=== PATIENT | male | born 1940 | race Hispanic/Latino ===

== ENCOUNTER 2017-05-12 23:17 | Emergency (ER) | payer MEDICARE ==
[2017-05-12 23:18] VITALS: BMI 36.9
[2017-05-12 23:48] VITALS: BP 170/57; PULSE 56; RESP 18; TEMP 97.4; O2SAT 96
--- NOTE | 2017-05-13 00:04 | ED PDOC ---
Arrival/HPI - General Chief Complaint: Male Genitourinary Time Seen by Provider: 05/12/17 23:21 Historian: Patient - History of Present Illness Narrative History of Present Illness (Text): 05/12/17 23:56 Andrez Coelho is a 76 year old male, whose past medical history includes A- Fib on Xarelto, bladder cancer, dyslipidemia, hypothyroidism, CAD with stents, and hypertension, presents to the emergency department complaining of rash and bleeding from denuded skin in scrotal area. States he notes a rash in the scrotal region and applied Mupirocin ointment which was prescribed to him by his PMD previously for similar symptoms. Patient notes that he excoriated skin from the scrotal region while removing his shorts after applying cream. No active bleeding from the region. Denies fever, chills, headache, dizziness, chest pain, difficulty breathing, nausea, vomiting, diarrhea, urinary symptoms, or any other complaints at this time. Symptom Onset: Gradual Symptom Course: Worsening Severity Level: Mild Activities at Onset: Light Context: Home Past Medical History - Provider Review Nursing Documentation Reviewed: Yes - Infectious Disease Hx of Infectious Diseases: None - Tetanus Immunization Tetanus Immunization: Unknown - Cardiac Hx Cardiac Disorders: Yes Hx Hypertension: Yes - Pulmonary Hx Respiratory Disorders: Yes Hx Asthma: Yes Hx Emphysema: Yes Other/Comment: SMOKED CIGARETTES - Neurological Hx Neurological Disorder: Yes Hx Dizziness: Yes (VERTIGO) - HEENT Hx HEENT Disorder: No - Renal Hx Renal Disorder: Yes Other/Comment: LOW GRADE BLADDER CA - Endocrine/Metabolic Hx Endocrine Disorders: No - Hematological/Oncological Hx Blood Disorders: Yes Hx Cancer: Yes (BASAL CELL -FACE,LOW GRADE BLADDER CA) - Integumentary Hx Dermatological Disorder: Yes Hx Basal Cell Carcinoma: Yes (FACE) - Musculoskeletal/Rheumatological Hx Arthritis: Yes (KNEE WITH TOTAL KNEE REPLACEMENT 01-03-16) - Gastrointestinal Hx Gastrointestinal Disorders: No Other/Comment: COLON POLYPS, - Genitourinary/Gynecological Hx Genitourinary Disorders: Yes Hx Hematuria: Yes (MINIMAL HEMATURIA H/O) Other/Comment: UVULECTOMY - Psychiatric Hx Psychophysiologic Disorder: Yes Hx Depression: Yes Hx Emotional Abuse: No Hx Physical Abuse: No Hx Substance Use: No Other/Comment: SMOKED CIGARETTES,SEVERE CLAUSTROPHOBIA - Past Surgical History Past Surgical History: Non-Contributing - Surgical History Hx Coronary Stent: Yes () Hx Orthopedic Surgery: Yes (left knee replacement) Other/Comment: TOTAL KNEE REPLACEMENT LEFT KNEE 01-03-16 aortic valve replacement 03/25 - Anesthesia Hx Anesthesia Reactions: No Hx Malignant Hyperthermia: No - Suicidal Assessment Feels Threatened In Home Enviroment: No Family/Social History - Physician Review Nursing Documentation Reviewed: Yes Family/Social History: No Known Family HX Smoking Status: Former Smoker Hx Alcohol Use: No Hx Substance Use: No Allergies/Home Meds Allergies/Adverse Reactions: Allergies Tetanus Vaccines and Toxoid [Tetanus Vaccines & Toxoid] Allergy (Severe, Verified 05/12/17 23:49) ANAPHYLAXIS tetracycline Allergy (Severe, Verified 05/12/17 23:49) ANAPHYLAXIS cefepime Allergy (Verified 05/12/17 23:49) RASH Penicillins Allergy (Verified 05/12/17 23:50) SWELLING Home Medications: Home Meds Medication Instructions Recorded Confirmed Aspirin [Ecotrin] 81 mg PO DAILY 01/04/17 05/12/17 Atorvastatin [Lipitor] 40 mg PO HS 01/04/17 05/12/17 Doxepin [Sinequan] 50 mg PO HS 01/04/17 05/12/17 Finasteride [Proscar] 5 mg PO DAILY 01/04/17 05/12/17 Levothyroxine [Synthroid] 75 mcg PO DAILY 01/04/17 05/12/17 Lisinopril/Hydrochlorothiazide 40 mg PO DAILY 01/04/17 05/12/17 [Lisinopril-Hctz 20-12.5 mg Tab] Metoprolol Succinate XL [Toprol XL] 25 mg PO DAILY 01/04/17 05/12/17 Rivaroxaban [Xarelto] 20 mg PO HS 01/04/17 05/12/17 amLODIPine [Norvasc] 10 mg PO DAILY 01/04/17 05/12/17 Fluticasone/Vilanterol [Breo 1 inhaler INH DAILY 05/12/17 05/12/17 Ellipta 100-25 Mcg INH] Tiotropium [Spiriva] 1 inhaler INH BID 05/12/17 05/12/17 Review of Systems - Physician Review All systems were reviewed & negative as marked: Yes - Review of Systems Constitutional: Normal. absent: Fatigue, Fevers Respiratory: Normal. absent: SOB, Cough, Sputum Cardiovascular: Normal. absent: Chest Pain, Palpitations Gastrointestinal: Normal. absent: Abdominal Pain, Diarrhea, Nausea, Vomiting Genitourinary Male: Other (rash on the scrotum and mild bleeding from denuded skin ) Musculoskeletal: Normal Neurological: Normal. absent: Headache, Dizziness Psychiatric: Normal Physical Exam Vital Signs Reviewed: Yes Vital Signs Temp Pulse Resp BP Pulse Ox 05/12/17 23:43 97.4 F L 56 L 18 170/57 H 96 Temperature: Afebrile Blood Pressure: Hypertensive Pulse: Regular Respiratory Rate: Normal Appearance: Positive for: Well-Appearing, Non-Toxic, Comfortable Pain Distress: None Mental Status: Positive for: Alert and Oriented X 3 - Systems Exam Head: Present: Atraumatic, Normocephalic Pupils: Present: PERRL Extroacular Muscles: Present: EOMI Conjunctiva: Present: Normal Mouth: Present: Moist Mucous Membranes Respiratory/Chest: Present: Clear to Auscultation, Good Air Exchange. No: Respiratory Distress, Accessory Muscle Use Cardiovascular: Present: Regular Rate and Rhythm, Normal S1, S2. No: Murmurs Abdomen: Present: Normal Bowel Sounds. No: Tenderness, Distention, Peritoneal Signs Genitourinary Male: Present: Other (superficial excoriation of skin in scrotal area. No active bleeding ). No: Lesions, Penile Discharge, Testicle Tenderness , Penile Swelling, Masses, Erythema, Hernias, Testicle Swelling Upper Extremity: Present: Normal Inspection. No: Cyanosis, Edema Lower Extremity: Present: Normal Inspection. No: Edema Neurological: Present: GCS=15, CN II-XII Intact, Speech Normal, Motor Func Grossly Intact Skin: Present: Warm, Dry, Normal Color. No: Rashes Psychiatric: Present: Alert, Oriented x 3, Normal Insight, Normal Concentration Medical Decision Making ED Course and Treatment: 05/13/17 00:07 Impression: A 76 year old male who presents to the ed complaining of rash and bleeding from denuded skin in scrotal region. Plan: 05/13/17 00:43 Bactroban oinment/non adhering sterile dressing placed. Patient is stable for discharge. Advised to continue applying ointment and follow up with PMD within few days. I have discussed the results and plan with the patient, who expresses understanding. Patient given the opportunity to ask question, all questions were answered and there is agreement with the plan to be discharged home. - Scribe Statement The provider has reviewed the documentation as recorded by the Ericka Mallory Provider Attestation: All medical record entries made by the Aashishiblindsay were at my direction and personally dictated by me. I have reviewed the chart and agree that the record accurately reflects my personal performance of the history, physical exam, medical decision making, and the department course for this patient. I have also personally directed, reviewed, and agree with the discharge instructions and disposition. Disposition/Present on Arrival - Present on Arrival Any Indicators Present on Arrival: No History of DVT/PE: No History of Uncontrolled Diabetes: No Urinary Catheter: No History of Decub. Ulcer: No History Surgical Site Infection Following: None - Disposition Have Diagnosis and Disposition been Completed?: Yes Diagnosis: Skin tear Disposition: HOME/ ROUTINE Disposition Time: 00:31 Patient Plan: Discharge Condition: STABLE Additional Instructions: Apply bactroban ointment to the affected area twice daily/avoid any adhering clothing to the area/follow up with your doctor this week Referrals: Chao Mcconnell MD [Primary Care Provider] - Follow up with primary
== END 2017-05-13 00:40 | disposition home or self-care (01) ==
LOC: ED 23:17
DX: S31.31XA Laceration without foreign body of scrotum and testes, initial encounter (principal); X58.XXXA Exposure to other specified factors, initial encounter; Y93.89 Activity, other specified; Y92.89 Other specified places as the place of occurrence of the external cause

== ENCOUNTER 2018-07-05 07:57 | Inpatient (IN) | payer MEDICARE ==
--- NOTE | 2018-07-05 08:08 | ED PDOC ---
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 Patient states he took Mucinex for congestion and had a nebulizer treatment, which provided relief for a minimal amount of time. Patient denies any fever, chills, abdominal pain, back pain, neck pain, nausea, vomiting, or any other complaints. Time/Duration: Prior to Arrival Symptom Onset: Gradual Symptom Course: Unchanged Activities at Onset: Light Context: Home Past Medical History - Provider Review Nursing Documentation Reviewed: Yes - Infectious Disease Hx of Infectious Diseases: None - Tetanus Immunization Tetanus Immunization: Unknown - Cardiac Hx Cardiac Disorders: Yes Hx Hypertension: Yes - Pulmonary Hx Respiratory Disorders: Yes Hx Asthma: Yes Hx Emphysema: Yes Other/Comment: SMOKED CIGARETTES - Neurological Hx Neurological Disorder: Yes Hx Dizziness: Yes (VERTIGO) - HEENT Hx HEENT Disorder: No - Renal Hx Renal Disorder: Yes Other/Comment: LOW GRADE BLADDER CA - Endocrine/Metabolic Hx Endocrine Disorders: No - Hematological/Oncological Hx Blood Disorders: Yes Hx Cancer: Yes (BASAL CELL -FACE,LOW GRADE BLADDER CA) - Integumentary Hx Dermatological Disorder: Yes Hx Basal Cell Carcinoma: Yes (FACE) - Musculoskeletal/Rheumatological Hx Arthritis: Yes (KNEE WITH TOTAL KNEE REPLACEMENT 01-03-16) - Gastrointestinal Hx Gastrointestinal Disorders: No Other/Comment: COLON POLYPS, - Genitourinary/Gynecological Hx Genitourinary Disorders: Yes Hx Hematuria: Yes (MINIMAL HEMATURIA H/O) Other/Comment: UVULECTOMY - Psychiatric Hx Psychophysiologic Disorder: Yes Hx Depression: Yes Hx Substance Use: No Other/Comment: SMOKED CIGARETTES,SEVERE CLAUSTROPHOBIA - Past Surgical History Past Surgical History: Non-Contributing - Surgical History Hx Coronary Stent: Yes ( x2) Hx Orthopedic Surgery: Yes (left knee replacement) Other/Comment: TOTAL KNEE REPLACEMENT LEFT KNEE 01-03-16 aortic valve replacement 03/25. Watchmen - Anesthesia Hx Anesthesia Reactions: No Hx Malignant Hyperthermia: No - Suicidal Assessment Feels Threatened In Home Enviroment: No Family/Social History - Physician Review Nursing Documentation Reviewed: Yes Family/Social History: Unknown Family HX Smoking Status: Former Smoker Hx Alcohol Use: No Hx Substance Use: No Allergies/Home Meds Allergies/Adverse Reactions: Allergies Tetanus Vaccines and Toxoid [Tetanus Vaccines & Toxoid] Allergy (Severe, Verified 07/05/18 08:03) ANAPHYLAXIS tetracycline Allergy (Severe, Verified 07/05/18 08:03) ANAPHYLAXIS cefepime Allergy (Verified 07/05/18 08:03) RASH Penicillins Allergy (Verified 07/05/18 08:03) SWELLING Home Medications: Home Meds Medication Instructions Recorded Confirmed Aspirin [Ecotrin] 81 mg PO DAILY 01/04/17 07/05/18 Atorvastatin [Lipitor] 40 mg PO HS 01/04/17 07/05/18 Doxepin [Sinequan] 50 mg PO HS 01/04/17 07/05/18 Finasteride [Proscar] 5 mg PO DAILY 01/04/17 07/05/18 Levothyroxine [Synthroid] 75 mcg PO DAILY 01/04/17 07/05/18 Lisinopril/Hydrochlorothiazide 40 mg PO DAILY 01/04/17 07/05/18 [Lisinopril-Hctz 20-12.5 mg Tab] Fluticasone/Vilanterol [Breo 1 inhaler INH DAILY 05/12/17 07/05/18 Ellipta 100-25 Mcg INH] Tiotropium [Spiriva] 1 inhaler INH BID 05/12/17 07/05/18 Albuterol Sulfate [Proair 90 mcg IH PRN PRN 07/05/18 07/05/18 Respiclick] Metoprolol Succinate XL [Toprol XL] 50 mg PO DAILY 07/05/18 07/05/18 Review of Systems - Physician Review All systems were reviewed & negative as marked: Yes - Review of Systems Constitutional: Normal Eyes: Normal ENT: Sinus Congestion Respiratory: SOB, Cough Cardiovascular: Normal. absent: Chest Pain Gastrointestinal: Normal. absent: Abdominal Pain, Diarrhea, Nausea, Vomiting Genitourinary Male: Normal. absent: Dysuria, Frequency Musculoskeletal: Normal. absent: Back Pain, Neck Pain Skin: Normal. absent: Rash Neurological: Normal. absent: Headache, Dizziness Endocrine: Normal Hemo/Lymphatic: Normal Psychiatric: Normal Physical Exam Vital Signs Temp Pulse Resp BP Pulse Ox 07/05/18 09:27 54 L 18 142/58 L 98 07/05/18 09:03 163/66 H 07/05/18 08:19 98 F 07/05/18 08:18 53 L 18 163/66 H 98 07/05/18 08:00 22 97 - Systems Exam Head: Present: Atraumatic, Normocephalic Pupils: Present: PERRL Extroacular Muscles: Present: EOMI Conjunctiva: Present: Normal Mouth: Present: Moist Mucous Membranes Neck: Present: Normal Range of Motion Respiratory/Chest: Present: Rales (rales bilaterally). No: Respiratory Distress , Accessory Muscle Use Cardiovascular: Present: Regular Rate and Rhythm, Normal S1, S2. No: Murmurs Abdomen: No: Tenderness, Distention, Peritoneal Signs Back: Present: Normal Inspection Upper Extremity: Present: Normal Inspection. No: Cyanosis, Edema Lower Extremity: Present: Normal Inspection. No: Edema Neurological: Present: GCS=15, CN II-XII Intact, Speech Normal Skin: Present: Warm, Dry, Normal Color. 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 Plan: -- EKG -- Labs -- Cardiac ISO -- CXR -- UA -- reassess and disposition Procedure Notes: EKG reviewed, shows Sinus rhythm at 62 bpm. Right bundle branch block. No changes from previous EKG. 07/05/18 10:48 bl rales a tbases elevated bnp. cxr shows plum vasc congestion lasix doesed. no wbc no fever. pna less likely. accepted by dr jewell - Lab Interpretations Lab Results: 07/05/18 08:10 07/05/18 08:10 Lab Results 07/05/18 08:15: Urine Color Yellow, Urine Appearance Clear, Urine pH 6.0, Ur Specific Mcgrann 1.015, Urine Protein Negative, Urine Glucose (UA) Negative, Urine Ketones Negative, Urine Blood Negative, Urine Nitrate Negative, Urine Bilirubin Negative, Urine Urobilinogen 0.2, Ur Leukocyte Esterase Negative 07/05/18 08:10: Sodium 143, Potassium 4.0, Chloride 104, Carbon Dioxide 26, Anion Gap 17, BUN 25 H, Creatinine 1.3, Est GFR ( Amer) > 60, Est GFR ( Non-Af Amer) 53, Random Glucose 120 H, Calcium 9.5, Magnesium 2.2, Total Bilirubin 0.6, AST 77 H D, ALT 62 H, Alkaline Phosphatase 69, Lactate Dehydrogenase 655, Total Creatine Kinase 77, Troponin I 0.02 D, NT-Pro-B Natriuret Pep 2200 H, Total Protein 7.6, Albumin 4.4, Globulin 3.2, Albumin/ Globulin Ratio 1.4 07/05/18 08:10: PT 12.0, INR 1.04, APTT 28.9 07/05/18 08:10: WBC 9.1, RBC 4.36, Hgb 12.8 L, Hct 40.5 L, MCV 92.9, MCH 29.4, MCHC 31.6, RDW 14.9 H, Plt Count 196, MPV 9.7, Gran % 63.0, Lymph % (Auto) 23.4 , [place] % (Auto) 12.2 H, Eos % (Auto) 1.2 L, Baso % (Auto) 0.2, Gran # 5.71, Lymph # (Auto) 2.1, [place] # (Auto) 1.1 H, Eos # (Auto) 0.1, Baso # (Auto) 0.02 - RAD Interpretation Radiology Orders: 07/05/18 08:04 CHEST PORTABLE [RAD] Stat - Medication Orders Current Medication Orders: Discontinued Medications Furosemide (Lasix) 40 mg IVP STAT STA Stop: 07/05/18 08:43 Last Admin: 07/05/18 09:03 Dose: 40 mg MAR Blood Pressure Document 07/05/18 09:03 [facility] [place] (Rec: 07/05/18 09:03 [id number] Blood Pressure Blood Pressure (100/60-150/90) 163/66 IVP Administration Document 07/05/18 09:03 [facility] [place] (Rec: 07/05/18 09:03 [id number] Charges for Administration # of IVP Administrations 1 - Scribe Statement The provider has reviewed the documentation as recorded by the Scribe Ramila Taylor All medical record entries made by the Scribe were at my direction and personally dictated by me. I have reviewed the chart and agree that the record accurately reflects my personal performance of the history, physical exam, medical decision making, and the department course for this patient. I have also personally directed, reviewed, and agree with the discharge instructions and disposition. Disposition/Present on Arrival - Present on Arrival Any Indicators Present on Arrival: No History of DVT/PE: No History of Uncontrolled Diabetes: No Urinary Catheter: No History of Decub. Ulcer: No History Surgical Site Infection Following: None - Disposition Have Diagnosis and Disposition been Completed?: Yes Diagnosis: CHF (congestive heart failure) Disposition: HOSPITALIZED Disposition Time: 10:00 Patient Problems: Current Active Problems Problem Status Onset CHF (congestive heart failure) Acute Condition: FAIR
[2018-07-05 08:24] LABS: BASO # 0.02 K/mm3 (0.0-2.0); BASO % 0.2 % (0.0-3.0); EOS # 0.1 (0.0-0.7); EOS % 1.2 % (1.5-5.0); GRAN # 5.71 (1.4-6.5); HEMOGLOBIN 12.8 g/dL (14.0-18.0); LYMPH # 2.1 (1.2-3.4); LYMPH % 23.4 % (22.0-35.0); MEAN CELL VOLUME 92.9 fl (80.0-105.0); MEAN CORPUSCULAR HEMOGLOBIN 29.4 pg (25.0-35.0); MEAN CORPUSCULAR HGB CONC 31.6 g/dl (31.0-37.0); MEAN PLATELET VOLUME 9.7 fl (7.0-11.0); MONO # 1.1 (0.1-0.6); MONO % 12.2 % (1.0-6.0); RBC 4.36 10^6/uL (3.5-6.1); RED CELL DISTRIBUTION WIDTH 14.9 % (11.5-14.5); WHITE BLOOD COUNT 9.1 10^3/ul (4.5-11.0)
[2018-07-05 08:28] LABS: INR 1.04; PARTIAL THROMBOPLASTIN TIME 28.9 Seconds (25.1-36.5)
[2018-07-05 08:30] LABS: ALB/GLOB RATIO 1.4 (1.1-1.8); ALBUMIN 4.4 g/dL (3.0-4.8); ALT/SGPT 62 U/L (7-56); AST/SGOT 77 U/L (17-59); BLOOD UREA NITROGEN 25 mg/dL (7-21); CALCIUM 9.5 mg/dL (8.4-10.5); GFR NON-AFRICAN AMERICAN 53
[2018-07-05 08:41] LABS: B-TYPE NATRIURETIC PEPTIDE 2200 pg/mL (0-450); TROPONIN I 0.02 ng/mL
[2018-07-05 09:47] LABS: URINE BILIRUBIN NEGATIVE (NEGATIVE); URINE BLOOD NEGATIVE (NEGATIVE); URINE GLUCOSE (UA) NEGATIVE (NEGATIVE); URINE LEUKOCYTE ESTERASE NEGATIVE Leu/uL (NEGATIVE); URINE PROTEIN NEGATIVE mg/dL (<30 mg/dL); URINE UROBILINOGEN 0.2 E.U./dL (<1 E.U./dL)
[2018-07-05 09:48] LABS: URINE APPEARANCE CLEAR (CLEAR); URINE COLOR YELLOW (YELLOW)
--- NOTE | 2018-07-05 10:34 | RAD ---
Date of service: 07/05/2018 HISTORY: Shortness of breath COMPARISON: 02/05/2018. FINDINGS: LUNGS: The lungs are well inflated. There is moderate pulmonary venous congestion. There is subsegmental atelectasis in the right lower lobe. PLEURA: No significant pleural effusion identified, no pneumothorax apparent. CARDIOVASCULAR: Mild cardiomegaly. OSSEOUS STRUCTURES: No significant abnormalities. VISUALIZED UPPER ABDOMEN: Normal. OTHER FINDINGS: None. IMPRESSION: Mild cardiomegaly and moderate pulmonary venous congestion. Subsegmental atelectasis in the right lower lobe. Superimposed pneumonia cannot be ruled out. Follow-up is advised.
[2018-07-05 11:05] VITALS: BMI 38.2
--- NOTE | 2018-07-05 11:37 | CP.PCM.CON ---
History of Present Illness - History of Present Illness History of Present Illness: Awake, no distress Reason for consultation:Cardiac evaluation of shortness of breath Brief history of present illness:an 78 year old male who came in to the ER due to shortness of breath. He took nebulizer treatment and mucinex with some relief. History of coronary artery disease post stents x 2 ( ) Aortic valve replacement 03/2016, hypertension, Asthma,emphysema,former smoker,vertigo, bladder cancer,left knee replacement 12/2015. Seen and examined by me and Dr. Acosta Review of Systems - Review of Systems All systems: reviewed and no additional remarkable complaints except Review of Systems: per HPI Past Patient History - Infectious Disease Hx of Infectious Diseases: None - Tetanus Immunizations Tetanus Immunization: Unknown - Past Medical History & Family History Past Medical History?: Yes - Past Social History Smoking Status: Former Smoker - CARDIAC Hx Cardiac Disorders: Yes Hx Hypertension: Yes - PULMONARY Hx Respiratory Disorders: Yes Hx Asthma: Yes Hx Emphysema: Yes Other/Comment: SMOKED CIGARETTES - NEUROLOGICAL Hx Neurological Disorder: Yes Hx Dizziness: Yes (VERTIGO) - HEENT Hx HEENT Problems: No - RENAL Hx Chronic Kidney Disease: Yes Other/Comment: LOW GRADE BLADDER CA - ENDOCRINE/METABOLIC Hx Endocrine Disorders: No - HEMATOLOGICAL/ONCOLOGICAL Hx Blood Disorders: Yes Hx Cancer: Yes (BASAL CELL -FACE,LOW GRADE BLADDER CA) - INTEGUMENTARY Hx Dermatological Problems: Yes Hx Basil Cell: Yes (FACE) - MUSCULOSKELETAL/RHEUMATOLOGICAL Hx Arthritis: Yes (KNEE WITH TOTAL KNEE REPLACEMENT 01-03-16) - GASTROINTESTINAL Hx Gastrointestinal Disorders: No Other/Comment: COLON POLYPS, - GENITOURINARY/GYNECOLOGICAL Hx Genitourinary Disorders: Yes Hx Hematuria: Yes (MINIMAL HEMATURIA H/O) Other/Comment: UVULECTOMY - PSYCHIATRIC Hx Psychophysiologic Disorder: Yes Hx Depression: Yes Hx Substance Use: No Other/Comment: SMOKED CIGARETTES,SEVERE CLAUSTROPHOBIA - SURGICAL HISTORY Hx Coronary Stent: Yes ( x2) Hx Orthopedic Surgery: Yes (left knee replacement) Other/Comment: TOTAL KNEE REPLACEMENT LEFT KNEE 01-03-16 aortic valve replacement 03/25. Watchmen - ANESTHESIA Hx Anesthesia Reactions: No Hx Malignant Hyperthermia: No Meds Allergies/Adverse Reactions: Allergies Allergy/AdvReac Type Severity Reaction Status Date / Time Tetanus Vaccines and Toxoid Allergy Severe ANAPHYLAXIS Verified 07/05/18 08:03 [Tetanus Vaccines & Toxoid] tetracycline Allergy Severe ANAPHYLAXIS Verified 07/05/18 08:03 cefepime Allergy RASH Verified 07/05/18 08:03 Penicillins Allergy SWELLING Verified 07/05/18 08:03 Physical Exam - Constitutional Appears: No Acute Distress - Eye Exam Eye Exam: Normal appearance - ENT Exam ENT Exam: Mucous Membranes Moist - Respiratory Exam Respiratory Exam: Decreased Breath Sounds, Rhonchi, NORMAL BREATHING PATTERN - Cardiovascular Exam Cardiovascular Exam: +S1, +S2 - GI/Abdominal Exam GI & Abdominal Exam: Normal Bowel Sounds, Soft - Extremities Exam Additional comments: 2+edema - Neurological Exam Neurological exam: Alert, Oriented x3 - Psychiatric Exam Psychiatric exam: Normal Affect - Skin Skin Exam: Intact, Warm Results - Vital Signs Recent Vital Signs: Last Vital Signs Temp 98.4 F 07/05/18 10:31 Pulse 52 L 07/05/18 10:31 Resp 22 07/05/18 10:31 BP 145/65 07/05/18 10:31 Pulse Ox 98 07/05/18 10:10 - Labs Result Diagrams: 07/05/18 08:10 07/05/18 08:10 Assessment & Plan - Assessment and Plan (Free Text) Assessment: An 78 year old male who came in to the ER due to shortness of breath. He took nebulizer treatment and mucinex with some relief. History of coronary artery disease post stents x 2 ( ) Aortic valve replacement 03/2016 and Watchman placed due to unable to tolerate anti coagulation for Afib. hypertension, Asthma,emphysema,former smoker,vertigo,bladder cancer,left knee replacement 12/2015.Exacerbation of congestive heart failure, possible pneumonia. 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 [place] [facility] [place] and had AVR 03/2016. Plan: Echo to evaluate LV function and valve function Continue to diurese with Lasix Continue current medications Continue current treatment Further recommendation during hospital course Will follow up PLan and treatment discussed with Dr. Acosta Thank you Dr. Fuentes for the opportunity in taking care of Mr. Andrez Coelho - Date & Time Date: 07/05/18 Time: 11:50
[2018-07-05] MEDS ORDERED: Tiotropium 18 mcg Cap For Inhalation INH SCH (11:45)
[2018-07-05] MEDS ORDERED: Metoprolol Succinate 50 mg XL Tab PO SCH (11:45)
[2018-07-05] MEDS: Levothyroxine 75 MCG TAB PO SCH (11:51)
[2018-07-05] MEDS ORDERED: Metoprolol Succinate 25 mg XL Tab PO SCH (11:56)
--- NOTE | 2018-07-05 12:29 | CARD ---
APPROVED REPORT Date of service: 07/05/2018 EKG Measurement Heart [id number] <Conclusion> Poor data quality, interpretation may be adversely affected Sinus rhythm with 1st degree AV block Left axis deviation Left bundle branch block Abnormal ECG
[2018-07-05] MEDS ORDERED: Albuterol-Ipratrop 3 mg / 0.5 (3 ml) UD IH PRN (13:22)
[2018-07-05] MEDS: Albuterol-Ipratrop 3 mg / 0.5 (3 ml) UD IH SCH (19:36)
[2018-07-05] MEDS ORDERED: DOXEPIN 50 MG PO SCH (22:00)
--- NOTE | 2018-07-06 00:28 | HP ---
Copied To: Asael Fuentes MD Attending MD: Asael Fuentes MD HISTORY OF PRESENT ILLNESS: The patient is 78 years old, patient of Dr. Dahl, came to emergency room because of increasing shortness of breath. According to , he went for [employer] last week and he had [place], he did eat some barbecue foods, since then he has been having increasingly short of breath. He took nebulizer treatment at home with very little relief, but his shortness of breath kept on increasing, so he came to emergency room for further evaluation. Denies any fever or chills. No history of nausea or vomiting. No abdominal pain. Currently, no chest pain. No fever or chills. No productive cough. PAST MEDICAL HISTORY: Significant for: 1. Hypertension. 2. Coronary artery disease status post angioplasty in 2013 and 2014. He has aortic valve replaced in 03/2016. 3. History of COPD. 4. History of chronic vertigo. 5. History of bladder CA. 6. Status post left knee replacement in 12/2015 and he also had Watchman procedure done in [facility], since he was having GI bleed and was taken off of anticoagulant and had Watchman device placed by thoracic surgeon. ALLERGIES: HE IS ALLERGIC TO TETANUS TOXOID, TETRACYCLINE, CEFEPIME, AND PENICILLIN. MEDICATIONS AT HOME: He is on metoprolol 50 mg daily, albuterol 90 mcg daily, Spiriva, lisinopril, levothyroxine, Proscar, atorvastatin, doxepin 50 mg at bedtime and aspirin 81 daily. SOCIAL HISTORY: He used to be heavy smoker in the past. Denies alcohol use. Only socially drinks, few sips here and there. REVIEW OF SYSTEMS: Complain of shortness of breath. No chest pain. No nausea or vomiting. Eating his lunch. PHYSICAL EXAMINATION GENERAL: He looks comfortable, but mild shortness of breath on talking. VITAL SIGNS: He is afebrile, pulse 52, respirations 22, blood pressure 145/65. LUNGS: Bilateral good airflow. No rhonchi or crackles. HEART: S1 and S2 audible. ABDOMEN: Soft, nontender. No rebound. No guarding. NEUROLOGIC: The patient is awake, alert, oriented, and communicative. LABORATORY EXAM: WBC is 9.1, hemoglobin 12.8, hematocrit 40.5, and platelets of 196. PT 12, INR 1.04. Chemistry: Sodium 143, potassium 4, chloride 104, CO2 of 26, BUN 25, creatinine 1.3. Blood sugar of 120. LFTs shows AST 77, ALT 62. BNP is 2200. Troponin is negative. Urinalysis is unremarkable. X-ray chest shows pulmonary congestion, right lower lobe subsegmental atelectasis. ASSESSMENT: 1. Congestive heart failure exacerbation. 2. Coronary artery disease status post angioplasties. 3. Hypertension. 4. Hyperlipidemia. 5. Left bundle-branch block. 6. Sinus rhythm with first-degree atrioventricular block. 7. Abnormal liver function test probably secondary to congestion. PLAN: We will diurese the patient. We will resume his beta phil, give him Lasix every 12, follow up his electrolyte, continue him on his Proscar, start him on Xopenex, start him on DuoNeb. Dr. Dahl will follow up the patient. Asael Fuentes MD
[2018-07-06] MEDS: Albuterol-Ipratrop 3 mg / 0.5 (3 ml) UD IH SCH ×3 (02:41→19:50)
[2018-07-06 06:33] LABS: BASO # 0.03 K/mm3 (0.0-2.0); BASO % 0.3 % (0.0-3.0); EOS # 0.2 (0.0-0.7); EOS % 1.6 % (1.5-5.0); GRAN # 5.76 (1.4-6.5); GRAN % 62.2 % (50.0-68.0); HEMOGLOBIN 12.3 g/dL (14.0-18.0); LYMPH # 2.1 (1.2-3.4); LYMPH % 22.6 % (22.0-35.0); MEAN CELL VOLUME 91.6 fl (80.0-105.0); MEAN CORPUSCULAR HEMOGLOBIN 29.4 pg (25.0-35.0); MEAN CORPUSCULAR HGB CONC 32.1 g/dl (31.0-37.0); MONO # 1.2 (0.1-0.6); MONO % 13.3 % (1.0-6.0); RBC 4.18 10^6/uL (3.5-6.1); WHITE BLOOD COUNT 9.3 10^3/ul (4.5-11.0)
[2018-07-06 06:48] LABS: ALB/GLOB RATIO 1.4 (1.1-1.8); ALT/SGPT 56 U/L (7-56); AST/SGOT 39 U/L (17-59); BLOOD UREA NITROGEN 27 mg/dL (7-21); CALCIUM 9.6 mg/dL (8.4-10.5); GFR NON-AFRICAN AMERICAN 53
--- NOTE | 2018-07-06 07:04 | CP.PCM.PN ---
Subjective - Date & Time of Evaluation Date of Evaluation: 07/06/18 Time of Evaluation: 06:20 - Subjective Subjective: Easily awaken, no distress, denies shortness of breath Reason for consultation and follow up: Cardiac evaluation of shortness of breath , History of coronary artery disease post stents x 2 ( ) Aortic valve replacement 03/2016, hypertension, Asthma,emphysema,former smoker,vertigo, bladder cancer,left knee replacement 12/2015. Seen and examined by me and Dr. Harrington Objective - Vital Signs/Intake and Output Vital Signs (last 24 hours): Temp Pulse Resp BP Pulse Ox 97.6 F 54 L 18 148/74 97 07/06/18 00:01 07/06/18 00:01 07/06/18 00:01 07/06/18 00:01 07/06/18 00:01 Intake and Output: 07/06/18 07/06/18 06:59 18:59 Intake Total 360 Output Total 61065 Balance -38832 - Medications Medications: Current Medications Albuterol/Ipratropium (Duoneb 3 Mg/0.5 Mg (3 Ml) Ud) 3 ml IH Q2H PRN PRN Reason: Shortness of Breath Albuterol/Ipratropium (Duoneb 3 Mg/0.5 Mg (3 Ml) Ud) 3 ml IH [id number] [facility] Last Admin: 07/06/18 02:41 Dose: 3 ml Aspirin (Ecotrin) 81 mg PO DAILY [facility] Last Admin: 07/05/18 11:51 Dose: Not Given Atorvastatin Calcium (Lipitor) 40 mg PO HS [facility] Last Admin: 07/05/18 21:10 Dose: 40 mg Finasteride (Proscar) 5 mg PO DAILY [facility] Last Admin: 07/05/18 11:52 Dose: Not Given Furosemide (Lasix) 40 mg IVP Q12 [facility] Last Admin: 07/05/18 21:10 Dose: 40 mg Levothyroxine Sodium (Synthroid) 75 mcg PO DAILY [facility] Last Admin: 07/05/18 11:51 Dose: Not Given Lisinopril (Zestril) 40 mg PO DAILY [facility] Lorazepam (Ativan) 1 mg PO HS [facility] PRN Reason: Protocol Last Admin: 07/05/18 21:09 Dose: 1 mg Metoprolol Succinate (Toprol Xl) 25 mg PO DAILY [facility] Tiotropium [place] (Spiriva) 18 mcg IH DAILY [facility] - Labs Labs: 07/06/18 05:30 PT 12.0 SECONDS (9.4-12.5) 07/05/18 08:10 INR 1.04 07/05/18 08:10 APTT 28.9 Seconds (25.1-36.5) 07/05/18 08:10 - Constitutional Appears: No Acute Distress - Eye Exam Eye Exam: Normal appearance - ENT Exam ENT Exam: Mucous Membranes Moist - Respiratory Exam Respiratory Exam: Decreased Breath Sounds, NORMAL BREATHING PATTERN - Cardiovascular Exam Cardiovascular Exam: Bradycardia, +S1, +S2 Additional comments: Telemetry bradycardia- 40's-50's. - GI/Abdominal Exam GI & Abdominal Exam: Soft, Normal Bowel Sounds - Extremities Exam Additional comments: 2+edema - Neurological Exam Neurological Exam: Alert, Awake, Oriented x3 - Psychiatric Exam Psychiatric exam: Normal Affect - Skin Skin Exam: Intact, Warm Assessment and Plan - Assessment and Plan (Free Text) Assessment: An 78 year old male who came in to the ER due to shortness of breath. He took nebulizer treatment and mucinex with some relief. History of coronary artery disease post stents x 2 ( ) Aortic valve replacement 03/2016 and Watchman placed due to unable to tolerate anti coagulation for Afib. hypertension, Asthma,emphysema,former smoker,vertigo,bladder cancer,left knee replacement 12/2015.Exacerbation of congestive heart failure, possible pneumonia. Chest Xray showed mild cardiomegaly,moderate pulmonary venous congestion,subsegmental atelectasis in the right lower lobe.BNP level elevated.Follows up with Journal Box Inspector at [facility]. Last Echo at [facility] 07/28/14 and had AVR 03/2016. Plan: Feels okay Echo to evaluate LV function and valve function Continue Lasix to diurese On ASA 81 mg daily,Lipitor 40 mg daily,Proscar 5 mg daily, Lasix 40 mg BID Lisinopril 40 mg daily, Metoprolol 25 mg daily, Synthroid 75 mcg daily Heart rate- Atrial fib at 40's and 50's Will hold Metroprolol for now Blood pressure controlled Continue current medications Continue current treatment Will follow up Plan and treatment discussed with Dr. Harrington
--- NOTE | 2018-07-06 09:55 | CP.PCM.PN ---
<Bladimir Shultz - Last Filed: 07/06/18 10:07> Subjective - Date & Time of Evaluation Date of Evaluation: 07/06/18 Time of Evaluation: 09:47 - Subjective Subjective: Progress note for Dr. Dahl Patient seen and examined at bedside. Patient states his shortness of breath is improved. Denies chest pain, nausea, vomiting, diarrhea, fever, chills. Objective - Vital Signs/Intake and Output Vital Signs (last 24 hours): Temp Pulse Resp BP Pulse Ox 97.7 F 49 L 18 136/59 L 96 07/06/18 08:34 07/06/18 08:34 07/06/18 08:34 07/06/18 08:34 07/06/18 08:34 Intake and Output: 07/06/18 07/06/18 06:59 18:59 Intake Total 720 Output Total 95393 - - Medications Medications: Current Medications Albuterol/Ipratropium (Duoneb 3 Mg/0.5 Mg (3 Ml) Ud) 3 ml IH Q2H PRN PRN Reason: Shortness of Breath Albuterol/Ipratropium (Duoneb 3 Mg/0.5 Mg (3 Ml) Ud) 3 ml IH BIDRESP [facility] Aspirin (Ecotrin) 81 mg PO DAILY [facility] Last Admin: 07/05/18 11:51 Dose: Not Given Atorvastatin Calcium (Lipitor) 40 mg PO HS [facility] Last Admin: 07/05/18 21:10 Dose: 40 mg Finasteride (Proscar) 5 mg PO DAILY [facility] Last Admin: 07/05/18 11:52 Dose: Not Given Furosemide (Lasix) 40 mg IVP Q12 [facility] Last Admin: 07/05/18 21:10 Dose: 40 mg Levothyroxine Sodium (Synthroid) 75 mcg PO DAILY [facility] Last Admin: 07/05/18 11:51 Dose: Not Given Lisinopril (Zestril) 40 mg PO DAILY [facility] Lorazepam (Ativan) 1 mg PO HS [facility] PRN Reason: Protocol Last Admin: 07/05/18 21:09 Dose: 1 mg Tiotropium [place] (Spiriva) 18 mcg IH DAILY [facility] - Labs Labs: 07/06/18 05:30 07/06/18 05:30 PT 12.0 SECONDS (9.4-12.5) 07/05/18 08:10 INR 1.04 07/05/18 08:10 APTT 28.9 Seconds (25.1-36.5) 07/05/18 08:10 - Constitutional Appears: Non-toxic, No Acute Distress - Head Exam Head Exam: ATRAUMATIC, NORMAL INSPECTION, NORMOCEPHALIC - ENT Exam ENT Exam: Mucous Membranes Moist, Normal Exam - Respiratory Exam Respiratory Exam: Clear to Ausculation Bilateral, NORMAL BREATHING PATTERN. absent: Rales, Rhonchi, Wheezes - Cardiovascular Exam Cardiovascular Exam: RRR, +S1, +S2 - GI/Abdominal Exam GI & Abdominal Exam: Soft, Normal Bowel Sounds. absent: Tenderness - Extremities Exam Extremities Exam: Pedal Edema (Trace edema b/l) - Neurological Exam Neurological Exam: Alert, Awake, Oriented x3 - Psychiatric Exam Psychiatric exam: Normal Affect, Normal Mood - Skin Skin Exam: Intact, Normal Color, Warm Assessment and Plan - Assessment and Plan (Free Text) Plan: 1. Diastolic CHF exacerbation 2. CAD s/p angioplasty 3. COPD 4. HTN 5. Hyperlipidemia 6. Hypothyroidism Patient will continue to be diuresed with Lasix 40 mg BID. Patient currently being evaluated by cardiology, will obtain echocardiogram. Duoneb treatments will be changed to BID. Continue current medical management. Will continue monitor patient closely. Carrington PGY-3 <Sixto Dahl S - Last Filed: 07/06/18 20:04> Objective - Vital Signs/Intake and Output Vital Signs (last 24 hours): Temp Pulse Resp BP Pulse Ox 98 F 58 L 18 125/58 L 96 07/06/18 12:09 07/06/18 12:09 07/06/18 12:09 07/06/18 12:09 07/06/18 08:34 Intake and Output: 07/06/18 07/07/18 18:59 06:59 Intake Total 480 Output Total 600 Balance -120 - Medications Medications: Current Medications Albuterol/Ipratropium (Duoneb 3 Mg/0.5 Mg (3 Ml) Ud) 3 ml IH Q2H PRN PRN Reason: Shortness of Breath Albuterol/Ipratropium (Duoneb 3 Mg/0.5 Mg (3 Ml) Ud) 3 ml IH BIDRESP [facility] Last Admin: 07/06/18 19:50 Dose: 3 ml Aspirin (Ecotrin) 81 mg PO DAILY [facility] Last Admin: 07/06/18 10:59 Dose: 81 mg Atorvastatin Calcium (Lipitor) 40 mg PO HS [facility] Last Admin: 07/05/18 21:10 Dose: 40 mg Finasteride (Proscar) 5 mg PO DAILY [facility] Last Admin: 07/06/18 10:59 Dose: 5 mg Furosemide (Lasix) 40 mg IVP Q12 [facility] Last Admin: 07/06/18 10:59 Dose: 40 mg Levothyroxine Sodium (Synthroid) 75 mcg PO DAILY [facility] Last Admin: 07/06/18 10:59 Dose: 75 mcg Lisinopril (Zestril) 40 mg PO DAILY [facility] Last Admin: 07/06/18 11:00 Dose: 40 mg Lorazepam (Ativan) 1 mg PO HS [facility] PRN Reason: Protocol Last Admin: 07/05/18 21:09 Dose: 1 mg Tiotropium [place] (Spiriva) 18 mcg IH DAILY [facility] Last Admin: 07/06/18 10:59 Dose: 18 mcg - Labs Labs: 07/06/18 05:30 07/06/18 05:30 PT 12.0 SECONDS (9.4-12.5) 07/05/18 08:10 INR 1.04 07/05/18 08:10 APTT 28.9 Seconds (25.1-36.5) 07/05/18 08:10 Assessment and Plan - Assessment and Plan (Free Text) Plan: Pt seen and examined. I have reviewed the note of the phlebotomist medical lab assistant and agree with it. I have discussed the assessment and plan with the resident. I have reviewed the patient's labs and medications. Pt with CHF - diastolic dysfunction. Pt with LE edema. On lasix for diureisis. Pt with good urine output. Will continue with lasix IV. He is being followed by cardiology.
[2018-07-06] MEDS: Tiotropium 18 mcg Cap For Inhalation IH SCH (10:59)
[2018-07-06] MEDS: Levothyroxine 75 MCG TAB PO SCH (10:59)
[2018-07-06 12:10] VITALS: PULSE 58
--- NOTE | 2018-07-06 15:14 | CARD ---
APPROVED REPORT Date of service: 07/06/2018 EXAM: Two-dimensional and M-mode echocardiogram with Doppler and color Doppler. INDICATION EVALUATE LVFX, VALVES 2D DIMENSIONS Left Atrium (2D)4.6 (1.6-4.0cm)IVSd1.7 (0.7-1.1cm) LVDd5.7 (3.9-5.9cm)PWd1.5 (0.7-1.1cm) LVDs4.2 (2.5-4.0cm)FS (%) 25.9 % LVEF (%)50.1 (>50%) M-Mode DIMENSIONS Aortic Root3.50 (2.2-3.7cm) Aortic Valve AoV Peak Yiatbhzj632.0cm/sAoV VTI55.1cmAO Peak GR.28mmHg LVOT Peak Iwbxhmjd911.0cm/sLVOT VTI24.50cmAO Mean GR.13mmHg Mitral Valve MV E Dvmbqvlj06.2cm/sMV A Slljbupi73.8cm/sE/A ratio0.7 TDI Lateral E' Peak V6.63cm/sMedial E' Peak V4.19cm/sE/Lateral E'9.7 E/Medial E'15.3 Pulmonary Valve PV Peak Gzmmtzat25.2cm/sPV Peak Grad.4mmHg Tricuspid Valve TR Peak Stffnnyk369qy/sRAP LHRNAWMM01siVjKQ Peak Gr.15mmHg [id number] LEFT VENTRICLE The Left Ventricle is borderline dilated. There is mild to moderate concentric left ventricular hypertrophy. Proximal septal thickening is noted. The systolic function is mildly impaired.EF-45-50% There is mild hypokinesis in the apical anterior wall. Transmitral Doppler flow pattern is Grade III-reversible restrictive diastolic dysfunction. No left ventricle thrombus noted on this study. There is no ventricular septal defect visualized. There is no left ventricular aneurysm. There is no mass noted in the left ventricle. RIGHT VENTRICLE The right ventricle is normal size. There is normal right ventricular wall thickness. The right ventricular systolic function is normal. ATRIA The left atrium is borderline dilated. The right atrium size is normal. The interatrial septum is intact with no evidence for an atrial septal defect. AORTIC VALVE No aortic regurgitation is present. There are no vegetations present on this prosthetic aortic valve. There is a bioprosthetic aortic valve prosthesis. The prosthetic aortic valve appears normal. MITRAL VALVE The mitral valve is thickened but opens well. Mitral annular calcification is mild to moderate. Mitral regurgitation is mild. There is no mitral valve stenosis. There is no evidence of mitral valve prolapse. TRICUSPID VALVE The tricuspid valve leaflets are thickened , but open well. There is trace tricuspid regurgitation.RVSp-25 mmof hg. There is no tricuspid valve stenosis. There is no tricuspid valve prolapse or vegetation. PULMONIC VALVE The pulmonic valve is mildly thickened. There is trace pulmonic valvular regurgitation. There is no pulmonic valvular stenosis. GREAT VESSELS The aortic root is normal in size. The ascending aorta is normal in size. The pulmonary artery is normal. The IVC is normal in size and collapses >50% with inspiration. PERICARDIAL EFFUSION There is no pleural effusion. There is no pericardial effusion. <Conclusion> The Left Ventricle is borderline dilated. There is mild to moderate concentric left ventricular hypertrophy. Proximal septal thickening is noted. The systolic function is mildly impaired.EF-45-50% There are no vegetations present on this prosthetic aortic valve. There is a bioprosthetic aortic valve prosthesis. The prosthetic aortic valve appears normal. Mitral regurgitation is mild. There is trace tricuspid regurgitation.RVSp-25 mmof hg. There is no pulmonic valvular stenosis. The IVC is normal in size and collapses >50% with inspiration. There is no pericardial effusion.
[2018-07-07 06:45] LABS: BASO # 0.02 K/mm3 (0.0-2.0); BASO % 0.2 % (0.0-3.0); EOS # 0.2 (0.0-0.7); EOS % 2.4 % (1.5-5.0); GRAN # 5.98 (1.4-6.5); GRAN % 60.4 % (50.0-68.0); HEMOGLOBIN 12.4 g/dL (14.0-18.0); LYMPH # 2.3 (1.2-3.4); LYMPH % 23.6 % (22.0-35.0); MEAN CELL VOLUME 92.8 fl (80.0-105.0); MEAN CORPUSCULAR HGB CONC 31.2 g/dl (31.0-37.0); MEAN PLATELET VOLUME 9.8 fl (7.0-11.0); MONO # 1.3 (0.1-0.6); MONO % 13.4 % (1.0-6.0); RBC 4.28 10^6/uL (3.5-6.1); RED CELL DISTRIBUTION WIDTH 15.2 % (11.5-14.5); WHITE BLOOD COUNT 9.9 10^3/ul (4.5-11.0)
[2018-07-07 06:52] LABS: ALB/GLOB RATIO 1.4 (1.1-1.8); ALBUMIN 3.9 g/dL (3.0-4.8); CALCIUM 9.3 mg/dL (8.4-10.5)
--- NOTE | 2018-07-07 07:15 | CP.PCM.PN ---
Subjective - Date & Time of Evaluation Date of Evaluation: 07/07/18 Time of Evaluation: 06:25 - Subjective Subjective: awake, no distress, denies shortness of breath,sitting side of bed Reason for consultation and follow up: Cardiac evaluation of shortness of breath , History of coronary artery disease post stents x 2 ( ) Aortic valve replacement 03/2016, hypertension, Asthma,emphysema,former smoker,vertigo, bladder cancer,left knee replacement 12/2015. Seen and examined by me and Dr. Harrington Objective - Vital Signs/Intake and Output Vital Signs (last 24 hours): Temp Pulse Resp BP Pulse Ox 98 F 58 L 18 116/57 L 96 07/06/18 12:09 07/06/18 12:09 07/06/18 12:09 07/06/18 22:01 07/06/18 08:34 - Medications Medications: Current Medications Albuterol/Ipratropium (Duoneb 3 Mg/0.5 Mg (3 Ml) Ud) 3 ml IH Q2H PRN PRN Reason: Shortness of Breath Albuterol/Ipratropium (Duoneb 3 Mg/0.5 Mg (3 Ml) Ud) 3 ml IH BIDRESP [facility] Last Admin: 07/06/18 19:50 Dose: 3 ml Aspirin (Ecotrin) 81 mg PO DAILY [facility] Last Admin: 07/06/18 10:59 Dose: 81 mg Atorvastatin Calcium (Lipitor) 40 mg PO HS [facility] Last Admin: 07/06/18 22:01 Dose: 40 mg Finasteride (Proscar) 5 mg PO DAILY [facility] Last Admin: 07/06/18 10:59 Dose: 5 mg Furosemide (Lasix) 40 mg IVP Q12 [facility] Last Admin: 07/06/18 22:01 Dose: 40 mg Levothyroxine Sodium (Synthroid) 75 mcg PO DAILY [facility] Last Admin: 07/06/18 10:59 Dose: 75 mcg Lisinopril (Zestril) 40 mg PO DAILY [facility] Last Admin: 07/06/18 11:00 Dose: 40 mg Lorazepam (Ativan) 1 mg PO HS [facility] PRN Reason: Protocol Last Admin: 07/06/18 22:01 Dose: 1 mg Tiotropium [place] (Spiriva) 18 mcg IH DAILY [facility] Last Admin: 07/06/18 10:59 Dose: 18 mcg - Labs Labs: 07/06/18 05:30 07/07/18 06:00 PT 12.0 SECONDS (9.4-12.5) 07/05/18 08:10 INR 1.04 07/05/18 08:10 APTT 28.9 Seconds (25.1-36.5) 07/05/18 08:10 - Constitutional Appears: No Acute Distress - Eye Exam Eye Exam: Normal appearance - Respiratory Exam Respiratory Exam: Decreased Breath Sounds, NORMAL BREATHING PATTERN - Cardiovascular Exam Cardiovascular Exam: +S1, +S2 - GI/Abdominal Exam GI & Abdominal Exam: Soft, Normal Bowel Sounds - Neurological Exam Neurological Exam: Alert, Awake, Oriented x3 - Psychiatric Exam Psychiatric exam: Normal Affect - Skin Skin Exam: Dry, Warm Assessment and Plan - Assessment and Plan (Free Text) Assessment: An 78 year old male who came in to the ER due to shortness of breath. He took nebulizer treatment and mucinex with some relief. History of coronary artery disease post stents x 2 ( ) Aortic valve replacement 03/2016 and Watchman placed due to unable to tolerate anti coagulation for Afib. hypertension, Asthma,emphysema,former smoker,vertigo,bladder cancer,left knee replacement 12/2015.Exacerbation of diastolic congestive heart failure, Chest Xray showed mild cardiomegaly,moderate pulmonary venous congestion,subsegmental atelectasis in the right lower lobe.BNP level elevated.Follows up with Public Health Dentist at [facility]. Last Echo at [facility] [place] was 07/28/14 and had AVR 03/2016.ECHO done. Plan: ECHO done-Moderate concentric LV hypertrophy,Systolic function mildly impaired, LVEF50% No vegetation on the prosthetic aortic valve, Mild MR.trace TR. Feels better, breathing better Continue to diurese On ASA 81 mg daily,Lipitor 40 mg daily,Proscar 5 mg daily, Lasix 40 mg BID Lisinopril 40 mg daily, Metoprolol 25 mg daily, Synthroid 75 mcg daily Heart rate- Atrial fib at 40's and 50's Held Lopressor for bradycardia Blood pressure controlled Continue current medications Continue current treatment Will follow up Plan and treatment discussed with Dr. Harrington
[2018-07-07] MEDS: Albuterol-Ipratrop 3 mg / 0.5 (3 ml) UD IH SCH (07:52)
--- NOTE | 2018-07-07 08:01 | CP.PCM.DIS ---
<Bladimir Shultz - Last Filed: 07/07/18 12:28> Provider - Provider Date of Admission: 07/05/18 08:50 Attending physician: Sixto Dahl MD Consults: Cardio - Dr. Acosta Time Spent in preparation of Discharge (in minutes): 45 Diagnosis - Discharge Diagnosis (1) CHF (congestive heart failure) Status: Chronic (2) Sepsis Status: Resolved (3) Shortness of breath Status: Resolved Hospital Course - Lab Results Lab Results: Most Recent Lab Values WBC 9.9 10^3/ul (4.5-11.0) 07/07/18 06:00 RBC 4.28 10^6/uL (3.5-6.1) 07/07/18 06:00 Hgb 12.4 g/dL (14.0-18.0) L 07/07/18 06:00 Hct 39.7 % (42.0-52.0) L 07/07/18 06:00 MCV 92.8 fl (80.0-105.0) 07/07/18 06:00 MCH 29.0 pg (25.0-35.0) 07/07/18 06:00 MCHC 31.2 g/dl (31.0-37.0) 07/07/18 06:00 RDW 15.2 % (11.5-14.5) H 07/07/18 06:00 Plt Count 206 10^3/uL (120.0-450.0) 07/07/18 06:00 MPV 9.8 fl (7.0-11.0) 07/07/18 06:00 Gran % 60.4 % (50.0-68.0) 07/07/18 06:00 Lymph % (Auto) 23.6 % (22.0-35.0) 07/07/18 06:00 [place] % (Auto) 13.4 % (1.0-6.0) H 07/07/18 06:00 Eos % (Auto) 2.4 % (1.5-5.0) 07/07/18 06:00 Baso % (Auto) 0.2 % (0.0-3.0) 07/07/18 06:00 Gran # 5.98 (1.4-6.5) 07/07/18 06:00 Lymph # (Auto) 2.3 (1.2-3.4) 07/07/18 06:00 [place] # (Auto) 1.3 (0.1-0.6) H 07/07/18 06:00 Eos # (Auto) 0.2 (0.0-0.7) 07/07/18 06:00 Baso # (Auto) 0.02 K/mm3 (0.0-2.0) 07/07/18 06:00 PT 12.0 SECONDS (9.4-12.5) 07/05/18 08:10 INR 1.04 07/05/18 08:10 APTT 28.9 Seconds (25.1-36.5) 07/05/18 08:10 Sodium 141 mmol/L (132-148) 07/07/18 06:00 Potassium 3.6 mmol/L (3.6-5.0) 07/07/18 06:00 Chloride 98 mmol/L (98-107) 07/07/18 06:00 Carbon Dioxide 31 mmol/L (21-33) 07/07/18 06:00 Anion Gap 15 (10-20) 07/07/18 06:00 BUN 36 mg/dL (7-21) H 07/07/18 06:00 Creatinine 1.6 mg/dl (0.8-1.5) H 07/07/18 06:00 Est GFR ( Amer) 51 07/07/18 06:00 Est GFR (Non-Af Amer) 42 07/07/18 06:00 Random Glucose 110 mg/dL (70-110) 07/07/18 06:00 Calcium 9.3 mg/dL (8.4-10.5) 07/07/18 06:00 Phosphorus 4.0 mg/dL (2.5-4.5) 07/07/18 06:00 Magnesium 2.0 mg/dL (1.7-2.2) 07/07/18 06:00 Total Bilirubin 0.8 mg/dL (0.2-1.3) 07/07/18 06:00 AST 39 U/L (17-59) 07/07/18 06:00 ALT 39 U/L (7-56) 07/07/18 06:00 Alkaline Phosphatase 63 U/L (38-126) 07/07/18 06:00 Lactate Dehydrogenase 655 U/L (333-699) 07/05/18 08:10 Total Creatine Kinase 77 U/L (35-230) 07/05/18 08:10 Troponin I 0.02 ng/mL D 07/05/18 08:10 NT-Pro-B Natriuret Pep 2200 pg/mL (0-450) H 07/05/18 08:10 Total Protein 6.6 g/dL (5.8-8.3) 07/07/18 06:00 Albumin 3.9 g/dL (3.0-4.8) 07/07/18 06:00 Globulin 2.8 gm/dL 07/07/18 06:00 Albumin/Globulin Ratio 1.4 (1.1-1.8) 07/07/18 06:00 Urine Color Yellow (YELLOW) 07/05/18 08:15 Urine Appearance Clear (CLEAR) 07/05/18 08:15 Urine pH 6.0 (4.7-8.0) 07/05/18 08:15 Ur Specific [place] 1.015 (1.005-1.035) 07/05/18 08:15 Urine Protein Negative mg/dL (<30 mg/dL) 07/05/18 08:15 Urine Glucose (UA) Negative mg/dL (NEGATIVE) 07/05/18 08:15 Urine Ketones Negative mg/dL (NEGATIVE) 07/05/18 08:15 Urine Blood Negative (NEGATIVE) 07/05/18 08:15 Urine Nitrate Negative (NEGATIVE) 07/05/18 08:15 Urine Bilirubin Negative (NEGATIVE) 07/05/18 08:15 Urine Urobilinogen 0.2 E.U./dL (<1 E.U./dL) 07/05/18 08:15 Ur Leukocyte Esterase Negative Lorrie/uL (NEGATIVE) 07/05/18 08:15 - Hospital Course Hospital Course: 78 year old male with past medical history of HTN, CAD s/p stent placement, aortic valve repair, COPD, bladder cancer, and vertigo presented to the hospital due to CHF exacerbation. Patient had been compliant with medications at home. Patient had echocardiogram performed which demonstrated diastolic dysfunction and EF of 45%. Patient will be discharged and continue with all home medications. In addition, patient will have Lasix 40 mg PO daily started. Patient will follow up with PMD and environmental professional. Discharge Exam - Head Exam Head Exam: ATRAUMATIC, NORMAL INSPECTION, NORMOCEPHALIC - ENT Exam ENT Exam: Mucous Membranes Moist, Normal Exam - Respiratory Exam Respiratory Exam: NORMAL BREATHING PATTERN, UNREMARKABLE - Cardiovascular Exam Cardiovascular Exam: RRR, +S1, +S2 - GI/Abdominal Exam GI & Abdominal Exam: Normal Bowel Sounds, Unremarkable - Extremities Exam Extremities exam: normal inspection - Neurological Exam Neurological exam: Alert, CN II-XII Intact, Oriented x3 - Psychiatric Exam Psychiatric exam: Normal Affect, Normal Mood - Skin Skin Exam: Intact, Normal Color, Warm Discharge Plan - Discharge Medications Prescriptions: Furosemide [Lasix] 40 mg PO DAILY #30 tablet - Follow Up Plan Condition: FAIR Disposition: HOME/ ROUTINE Instructions: Heart Failure, Adult (DC) Additional Instructions: Patient discharged home, instructed to continue medications as prescribed, follow-up with PCP within 1week of discharge. May return to ED if experiencing worsening of symptoms. <Sixto Dahl - Last Filed: 07/07/18 21:24> Provider - Provider Date of Admission: 07/05/18 08:50 Attending physician: Sixto Dahl MD [facility] Course - Lab Results Lab Results: Most Recent Lab Values WBC 9.9 10^3/ul (4.5-11.0) 07/07/18 06:00 RBC 4.28 10^6/uL (3.5-6.1) 07/07/18 06:00 Hgb 12.4 g/dL (14.0-18.0) L 07/07/18 06:00 Hct 39.7 % (42.0-52.0) L 07/07/18 06:00 MCV 92.8 fl (80.0-105.0) 07/07/18 06:00 MCH 29.0 pg (25.0-35.0) 07/07/18 06:00 MCHC 31.2 g/dl (31.0-37.0) 07/07/18 06:00 RDW 15.2 % (11.5-14.5) H 07/07/18 06:00 Plt Count 206 10^3/uL (120.0-450.0) 07/07/18 06:00 MPV 9.8 fl (7.0-11.0) 07/07/18 06:00 Gran % 60.4 % (50.0-68.0) 07/07/18 06:00 Lymph % (Auto) 23.6 % (22.0-35.0) 07/07/18 06:00 [place] % (Auto) 13.4 % (1.0-6.0) H 07/07/18 06:00 Eos % (Auto) 2.4 % (1.5-5.0) 07/07/18 06:00 Baso % (Auto) 0.2 % (0.0-3.0) 07/07/18 06:00 Gran # 5.98 (1.4-6.5) 07/07/18 06:00 Lymph # (Auto) 2.3 (1.2-3.4) 07/07/18 06:00 [place] # (Auto) 1.3 (0.1-0.6) H 07/07/18 06:00 Eos # (Auto) 0.2 (0.0-0.7) 07/07/18 06:00 Baso # (Auto) 0.02 K/mm3 (0.0-2.0) 07/07/18 06:00 PT 12.0 SECONDS (9.4-12.5) 07/05/18 08:10 INR 1.04 07/05/18 08:10 APTT 28.9 Seconds (25.1-36.5) 07/05/18 08:10 Sodium 141 mmol/L (132-148) 07/07/18 06:00 Potassium 3.6 mmol/L (3.6-5.0) 07/07/18 06:00 Chloride 98 mmol/L (98-107) 07/07/18 06:00 Carbon Dioxide 31 mmol/L (21-33) 07/07/18 06:00 Anion Gap 15 (10-20) 07/07/18 06:00 BUN 36 mg/dL (7-21) H 07/07/18 06:00 Creatinine 1.6 mg/dl (0.8-1.5) H 07/07/18 06:00 Est GFR ( Amer) 51 07/07/18 06:00 Est GFR (Non-Af Amer) 42 07/07/18 06:00 Random Glucose 110 mg/dL (70-110) 07/07/18 06:00 Calcium 9.3 mg/dL (8.4-10.5) 07/07/18 06:00 Phosphorus 4.0 mg/dL (2.5-4.5) 07/07/18 06:00 Magnesium 2.0 mg/dL (1.7-2.2) 07/07/18 06:00 Total Bilirubin 0.8 mg/dL (0.2-1.3) 07/07/18 06:00 AST 39 U/L (17-59) 07/07/18 06:00 ALT 39 U/L (7-56) 07/07/18 06:00 Alkaline Phosphatase 63 U/L (38-126) 07/07/18 06:00 Lactate Dehydrogenase 655 U/L (333-699) 07/05/18 08:10 Total Creatine Kinase 77 U/L (35-230) 07/05/18 08:10 Troponin I 0.02 ng/mL D 07/05/18 08:10 NT-Pro-B Natriuret Pep 2200 pg/mL (0-450) H 07/05/18 08:10 Total Protein 6.6 g/dL (5.8-8.3) 07/07/18 06:00 Albumin 3.9 g/dL (3.0-4.8) 07/07/18 06:00 Globulin 2.8 gm/dL 07/07/18 06:00 Albumin/Globulin Ratio 1.4 (1.1-1.8) 07/07/18 06:00 Urine Color Yellow (YELLOW) 07/05/18 08:15 Urine Appearance Clear (CLEAR) 07/05/18 08:15 Urine pH 6.0 (4.7-8.0) 07/05/18 08:15 Ur Specific [place] 1.015 (1.005-1.035) 07/05/18 08:15 Urine Protein Negative mg/dL (<30 mg/dL) 07/05/18 08:15 Urine Glucose (UA) Negative mg/dL (NEGATIVE) 07/05/18 08:15 Urine Ketones Negative mg/dL (NEGATIVE) 07/05/18 08:15 Urine Blood Negative (NEGATIVE) 07/05/18 08:15 Urine Nitrate Negative (NEGATIVE) 07/05/18 08:15 Urine Bilirubin Negative (NEGATIVE) 07/05/18 08:15 Urine Urobilinogen 0.2 E.U./dL (<1 E.U./dL) 07/05/18 08:15 Ur Leukocyte Esterase Negative Lorrie/uL (NEGATIVE) 07/05/18 08:15 - Hospital Course Hospital Course: Pt seen and examined. I have reviewed the note of the medical legal investigator and agree with it. I have discussed the assessment and plan with the resident. I have reviewed the patient's labs and medications. Pt with Acute CHF due to diastolic dysfunction. Pt is on Lasix. Will switch to PO Lasix. D/C home. f/u with Painting Manager.
[2018-07-07 08:13] VITALS: BP 122/63; RESP 20; TEMP 97.9; O2SAT 95
[2018-07-07] MEDS: Tiotropium 18 mcg Cap For Inhalation IH SCH (11:09)
[2018-07-07] MEDS: Levothyroxine 75 MCG TAB PO SCH (11:09)
--- NOTE | 2018-07-14 17:47 | PQF ---
PROVIDER RESPONSE TEXT: No sepsis REVIEWER QUERY TEXT: Conflicting Documentation Clarification A single mention or documentation of multiple diagnoses for the same clinical presentation appears in the record. Please clarify the diagnosis/diagnoses. Please also document if the condition is: -- Confirmed and current -- Confirmed, treated and resolved -- Ruled out -- Other, please specify The patient's Clinical Indicators include: Sepsis is documented on discharge summary but no evidence of same in the rest of this chart. Please c larify if sepsis should be coded on this admission for this patient. Thank you. Query created by: Simran Masters on 07/08/2018 11:34 AM Electronically signed by: Sixto Dahl MD 07/14/2018 5:44 PM
== END 2018-07-07 13:42 | disposition home or self-care (01) | DRG 291 ==
LOC: ED 07:57 → ERH 08:50 → 2RNO 10:15 → 3RNO 07-06 19:23
PROVIDERS: ADMIT Internal Medicine Nephrology; ATTEND Internal Medicine Nephrology
DX: I13.0 Hypertensive heart and chronic kidney disease with heart failure and stage 1 through stage 4 chronic kidney disease, or unspecified chronic kidney disease (principal); I50.33 Acute on chronic diastolic (congestive) heart failure; J98.11 Atelectasis; J44.9 Chronic obstructive pulmonary disease, unspecified; I48.91 Unspecified atrial fibrillation; I44.7 Left bundle-branch block, unspecified; I44.0 Atrioventricular block, first degree; N18.9 Chronic kidney disease, unspecified; Z79.82 Long term (current) use of aspirin; Z79.890 Hormone replacement therapy; Z79.899 Other long term (current) drug therapy; Z85.51 Personal history of malignant neoplasm of bladder; I25.10 Atherosclerotic heart disease of native coronary artery without angina pectoris; Z95.5 Presence of coronary angioplasty implant and graft; E78.5 Hyperlipidemia, unspecified; F40.240 Claustrophobia; Z85.828 Personal history of other malignant neoplasm of skin; Z86.010 Personal history of colon polyps; Z87.891 Personal history of nicotine dependence; Z95.2 Presence of prosthetic heart valve; Z96.652 Presence of left artificial knee joint; Z88.1 Allergy status to other antibiotic agents; Z88.0 Allergy status to penicillin; Z88.7 Allergy status to serum and vaccine; Z87.892 Personal history of anaphylaxis; R40.2412 Glasgow coma scale score 13-15, at arrival to emergency department; I45.10 Unspecified right bundle-branch block

== ENCOUNTER 2018-10-01 05:51 | Inpatient (IN) | payer MEDICARE ==
[2018-10-01 05:53] VITALS: BMI 29.8
[2018-10-01] MEDS ORDERED: Morphine 4 mg/ml ISec ONE (06:00)
[2018-10-01] MEDS ORDERED: Morphine 4 mg/ml ISec IVP STA (06:00)
[2018-10-01] MEDS ORDERED: Etomidate 20 mg/10ml Inj IV ONE (06:00)
[2018-10-01] MEDS ORDERED: Etomidate 20 mg/10ml Inj IVP STA ×3 (06:01→06:15)
[2018-10-01] MEDS ORDERED: Succinylcholine 200 mg/10 ml Inj IV STA ×2 (06:04→06:15)
[2018-10-01] MEDS ORDERED: Succinylcholine 200 mg/10 ml Inj IV ONE (06:06)
--- NOTE | 2018-10-01 06:22 | ED PDOC ---
Arrival/HPI - General Chief Complaint: Shortness Of Breath Time Seen by Provider: 10/01/18 05:54 Historian: Patient, Spouse, EMS - History of Present Illness Narrative History of Present Illness (Text): 10/01/18 05:54 Andrez Coelho is an 78 year old male, whose past medical history includes hypertension, CAD, COPD, emphysema, chronic vertigo, bladder cancer, and goiter, who presents to the Emergency department brought in by EMS accompanied by for severe respiratory distress. EMS report patient woke up this morning with severe shortness of breath. Patient placed on BiPAP by EMS and brought to the Emergency department for further evaluation. Patient with oxygen saturation in the 80s on arrival. reports patient had recently been admitted to a hospital in [place] from 09/20/18 to 09/24/18 for CHF and COPD exacerbation, discharged on a course of Levaquin which he was supposed to complete today. notes patient had been feeling generally unwell for the past few days and woke up today with progressively worsening shortness of breath. Limited HPI and ROS secondary to patient's respiratory distress. Time/Duration: Prior to Arrival Symptom Onset: Sudden Symptom Course: Worsening Activities at Onset: Light Context: Home Past Medical History - Provider Review Nursing Documentation Reviewed: Yes - Infectious Disease Hx of Infectious Diseases: None - Tetanus Immunization Tetanus Immunization: Unknown - Cardiac Hx Cardiac Disorders: Yes Hx Hypertension: Yes - Pulmonary Hx Respiratory Disorders: Yes Hx Asthma: Yes Hx Emphysema: Yes Other/Comment: SMOKED CIGARETTES - Neurological Hx Neurological Disorder: Yes Hx Dizziness: Yes (VERTIGO) - HEENT Hx HEENT Disorder: No - Renal Hx Renal Disorder: Yes Other/Comment: LOW GRADE BLADDER CA - Endocrine/Metabolic Hx Endocrine Disorders: No - Hematological/Oncological Hx Blood Disorders: Yes Hx Cancer: Yes (BASAL CELL -FACE,LOW GRADE BLADDER CA) - Integumentary Hx Dermatological Disorder: Yes Hx Basal Cell Carcinoma: Yes (FACE) - Musculoskeletal/Rheumatological Hx Arthritis: Yes (KNEE WITH TOTAL KNEE REPLACEMENT 01-03-16) - Gastrointestinal Hx Gastrointestinal Disorders: No Other/Comment: COLON POLYPS, - Genitourinary/Gynecological Hx Genitourinary Disorders: Yes Hx Hematuria: Yes (MINIMAL HEMATURIA H/O) Other/Comment: UVULECTOMY - Psychiatric Hx Psychophysiologic Disorder: Yes Hx Depression: Yes Hx Substance Use: No Other/Comment: SMOKED CIGARETTES,SEVERE CLAUSTROPHOBIA - Past Surgical History Past Surgical History: Non-Contributing - Surgical History Hx Coronary Stent: Yes ( x2) Hx Orthopedic Surgery: Yes (left knee replacement) Other/Comment: TOTAL KNEE REPLACEMENT LEFT KNEE 01-03-16 aortic valve replacement 03/25. Watchmen - Anesthesia Hx Anesthesia Reactions: No Hx Malignant Hyperthermia: No - Suicidal Assessment Feels Threatened In Home Enviroment: No Family/Social History - Physician Review Nursing Documentation Reviewed: Yes Family/Social History: Unknown Family HX Smoking Status: Former Smoker Hx Alcohol Use: No Hx Substance Use: No Allergies/Home Meds Allergies/Adverse Reactions: Allergies Tetanus Vaccines and Toxoid [Tetanus Vaccines & Toxoid] Allergy (Severe, Verified 10/01/18 05:54) ANAPHYLAXIS tetracycline Allergy (Severe, Verified 10/01/18 05:54) ANAPHYLAXIS cefepime Allergy (Verified 10/01/18 05:54) RASH Penicillins Allergy (Verified 10/01/18 05:54) SWELLING Home Medications: Home Meds Medication Instructions Recorded Confirmed Aspirin [Ecotrin] 81 mg PO DAILY 01/04/17 10/01/18 Atorvastatin [Lipitor] 40 mg PO HS 01/04/17 10/01/18 Doxepin [Sinequan] 50 mg PO HS 01/04/17 10/01/18 Finasteride [Proscar] 5 mg PO DAILY 01/04/17 10/01/18 Levothyroxine [Synthroid] 75 mcg PO DAILY 01/04/17 10/01/18 Fluticasone/Vilanterol [Breo 1 inhaler INH DAILY 05/12/17 10/01/18 Ellipta 100-25 Mcg INH] Tiotropium [Spiriva] 1 inhaler INH BID 05/12/17 10/01/18 Albuterol Sulfate [Proair 90 mcg IH PRN PRN 07/05/18 10/01/18 Respiclick] Metoprolol Succinate XL [Toprol XL] 50 mg PO DAILY 07/05/18 10/01/18 diltiaZEM [Cardizem] 60 mg PO QID 10/01/18 10/01/18 Review of Systems - Review of Systems Systems not reviewed;Unavailable: Respiratory Distress Respiratory: SOB Physical Exam Vital Signs Reviewed: Yes Respiratory Rate: Tachypneic Appearance: Positive for: Non-Toxic Mental Status: Positive for: other (Awake) - Systems Exam Head: Present: Atraumatic, Normocephalic Pupils: Present: PERRL Extroacular Muscles: Present: EOMI Conjunctiva: Present: Normal Mouth: Present: Moist Mucous Membranes Neck: Present: Normal Range of Motion Respiratory/Chest: Present: Respiratory Distress, Rales (Rales bilaterally) Cardiovascular: Present: Regular Rate and Rhythm, Normal S1, S2. No: Murmurs Abdomen: No: Tenderness, Distention, Peritoneal Signs Back: Present: Normal Inspection Upper Extremity: Present: Normal Inspection. No: Cyanosis, Edema Lower Extremity: Present: Normal Inspection. No: Edema Neurological: Present: GCS=15, CN II-XII Intact Skin: Present: Warm, Dry, Normal Color. No: Rashes Psychiatric: Present: Alert Medical Decision Making ED Course and Treatment: 10/01/18 05:54 Impression: 78 year old male brought in by EMS for respiratory distress prior to arrival. Plan: -- EKG -- Chest X-ray -- Labs, cardiac enzymes, BNP, ABG, blood cultures -- Morphien -- Reassess and disposition Prior Visits: Notes and results from previous visits were reviewed. Progress Notes: Pt seen on arrival to Emergency department, noted to be in respiratory distress. Pt's oxygen saturation in the 80s while on BiPAP after receiving Lasix. Decision made to intubate pt. PROCEDURE: INTUBATION Performed by the emergency provider Consent: Discussion of the risks, benefits, and alternatives to the procedure, along with informed consent was precluded by the urgency of the procedure and the patient condition. Timeout: A timeout to verify the correct patient, procedure, and site was performed. Indication: Respiratory distress, oxygen saturation in 80s Pre-oxygenation: [id number] Medications: Etomidate, Succinylcholine. See MAR for details. ETT Size: 8 Confirmation: Cords directly visualized as tube passed, good bilateral breath sounds, positive CO2 detector color change, tube fogging, adequate chest rise, improving pulse oximetry reading, improved skin color, and absence of gastric sounds,. ETT Secured: The cuff was inflated and the tube was secured appropriately at a distance of 26cm at the lip. Post-Procedure: There were no immediate complications. CXR Confirmation: Yes 10/01/18 06:16 Post-intubation Chest X-ray reviewed, shows cardiomegaly, CHF, ET tube above the kristian. 10/01/18 06:31 Reviewed EKG, sinus rhythm at 98 bpm. LAD. LBBB. 10/01/18 07:[address] Lott, pending labs and admission. - Critical Care Critical Care Minutes: 30 minutes Narrative Critical Care (Text): Management of respiratory distress - Lab Interpretations I have reviewed the lab results: Yes - RAD Interpretation Radiology Orders: 10/01/18 06:19 CHEST PORTABLE [RAD] Stat Blunger Loader: ED Physician - Scribe Statement The provider has reviewed the documentation as recorded by the Aashishiblindsay Chaney Provider Scribe Attestation: All medical record entries made by the Scribe were at my direction and personally dictated by me. I have reviewed the chart and agree that the record accurately reflects my personal performance of the history, physical exam, medical decision making, and the department course for this patient. I have also personally directed, reviewed, and agree with the discharge instructions and disposition. Disposition/Present on Arrival - Present on Arrival Any Indicators Present on Arrival: No History of DVT/PE: No History of Uncontrolled Diabetes: No Urinary Catheter: No History of Decub. Ulcer: No History Surgical Site Infection Following: None - Disposition Have Diagnosis and Disposition been Completed?: Yes Diagnosis: Respiratory failure with hypoxia, CHF exacerbation Disposition: HOSPITALIZED Disposition Time: 07:00 Patient Problems: Current Active Problems Problem Status Onset CHF exacerbation Acute Respiratory failure with hypoxia Acute Condition: GUARDED
[2018-10-01] MEDS ORDERED: Propofol 10 mg/ml 1,000 MG/100 ML VIAL ONE (06:46)
[2018-10-01 06:53] LABS: BASO # 0.03 K/mm3 (0.0-2.0); BASO % 0.3 % (0.0-3.0); EOS # 0.2 (0.0-0.7); EOS % 2.1 % (1.5-5.0); GRAN # 6.36 (1.4-6.5); GRAN % 57.6 % (50.0-68.0); HEMOGLOBIN 12.7 g/dL (14.0-18.0); LYMPH # 3.1 (1.2-3.4); LYMPH % 27.9 % (22.0-35.0); MEAN CELL VOLUME 94.1 fl (80.0-105.0); MEAN CORPUSCULAR HEMOGLOBIN 29.9 pg (25.0-35.0); MEAN CORPUSCULAR HGB CONC 31.8 g/dl (31.0-37.0); MEAN PLATELET VOLUME 10.2 fl (7.0-11.0); MONO # 1.3 (0.1-0.6); MONO % 12.1 % (1.0-6.0); RBC 4.25 10^6/uL (3.5-6.1); RED CELL DISTRIBUTION WIDTH 15.8 % (11.5-14.5)
[2018-10-01] MEDS: Propofol 10 mg/ml 1,000 MG/100 ML VIAL IV PRN ×4 (06:54→17:18)
[2018-10-01 07:04] LABS: ARTERIAL BLOOD GAS HCO3 19.7 mmol/L (21-28); ARTERIAL BLOOD GAS O2 CAPACITY 16.6 mL/dl (16-24); ARTERIAL BLOOD GAS O2 CONTENT 16.1 ML/dl (15-23); ARTERIAL BLOOD GAS O2 SAT 96.9 % (95-98); ARTERIAL BLOOD GAS PCO2 43 mm/Hg (35-45); ARTERIAL BLOOD GAS PH 7.27 (7.35-7.45)
[2018-10-01 07:04] LABS: INR 1.21; PARTIAL THROMBOPLASTIN TIME 24.9 Seconds (25.1-36.5)
--- NOTE | 2018-10-01 07:08 | ED PDOC ---
Medical Decision Making ED Course and Treatment: 10/01/18 07:[address] Keene with patient pending labs, ICU evaluation and dispositioning. Patient was previously intubated for respiratory distress. 10/01/18 07:17 Labs reviewed with no leukocytosis noted. Troponin and BNP pending. Call placed to Dr. Patterson(PCP) and flat lock operator. 10/01/18 07:[address] Evans(covering Dr. Patterson) who accepts case. Dr. Kay brice(flat lock operator) currently at the bedside evaluating patient. Troponin negative with elevated BNP. - Lab Interpretations Lab Results: Lab Results 10/01/18 05:55: PT 14.0 H, INR 1.21, APTT 24.9 L 10/01/18 05:55 10/01/18 05:55 Lab Results 10/01/18 07:45: Influenza Typ A,B (EIA) Negative for flu a/b 10/01/18 06:45: pCO2 43, pO2 81.0, HCO3 19.7 L, ABG pH 7.27 L, ABG Total CO2 21.0 L, ABG O2 Saturation 96.9, ABG O2 Content 16.1, ABG Base Excess -6.9 L, ABG Hemoglobin 12.0, ABG Carboxyhemoglobin 1.9 H, POC ABG HHb (Measured) 3.0, ABG Methemoglobin 0.5, ABG O2 Capacity 16.6, Hgb O2 Saturation 94.7 L, FiO2 100.0 10/01/18 05:55: PT 14.0 H, INR 1.21, APTT 24.9 L 10/01/18 05:55: Sodium 141, Potassium 4.0, Chloride 105, Carbon Dioxide 25, Anion Gap 15, BUN 34 H, Creatinine 1.6 H, Est GFR ( Amer) 51, Est GFR (Non-Af Amer) 42, Random Glucose 166 H, Calcium 9.4, Magnesium 2.3 H, Total Bilirubin 0.8, AST 134 H D, ALT 115 H, Alkaline Phosphatase 129 H D, Lactate Dehydrogenase 852 H, Total Creatine Kinase 95, Troponin I 0.02, NT-Pro-B Natriuret Pep 2030 H, Total Protein 7.7, Albumin 4.2, Globulin 3.5, Albumin/Globulin Ratio 1.2 11/22/18 05:55: WBC 11.0, RBC 4.25, Hgb 12.7 L, Hct 40.0 L, MCV 94.1, MCH 29.9, MCHC 31.8, RDW 15.8 H, Plt Count 281, MPV 10.2, Gran % 57.6, Lymph % (Auto) 27.9, [place] % (Auto) 12.1 H, Eos % (Auto) 2.1, Baso % (Auto) 0.3, Gran # 6.36, Lymph # (Auto) 3.1, [place] # (Auto) 1.3 H, Eos # (Auto) 0.2, Baso # (Auto) 0.03 - RAD Interpretation Narrative RAD Interpretations (Text): 10/01/18 09:35 10/01/18 06:19 CHEST PORTABLE [RAD] Stat Radiology Orders: 10/01/18 06:19 CHEST PORTABLE [RAD] Stat - Medication Orders Current Medication Orders: Propofol (Diprivan) 1,000 mg in 100 mls @ 4.15 mls/hr IV .Q24H PRN; Protocol PRN Reason: TITRATE PER MD ORDER Last Admin: 10/01/18 06:54 Dose: 4.15 mls/hr eMAR Start Stop Document 10/01/18 06:54 IT (Rec: 10/01/18 06:54 IT [id number]) Intravenous Solution Start Date 10/01/18 Start Time 06:54 Marcus Agitation Sedation Document 10/01/18 06:54 IT (Rec: 10/01/18 06:54 IT [id number]) Marcus Agitation Sedation Scale Marcus Agitation Sedation Scale Score +1 Restless Anxious but movements not aggressive vigorous Discontinued Medications Etomidate (Amidate) 10 mg IVP STAT STA Stop: 10/01/18 06:02 Etomidate (Amidate) 10 mg IVP STAT STA Stop: 10/01/18 06:04 Etomidate (Amidate) 10 mg IVP STAT STA Stop: 10/01/18 06:16 Furosemide (Lasix) 40 mg IVP STAT STA Stop: 10/01/18 06:00 Morphine Sulfate (Morphine) 3 mg IVP STAT STA Stop: 10/01/18 06:01 Succinylcholine Chloride (Quelicin) 80 mg IV STAT STA Stop: 10/01/18 06:05 Succinylcholine Chloride (Quelicin) 80 mg IV STAT STA Stop: 10/01/18 06:16 Disposition/Present on Arrival - Present on Arrival Any Indicators Present on Arrival: No History of DVT/PE: No History of Uncontrolled Diabetes: No Urinary Catheter: No History of Decub. Ulcer: No History Surgical Site Infection Following: None - Disposition Have Diagnosis and Disposition been Completed?: Yes Diagnosis: Respiratory failure with hypoxia, CHF exacerbation Disposition: HOSPITALIZED Disposition Time: 07:58 Patient Plan: Admission, ICU Patient Problems: Current Active Problems Problem Status Onset CHF exacerbation Acute Respiratory failure with hypoxia Acute Condition: GUARDED
[2018-10-01 07:14] LABS: ALB/GLOB RATIO 1.2 (1.1-1.8); ALBUMIN 4.2 g/dL (3.0-4.8); CALCIUM 9.4 mg/dL (8.4-10.5)
[2018-10-01 07:25] LABS: TROPONIN I 0.02 ng/mL
[2018-10-01] MEDS ORDERED: Midazolam 2 MG/2 ML VIAL IVP PRN (08:06)
[2018-10-01] MEDS: Aztreonam 1 Gm in NS 100mL 100 ML IVPB SCH ×2 (08:50→14:01)
[2018-10-01] MEDS: Albuterol-Ipratrop 3 mg / 0.5 (3 ml) UD IH SCH ×3 (08:52→20:27)
--- NOTE | 2018-10-01 09:13 | RAD ---
Date of service: 10/01/2018 HISTORY: sob COMPARISON: 07/05/2018 FINDINGS: LUNGS: Increasing pulmonary edema. Endotracheal tube in satisfactory position PLEURA: No significant pleural effusion identified, no pneumothorax apparent. CARDIOVASCULAR: Aortic calcifications are seen. Aortic valve replacement Mild cardiomegaly OSSEOUS STRUCTURES: No significant abnormalities. VISUALIZED UPPER ABDOMEN: Normal. OTHER FINDINGS: None. IMPRESSION: Pulmonary edema. Endotracheal tube in satisfactory position
[2018-10-01] MEDS: Fentanyl 1000mcg/100ml NS 1,000 MCG/100 ML BAG IV PRN ×2 (09:32→18:25)
[2018-10-01] MEDS: MethylPREDNISolone 40 mg Vial IVP SCH ×2 (09:41→21:47)
[2018-10-01] MEDS ORDERED: Milrinone 20mg/100ml D5W 100 ML IV PRN (09:44)
[2018-10-01] MEDS ORDERED: Linezolid 600 mg in D5W 300 ml 600 MG/300 ML BAG IVPB SCH (10:00)
[2018-10-01] MEDS ORDERED: Azithromycin 500MG/NS 250ml 500 MG/250 ML BAG IVPB SCH (10:00)
[2018-10-01 10:14] LABS: ARTERIAL BLOOD GAS HCO3 23.6 mmol/L (21-28); ARTERIAL BLOOD GAS PCO2 49 mm/Hg (35-45); ARTERIAL BLOOD GAS PH 7.29 (7.35-7.45); ARTERIAL BLOOD GAS TCO2 25.1 mmol.L (22-28)
[2018-10-01] MEDS: metOLazone 5 MG TAB PO SCH (10:30)
--- NOTE | 2018-10-01 11:38 | RAD ---
Date of service: 10/01/2018 PROCEDURE: Portable chest HISTORY: assess OG tube placement COMPARISON: TECHNIQUE: Single view of the lower chest and upper abdomen FINDINGS: IMPRESSION: The nasogastric tube is in satisfactory position
--- NOTE | 2018-10-01 15:16 | HP ---
DATE OF EXAM: 10/01/2018 HISTORY OF PRESENT ILLNESS: Mr. Coelho is an 78-year-old male, was brought by EMS to the ED with difficulty breathing. He was placed on BiPAP by EMS. Oxygen saturation was 80% on arrival in the ED. He was recently admitted to a hospital in [place] with COPD and CHF exacerbation, was discharged on Levaquin, which he was taking, QT interval prolonged in ED. He is currently intubated, sedated. He has a history of bladder cancer, currently in remission; coronary artery disease; COPD; emphysema. PAST MEDICAL HISTORY: Hypertension, coronary artery disease, COPD, emphysema, bladder cancer, vertigo, goiter. PAST SURGICAL HISTORY: Total knee replacement, colonic polyp removal, bladder surgery. FAMILY HISTORY: Noncontributory. PERSONAL HISTORY: Former smoker. No history of alcohol abuse. ALLERGIES: TETANUS TOXOID, TETRACYCLINE, CEFEPIME, PENICILLIN. HOME MEDICATIONS: Aspirin 81 mg daily, Lipitor 40 mg daily, Proscar 5 mg daily, Synthroid 75 mcg daily, lisinopril-hydrochlorothiazide 40 mg daily, Ellipta inhalation, albuterol, metoprolol 50 mg daily. REVIEW OF SYSTEMS: Intubated, sedated. PHYSICAL EXAMINATION GENERAL: Intubated, sedated. VITAL SIGNS: Heart rate 100 per minute and regular, respiratory rate 15 per minute, oxygen saturation 93% with oxygen flow, rate 100%. LUNGS: Air entry present, decreased bilaterally. CARDIOVASCULAR: S1, S2 normal. No murmur, no gallop. ABDOMEN: Soft, nontender. No hepatosplenomegaly. EXTREMITIES: No edema. NEUROLOGIC: Sedated. Cranial nerves intact. SKIN: Warm, dry. Normal color. No rash. DIAGNOSTIC DATA: Chest x-ray; cardiomegaly, pulmonary edema. ASSESSMENT: 1. Respiratory distress. 2. Acute renal insufficiency. 3. Hypertension. 4. Coronary artery disease. 5. History of bladder cancer. 6. Hypothyroidism. 7. Congestive heart failure. 8. Chronic obstructive pulmonary disease. PLAN: Currently, intubated, sedated. Currently, on DuoNebs. IV antibiotic as per ID, Azactam every 8 hours. He is also on a fentanyl drip, heparin every 8 hours for DVT prophylaxis, Solu-Medrol 20 mg every 12 hours, metolazone 5 mg by mouth daily , milrinone drip, and he is also on Tamiflu 75 mg by mouth daily, propofol. Son-in-law at bedside, discussed with him, critical condition. Elinor Evans MD JOSE
--- NOTE | 2018-10-01 18:21 | CON ---
DATE: 10/01/2018 NEPHROLOGY CONSULTATION HISTORY OF PRESENT ILLNESS: The patient is an 78-year-old male with past medical history of hypertension, CAD status post stent (2015 last), AFib, status post Watchman procedure, status post bioprosthetic aortic valve replacement (2016), COPD, previous bladder cancer, CHF, and COPD, presented with increased shortness of breath on exertion. Nephrology being consulted for renal insufficiency. History taken from the patient's , who is at bedside, as the patient is intubated. The patient was just discharged from hospital in [place] about a few days ago after being admitted with CHF exacerbation and possible pneumonia. Per , the patient had to be readmitted at the same hospital in [place] for similar symptoms and was discharged just a few days ago on his home dose of Lasix 40 mg daily. The patient also suffered from AFib with RVR during that hospitalization and was discharged on p.o. Cardizem 60 mg to take four times a day. The patient traveled back from [place] via automobile although said that they took multiple stops with the patient getting out of the vehicle. The patient otherwise denied having any chest pain or palpitations; had been well up until the day of presentation to [facility]. PAST MEDICAL HISTORY: As above. Last had cardiac cath within the past 1 year by cable technician, 03:41 Gianni. SOCIAL HISTORY: Previous smoker. REVIEW OF SYSTEMS: Limited to HPI as the patient is intubated. PHYSICAL EXAMINATION: VITAL SIGNS: Currently blood pressure 126/78, heart rate 100, respirations 15, temperature 98, O2 sat 93% on 60% FIO2 via mechanical ventilation. GENERAL: The patient is sedated. HEENT: No cervical lymphadenopathy. Endotracheal tube in place. RESPIRATORY: Decreased breath sounds slightly on right, otherwise clear. CARDIOVASCULAR: Tachycardic at times. No obvious murmurs. GASTROINTESTINAL: Abdomen soft, nontender, nondistended. GENITOURINARY: No bladder distention. SKIN: Warm. No cyanosis. NEURO: The patient is sedated, not following commands completely LABORATORY DATA: CBC: WBC 11, hemoglobin 12.7, hematocrit 40, platelets 281. Chemistry panel: Sodium 141, potassium 4, chloride 105, bicarb 25, BUN 34, creatinine 1.6, baseline of 1.3. Glucose 166, calcium 9.4, magnesium 2.3, AST 134, ALT 115, alk phos 129. ProBNP 2030, albumin 4.2. Chest x-ray, directly visualized, showing possible right-sided infiltrate/pulmonary edema. ASSESSMENT/PLAN: 1. Acute kidney injury, mild increase in serum creatinine from baseline; otherwise relatively stable electrolyte status; presentation with above symptoms and lower extremity edema on exam indicative of volume overload. The mainstay of treatment at this time is to attempt to achieve euvolemia; should continue with IV Lasix 40 mg two to three times per day with goal of keeping negative 2 liters. We will need to have adequate p.o. diuretic regimen prior to discharge, as the patient has had three congestive heart failure exacerbations over the past 10 days. Also ordering urine studies to check for proteinuria. Previous ultrasound showed large-sized kidneys, which are consistent with diabetes, although the patient's A1c is not very high from previous lab. Should also rule out her protein-related kidney disease with total urine protein creatinine ratio. 2. Acute decompensated systolic/diastolic congestive heart failure. As mentioned above, the patient is volume overloaded; stable hemodynamic status; can tolerate aggressive diuresis. Continue as above. Continue with metolazone 5 mg daily as well. 3. Pneumonia. The patient is being treated for health care-associated pneumonia. No need for renal dose adjustment until creatinine clearance less than 30 mL/min. 4. Hypertension. Blood pressure elevated at times. Currently only on diuretics. Follow up with Cardiology for rate control meds. Thank you for this referral. We will be following up closely. Tutu Dorantes MD
--- NOTE | 2018-10-01 19:20 | CON ---
DATE: 10/01/2018 REASON FOR CONSULTATION: Cardiac evaluation, admitted with shortness of breath, incubated, rule out CHF, rule out COPD exacerbation, questionable history of coronary artery disease. BRIEF CLINICAL HISTORY: This is an 78-year-old male, morbidly obese with past medical history significant for hypertension, coronary artery disease, COPD, emphysema, chronic vertigo, bladder cancer, and thyroid, possible goiter, came to the emergency room, woke up from sleep because of respiratory distress. For the last couple of days, the patient had shortness of breath and not feeling good. The patient was placed on BiPAP by EMT and brought to the emergency room. When in emergency room, the patient requiring intubation; now intubated, information obtained from the and physicians ER as well as Dr. Manjarrez. History of paroxysmal atrial fibrillation in the previous chart, though the patient has at this time a normal sinus with left bundle-branch block in the past. Today's EKG reviewed that shows also left bundle-branch block, possible normal sinus. PAST MEDICAL HISTORY: Significant for recently the patient was admitted in [place] with COPD, CHF, questionable history of pneumonia; being treated with Levaquin and supposed to complete the course today, but he woke up from the sleep with shortness of breath. Past history is also significant for coronary artery disease, details unknown; COPD; emphysema; chronic vertigo; bladder cancer; history of hypertension; history of Watchman left atrial appendage occluder was done at [facility] because the patient was unable to tolerate anticoagulation for AFib also. PAST SURGICAL HISTORY: Significant for aortic valve replacement 03/2016 and history of left knee replacement in 12/2015, history of PTCA and a stent as mentioned in [facility]. PREVIOUS CARDIAC WORKUP: As follows, the patient had a coronary artery stent in 2013 and 2014 x2 stents, history of aortic valve replacement in 03/2015. History of hypertension. The patient had echocardiography on 07/28/2014 that shows ejection fraction of 55%, no regional wall motion abnormality, aortic sclerosis with mild aortic stenosis, moderate mitral regurgitation, [id number] tricuspid regurgitation with RV systolic pressure of 40. History of repeat echocardiography done on 07/06/2018 that showed ejection fraction of 45% to 50%, no vegetation present on prosthetic aortic valve. There is a bioprosthetic aortic valve prosthesis noted and appears normal. [id number] trace tricuspid regurgitation with systolic pressure of 25, and no pulmonary valve stenosis, IVC normal. No pericardial effusion. SOCIAL HISTORY: Denies smoking. Denies any history of alcohol abuse, though the patient was ex-smoker. REVIEW OF SYSTEMS: As per HPI. PHYSICAL EXAMINATION: VITAL SIGNS: Height of the patient 6 feet, weight of the patient 305 pounds, body mass index 44 kg/m2. Rest of the vitals; temperature afebrile, heart rate 82, blood pressure 166/96. HEENT: PERRLA. Extraocular muscles intact. NECK: Supple. No carotid bruit or thyromegaly. CHEST: Clear to auscultation. Decreased air entry at the bases noted. HEART: S1, S2 regular. ABDOMEN: Soft. EXTREMITIES: Clubbing and cyanosis negative. LABORATORY DATA: Chest x-ray reviewed that the poor-printed films cannot rule out underlying pneumonia, but appears to be CHF. EKG showed wide complex tachycardia, left bundle-branch block with possibly normal sinus. History of left bundle two years ago on the previous EKG as well. Rest of the blood workup as follows; WBC 11, hemoglobin 12.7, hematocrit of 40, platelet count 281. Chemistry shows sodium 141, potassium 4, chloride 105, carbon dioxide 25, anion gap of 15, BUN 34, creatinine 1.6. BNP 2030. Troponin remained 0.02 negative. IMPRESSION: An 78-year-old male with past medical history significant for coronary artery disease, status post percutaneous transluminal coronary angioplasty x2 at [facility] in 2014 and 2013, history of bioprosthetic aortic valve replacement in 2015, history of left knee replacement in 2016, history of Watchman occluder device of left atrial because the patient cannot tolerate anticoagulation for paroxysmal atrial fibrillation; recently discharged from [place] because of chronic obstructive pulmonary disease exacerbation and congestive heart failure; readmitted here with shortness of breath requiring intubation, possible pulmonary edema, cannot rule underlying pneumonia. Last echo showed ejection fraction of 45% to 50%, status post aortic valve replacement bioprosthetic on 03/2016. Last echo showed preserved left ventricular function, ejection fraction of 45% at the [facility] in May, mildly impaired ejection fraction of 55%, on bioprosthetic aortic valve; admitted with chronic obstructive pulmonary disease exacerbation as well as pulmonary edema, history of renal insufficiency, inability to tolerate anticoagulation status post Watchman device. RECOMMENDATIONS: Antibiotic as per Dr. Manjarrez, discussed with him. We will start Primacor, continue diuresis, continue vent management, try to wean off vent when the patient is ready. The patient will get the benefit from Primacor 0.2 mcg/kg/minute and is on aggressive diuresis. Further recommendations depending on the hospital course. We will follow with you. Last echo dated 07/06/2018 revealed ejection fraction of 45% to 50%, no vegetation, bioprosthetic aortic valve appears normal, mild MR, trace TR. We will also continue DVT prophylaxis. Thank you Dr. Manjarrez for providing us the opportunity in taking care of the patient, Andrez Coelho. Victor M Harrington MD
[2018-10-01] MEDS: Linezolid 600 mg in D5W 300 ml 600 MG/300 ML BAG IVPB SCH (21:00)
[2018-10-01] MEDS: Meropenem IV 1 gm in NS 1 GM/50 ML BAG IVPB SCH (21:48)
[2018-10-02] MEDS: Propofol 10 mg/ml 1,000 MG/100 ML VIAL IV PRN ×5 (01:14→22:15)
--- NOTE | 2018-10-02 04:11 | CON ---
DATE: 10/01/2018 The patient seen earlier today in the Intensive Care Unit, 128, bed 5. CHIEF COMPLAINT: Shortness of breath x1 day duration. HISTORY OF PRESENT ILLNESS: This is an 78-year-old male who has a history of chronic obstructive lung disease; congestive heart failure; coronary artery disease; emphysema; hypertension; low-grade bladder; urinary bladder cancer; goiter; recent hospitalization in [place]; also a history of skin cancer, basal cell; colon polyps, and renal disease who was admitted with shortness of breath, which required intubation on the ventilator in the ICU. No fevers and chills reported. No abdominal pain or diarrhea. PAST MEDICAL HISTORY: Significant for hypertension; chronic obstructive lung disease; congestive heart failure; coronary artery disease; emphysema; bladder cancer; goiter and recent hospitalization; skin cancer, basal cell; colon polyps and renal disease. PAST SURGICAL HISTORY: Significant for cardiac catheterization, stent placement. The patient had an aortic valve replacement, bioprosthesis valve in 2015, and the patient also had a total knee replacement and bladder surgery. ALLERGIES: THE PATIENT IS ALLERGIC TO TETANUS VACCINE, TOXOID, TETRACYCLINE, CEFEPIME, PENICILLIN. TYPE OF ALLERGY IS NOT CLEAR. MEDICATIONS AT HOME: Reviewed and include Cardizem, atorvastatin, metoprolol, levothyroxine, furosemide and aspirin. REVIEW OF SYSTEMS: A 14-point review of systems is performed and there has been no bright red blood per rectum, no melena, dysuria, or frequency. PHYSICAL EXAMINATION GENERAL: On exam, the patient seen earlier today in the ICU, intubated on a ventilator. VITAL SIGNS: Temperature of 98.6 and blood pressure is 109/50, respiratory rate on a vent, heart rate of 58. HEENT: The ET tube in place. NECK: Supple. LUNGS: Decreased breath sounds. HEART: Normal S1, S2. ABDOMEN: Soft, nontender. LABORATORY DATA: Reveals a white count of 11,000, hemoglobin of 12, platelets of 281, coagulation is noted. Chemistries reveal a BUN of 34, creatinine of 1.6. The patient's last creatinine in June was also 1.6. LFTs are elevated and alk phos is 129. Procalcitonin is 0.14. Influenza is negative. Microbiology is pending. Chest x-ray shows some pulmonary edema. Dr. Evans's note is reviewed. note is reviewed. ASSESSMENT AND PLAN: This is an 78-year-old male with hypertension, chronic obstructive pulmonary disease, congestive heart failure, coronary artery disease, emphysema, bladder cancer, recent hospitalization, now with respiratory failure, intubated on a ventilator with health care associated pneumonia with multiple allergies. We will treat the patient with Zyvox and meropenem. Pending kulkarni culture, blood, urine, sputum culture, nasal methicillin-resistant Staphylococcus aureus screen and we will make further recommendations upon availability of initial results and follow up closely with you. Clay Villalba MD
[2018-10-02] MEDS: Fentanyl 1000mcg/100ml NS 1,000 MCG/100 ML BAG IV PRN ×2 (04:33→14:44)
[2018-10-02 05:07] LABS: URINE BILIRUBIN NEGATIVE (NEGATIVE); URINE BLOOD MODERATE (NEGATIVE); URINE GLUCOSE (UA) NEGATIVE (NEGATIVE); URINE LEUKOCYTE ESTERASE NEGATIVE Leu/uL (NEGATIVE); URINE PROTEIN NEGATIVE mg/dL (<30 mg/dL); URINE UROBILINOGEN 0.2 E.U./dL (<1 E.U./dL)
[2018-10-02 05:08] LABS: URINE COLOR YELLOW (YELLOW)
[2018-10-02 05:09] LABS: URINE APPEARANCE SL CLOUDY (CLEAR)
[2018-10-02 05:22] LABS: URINE WBC NEGATIVE /hpf (0-6)
[2018-10-02 05:25] LABS: URINE BACTERIA OCC (NEG)
[2018-10-02 06:32] LABS: HEMOGLOBIN 11.3 g/dL (14.0-18.0); MEAN CELL VOLUME 92.1 fl (80.0-105.0); MEAN CORPUSCULAR HEMOGLOBIN 29.7 pg (25.0-35.0); MEAN CORPUSCULAR HGB CONC 32.2 g/dl (31.0-37.0); MEAN PLATELET VOLUME 9.9 fl (7.0-11.0); RBC 3.81 10^6/uL (3.5-6.1); RED CELL DISTRIBUTION WIDTH 15.6 % (11.5-14.5); WHITE BLOOD COUNT 10.1 10^3/uL (4.5-11.0)
[2018-10-02 06:44] LABS: ARTERIAL BLOOD GAS HCO3 27.9 mmol/L (21-28); ARTERIAL BLOOD GAS HEMOGLOBIN 11.1 g/dL (11.7-17.4); ARTERIAL BLOOD GAS O2 CAPACITY 15.4 mL/dl (16-24); ARTERIAL BLOOD GAS O2 CONTENT 15.2 ML/dl (15-23); ARTERIAL BLOOD GAS O2 SAT 98.5 % (95-98); ARTERIAL BLOOD GAS PCO2 43 mm/Hg (35-45); ARTERIAL BLOOD GAS PH 7.42 (7.35-7.45); ARTERIAL BLOOD GAS TCO2 29.2 mmol.L (22-28)
[2018-10-02 06:55] LABS: ALB/GLOB RATIO 1.1 (1.1-1.8); ALBUMIN 3.5 g/dL (3.0-4.8); CALCIUM 8.9 mg/dL (8.4-10.5)
--- NOTE | 2018-10-02 07:36 | CON ---
DATE: 10/01/2018 HISTORY OF PRESENT ILLNESS: This is an 78-year-old gentleman with history of systolic and diastolic CHF, COPD, emphysema, who presented to [facility] ER with severe shortness of breath and was found to have hypothermic respiratory failure acquiring almost immediate intubation. He had been in the hospital for COPD exacerbation about a week ago in [place] where he was treated with antibiotics and bronchodilators. He somewhat improved and was discharged to complete course of levofloxacin; however, his severe dyspnea developed shortly thereafter and he came to [facility] ER for further management and evaluation. No nausea, no vomiting, no diarrhea, no constipation. PAST MEDICAL HISTORY: COPD, emphysema, gout, bladder cancer, CHF, coronary artery disease, the patient had two stents in 2013 and 2014. PAST SURGICAL HISTORY: The patient had orthopedic surgery of left knee replacement and aortic valve replacement in 2016. FAMILY HISTORY: Noncontributory. SOCIAL HISTORY: No alcohol or illicit drug abuse. The patient used to smoke tobacco; however, quit smoking recently. VS; 02sat 91-92% on fi02 100 and PEEP5 (PEEP was increased to 15 and fi02 tapered down 60), BP 160/80, afebrile, RR 25 (machine triggered, patient is sedated), RR 60 PHYSICAL EXAMINATION: ENT: Head and neck atraumatic. LUNGS: Few crackles bilaterally. HEART: Regular rate, S1, S2 distant. ABDOMEN: Soft, nontender and nondistended. MUSCULOSKELETAL: Trace bilateral pedal and ankle edema. NEUROLOGIC: The patient moves all extremities spontaneously. SKIN: Color moist. PSYCH: The patient is following commands. Chest x-ray, bilateral fluffy infiltrates/consolidations. LABORATORY DATA: WBC 11, hemoglobin 12.7, platelet count 281,000. Sodium 141, potassium 4, chloride 105, carbon dioxide 25, BUN 34, creatinine 1.6 (last creatinine from 06/2018 was 1.6 as well), glucose 166, magnesium 2.3, AST 134, ALT 116, total bilirubin 0.8 (the patient is on statins which were held at present time and we will follow LFTs). Troponin 0.02. ProBNP of 2012. ABG showed 7.27/43/81 on 100% FiO2. INR 1.21. EKG showed left bundle branch block, QTC 561 (the patient had left bundle branch block in June as well). However, QTC interval at that time was 497, prior to current admission to ER, the patient was on levofloxacin, which was held as well). Echocardiogram from 06/2018 showed left ventricle borderline dilated, ejection fraction 45-50%. Left atrium is borderline dilated grade 3 reversible restrictive diastolic dysfunction. Systolic function was described as mildly impaired, [id number] concentric left ventricular hypertrophy, RVSP 25. ASSESSMENT AND PLAN: This is an 78-year-old gentleman who presented with hypoxemic respiratory failure secondary to several potential etiologies including community-acquired pneumonia in the setting of recent admission to the hospital for chronic obstructive pulmonary disease exacerbation and treatment with IV antibiotics (higher risk for MDR pathogens) versus congestive heart failure exacerbation versus combination thereof. At present time, we will proceed with septic workup, blood culture, urine culture, urine for Legionella and streptococcal antigen. THE PATIENT IS ALLERGIC TO PENICILLIN AND TETRACYCLINE. Thus, I started the patient on linezolid and aztreonam. The patient's QTC is prolonged at 596 milliseconds, thus I will hold azithromycin and will get ID consult to better pinpoint required antibiotic therapy. I will start the patient on bronchodilators and small dose steroids for severe community-acquired pneumonia. I will start the patient on Tamiflu as influenza season began. I will proceed with conservative fluid and oxygen management. The patient will be on low tidal volume ventilation. We will maintain tidal volume 4-8 mL per predicted body weight and plateau pressure less than 30. Head of bed elevated more than 35 degrees and oral hygiene will be instituted. We will work with a little bit higher PEEP/FiO2 ratio to avoid VILI. We will start aggressive diuresis. I will continue aspirin as well. As the patient is hemodynamically stable and his echocardiogram did not show severe left ventricular systolic dysfunction and pulmonary hypertension, I will hold ionotropic support at present time, which otherwise may put patient at risk for afib and other arrhtyhmias (OPTIMA-CHF trial, including milrinone). I will keep the patient n.p.o., deep venous thrombosis, gastrointestinal prophylaxis will be instituted. We will continue to maintain euvolemia, euglycemia, normothermia and oxygen saturation more than 90%. We will maintain blood glucose within 140-180 range according to night sugar trial. The patient will be on Accu-Chek every 4 hours for now. We will monitor urine output with a goal of having more than 0.5 mL/kg/hour. We will maintain mean arterial pressure more than 65, avoid hyperchloremia and maintain euvolemia and euglycemia for additional nephroprotection. The patient will be admitted to ICU for further management and monitoring. ccm time 40 min Stephon Manjarrez MD MTDAngelica
--- NOTE | 2018-10-02 08:20 | CARD ---
APPROVED REPORT Date of service: 10/01/2018 EKG Measurement Heart [id number] <Conclusion> Wide QRS rhythm.Possible sinus or accelerated JR Left bundle branch block PVC
--- NOTE | 2018-10-02 08:46 | PN ---
DATE: 10/02/2018 SUBJECTIVE: The patient is in bed, in no acute distress, nontoxic. PHYSICAL EXAMINATION: VITAL SIGNS: Temperature is 98, blood pressure is 104/50, respiratory rate of 18. HEENT: Unremarkable. NECK: Supple. LUNGS: Have decreased breath sounds. HEART: Normal S1, S2. ABDOMEN: Soft. LABORATORY DATA: Reveals a white count is 10,000, hemoglobin of 11. Chemistries reveals a BUN of 35, creatinine of 1.8. Urinalysis is noted. Microbiology shows the blood cultures are negative. Urine Legionella antigen is negative. Influenza is negative. Review of orders reveals the patient to be on vancomycin, linezolid and meropenem. This morning's chest x-ray is pending. ASSESSMENT AND PLAN: An 78-year-old male seen in the ICU 128, bed 5 with a history of chronic obstructive lung disease, congestive heart failure, coronary artery disease, emphysema, hypertension, low-grade bladder cancer required a recent hospitalization in [place] and history of skin cancer, basal cell colon polyps, renal disease, admitted with shortness of breath and the patient on a ventilator and; 1. Respiratory failure intubated on a ventilator with healthcare-associated pneumonia with multiple allergies, on Zyvox, meropenem, day #2 pending panculture results and initial workup results. The patient's procalcitonin is 0.14 as noted. LFTs are noted. We will follow with you. Clay Villalba MD
--- NOTE | 2018-10-02 09:28 | RAD ---
Date of service: 10/02/2018 HISTORY: R/O pneumonia Vs CHF COMPARISON: No prior. FINDINGS: LUNGS: The left diaphragmatic border is not well seen. The lungs are otherwise clear PLEURA: No significant pleural effusion identified, no pneumothorax apparent. CARDIOVASCULAR: No aortic atherosclerotic calcification present. Mild to moderate cardiomegaly mild vascular congestion OSSEOUS STRUCTURES: No significant abnormalities. VISUALIZED UPPER ABDOMEN: Normal. OTHER FINDINGS: Endotracheal tube and nasogastric tube unchanged IMPRESSION: The left diaphragmatic borders not well seen. The lungs are otherwise clear
--- NOTE | 2018-10-02 09:28 | CP.CCUPN ---
<Alexis Feliciano - Last Filed: 10/02/18 11:44> CCU Subjective - Physician Review Subjective (Free Text): Alexis Feliciano, PGY1 ICU Progress Note for Dr. Swift Patient was seen and examined at bedside this morning. Vital signs are stable. No acute overnight events. Patient is intubated, ET tube in place with OG tube. Adams is draining, 175 cc during time of interview. Vent settings: PRVC 400/25/15/60%. Patient awakes to verbal stimuli and briefly follows commands. He moves all extremities spontaneously. Appropriate ROS not obtained due to patient's condition. CCU Objective - Vital Signs / Intake & Output Vital Signs (Last 4 hours): Vital Signs Temp Pulse BP Pulse Ox 10/02/18 08:47 109/55 L 10/02/18 07:00 98.8 F 61 104/55 L 93 L 10/02/18 06:50 62 94 L 10/02/18 06:40 61 94 L 10/02/18 06:30 62 94 L 10/02/18 06:20 64 95 10/02/18 06:10 95 10/02/18 06:00 114/61 92 L 10/02/18 05:50 99.1 F 65 95 10/02/18 05:40 99.1 F 63 96 10/02/18 05:30 99.1 F 62 96 Intake and Output (Last 8hrs): Intake & Output 10/01/18 10/02/18 10/02/18 22:59 06:59 14:59 Intake Total 598 686 70 Output Total 2600 1300 Balance -2001 70 Weight 135.624 kg Intake: IV 598 686 70 Left Forearm 400 236 Right Hand 150 Oral 0 Output: Urine 2600 1300 Urethral (Adams) 2600 1300 Stool 0 Other: # Bowel Movements 0 - Physical Exam Head: Positive for: Atraumatic, Normocephalic Pupils: Positive for: PERRL Extroacular Muscles: Positive for: EOMI Conjunctiva: Positive for: Normal Mouth: Positive for: Moist Mucous Membranes, Other (ET and OG tube in place. ) Respiratory/Chest: Positive for: Clear to Auscultation. Negative for: Accessory Muscle Use, Wheezes, Rales, Rhonchi Cardiovascular: Positive for: Regular Rate and Rhythm, Normal S1, S2. Negative for: Murmurs Abdomen: Positive for: Distention, Normal Bowel Sounds. Negative for: Tenderness, Peritoneal Signs, Rebound Upper Extremity: Positive for: Normal Inspection. Negative for: Cyanosis, Edema Lower Extremity: Positive for: Edema (+1 pitting edema bilateral lower extremities. b/l lower ext swelling. ), NORMAL PULSES. Negative for: Tenderness Skin: Positive for: Warm, Dry, Normal Color. Negative for: Rashes - Medications Active Medications: Active Medications Generic Name Dose Route Start Last Admin Trade Name Freq PRN Reason Stop Dose Admin Aspirin 81 mg 10/01/18 10:00 10/01/18 09:42 Aspirin Chewable PO 81 mg DAILY MARCO ANTONIO Administration Furosemide 40 mg 10/01/18 14:00 10/02/18 08:47 Lasix IV 40 mg 0800,1400 MARCO ANTONIO Administration Heparin Sodium (Porcine) 5,000 units 10/01/18 08:15 10/02/18 08:45 Heparin SC 5,000 units Q8H MARCO ANTONIO Administration Protocol Propofol 1,000 mg in 100 mls @ 4.15 mls/hr 10/01/18 06:44 10/02/18 08:59 Diprivan IV 20 mcg/kg/min .Q24H PRN 16.602 mls/hr TITRATE PER MD ORDER Titration Protocol 5 MCG/KG/MIN Fentanyl Citrate 1,000 mcg in 100 mls @ 10 mls/hr 10/01/18 08:06 10/02/18 04:33 Fentanyl Citrate/Sodium Chloride 1 Mg/100 Ml IV 100 mcg/hr .Q10H PRN 10 mls/hr TITRATE PER MD ORDER Administration Protocol 100 MCG/HR Milrinone Lactate/Dextrose 100 mls @ 8.301 mls/hr 10/01/18 09:44 Primacor 20mg/100ml D5w IV .Q12H3M PRN TITRATE PER MD ORDER Protocol 0.2 MCG/KG/MIN Meropenem 1 gm in 50 mls @ 100 mls/hr 10/01/18 22:00 10/01/18 21:48 Merrem Iv 1 Gm Premix IVPB 10/10/18 22:01 100 mls/hr Q12 MARCO ANTONIO Administration Protocol Linezolid 600 mg in 300 mls @ 200 mls/hr 10/01/18 22:00 10/01/18 21:00 Zyvox 600mg/300ml D5w IVPB 10/10/18 22:01 200 mls/hr Q12 MARCO ANTONIO Administration Protocol Methylprednisolone 20 mg 10/01/18 10:00 10/01/18 21:47 Solu-Medrol IVP 20 mg Q12 MARCO ANTONIO Administration Metolazone 5 mg 10/01/18 10:00 10/01/18 10:30 Zaroxolyn PO 10/03/18 23:59 5 mg DAILY MARCO ANTONIO Administration Midazolam HCl 5 mg 10/01/18 08:06 Versed Inj IVP Q4H PRN Agitation Oseltamivir Phosphate 75 mg 10/01/18 10:00 10/01/18 09:42 Tamiflu Cap PO 10/06/18 07:58 75 mg DAILY MARCO ANTONIO Administration Protocol - Patient Studies Lab Studies: Microbiology Studies 10/01/18 06:30 Blood Culture - Preliminary Blood-Venous NO GROWTH AFTER 24 HOURS 10/01/18 06:30 Blood Culture - Preliminary Blood-Venous NO GROWTH AFTER 24 HOURS Lab Studies 10/02/18 10/02/18 10/02/18 Range/Units 08:03 06:40 05:34 WBC (4.5-11.0) 10^3/uL RBC (3.5-6.1) 10^6/uL Hgb (14.0-18.0) g/dL Hct (42.0-52.0) % MCV (80.0-105.0) fl MCH (25.0-35.0) pg MCHC (31.0-37.0) g/dl RDW (11.5-14.5) % Plt Count (120.0-450.0) 10^3/uL MPV (7.0-11.0) fl pCO2 43 (35-45) mm/Hg pO2 94.0 (80-100) mm/Hg HCO3 27.9 (21-28) mmol/L ABG pH 7.42 (7.35-7.45) ABG Total CO2 29.2 H (22-28) mmol.L ABG O2 Saturation 98.5 H (95-98) % ABG O2 Content 15.2 (15-23) ML/dl ABG Base Excess 3.0 (-2.0-3.0) mmol/L ABG Hemoglobin 11.1 L (11.7-17.4) g/dL ABG Carboxyhemoglobin 1.4 (0.5-1.5) % POC ABG HHb (Measured) 1.5 (0-5) % ABG Methemoglobin 0.3 (0.0-3.0) % ABG O2 Capacity 15.4 L (16-24) mL/dl ABG Potassium (3.6-5.2) mmol/L Hgb O2 Saturation 96.8 (95.0-98.0) % Sodium (132-148) mmol/L Chloride (98-107) mmol/L Glucose (75-110) mg/dl Lactate (0.7-2.1) mmol/L Mechanical Rate FiO2 60.0 % Tidal Volume PEEP Potassium (3.6-5.0) mmol/L Carbon Dioxide (21-33) mmol/L Anion Gap (10-20) BUN (7-21) mg/dL Creatinine (0.8-1.5) mg/dl Est GFR ( Amer) Est GFR (Non-Af Amer) POC Glucose (mg/dL) 135 H 126 H (65-110) mg/dL Random Glucose (70-110) mg/dL Calcium (8.4-10.5) mg/dL Phosphorus (2.5-4.5) mg/dL Magnesium (1.7-2.2) mg/dL Total Bilirubin (0.2-1.3) mg/dL AST (17-59) U/L ALT (7-56) U/L Alkaline Phosphatase (38-126) U/L Total Protein (5.8-8.3) g/dL Albumin (3.0-4.8) g/dL Globulin gm/dL Albumin/Globulin Ratio (1.1-1.8) Triglycerides (35-160) mg/dL Cholesterol (130-200) mg/dL LDL Cholesterol Direct (0-129) mg/dL HDL Cholesterol (29-60) mg/dL Procalcitonin (0.19-0.49) NG/ML TSH 3rd Generation (0.46-4.68) mIU/mL Arterial Blood Potassium (3.6-5.2) mmol/L Urine Color (YELLOW) Urine Appearance (CLEAR) Urine pH (4.7-8.0) Ur Specific [place] (1.005-1.035) Urine Protein (<30 mg/dL) mg/dL Urine Glucose (UA) (NEGATIVE) mg/dL Urine Ketones (NEGATIVE) mg/dL Urine Blood (NEGATIVE) Urine Nitrate (NEGATIVE) Urine Bilirubin (NEGATIVE) Urine Urobilinogen (<1 E.U./dL) E.U./dL Ur Leukocyte Esterase (NEGATIVE) Lorrie/uL Urine RBC (0-2) /hpf Urine WBC (0-6) /hpf Ur Epithelial Cells (0-5) /hpf Urine Bacteria (NEG) Urine Microalbumin (0.0-16.6) mg/L Ur L.pneumophila Ag (NEGATIVE) 10/02/18 10/02/18 10/02/18 Range/Units 05:30 05:30 05:30 WBC 10.1 (4.5-11.0) 10^3/uL RBC 3.81 (3.5-6.1) 10^6/uL Hgb 11.3 L (14.0-18.0) g/dL Hct 35.1 L (42.0-52.0) % MCV 92.1 (80.0-105.0) fl MCH 29.7 (25.0-35.0) pg MCHC 32.2 (31.0-37.0) g/dl RDW 15.6 H (11.5-14.5) % Plt Count 219 (120.0-450.0) 10^3/uL MPV 9.9 (7.0-11.0) fl pCO2 (35-45) mm/Hg pO2 (80-100) mm/Hg HCO3 (21-28) mmol/L ABG pH (7.35-7.45) ABG Total CO2 (22-28) mmol.L ABG O2 Saturation (95-98) % ABG O2 Content (15-23) ML/dl ABG Base Excess (-2.0-3.0) mmol/L ABG Hemoglobin (11.7-17.4) g/dL ABG Carboxyhemoglobin (0.5-1.5) % POC ABG HHb (Measured) (0-5) % ABG Methemoglobin (0.0-3.0) % ABG O2 Capacity (16-24) mL/dl ABG Potassium (3.6-5.2) mmol/L Hgb O2 Saturation (95.0-98.0) % Sodium 138 (132-148) mmol/L Chloride 103 (98-107) mmol/L Glucose (75-110) mg/dl Lactate (0.7-2.1) mmol/L Mechanical Rate FiO2 % Tidal Volume PEEP Potassium 3.7 (3.6-5.0) mmol/L Carbon Dioxide 27 (21-33) mmol/L Anion Gap 11 (10-20) BUN 35 H (7-21) mg/dL Creatinine 1.8 H (0.8-1.5) mg/dl Est GFR ( Amer) 44 Est GFR (Non-Af Amer) 36 POC Glucose (mg/dL) (65-110) mg/dL Random Glucose 144 H (70-110) mg/dL Calcium 8.9 (8.4-10.5) mg/dL Phosphorus 4.1 (2.5-4.5) mg/dL Magnesium 2.1 (1.7-2.2) mg/dL Total Bilirubin 0.6 (0.2-1.3) mg/dL AST 79 H D (17-59) U/L ALT 93 H (7-56) U/L Alkaline Phosphatase 98 (38-126) U/L Total Protein 6.6 (5.8-8.3) g/dL Albumin 3.5 (3.0-4.8) g/dL Globulin 3.1 gm/dL Albumin/Globulin Ratio 1.1 (1.1-1.8) Triglycerides 120 (35-160) mg/dL Cholesterol 91 L (130-200) mg/dL LDL Cholesterol Direct 52 (0-129) mg/dL HDL Cholesterol 31 (29-60) mg/dL Procalcitonin (0.19-0.49) NG/ML TSH 3rd Generation 0.62 (0.46-4.68) mIU/mL Arterial Blood Potassium (3.6-5.2) mmol/L Urine Color (YELLOW) Urine Appearance (CLEAR) Urine pH (4.7-8.0) Ur Specific [place] (1.005-1.035) Urine Protein (<30 mg/dL) mg/dL Urine Glucose (UA) (NEGATIVE) mg/dL Urine Ketones (NEGATIVE) mg/dL Urine Blood (NEGATIVE) Urine Nitrate (NEGATIVE) Urine Bilirubin (NEGATIVE) Urine Urobilinogen (<1 E.U./dL) E.U./dL Ur Leukocyte Esterase (NEGATIVE) Lorrie/uL Urine RBC (0-2) /hpf Urine WBC (0-6) /hpf Ur Epithelial Cells (0-5) /hpf Urine Bacteria (NEG) Urine Microalbumin (0.0-16.6) mg/L Ur L.pneumophila Ag (NEGATIVE) 10/01/18 10/01/18 10/01/18 Range/Units 23:50 21:03 17:07 WBC (4.5-11.0) 10^3/uL RBC (3.5-6.1) 10^6/uL Hgb (14.0-18.0) g/dL Hct (42.0-52.0) % MCV (80.0-105.0) fl MCH (25.0-35.0) pg MCHC (31.0-37.0) g/dl RDW (11.5-14.5) % Plt Count (120.0-450.0) 10^3/uL MPV (7.0-11.0) fl pCO2 (35-45) mm/Hg pO2 (80-100) mm/Hg HCO3 (21-28) mmol/L ABG pH (7.35-7.45) ABG Total CO2 (22-28) mmol.L ABG O2 Saturation (95-98) % ABG O2 Content (15-23) ML/dl ABG Base Excess (-2.0-3.0) mmol/L ABG Hemoglobin (11.7-17.4) g/dL ABG Carboxyhemoglobin (0.5-1.5) % POC ABG HHb (Measured) (0-5) % ABG Methemoglobin (0.0-3.0) % ABG O2 Capacity (16-24) mL/dl ABG Potassium (3.6-5.2) mmol/L Hgb O2 Saturation (95.0-98.0) % Sodium (132-148) mmol/L Chloride (98-107) mmol/L Glucose (75-110) mg/dl Lactate (0.7-2.1) mmol/L Mechanical Rate FiO2 % Tidal Volume PEEP Potassium (3.6-5.0) mmol/L Carbon Dioxide (21-33) mmol/L Anion Gap (10-20) BUN (7-21) mg/dL Creatinine (0.8-1.5) mg/dl Est GFR ( Amer) Est GFR (Non-Af Amer) POC Glucose (mg/dL) 151 H 166 H 161 H (65-110) mg/dL Random Glucose (70-110) mg/dL Calcium (8.4-10.5) mg/dL Phosphorus (2.5-4.5) mg/dL Magnesium (1.7-2.2) mg/dL Total Bilirubin (0.2-1.3) mg/dL AST (17-59) U/L ALT (7-56) U/L Alkaline Phosphatase (38-126) U/L Total Protein (5.8-8.3) g/dL Albumin (3.0-4.8) g/dL Globulin gm/dL Albumin/Globulin Ratio (1.1-1.8) Triglycerides (35-160) mg/dL Cholesterol (130-200) mg/dL LDL Cholesterol Direct (0-129) mg/dL HDL Cholesterol (29-60) mg/dL Procalcitonin (0.19-0.49) NG/ML TSH 3rd Generation (0.46-4.68) mIU/mL Arterial Blood Potassium (3.6-5.2) mmol/L Urine Color (YELLOW) Urine Appearance (CLEAR) Urine pH (4.7-8.0) Ur Specific [place] (1.005-1.035) Urine Protein (<30 mg/dL) mg/dL Urine Glucose (UA) (NEGATIVE) mg/dL Urine Ketones (NEGATIVE) mg/dL Urine Blood (NEGATIVE) Urine Nitrate (NEGATIVE) Urine Bilirubin (NEGATIVE) Urine Urobilinogen (<1 E.U./dL) E.U./dL Ur Leukocyte Esterase (NEGATIVE) Lorrie/uL Urine RBC (0-2) /hpf Urine WBC (0-6) /hpf Ur Epithelial Cells (0-5) /hpf Urine Bacteria (NEG) Urine Microalbumin (0.0-16.6) mg/L Ur L.pneumophila Ag (NEGATIVE) 10/01/18 10/01/18 10/01/18 Range/Units 15:31 15:25 15:21 WBC (4.5-11.0) 10^3/uL RBC (3.5-6.1) 10^6/uL Hgb (14.0-18.0) g/dL Hct (42.0-52.0) % MCV (80.0-105.0) fl MCH (25.0-35.0) pg MCHC (31.0-37.0) g/dl RDW (11.5-14.5) % Plt Count (120.0-450.0) 10^3/uL MPV (7.0-11.0) fl pCO2 (35-45) mm/Hg pO2 (80-100) mm/Hg HCO3 (21-28) mmol/L ABG pH (7.35-7.45) ABG Total CO2 (22-28) mmol.L ABG O2 Saturation (95-98) % ABG O2 Content (15-23) ML/dl ABG Base Excess (-2.0-3.0) mmol/L ABG Hemoglobin (11.7-17.4) g/dL ABG Carboxyhemoglobin (0.5-1.5) % POC ABG HHb (Measured) (0-5) % ABG Methemoglobin (0.0-3.0) % ABG O2 Capacity (16-24) mL/dl ABG Potassium (3.6-5.2) mmol/L Hgb O2 Saturation (95.0-98.0) % Sodium (132-148) mmol/L Chloride (98-107) mmol/L Glucose (75-110) mg/dl Lactate (0.7-2.1) mmol/L Mechanical Rate FiO2 % Tidal Volume PEEP Potassium (3.6-5.0) mmol/L Carbon Dioxide (21-33) mmol/L Anion Gap (10-20) BUN (7-21) mg/dL Creatinine (0.8-1.5) mg/dl Est GFR ( Amer) Est GFR (Non-Af Amer) POC Glucose (mg/dL) (65-110) mg/dL Random Glucose (70-110) mg/dL Calcium (8.4-10.5) mg/dL Phosphorus (2.5-4.5) mg/dL Magnesium (1.7-2.2) mg/dL Total Bilirubin (0.2-1.3) mg/dL AST (17-59) U/L ALT (7-56) U/L Alkaline Phosphatase (38-126) U/L Total Protein (5.8-8.3) g/dL Albumin (3.0-4.8) g/dL Globulin gm/dL Albumin/Globulin Ratio (1.1-1.8) Triglycerides (35-160) mg/dL Cholesterol (130-200) mg/dL LDL Cholesterol Direct (0-129) mg/dL HDL Cholesterol (29-60) mg/dL Procalcitonin (0.19-0.49) NG/ML TSH 3rd Generation (0.46-4.68) mIU/mL Arterial Blood Potassium (3.6-5.2) mmol/L Urine Color Yellow (YELLOW) Urine Appearance Sl cloudy (CLEAR) Urine pH 6.0 (4.7-8.0) Ur Specific [place] 1.015 (1.005-1.035) Urine Protein Negative (<30 mg/dL) mg/dL Urine Glucose (UA) Negative (NEGATIVE) mg/dL Urine Ketones Negative (NEGATIVE) mg/dL Urine Blood Moderate H (NEGATIVE) Urine Nitrate Negative (NEGATIVE) Urine Bilirubin Negative (NEGATIVE) Urine Urobilinogen 0.2 (<1 E.U./dL) E.U./dL Ur Leukocyte Esterase Negative (NEGATIVE) Lorrie/uL Urine RBC 2 - 5 (0-2) /hpf Urine WBC Negative (0-6) /hpf Ur Epithelial Cells 3 - 4 (0-5) /hpf Urine Bacteria Occ (NEG) Urine Microalbumin 44.6 H (0.0-16.6) mg/L Ur L.pneumophila Ag Negative (NEGATIVE) 10/01/18 10/01/18 10/01/18 Range/Units 11:49 10:10 07:54 WBC (4.5-11.0) 10^3/uL RBC (3.5-6.1) 10^6/uL Hgb (14.0-18.0) g/dL Hct (42.0-52.0) % MCV (80.0-105.0) fl MCH (25.0-35.0) pg MCHC (31.0-37.0) g/dl RDW (11.5-14.5) % Plt Count (120.0-450.0) 10^3/uL MPV (7.0-11.0) fl pCO2 49 H (35-45) mm/Hg pO2 80.0 (80-100) mm/Hg HCO3 23.6 (21-28) mmol/L ABG pH 7.29 L (7.35-7.45) ABG Total CO2 25.1 (22-28) mmol.L ABG O2 Saturation 97.0 (95-98) % ABG O2 Content (15-23) ML/dl ABG Base Excess -3.4 L (-2.0-3.0) mmol/L ABG Hemoglobin (11.7-17.4) g/dL ABG Carboxyhemoglobin (0.5-1.5) % POC ABG HHb (Measured) (0-5) % ABG Methemoglobin (0.0-3.0) % ABG O2 Capacity (16-24) mL/dl ABG Potassium 3.6 (3.6-5.2) mmol/L Hgb O2 Saturation (95.0-98.0) % Sodium 139.0 (132-148) mmol/L Chloride 107.0 (98-107) mmol/L Glucose 141 H (75-110) mg/dl Lactate 1.2 (0.7-2.1) mmol/L Mechanical Rate 20 FiO2 80.0 % Tidal Volume 400 PEEP 15 Potassium (3.6-5.0) mmol/L Carbon Dioxide (21-33) mmol/L Anion Gap (10-20) BUN (7-21) mg/dL Creatinine (0.8-1.5) mg/dl Est GFR ( Amer) Est GFR (Non-Af Amer) POC Glucose (mg/dL) 142 H (65-110) mg/dL Random Glucose (70-110) mg/dL Calcium (8.4-10.5) mg/dL Phosphorus (2.5-4.5) mg/dL Magnesium (1.7-2.2) mg/dL Total Bilirubin (0.2-1.3) mg/dL AST (17-59) U/L ALT (7-56) U/L Alkaline Phosphatase (38-126) U/L Total Protein (5.8-8.3) g/dL Albumin (3.0-4.8) g/dL Globulin gm/dL Albumin/Globulin Ratio (1.1-1.8) Triglycerides (35-160) mg/dL Cholesterol (130-200) mg/dL LDL Cholesterol Direct (0-129) mg/dL HDL Cholesterol (29-60) mg/dL Procalcitonin 0.14 L (0.19-0.49) NG/ML TSH 3rd Generation (0.46-4.68) mIU/mL Arterial Blood Potassium 3.6 (3.6-5.2) mmol/L Urine Color (YELLOW) Urine Appearance (CLEAR) Urine pH (4.7-8.0) Ur Specific [place] (1.005-1.035) Urine Protein (<30 mg/dL) mg/dL Urine Glucose (UA) (NEGATIVE) mg/dL Urine Ketones (NEGATIVE) mg/dL Urine Blood (NEGATIVE) Urine Nitrate (NEGATIVE) Urine Bilirubin (NEGATIVE) Urine Urobilinogen (<1 E.U./dL) E.U./dL Ur Leukocyte Esterase (NEGATIVE) Lorrie/uL Urine RBC (0-2) /hpf Urine WBC (0-6) /hpf Ur Epithelial Cells (0-5) /hpf Urine Bacteria (NEG) Urine Microalbumin (0.0-16.6) mg/L Ur L.pneumophila Ag (NEGATIVE) Laboratory Results - last 24 hr 10/01/18 10/01/18 10/01/18 07:54 10:10 11:49 WBC RBC Hgb Hct MCV MCH MCHC RDW Plt Count MPV pCO2 49 H pO2 80.0 HCO3 23.6 ABG pH 7.29 L ABG Total CO2 25.1 ABG O2 Saturation 97.0 ABG O2 Content ABG Base Excess -3.4 L ABG Hemoglobin ABG Carboxyhemoglobin POC ABG HHb (Measured) ABG Methemoglobin ABG O2 Capacity ABG Potassium 3.6 Hgb O2 Saturation Sodium 139.0 Chloride 107.0 Glucose 141 H Lactate 1.2 Mechanical Rate 20 FiO2 80.0 Tidal Volume 400 PEEP 15 Potassium Carbon Dioxide Anion Gap BUN Creatinine Est GFR ( Amer) Est GFR (Non-Af Amer) POC Glucose (mg/dL) 142 H Random Glucose Calcium Phosphorus Magnesium Total Bilirubin AST ALT Alkaline Phosphatase Total Protein Albumin Globulin Albumin/Globulin Ratio Triglycerides Cholesterol LDL Cholesterol Direct HDL Cholesterol Procalcitonin 0.14 L TSH 3rd Generation Arterial Blood Potassium 3.6 Urine Color Urine Appearance Urine pH Ur Specific [place] Urine Protein Urine Glucose (UA) Urine Ketones Urine Blood Urine Nitrate Urine Bilirubin Urine Urobilinogen Ur Leukocyte Esterase Urine RBC Urine WBC Ur Epithelial Cells Urine Bacteria Urine Microalbumin Ur L.pneumophila Ag 10/01/18 10/01/18 10/01/18 15:21 15:25 15:31 WBC RBC Hgb Hct MCV MCH MCHC RDW Plt Count MPV pCO2 pO2 HCO3 ABG pH ABG Total CO2 ABG O2 Saturation ABG O2 Content ABG Base Excess ABG Hemoglobin ABG Carboxyhemoglobin POC ABG HHb (Measured) ABG Methemoglobin ABG O2 Capacity ABG Potassium Hgb O2 Saturation Sodium Chloride Glucose Lactate Mechanical Rate FiO2 Tidal Volume PEEP Potassium Carbon Dioxide Anion Gap BUN Creatinine Est GFR ( Amer) Est GFR (Non-Af Amer) POC Glucose (mg/dL) Random Glucose Calcium Phosphorus Magnesium Total Bilirubin AST ALT Alkaline Phosphatase Total Protein Albumin Globulin Albumin/Globulin Ratio Triglycerides Cholesterol LDL Cholesterol Direct HDL Cholesterol Procalcitonin TSH 3rd Generation Arterial Blood Potassium Urine Color Yellow Urine Appearance Sl cloudy Urine pH 6.0 Ur Specific [place] 1.015 Urine Protein Negative Urine Glucose (UA) Negative Urine Ketones Negative Urine Blood Moderate H Urine Nitrate Negative Urine Bilirubin Negative Urine Urobilinogen 0.2 Ur Leukocyte Esterase Negative Urine RBC 2 - 5 Urine WBC Negative Ur Epithelial Cells 3 - 4 Urine Bacteria Occ Urine Microalbumin 44.6 H Ur L.pneumophila Ag Negative 10/01/18 10/01/18 10/01/18 17:07 21:03 23:50 WBC RBC Hgb Hct MCV MCH MCHC RDW Plt Count MPV pCO2 pO2 HCO3 ABG pH ABG Total CO2 ABG O2 Saturation ABG O2 Content ABG Base Excess ABG Hemoglobin ABG Carboxyhemoglobin POC ABG HHb (Measured) ABG Methemoglobin ABG O2 Capacity ABG Potassium Hgb O2 Saturation Sodium Chloride Glucose Lactate Mechanical Rate FiO2 Tidal Volume PEEP Potassium Carbon Dioxide Anion Gap BUN Creatinine Est GFR ( Amer) Est GFR (Non-Af Amer) POC Glucose (mg/dL) 161 H 166 H 151 H Random Glucose Calcium Phosphorus Magnesium Total Bilirubin AST ALT Alkaline Phosphatase Total Protein Albumin Globulin Albumin/Globulin Ratio Triglycerides Cholesterol LDL Cholesterol Direct HDL Cholesterol Procalcitonin TSH 3rd Generation Arterial Blood Potassium Urine Color Urine Appearance Urine pH Ur Specific [place] Urine Protein Urine Glucose (UA) Urine Ketones Urine Blood Urine Nitrate Urine Bilirubin Urine Urobilinogen Ur Leukocyte Esterase Urine RBC Urine WBC Ur Epithelial Cells Urine Bacteria Urine Microalbumin Ur L.pneumophila Ag 10/02/18 10/02/18 10/02/18 05:30 05:30 05:30 WBC 10.1 RBC 3.81 Hgb 11.3 L Hct 35.1 L MCV 92.1 MCH 29.7 MCHC 32.2 RDW 15.6 H Plt Count 219 MPV 9.9 pCO2 pO2 HCO3 ABG pH ABG Total CO2 ABG O2 Saturation ABG O2 Content ABG Base Excess ABG Hemoglobin ABG Carboxyhemoglobin POC ABG HHb (Measured) ABG Methemoglobin ABG O2 Capacity ABG Potassium Hgb O2 Saturation Sodium 138 Chloride 103 Glucose Lactate Mechanical Rate FiO2 Tidal Volume PEEP Potassium 3.7 Carbon Dioxide 27 Anion Gap 11 BUN 35 H Creatinine 1.8 H Est GFR ( Amer) 44 Est GFR (Non-Af Amer) 36 POC Glucose (mg/dL) Random Glucose 144 H Calcium 8.9 Phosphorus 4.1 Magnesium 2.1 Total Bilirubin 0.6 AST 79 H D ALT 93 H Alkaline Phosphatase 98 Total Protein 6.6 Albumin 3.5 Globulin 3.1 Albumin/Globulin Ratio 1.1 Triglycerides 120 Cholesterol 91 L LDL Cholesterol Direct 52 HDL Cholesterol 31 Procalcitonin TSH 3rd Generation 0.62 Arterial Blood Potassium Urine Color Urine Appearance Urine pH Ur Specific [place] Urine Protein Urine Glucose (UA) Urine Ketones Urine Blood Urine Nitrate Urine Bilirubin Urine Urobilinogen Ur Leukocyte Esterase Urine RBC Urine WBC Ur Epithelial Cells Urine Bacteria Urine Microalbumin Ur L.pneumophila Ag 10/02/18 10/02/18 10/02/18 05:34 06:40 08:03 WBC RBC Hgb Hct MCV MCH MCHC RDW Plt Count MPV pCO2 43 pO2 94.0 HCO3 27.9 ABG pH 7.42 ABG Total CO2 29.2 H ABG O2 Saturation 98.5 H ABG O2 Content 15.2 ABG Base Excess 3.0 ABG Hemoglobin 11.1 L ABG Carboxyhemoglobin 1.4 POC ABG HHb (Measured) 1.5 ABG Methemoglobin 0.3 ABG O2 Capacity 15.4 L ABG Potassium Hgb O2 Saturation 96.8 Sodium Chloride Glucose Lactate Mechanical Rate FiO2 60.0 Tidal Volume PEEP Potassium Carbon Dioxide Anion Gap BUN Creatinine Est GFR ( Amer) Est GFR (Non-Af Amer) POC Glucose (mg/dL) 126 H 135 H Random Glucose Calcium Phosphorus Magnesium Total Bilirubin AST ALT Alkaline Phosphatase Total Protein Albumin Globulin Albumin/Globulin Ratio Triglycerides Cholesterol LDL Cholesterol Direct HDL Cholesterol Procalcitonin TSH 3rd Generation Arterial Blood Potassium Urine Color Urine Appearance Urine pH Ur Specific [place] Urine Protein Urine Glucose (UA) Urine Ketones Urine Blood Urine Nitrate Urine Bilirubin Urine Urobilinogen Ur Leukocyte Esterase Urine RBC Urine WBC Ur Epithelial Cells Urine Bacteria Urine Microalbumin Ur L.pneumophila Ag Fingerstick Blood Sugar Results: 126 Review of Systems - Review of Systems Systems not reviewed;Unavailable: Intubated Critical Care Progress Note - Ventilator Checklist Head of Bed 30 Degrees: Yes Daily Sedation Vacation: Yes Daily Assessment of Readiness to Wean: Yes Daily Spontaneous Breathing Trial: Yes PUD Prophalyxis: Yes DVT Prophylaxis: Yes Oral Care with Chlorhexidine Gluconate {CHG}: Yes - Vent Settings MODE:: PRVC TIDAL VOLUME:: 400 RESP RATE:: 25 FIO2:: 60 PEEP:: 15 - Extremities/Vascular Does the Patient have a Central Venous Catheter?: No Does the Patient need a Central Venous Catheter?: No Does the Patient have a Adams Catheter?: Yes Does the Patient need a Adams Catheter?: Yes Catheter Insertion Criteria: Need for accurate measurement of output in critically ill patient - Restraints Justification for Restraints: High risk for self extubation - Prophylaxis DVT Prophylaxis DVT: Heparin SQ - Nutrition Nutrition: Nutrition Category Date Time Status NPO Diet [DIET] Diets 10/01/18 Breakfast Ordered Assessment/Plan - Assessment and Plan (Free Text) Assessment: Patient is a 78 y/o M with PMHx of HTN, CAD (x2 stents in 2013 and 2014), bioprosthetic aortic valve replacement (2017), Watchman device at [facility] for paroxysmal afib, COPD, CHF, chronic vertigo, L-knee replacement (2016), and bladder cancer who presented to the ICU for hypoxic respiratory failure 2/2 CAP vs CHF exacerbation. Also noted to have FRANCESCA and transaminitis. Plan: Neuro: - Awake, follows commands briefly, moves all extremities spontaneously - Taper down sedatives as needed Pulm: - Given that patient is still on high PEEP (15) ventilation settings, will taper the PEEP accordingly with a repeat abg to assess patient's respiratory status - duonebs q4h ordered - milrinone gtt is continued - c/w bronchodilators and low dose steroids - c/w diuresis with Lasix 40mg IVP BID and c/w metolazone 5mg PO daily - Patient responding well to diuresis; net output was -2.5 L in 24 hours - CXR (10/02): improvement from previous CXR. Cardiopulmonary vascular congestion still present. - currently on low tidal volume ventilation to prevent ventilator associated injury. Continue with protective lung strategies like HoB > 35 degrees, sedation, weaning trial, and proper oral hygiene care. - Maintain SaO2 > 92% Cardio: - c/w ASA 81mg - Echo: EF 45-50% (June 2018) as per cardio - Hx of CAD (x2 stents), bioprosthetic aortic valve replacement, Watchman device at [facility] for paroxysmal afib - maintain normal blood pressure - Cardio on consult - EKG on admission showed prolonged QT interval (561) GI: - monitor transaminitis; now downtrending - OG tube in place - NPO Renal: - For FRANCESCA: f/u urine studies and c/w diuresis - Cr is 1.8 today; uptrending from 1.6 - nephro on consult - Avoid nephrotoxic drugs Heme: - DVT ppx with heparin - H/H stable ID: - Treatment of CAP with appropriate antibiotics given medication allergies; c/w Linezolid and Meropenem (Day #2) - Procalcitonin 0.14 - Blood cx negative x2 after 24 hours (prelim) - afebrile and no leukocytosis - ID on consult - c/w Tamiflu Dispo: Continue to monitor patient in the ICU. We will adjust ventilation settings accordingly. Continue with diuresis. Case was reviewed and discussed with Attending Physician, Dr. Swift <Estuardo Swift - Last Filed: 10/02/18 15:53> CCU Objective - Vital Signs / Intake & Output Vital Signs (Last 4 hours): Vital Signs BP 10/02/18 14:46 103/48 L Intake and Output (Last 8hrs): Intake & Output 10/02/18 10/02/18 10/02/18 06:59 14:59 22:59 Intake Total 686 200 Output Total 1300 Balance -614 200 Weight 135.624 kg Intake: IV 686 200 Left Forearm 236 Right Hand 150 Output: Urine 1300 Urethral (Adams) 1300 Stool 0 - Medications Active Medications: Active Medications Generic Name Dose Route Start Last Admin Trade Name Freq PRN Reason Stop Dose Admin Albuterol/Ipratropium 3 ml 10/02/18 11:30 10/02/18 11:34 Duoneb 3 Mg/0.5 Mg (3 Ml) Ud IH 3 ml [id number] MARCO ANTONIO Administration Aspirin 81 mg 10/01/18 10:00 10/02/18 09:53 Aspirin Chewable PO 81 mg DAILY MARCO ANTONIO Administration Furosemide 40 mg 10/01/18 14:00 10/02/18 14:46 Lasix IV 40 mg 0800,1400 MARCO ANTONIO Administration Heparin Sodium (Porcine) 5,000 units 10/01/18 08:15 10/02/18 08:45 Heparin SC 5,000 units Q8H MARCO ANTONIO Administration Protocol Propofol 1,000 mg in 100 mls @ 4.15 mls/hr 10/01/18 06:44 10/02/18 10:19 Diprivan IV 20 mcg/kg/min .Q24H PRN 16.602 mls/hr TITRATE PER MD ORDER Administration Protocol 5 MCG/KG/MIN Fentanyl Citrate 1,000 mcg in 100 mls @ 10 mls/hr 10/01/18 08:06 10/02/18 14:44 Fentanyl Citrate/Sodium Chloride 1 Mg/100 Ml IV 100 mcg/hr .Q10H PRN 10 mls/hr TITRATE PER MD ORDER Administration Protocol 100 MCG/HR Milrinone Lactate/Dextrose 100 mls @ 8.301 mls/hr 10/01/18 09:44 Primacor 20mg/100ml D5w IV .Q12H3M PRN TITRATE PER MD ORDER Protocol 0.2 MCG/KG/MIN Meropenem 1 gm in 50 mls @ 100 mls/hr 10/01/18 22:00 10/02/18 09:54 Merrem Iv 1 Gm Premix IVPB 10/10/18 22:01 100 mls/hr Q12 MARCO ANTONIO Administration Protocol Linezolid 600 mg in 300 mls @ 200 mls/hr 10/01/18 22:00 10/02/18 09:54 Zyvox 600mg/300ml D5w IVPB 10/10/18 22:01 200 mls/hr Q12 MARCO ANTONIO Administration Protocol Milrinone Lactate/Dextrose 100 mls @ 8.137 mls/hr 10/02/18 10:21 10/02/18 10:39 Primacor 20mg/100ml D5w IV 0.2 mcg/kg/min .[id number] PRN 8.137 mls/hr TITRATE PER MD ORDER Administration Protocol 0.2 MCG/KG/MIN Methylprednisolone 20 mg 10/01/18 10:00 10/02/18 09:53 Solu-Medrol IVP 20 mg Q12 MARCO ANTONIO Administration Metolazone 5 mg 10/01/18 10:00 10/02/18 09:53 Zaroxolyn PO 10/03/18 23:59 5 mg DAILY MARCO ANTONIO Administration Midazolam HCl 5 mg 10/01/18 08:06 Versed Inj IVP Q4H PRN Agitation Oseltamivir Phosphate 75 mg 10/01/18 10:00 10/02/18 09:53 Tamiflu Cap PO 10/06/18 07:58 75 mg DAILY MARCO ANTONIO Administration Protocol - Patient Studies Lab Studies: Microbiology Studies 10/01/18 06:30 Blood Culture - Preliminary Blood-Venous NO GROWTH AFTER 24 HOURS 10/01/18 06:30 Blood Culture - Preliminary Blood-Venous NO GROWTH AFTER 24 HOURS Lab Studies 10/02/18 10/02/18 10/02/18 Range/Units 11:29 08:03 06:40 WBC (4.5-11.0) 10^3/uL RBC (3.5-6.1) 10^6/uL Hgb (14.0-18.0) g/dL Hct (42.0-52.0) % MCV (80.0-105.0) fl MCH (25.0-35.0) pg MCHC (31.0-37.0) g/dl RDW (11.5-14.5) % Plt Count (120.0-450.0) 10^3/uL MPV (7.0-11.0) fl pCO2 43 (35-45) mm/Hg pO2 94.0 (80-100) mm/Hg HCO3 27.9 (21-28) mmol/L ABG pH 7.42 (7.35-7.45) ABG Total CO2 29.2 H (22-28) mmol.L ABG O2 Saturation 98.5 H (95-98) % ABG O2 Content 15.2 (15-23) ML/dl ABG Base Excess 3.0 (-2.0-3.0) mmol/L ABG Hemoglobin 11.1 L (11.7-17.4) g/dL ABG Carboxyhemoglobin 1.4 (0.5-1.5) % POC ABG HHb (Measured) 1.5 (0-5) % ABG Methemoglobin 0.3 (0.0-3.0) % ABG O2 Capacity 15.4 L (16-24) mL/dl Hgb O2 Saturation 96.8 (95.0-98.0) % FiO2 60.0 % Sodium (132-148) mmol/L Potassium (3.6-5.0) mmol/L Chloride (98-107) mmol/L Carbon Dioxide (21-33) mmol/L Anion Gap (10-20) BUN (7-21) mg/dL Creatinine (0.8-1.5) mg/dl Est GFR ( Amer) Est GFR (Non-Af Amer) POC Glucose (mg/dL) 138 H 135 H (65-110) mg/dL Random Glucose (70-110) mg/dL Hemoglobin A1c (4.2-6.5) % Calcium (8.4-10.5) mg/dL Phosphorus (2.5-4.5) mg/dL Magnesium (1.7-2.2) mg/dL Total Bilirubin (0.2-1.3) mg/dL AST (17-59) U/L ALT (7-56) U/L Alkaline Phosphatase (38-126) U/L Total Protein (5.8-8.3) g/dL Albumin (3.0-4.8) g/dL Globulin gm/dL Albumin/Globulin Ratio (1.1-1.8) Triglycerides (35-160) mg/dL Cholesterol (130-200) mg/dL LDL Cholesterol Direct (0-129) mg/dL HDL Cholesterol (29-60) mg/dL Procalcitonin (0.19-0.49) NG/ML TSH 3rd Generation (0.46-4.68) mIU/mL Urine Color (YELLOW) Urine Appearance (CLEAR) Urine pH (4.7-8.0) Ur Specific [place] (1.005-1.035) Urine Protein (<30 mg/dL) mg/dL Urine Glucose (UA) (NEGATIVE) mg/dL Urine Ketones (NEGATIVE) mg/dL Urine Blood (NEGATIVE) Urine Nitrate (NEGATIVE) Urine Bilirubin (NEGATIVE) Urine Urobilinogen (<1 E.U./dL) E.U./dL Ur Leukocyte Esterase (NEGATIVE) Lorrie/uL Urine RBC (0-2) /hpf Urine WBC (0-6) /hpf Ur Epithelial Cells (0-5) /hpf Urine Bacteria (NEG) Urine Microalbumin (0.0-16.6) mg/L Ur L.pneumophila Ag (NEGATIVE) 10/02/18 10/02/18 10/02/18 Range/Units 05:34 05:30 05:30 WBC 10.1 (4.5-11.0) 10^3/uL RBC 3.81 (3.5-6.1) 10^6/uL Hgb 11.3 L (14.0-18.0) g/dL Hct 35.1 L (42.0-52.0) % MCV 92.1 (80.0-105.0) fl MCH 29.7 (25.0-35.0) pg MCHC 32.2 (31.0-37.0) g/dl RDW 15.6 H (11.5-14.5) % Plt Count 219 (120.0-450.0) 10^3/uL MPV 9.9 (7.0-11.0) fl pCO2 (35-45) mm/Hg pO2 (80-100) mm/Hg HCO3 (21-28) mmol/L ABG pH (7.35-7.45) ABG Total CO2 (22-28) mmol.L ABG O2 Saturation (95-98) % ABG O2 Content (15-23) ML/dl ABG Base Excess (-2.0-3.0) mmol/L ABG Hemoglobin (11.7-17.4) g/dL ABG Carboxyhemoglobin (0.5-1.5) % POC ABG HHb (Measured) (0-5) % ABG Methemoglobin (0.0-3.0) % ABG O2 Capacity (16-24) mL/dl Hgb O2 Saturation (95.0-98.0) % FiO2 % Sodium (132-148) mmol/L Potassium (3.6-5.0) mmol/L Chloride (98-107) mmol/L Carbon Dioxide (21-33) mmol/L Anion Gap (10-20) BUN (7-21) mg/dL Creatinine (0.8-1.5) mg/dl Est GFR ( Amer) Est GFR (Non-Af Amer) POC Glucose (mg/dL) 126 H (65-110) mg/dL Random Glucose (70-110) mg/dL Hemoglobin A1c (4.2-6.5) % Calcium (8.4-10.5) mg/dL Phosphorus (2.5-4.5) mg/dL Magnesium (1.7-2.2) mg/dL Total Bilirubin (0.2-1.3) mg/dL AST (17-59) U/L ALT (7-56) U/L Alkaline Phosphatase (38-126) U/L Total Protein (5.8-8.3) g/dL Albumin (3.0-4.8) g/dL Globulin gm/dL Albumin/Globulin Ratio (1.1-1.8) Triglycerides (35-160) mg/dL Cholesterol (130-200) mg/dL LDL Cholesterol Direct (0-129) mg/dL HDL Cholesterol (29-60) mg/dL Procalcitonin (0.19-0.49) NG/ML TSH 3rd Generation 0.62 (0.46-4.68) mIU/mL Urine Color (YELLOW) Urine Appearance (CLEAR) Urine pH (4.7-8.0) Ur Specific [place] (1.005-1.035) Urine Protein (<30 mg/dL) mg/dL Urine Glucose (UA) (NEGATIVE) mg/dL Urine Ketones (NEGATIVE) mg/dL Urine Blood (NEGATIVE) Urine Nitrate (NEGATIVE) Urine Bilirubin (NEGATIVE) Urine Urobilinogen (<1 E.U./dL) E.U./dL Ur Leukocyte Esterase (NEGATIVE) Lorrie/uL Urine RBC (0-2) /hpf Urine WBC (0-6) /hpf Ur Epithelial Cells (0-5) /hpf Urine Bacteria (NEG) Urine Microalbumin (0.0-16.6) mg/L Ur L.pneumophila Ag (NEGATIVE) 10/02/18 10/02/18 10/01/18 Range/Units 05:30 05:30 23:50 WBC (4.5-11.0) 10^3/uL RBC (3.5-6.1) 10^6/uL Hgb (14.0-18.0) g/dL Hct (42.0-52.0) % MCV (80.0-105.0) fl MCH (25.0-35.0) pg MCHC (31.0-37.0) g/dl RDW (11.5-14.5) % Plt Count (120.0-450.0) 10^3/uL MPV (7.0-11.0) fl pCO2 (35-45) mm/Hg pO2 (80-100) mm/Hg HCO3 (21-28) mmol/L ABG pH (7.35-7.45) ABG Total CO2 (22-28) mmol.L ABG O2 Saturation (95-98) % ABG O2 Content (15-23) ML/dl ABG Base Excess (-2.0-3.0) mmol/L ABG Hemoglobin (11.7-17.4) g/dL ABG Carboxyhemoglobin (0.5-1.5) % POC ABG HHb (Measured) (0-5) % ABG Methemoglobin (0.0-3.0) % ABG O2 Capacity (16-24) mL/dl Hgb O2 Saturation (95.0-98.0) % FiO2 % Sodium 138 (132-148) mmol/L Potassium 3.7 (3.6-5.0) mmol/L Chloride 103 (98-107) mmol/L Carbon Dioxide 27 (21-33) mmol/L Anion Gap 11 (10-20) BUN 35 H (7-21) mg/dL Creatinine 1.8 H (0.8-1.5) mg/dl Est GFR ( Amer) 44 Est GFR (Non-Af Amer) 36 POC Glucose (mg/dL) 151 H (65-110) mg/dL Random Glucose 144 H (70-110) mg/dL Hemoglobin A1c 6.4 (4.2-6.5) % Calcium 8.9 (8.4-10.5) mg/dL Phosphorus 4.1 (2.5-4.5) mg/dL Magnesium 2.1 (1.7-2.2) mg/dL Total Bilirubin 0.6 (0.2-1.3) mg/dL AST 79 H D (17-59) U/L ALT 93 H (7-56) U/L Alkaline Phosphatase 98 (38-126) U/L Total Protein 6.6 (5.8-8.3) g/dL Albumin 3.5 (3.0-4.8) g/dL Globulin 3.1 gm/dL Albumin/Globulin Ratio 1.1 (1.1-1.8) Triglycerides 120 (35-160) mg/dL Cholesterol 91 L (130-200) mg/dL LDL Cholesterol Direct 52 (0-129) mg/dL HDL Cholesterol 31 (29-60) mg/dL Procalcitonin (0.19-0.49) NG/ML TSH 3rd Generation (0.46-4.68) mIU/mL Urine Color (YELLOW) Urine Appearance (CLEAR) Urine pH (4.7-8.0) Ur Specific [place] (1.005-1.035) Urine Protein (<30 mg/dL) mg/dL Urine Glucose (UA) (NEGATIVE) mg/dL Urine Ketones (NEGATIVE) mg/dL Urine Blood (NEGATIVE) Urine Nitrate (NEGATIVE) Urine Bilirubin (NEGATIVE) Urine Urobilinogen (<1 E.U./dL) E.U./dL Ur Leukocyte Esterase (NEGATIVE) Lorrie/uL Urine RBC (0-2) /hpf Urine WBC (0-6) /hpf Ur Epithelial Cells (0-5) /hpf Urine Bacteria (NEG) Urine Microalbumin (0.0-16.6) mg/L Ur L.pneumophila Ag (NEGATIVE) 10/01/18 10/01/18 10/01/18 Range/Units 21:03 17:07 15:31 WBC (4.5-11.0) 10^3/uL RBC (3.5-6.1) 10^6/uL Hgb (14.0-18.0) g/dL Hct (42.0-52.0) % MCV (80.0-105.0) fl MCH (25.0-35.0) pg MCHC (31.0-37.0) g/dl RDW (11.5-14.5) % Plt Count (120.0-450.0) 10^3/uL MPV (7.0-11.0) fl pCO2 (35-45) mm/Hg pO2 (80-100) mm/Hg HCO3 (21-28) mmol/L ABG pH (7.35-7.45) ABG Total CO2 (22-28) mmol.L ABG O2 Saturation (95-98) % ABG O2 Content (15-23) ML/dl ABG Base Excess (-2.0-3.0) mmol/L ABG Hemoglobin (11.7-17.4) g/dL ABG Carboxyhemoglobin (0.5-1.5) % POC ABG HHb (Measured) (0-5) % ABG Methemoglobin (0.0-3.0) % ABG O2 Capacity (16-24) mL/dl Hgb O2 Saturation (95.0-98.0) % FiO2 % Sodium (132-148) mmol/L Potassium (3.6-5.0) mmol/L Chloride (98-107) mmol/L Carbon Dioxide (21-33) mmol/L Anion Gap (10-20) BUN (7-21) mg/dL Creatinine (0.8-1.5) mg/dl Est GFR ( Amer) Est GFR (Non-Af Amer) POC Glucose (mg/dL) 166 H 161 H (65-110) mg/dL Random Glucose (70-110) mg/dL Hemoglobin A1c (4.2-6.5) % Calcium (8.4-10.5) mg/dL Phosphorus (2.5-4.5) mg/dL Magnesium (1.7-2.2) mg/dL Total Bilirubin (0.2-1.3) mg/dL AST (17-59) U/L ALT (7-56) U/L Alkaline Phosphatase (38-126) U/L Total Protein (5.8-8.3) g/dL Albumin (3.0-4.8) g/dL Globulin gm/dL Albumin/Globulin Ratio (1.1-1.8) Triglycerides (35-160) mg/dL Cholesterol (130-200) mg/dL LDL Cholesterol Direct (0-129) mg/dL HDL Cholesterol (29-60) mg/dL Procalcitonin (0.19-0.49) NG/ML TSH 3rd Generation (0.46-4.68) mIU/mL Urine Color (YELLOW) Urine Appearance (CLEAR) Urine pH (4.7-8.0) Ur Specific [place] (1.005-1.035) Urine Protein (<30 mg/dL) mg/dL Urine Glucose (UA) (NEGATIVE) mg/dL Urine Ketones (NEGATIVE) mg/dL Urine Blood (NEGATIVE) Urine Nitrate (NEGATIVE) Urine Bilirubin (NEGATIVE) Urine Urobilinogen (<1 E.U./dL) E.U./dL Ur Leukocyte Esterase (NEGATIVE) Lorrie/uL Urine RBC (0-2) /hpf Urine WBC (0-6) /hpf Ur Epithelial Cells (0-5) /hpf Urine Bacteria (NEG) Urine Microalbumin (0.0-16.6) mg/L Ur L.pneumophila Ag Negative (NEGATIVE) 10/01/18 10/01/18 10/01/18 Range/Units 15:25 15:21 11:49 WBC (4.5-11.0) 10^3/uL RBC (3.5-6.1) 10^6/uL Hgb (14.0-18.0) g/dL Hct (42.0-52.0) % MCV (80.0-105.0) fl MCH (25.0-35.0) pg MCHC (31.0-37.0) g/dl RDW (11.5-14.5) % Plt Count (120.0-450.0) 10^3/uL MPV (7.0-11.0) fl pCO2 (35-45) mm/Hg pO2 (80-100) mm/Hg HCO3 (21-28) mmol/L ABG pH (7.35-7.45) ABG Total CO2 (22-28) mmol.L ABG O2 Saturation (95-98) % ABG O2 Content (15-23) ML/dl ABG Base Excess (-2.0-3.0) mmol/L ABG Hemoglobin (11.7-17.4) g/dL ABG Carboxyhemoglobin (0.5-1.5) % POC ABG HHb (Measured) (0-5) % ABG Methemoglobin (0.0-3.0) % ABG O2 Capacity (16-24) mL/dl Hgb O2 Saturation (95.0-98.0) % FiO2 % Sodium (132-148) mmol/L Potassium (3.6-5.0) mmol/L Chloride (98-107) mmol/L Carbon Dioxide (21-33) mmol/L Anion Gap (10-20) BUN (7-21) mg/dL Creatinine (0.8-1.5) mg/dl Est GFR ( Amer) Est GFR (Non-Af Amer) POC Glucose (mg/dL) 142 H (65-110) mg/dL Random Glucose (70-110) mg/dL Hemoglobin A1c (4.2-6.5) % Calcium (8.4-10.5) mg/dL Phosphorus (2.5-4.5) mg/dL Magnesium (1.7-2.2) mg/dL Total Bilirubin (0.2-1.3) mg/dL AST (17-59) U/L ALT (7-56) U/L Alkaline Phosphatase (38-126) U/L Total Protein (5.8-8.3) g/dL Albumin (3.0-4.8) g/dL Globulin gm/dL Albumin/Globulin Ratio (1.1-1.8) Triglycerides (35-160) mg/dL Cholesterol (130-200) mg/dL LDL Cholesterol Direct (0-129) mg/dL HDL Cholesterol (29-60) mg/dL Procalcitonin (0.19-0.49) NG/ML TSH 3rd Generation (0.46-4.68) mIU/mL Urine Color Yellow (YELLOW) Urine Appearance Sl cloudy (CLEAR) Urine pH 6.0 (4.7-8.0) Ur Specific [place] 1.015 (1.005-1.035) Urine Protein Negative (<30 mg/dL) mg/dL Urine Glucose (UA) Negative (NEGATIVE) mg/dL Urine Ketones Negative (NEGATIVE) mg/dL Urine Blood Moderate H (NEGATIVE) Urine Nitrate Negative (NEGATIVE) Urine Bilirubin Negative (NEGATIVE) Urine Urobilinogen 0.2 (<1 E.U./dL) E.U./dL Ur Leukocyte Esterase Negative (NEGATIVE) Lorrie/uL Urine RBC 2 - 5 (0-2) /hpf Urine WBC Negative (0-6) /hpf Ur Epithelial Cells 3 - 4 (0-5) /hpf Urine Bacteria Occ (NEG) Urine Microalbumin 44.6 H (0.0-16.6) mg/L Ur L.pneumophila Ag (NEGATIVE) 10/01/18 Range/Units 07:54 WBC (4.5-11.0) 10^3/uL RBC (3.5-6.1) 10^6/uL Hgb (14.0-18.0) g/dL Hct (42.0-52.0) % MCV (80.0-105.0) fl MCH (25.0-35.0) pg MCHC (31.0-37.0) g/dl RDW (11.5-14.5) % Plt Count (120.0-450.0) 10^3/uL MPV (7.0-11.0) fl pCO2 (35-45) mm/Hg pO2 (80-100) mm/Hg HCO3 (21-28) mmol/L ABG pH (7.35-7.45) ABG Total CO2 (22-28) mmol.L ABG O2 Saturation (95-98) % ABG O2 Content (15-23) ML/dl ABG Base Excess (-2.0-3.0) mmol/L ABG Hemoglobin (11.7-17.4) g/dL ABG Carboxyhemoglobin (0.5-1.5) % POC ABG HHb (Measured) (0-5) % ABG Methemoglobin (0.0-3.0) % ABG O2 Capacity (16-24) mL/dl Hgb O2 Saturation (95.0-98.0) % FiO2 % Sodium (132-148) mmol/L Potassium (3.6-5.0) mmol/L Chloride (98-107) mmol/L Carbon Dioxide (21-33) mmol/L Anion Gap (10-20) BUN (7-21) mg/dL Creatinine (0.8-1.5) mg/dl Est GFR ( Amer) Est GFR (Non-Af Amer) POC Glucose (mg/dL) (65-110) mg/dL Random Glucose (70-110) mg/dL Hemoglobin A1c (4.2-6.5) % Calcium (8.4-10.5) mg/dL Phosphorus (2.5-4.5) mg/dL Magnesium (1.7-2.2) mg/dL Total Bilirubin (0.2-1.3) mg/dL AST (17-59) U/L ALT (7-56) U/L Alkaline Phosphatase (38-126) U/L Total Protein (5.8-8.3) g/dL Albumin (3.0-4.8) g/dL Globulin gm/dL Albumin/Globulin Ratio (1.1-1.8) Triglycerides (35-160) mg/dL Cholesterol (130-200) mg/dL LDL Cholesterol Direct (0-129) mg/dL HDL Cholesterol (29-60) mg/dL Procalcitonin 0.14 L (0.19-0.49) NG/ML TSH 3rd Generation (0.46-4.68) mIU/mL Urine Color (YELLOW) Urine Appearance (CLEAR) Urine pH (4.7-8.0) Ur Specific [place] (1.005-1.035) Urine Protein (<30 mg/dL) mg/dL Urine Glucose (UA) (NEGATIVE) mg/dL Urine Ketones (NEGATIVE) mg/dL Urine Blood (NEGATIVE) Urine Nitrate (NEGATIVE) Urine Bilirubin (NEGATIVE) Urine Urobilinogen (<1 E.U./dL) E.U./dL Ur Leukocyte Esterase (NEGATIVE) Lorrie/uL Urine RBC (0-2) /hpf Urine WBC (0-6) /hpf Ur Epithelial Cells (0-5) /hpf Urine Bacteria (NEG) Urine Microalbumin (0.0-16.6) mg/L Ur L.pneumophila Ag (NEGATIVE) Laboratory Results - last 24 hr 10/01/18 10/01/18 10/01/18 07:54 11:49 15:21 WBC RBC Hgb Hct MCV MCH MCHC RDW Plt Count MPV pCO2 pO2 HCO3 ABG pH ABG Total CO2 ABG O2 Saturation ABG O2 Content ABG Base Excess ABG Hemoglobin ABG Carboxyhemoglobin POC ABG HHb (Measured) ABG Methemoglobin ABG O2 Capacity Hgb O2 Saturation FiO2 Sodium Potassium Chloride Carbon Dioxide Anion Gap BUN Creatinine Est GFR ( Amer) Est GFR (Non-Af Amer) POC Glucose (mg/dL) 142 H Random Glucose Hemoglobin A1c Calcium Phosphorus Magnesium Total Bilirubin AST ALT Alkaline Phosphatase Total Protein Albumin Globulin Albumin/Globulin Ratio Triglycerides Cholesterol LDL Cholesterol Direct HDL Cholesterol Procalcitonin 0.14 L TSH 3rd Generation Urine Color Yellow Urine Appearance Sl cloudy Urine pH 6.0 Ur Specific [place] 1.015 Urine Protein Negative Urine Glucose (UA) Negative Urine Ketones Negative Urine Blood Moderate H Urine Nitrate Negative Urine Bilirubin Negative Urine Urobilinogen 0.2 Ur Leukocyte Esterase Negative Urine RBC 2 - 5 Urine WBC Negative Ur Epithelial Cells 3 - 4 Urine Bacteria Occ Urine Microalbumin Ur L.pneumophila Ag 10/01/18 10/01/18 10/01/18 15:25 15:31 17:07 WBC RBC Hgb Hct MCV MCH MCHC RDW Plt Count MPV pCO2 pO2 HCO3 ABG pH ABG Total CO2 ABG O2 Saturation ABG O2 Content ABG Base Excess ABG Hemoglobin ABG Carboxyhemoglobin POC ABG HHb (Measured) ABG Methemoglobin ABG O2 Capacity Hgb O2 Saturation FiO2 Sodium Potassium Chloride Carbon Dioxide Anion Gap BUN Creatinine Est GFR ( Amer) Est GFR (Non-Af Amer) POC Glucose (mg/dL) 161 H Random Glucose Hemoglobin A1c Calcium Phosphorus Magnesium Total Bilirubin AST ALT Alkaline Phosphatase Total Protein Albumin Globulin Albumin/Globulin Ratio Triglycerides Cholesterol LDL Cholesterol Direct HDL Cholesterol Procalcitonin TSH 3rd Generation Urine Color Urine Appearance Urine pH Ur Specific [place] Urine Protein Urine Glucose (UA) Urine Ketones Urine Blood Urine Nitrate Urine Bilirubin Urine Urobilinogen Ur Leukocyte Esterase Urine RBC Urine WBC Ur Epithelial Cells Urine Bacteria Urine Microalbumin 44.6 H Ur L.pneumophila Ag Negative 10/01/18 10/01/18 10/02/18 21:03 23:50 05:30 WBC RBC Hgb Hct MCV MCH MCHC RDW Plt Count MPV pCO2 pO2 HCO3 ABG pH ABG Total CO2 ABG O2 Saturation ABG O2 Content ABG Base Excess ABG Hemoglobin ABG Carboxyhemoglobin POC ABG HHb (Measured) ABG Methemoglobin ABG O2 Capacity Hgb O2 Saturation FiO2 Sodium 138 Potassium 3.7 Chloride 103 Carbon Dioxide 27 Anion Gap 11 BUN 35 H Creatinine 1.8 H Est GFR ( Amer) 44 Est GFR (Non-Af Amer) 36 POC Glucose (mg/dL) 166 H 151 H Random Glucose 144 H Hemoglobin A1c Calcium 8.9 Phosphorus 4.1 Magnesium 2.1 Total Bilirubin 0.6 AST 79 H D ALT 93 H Alkaline Phosphatase 98 Total Protein 6.6 Albumin 3.5 Globulin 3.1 Albumin/Globulin Ratio 1.1 Triglycerides 120 Cholesterol 91 L LDL Cholesterol Direct 52 HDL Cholesterol 31 Procalcitonin TSH 3rd Generation Urine Color Urine Appearance Urine pH Ur Specific [place] Urine Protein Urine Glucose (UA) Urine Ketones Urine Blood Urine Nitrate Urine Bilirubin Urine Urobilinogen Ur Leukocyte Esterase Urine RBC Urine WBC Ur Epithelial Cells Urine Bacteria Urine Microalbumin Ur L.pneumophila Ag 10/02/18 10/02/18 10/02/18 05:30 05:30 05:30 WBC 10.1 RBC 3.81 Hgb 11.3 L Hct 35.1 L MCV 92.1 MCH 29.7 MCHC 32.2 RDW 15.6 H Plt Count 219 MPV 9.9 pCO2 pO2 HCO3 ABG pH ABG Total CO2 ABG O2 Saturation ABG O2 Content ABG Base Excess ABG Hemoglobin ABG Carboxyhemoglobin POC ABG HHb (Measured) ABG Methemoglobin ABG O2 Capacity Hgb O2 Saturation FiO2 Sodium Potassium Chloride Carbon Dioxide Anion Gap BUN Creatinine Est GFR ( Amer) Est GFR (Non-Af Amer) POC Glucose (mg/dL) Random Glucose Hemoglobin A1c 6.4 Calcium Phosphorus Magnesium Total Bilirubin AST ALT Alkaline Phosphatase Total Protein Albumin Globulin Albumin/Globulin Ratio Triglycerides Cholesterol LDL Cholesterol Direct HDL Cholesterol Procalcitonin TSH 3rd Generation 0.62 Urine Color Urine Appearance Urine pH Ur Specific [place] Urine Protein Urine Glucose (UA) Urine Ketones Urine Blood Urine Nitrate Urine Bilirubin Urine Urobilinogen Ur Leukocyte Esterase Urine RBC Urine WBC Ur Epithelial Cells Urine Bacteria Urine Microalbumin Ur L.pneumophila Ag 10/02/18 10/02/18 10/02/18 05:34 06:40 08:03 WBC RBC Hgb Hct MCV MCH MCHC RDW Plt Count MPV pCO2 43 pO2 94.0 HCO3 27.9 ABG pH 7.42 ABG Total CO2 29.2 H ABG O2 Saturation 98.5 H ABG O2 Content 15.2 ABG Base Excess 3.0 ABG Hemoglobin 11.1 L ABG Carboxyhemoglobin 1.4 POC ABG HHb (Measured) 1.5 ABG Methemoglobin 0.3 ABG O2 Capacity 15.4 L Hgb O2 Saturation 96.8 FiO2 60.0 Sodium Potassium Chloride Carbon Dioxide Anion Gap BUN Creatinine Est GFR ( Amer) Est GFR (Non-Af Amer) POC Glucose (mg/dL) 126 H 135 H Random Glucose Hemoglobin A1c Calcium Phosphorus Magnesium Total Bilirubin AST ALT Alkaline Phosphatase Total Protein Albumin Globulin Albumin/Globulin Ratio Triglycerides Cholesterol LDL Cholesterol Direct HDL Cholesterol Procalcitonin TSH 3rd Generation Urine Color Urine Appearance Urine pH Ur Specific [place] Urine Protein Urine Glucose (UA) Urine Ketones Urine Blood Urine Nitrate Urine Bilirubin Urine Urobilinogen Ur Leukocyte Esterase Urine RBC Urine WBC Ur Epithelial Cells Urine Bacteria Urine Microalbumin Ur L.pneumophila Ag 10/02/18 11:29 WBC RBC Hgb Hct MCV MCH MCHC RDW Plt Count MPV pCO2 pO2 HCO3 ABG pH ABG Total CO2 ABG O2 Saturation ABG O2 Content ABG Base Excess ABG Hemoglobin ABG Carboxyhemoglobin POC ABG HHb (Measured) ABG Methemoglobin ABG O2 Capacity Hgb O2 Saturation FiO2 Sodium Potassium Chloride Carbon Dioxide Anion Gap BUN Creatinine Est GFR ( Amer) Est GFR (Non-Af Amer) POC Glucose (mg/dL) 138 H Random Glucose Hemoglobin A1c Calcium Phosphorus Magnesium Total Bilirubin AST ALT Alkaline Phosphatase Total Protein Albumin Globulin Albumin/Globulin Ratio Triglycerides Cholesterol LDL Cholesterol Direct HDL Cholesterol Procalcitonin TSH 3rd Generation Urine Color Urine Appearance Urine pH Ur Specific [place] Urine Protein Urine Glucose (UA) Urine Ketones Urine Blood Urine Nitrate Urine Bilirubin Urine Urobilinogen Ur Leukocyte Esterase Urine RBC Urine WBC Ur Epithelial Cells Urine Bacteria Urine Microalbumin Ur L.pneumophila Ag Critical Care Progress Note - Nutrition Nutrition: Nutrition Category Date Time Status NPO Diet [DIET] Diets 10/01/18 Breakfast Ordered Addendum Addendum: 10/02/18 15:43 MICU Attending Addendum: Patient seen and examined; Discussed with housestaff, agree with note above with the following additions and exceptions: 78 M with a hx of HTN, CAD w/ stents, bioprosthetic aortic valve replacement (2018), p-afib s/p watchman, COPD, CHF, admitted to ICU with acute resp failure likely secondary to CHF exasc now intubated. Etiology of resp failure likely multifactorial. CXR suggestive of fluid overload, oxygentation and imaging improved after diuresis. Patient also has underlying hx of COPD and has elevated procal with recent hospitalization putting him at risk for HCAP. For now will cont diruesis, cardio managing diuretics cont epiric abx for now Will not plan to extubate today given high PEEP requirement titrate down PEEP today, currently at 15 adjust fio02 accordingly, currently at 60% fi02 rest of care above Discussed with family at bedside as well as coordinated plan with Dr Harrington (Cardio) Estuardo Swift MD PCC Attending Critical Care Time: 35 mins
[2018-10-02] MEDS: metOLazone 5 MG TAB PO SCH (09:53)
[2018-10-02] MEDS: MethylPREDNISolone 40 mg Vial IVP SCH ×2 (09:53→22:18)
[2018-10-02] MEDS: Linezolid 600 mg in D5W 300 ml 600 MG/300 ML BAG IVPB SCH ×2 (09:54→22:19)
[2018-10-02] MEDS: Meropenem IV 1 gm in NS 1 GM/50 ML BAG IVPB SCH ×2 (09:54→22:20)
[2018-10-02] MEDS: Milrinone 20mg/100ml D5W 100 ML IV PRN (10:15)
[2018-10-02] MEDS ORDERED: Potassium Chloride 20 mEq/15 ml LIQ UD PO STA (10:22)
[2018-10-02] MEDS: Albuterol-Ipratrop 3 mg / 0.5 (3 ml) UD IH SCH ×4 (11:34→23:24)
--- NOTE | 2018-10-02 14:14 | PN ---
DATE: 10/02/2018 SEX OF THE PATIENT: Male. AGE OF THE PATIENT: 78. REASON FOR CONSULTATION: Followup cardiac evaluation, diabetes, short of the breath, intubated, rule out CHF, rule out COPD exacerbation, questionable history of coronary artery disease, possible pneumonia. SUBJECTIVE: Patient remains intubated, started on Primacor yesterday, but was on hold, possibly dropped the blood pressure. Currently, patient is intubated, on propofol. PHYSICAL EXAMINATION VITAL SIGNS: Temperature afebrile, heart rate 64, blood pressure 109/55. HEENT: PERRLA. Extraocular muscles intact. NECK: Supple. No carotid bruit or thyromegaly. CHEST: Clear to auscultation. HEART: S1 and S2 regular. ABDOMEN: Soft. EXTREMITIES: Clubbing and cyanosis negative. 1+ pedal edema. LABORATORY DATA: Blood workup, WBC , hemoglobin 11.6, hematocrit 35.1, platelet count 219,000. Chemistry shows sodium 138, potassium 3.7, chloride 103, carbon dioxide 27, anion gap of 11, BUN 35, creatinine 1.8. BNP yesterday 2029. Chest x-ray done today under penetrated films, officially read as , the lungs are clear, otherwise mild pulmonary vascular congestion. IMPRESSION: An 78-year-old morbidly obese male. Body mass index 41 kg/m2, recently discharged from [place] with pneumonia, history of coronary artery disease, history of stent Andrez Cause.it 2 years ago, history of Watchman device for possible atrial fibrillation, cannot tolerate anticoagulation for atrial fibrillation, admitted here with shortness of breath, manages BiPAP with EMT and later on patient requiring intubation, history of aortic valve replacement in 03/2016. Last echo showed LV function 45% at [facility], mildly impaired ejection fraction 45% to 50%, bioprosthetic aortic valve. patient has COPD, pulmonary edema and possible pneumonia. Yesterday, Primacor was started, but did not tolerate, so Primacor was on hold. 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 We will restart Primacor if the patient can tolerate. Continue DVT prophylaxis, continue diuretics and we will resume back Primacor. Thank you Dr. Evans for providing us the opportunity in taking care of the patient, Meliton Maguire. We will try to get aggressive diuresis and try to wean off the vent as tolerated. Patient had a stressful Watchman device for possible atrial fibrillation, did not tolerate anticoagulation, history of coronary artery disease in the past. So far, no evidence of acute IA. We will follow with you. TSH 0.62. We will supplement potassium. Patient would benefit from inotropes and Primacor in view of renal insufficiency and get aggressive diuresis. Victor M Harrington MD
--- NOTE | 2018-10-02 18:04 | CP.PCM.PN ---
Subjective - Date & Time of Evaluation Date of Evaluation: 10/02/18 Time of Evaluation: 08:10 - Subjective Subjective: Nephrology Progress Note for Dr. Dorantes Patient seen and examined at bedside. Patient is intubated and sedated. Family at bedside. No acute events overnight. ROS unobtainable due to acute condition. Objective - Vital Signs/Intake and Output Vital Signs (last 24 hours): Temp Pulse Resp BP Pulse Ox 98.8 F 74 25 H 103/48 L 93 L 10/02/18 07:00 10/02/18 16:03 10/01/18 13:30 10/02/18 14:46 10/02/18 07:00 Intake and Output: 10/02/18 10/02/18 06:59 18:59 Intake Total 686 300 Output Total 1300 Balance -614 300 - Medications Medications: Current Medications Albuterol/Ipratropium (Duoneb 3 Mg/0.5 Mg (3 Ml) Ud) 3 ml IH [id number] [facility] Last Admin: 10/02/18 16:04 Dose: 3 ml Aspirin (Aspirin Chewable) 81 mg PO DAILY [facility] Last Admin: 10/02/18 09:53 Dose: 81 mg Furosemide (Lasix) 40 mg IV 0800,1400 [facility] Last Admin: 10/02/18 14:46 Dose: 40 mg Heparin Sodium (Porcine) (Heparin) 5,000 units SC Q8H [facility]; Protocol Last Admin: 10/02/18 17:11 Dose: 5,000 units Propofol (Diprivan) 1,000 mg in 100 mls @ 4.15 mls/hr IV .Q24H PRN; Protocol PRN Reason: TITRATE PER MD ORDER Last Admin: 10/02/18 16:34 Dose: 20 mcg/kg/min, 16.602 mls/hr Fentanyl Citrate (Fentanyl Citrate/Sodium Chloride 1 Mg/100 Ml) 1,000 mcg in 100 mls @ 10 mls/hr IV .Q10H PRN; Protocol PRN Reason: TITRATE PER MD ORDER Last Admin: 10/02/18 14:44 Dose: 100 mcg/hr, 10 mls/hr Milrinone Lactate/Dextrose (Primacor 20mg/100ml D5w) 100 mls @ 8.301 mls/hr IV .Q12H3M PRN; Protocol PRN Reason: TITRATE PER MD ORDER Meropenem (Merrem Iv 1 Gm Premix) 1 gm in 50 mls @ 100 mls/hr IVPB Q12 [facility]; P rotocol Stop: 10/10/18 22:01 Last Admin: 10/02/18 09:54 Dose: 100 mls/hr Linezolid (Zyvox 600mg/300ml D5w) 600 mg in 300 mls @ 200 mls/hr IVPB Q12 [facility]; Protocol Stop: 10/10/18 22:01 Last Admin: 10/02/18 09:54 Dose: 200 mls/hr Milrinone Lactate/Dextrose (Primacor 20mg/100ml D5w) 100 mls @ 8.137 mls/hr IV .[id number] PRN; Protocol PRN Reason: TITRATE PER MD ORDER Last Admin: 10/02/18 10:39 Dose: 0.2 mcg/kg/min, 8.137 mls/hr Methylprednisolone (Solu-Medrol) 20 mg IVP Q12 [facility] Last Admin: 10/02/18 09:53 Dose: 20 mg Metolazone (Zaroxolyn) 5 mg PO DAILY [facility] Stop: 10/03/18 23:59 Last Admin: 10/02/18 09:53 Dose: 5 mg Midazolam HCl (Versed Inj) 5 mg IVP Q4H PRN PRN Reason: Agitation Oseltamivir Phosphate (Tamiflu Cap) 75 mg PO DAILY [facility]; Protocol Stop: 10/06/18 07:58 Last Admin: 10/02/18 09:53 Dose: 75 mg - Labs Labs: 10/02/18 05:30 10/02/18 05:30 PT 14.0 SECONDS (9.4-12.5) H 10/01/18 05:55 INR 1.21 10/01/18 05:55 APTT 24.9 Seconds (25.1-36.5) L 10/01/18 05:55 - Constitutional Appears: In Acute Distress - Head Exam Head Exam: ATRAUMATIC, NORMAL INSPECTION, NORMOCEPHALIC - ENT Exam Additional comments: Intubated - Respiratory Exam Respiratory Exam: Decreased Breath Sounds. absent: Rales, Rhonchi, Wheezes - Cardiovascular Exam Cardiovascular Exam: RRR, +S1, +S2 - GI/Abdominal Exam GI & Abdominal Exam: Soft, Normal Bowel Sounds. absent: Tenderness - Extremities Exam Additional comments: +1 edema lower extremities b/l - Neurological Exam Additional comments: Sedated - Skin Skin Exam: Dry, Intact Assessment and Plan - Assessment and Plan (Free Text) Plan: 78 y/o M with PMH of HTN, CAD s/p stent placement, bioprosthetic aortic valve replacement, Watchman device, paroxysmal afib, COPD, CHF, and bladder cancer presented with hypoxic respiratory failure in the setting of healthcare associated pneumonia and CHF exacerbation, complicated by FRANCESCA. 1. FRANCESCA Creatinine stable at this time Creatinine slightly above baseline Continue IV diuretics in efforts to achieve euvolemia Urine lytes ordered Urine protein/cr ordered Avoid nephrotoxic medications 2. CHF exacerbation Lasix 40 mg BID Metolazone 5 mg daily Milrinone as per cardiology Maintain net negative fluid balance of 2 liters 3. Healthcare associated pneumonia Zyvox and Merrem as per ID Renally dose all medications 4. HTN Blood pressure stable Currently controlled on diuretics Carrington, PGY-3
[2018-10-03] MEDS: Fentanyl 1000mcg/100ml NS 1,000 MCG/100 ML BAG IV PRN ×3 (00:50→20:27)
[2018-10-03] MEDS: Propofol 10 mg/ml 1,000 MG/100 ML VIAL IV PRN ×4 (02:18→22:23)
[2018-10-03] MEDS: Albuterol-Ipratrop 3 mg / 0.5 (3 ml) UD IH SCH ×4 (04:30→20:15)
[2018-10-03 05:44] LABS: ARTERIAL BLOOD GAS HEMOGLOBIN 10.6 g/dL (11.7-17.4); ARTERIAL BLOOD GAS O2 CONTENT 14.9 ML/dl (15-23); ARTERIAL BLOOD GAS O2 SAT 99.5 % (95-98); ARTERIAL BLOOD GAS PCO2 46 mm/Hg (35-45); ARTERIAL BLOOD GAS PH 7.36 (7.35-7.45); ARTERIAL BLOOD GAS TCO2 27.4 mmol.L (22-28)
[2018-10-03 06:05] LABS: HEMOGLOBIN 10.9 g/dL (14.0-18.0); MEAN CORPUSCULAR HEMOGLOBIN 29.1 pg (25.0-35.0); MEAN CORPUSCULAR HGB CONC 31.7 g/dl (31.0-37.0); MEAN PLATELET VOLUME 9.5 fl (7.0-11.0); RBC 3.74 10^6/uL (3.5-6.1); RED CELL DISTRIBUTION WIDTH 15.3 % (11.5-14.5); WHITE BLOOD COUNT 11.4 10^3/uL (4.5-11.0)
[2018-10-03 06:40] LABS: ALB/GLOB RATIO 1.1 (1.1-1.8); ALBUMIN 3.6 g/dL (3.0-4.8)
--- NOTE | 2018-10-03 07:48 | PN ---
DATE: 10/03/2018 SUBJECTIVE: The patient is in bed, in no acute distress. PHYSICAL EXAMINATION: VITAL SIGNS: Temperature is 97, blood pressure is 113/60, respiratory rate of 18. HEENT: Unremarkable. NECK: Supple. LUNGS: Decreased breath sounds. HEART: Normal S1 and S2. ABDOMEN: Soft, nontender. LABORATORY EXAMINATION: Reveals a white count of 11,400, hemoglobin of 10. Chemistries reveal a BUN of 54 and creatinine of 2.6. Procalcitonin is 1.14. Urinalysis is noted. Serology is noted. Microbiology reveals nares is negative. Blood cultures are negative. ASSESSMENT AND PLAN: This is an 78-year-old male seen in the ICU, Bed #5, with a history of chronic obstructive lung disease, congestive heart failure, coronary artery disease, emphysema, hypertension, low-grade bladder cancer, required a recent hospitalization in [place], history of skin cancer basal cell, also a history of colon polyps, renal disease, admitted with #1 is respiratory failure, intubated on a ventilator with healthcare-associated pneumonia with multiple allergies, on Zyvox and meropenem day #3 with a normal procalcitonin. Blood cultures are no growth and nasal MRSA is not detected. Sputum cultures are pending. Urine Legionella is negative. Influenza is negative. Review of medication confirms the patient to be on Solu-Medrol, on Zyvox and meropenem day #3. The patient remains intubated on a ventilator. Clay Villalba MD
--- NOTE | 2018-10-03 08:41 | PN ---
DATE: 10/03/2018 SUBJECTIVE: The patient is sedated on the ventilator with FiO2 of 60%. Continues to require PEEP of 15. The patient is on Diprivan as well as fentanyl for sedation. PHYSICAL EXAMINATION: VITAL SIGNS: The patient's temperature is 97.5, pulse is 87, respirations are 18, and BP is 113/56. SKIN: Warm and dry. HEENT: Head atraumatic, normocephalic. Eyes reactive to light. Ears, nose and throat seem to be within normal limits. NECK: Supple. No JVD. No thyroid enlargement or lymph nodes. HEART: Regular rate and rhythm. Normal S1, S2. LUNGS: Mild rhonchi at the bases. ABDOMEN: Obese and slightly distended. Decreased bowel sounds. GENITALIA/RECTAL: Deferred. MUSCULOSKELETAL: No joint deformities. EXTREMITIES: Reveal 1+ lower extremity edema. NEUROLOGICAL: The patient is sedated on the ventilator. LABORATORY DATA: His white count is 11.4, hemoglobin is 10.9, hematocrit 34.4 with platelets of 230,000. Arterial blood gas reveals a pH of 7.36, pCO2 of 46, pO2 of 185. Sodium is 137, potassium 4.1, chloride 101, CO2 of 26 with a BUN of 54, creatinine of 2.6, and glucose of 171. IMPRESSION: This patient has respiratory failure requiring ventilator support, presents with congestive heart failure and possible pneumonia. The patient has a history of chronic obstructive pulmonary disease, obesity, coronary artery disease, hypertension, renal insufficiency, and anemia. PLAN: We will continue with the ventilator support decreasing FiO2 as tolerated and continue with aggressive pulmonary toilet. The patient is getting DuoNeb for bronchodilators. He is on fentanyl, subcu heparin as well as Lasix for appropriate diuresis. The patient is on meropenem and milrinone as well as propofol, Solu-Medrol, Tamiflu and Versed for sedation. We will continue to treat aggressively along with the other consultants and the primary care doctor. Colt Mason MD
[2018-10-03] MEDS: Meropenem IV 1 gm in NS 1 GM/50 ML BAG IVPB SCH ×2 (09:14→21:16)
[2018-10-03] MEDS: MethylPREDNISolone 40 mg Vial IVP SCH ×2 (09:15→21:15)
[2018-10-03] MEDS: Linezolid 600 mg in D5W 300 ml 600 MG/300 ML BAG IVPB SCH ×2 (09:15→21:17)
--- NOTE | 2018-10-03 10:01 | RAD ---
HISTORY: ETT placement COMPARISON: Chest x-ray performed 10/02/18 TECHNIQUE: Chest, one view. FINDINGS: Examination limited by habitus, hypoinflation, and patient obliquity. Endotracheal tube terminates approximately 3 cm above the kristian. Nasogastric tube extends beyond the hemidiaphragm towards expected location of the stomach. LUNGS: Mild to moderate pulmonary venous congestion. No focal consolidation. PLEURA: No significant pleural effusion identified. No definite pneumothorax . CARDIOVASCULAR: Cardiomegaly. No significant atherosclerotic calcification present. OSSEOUS STRUCTURES: No acute osseous abnormality identified. VISUALIZED UPPER ABDOMEN: Unremarkable. OTHER FINDINGS: None. IMPRESSION: Endotracheal tube terminates approximately 3 cm above the kristian. Nasogastric tube extends beyond the hemidiaphragm towards expected location of the stomach. Cardiomegaly. Mild to moderate pulmonary venous congestion.
--- NOTE | 2018-10-03 17:36 | PN ---
DATE: 10/03/2018 COVERING FOR: Victor M Harrington MD SUBJECTIVE: The patient is currently sedated on the ventilator. He is on Primacor infusion. No reported ventricular arrhythmia. PHYSICAL EXAMINATION: VITAL SIGNS: Blood pressure 119/49, heart rate 74, temperature 97.5, respirations 20, and previous temperature 98.4. HEENT: Facial edema. CHEST: Absent breath sounds over the bases. HEART: S1 and S2 regular. EXTREMITIES: 2+ pitting edema. LABORATORY DATA: Hemoglobin and hematocrit 10.9 and 34.4, white count 11.4, and platelets 230,000. Today's BUN and creatinine 54 and 2.6, and glucose of 171. Rest of SMA-7 is within normal limit. Blood cultures are negative after 48 hours. Admitting EKG revealed junctional rhythm with left bundle branch block, PVCs were noted. Chest x-ray revealed cardiomegaly, widened mediastinum, [id number] CHF. Echocardiographic study in 06/2018 revealed ejection fraction in the range of 45 to 50%. Prosthetic aortic valve appears normal. ASSESSMENT: 1. Respiratory failure. 2. Systolic heart failure. 3. Consider underlying pneumonia. 4. Status post transcatheter aortic valve replacement. Watchman device placement about two years ago. 5. History of atrial fibrillation. 6. Morbid obesity. RECOMMENDATIONS: Continue aspirin 81 mg once a day, Primacor infusion, Lasix 40 mg intravenously twice a day, subcutaneous heparin 5000 units every 8 hours, fentanyl infusion, albuterol inhaler every 6 hours, Solu-Medrol intravenously every 12 hours, Zaroxolyn 5 mg daily, Zyvox 600 mg intravenously every 12 hours, Tamiflu tablets 75 mg daily by nasogastric tube. Case was discussed with the patient's family at bedside, the , the daughter, and the granddaughter. Rasheed Delarosa MD
[2018-10-03] MEDS: metOLazone 5 MG TAB PO SCH (18:05)
[2018-10-03] MEDS: Milrinone 20mg/100ml D5W 100 ML IV PRN (20:29)
--- NOTE | 2018-10-03 21:48 | CP.PCM.PN ---
Subjective - Date & Time of Evaluation Date of Evaluation: 10/03/18 Time of Evaluation: 11:00 - Subjective Subjective: Patient remains intubated/sedated; PEEP decreased to 10; Objective - Vital Signs/Intake and Output Vital Signs (last 24 hours): Temp Pulse Resp BP Pulse Ox 97.5 F L 74 5 L 111/49 L 95 10/03/18 21:40 10/03/18 21:40 10/03/18 14:37 10/03/18 21:00 10/03/18 21:40 Intake and Output: 10/03/18 10/04/18 18:59 06:59 Intake Total 1040 100 Output Total 650 Balance 390 100 - Medications Medications: Current Medications Albuterol/Ipratropium (Duoneb 3 Mg/0.5 Mg (3 Ml) Ud) 3 ml IH [id number] [facility] Last Admin: 10/03/18 20:15 Dose: 3 ml Aspirin (Aspirin Chewable) 81 mg PO DAILY [facility] Last Admin: 10/03/18 09:15 Dose: 81 mg Furosemide (Lasix) 40 mg IV 0800,1999 [facility] Last Admin: 10/03/18 20:09 Dose: Not Given Heparin Sodium (Porcine) (Heparin) 5,000 units SC Q8H [facility]; Protocol Last Admin: 10/03/18 18:11 Dose: 5,000 units Propofol (Diprivan) 1,000 mg in 100 mls @ 4.15 mls/hr IV .Q24H PRN; Protocol PRN Reason: TITRATE PER MD ORDER Last Admin: 10/03/18 18:12 Dose: 20 mcg/kg/min, 16.602 mls/hr Fentanyl Citrate (Fentanyl Citrate/Sodium Chloride 1 Mg/100 Ml) 1,000 mcg in 100 mls @ 10 mls/hr IV .Q10H PRN; Protocol PRN Reason: TITRATE PER MD ORDER Last Admin: 10/03/18 20:27 Dose: 100 mcg/hr, 10 mls/hr Milrinone Lactate/Dextrose (Primacor 20mg/100ml D5w) 100 mls @ 8.301 mls/hr IV .Q12H3M PRN; Protocol PRN Reason: TITRATE PER MD ORDER Meropenem (Merrem Iv 1 Gm Premix) 1 gm in 50 mls @ 100 mls/hr IVPB Q12 [facility]; Protocol Stop: 10/10/18 22:01 Last Admin: 10/03/18 21:16 Dose: 100 mls/hr Linezolid (Zyvox 600mg/300ml D5w) 600 mg in 300 mls @ 200 mls/hr IVPB Q12 [facility]; Protocol Stop: 10/10/18 22:01 Last Admin: 10/03/18 21:17 Dose: 200 mls/hr Milrinone Lactate/Dextrose (Primacor 20mg/100ml D5w) 100 mls @ 8.137 mls/hr IV .[id number] PRN; Protocol PRN Reason: TITRATE PER MD ORDER Last Admin: 10/03/18 20:29 Dose: 0.2 mcg/kg/min, 8.137 mls/hr Methylprednisolone (Solu-Medrol) 20 mg IVP Q12 [facility] Last Admin: 10/03/18 21:15 Dose: 20 mg Metolazone (Zaroxolyn) 5 mg PO DAILY [facility] Stop: 10/03/18 23:59 Last Admin: 10/03/18 18:05 Dose: Not Given Midazolam HCl (Versed Inj) 5 mg IVP Q4H PRN PRN Reason: Agitation Oseltamivir Phosphate (Tamiflu Cap) 75 mg PO DAILY [facility]; Protocol Stop: 10/06/18 07:58 Last Admin: 10/03/18 09:15 Dose: 75 mg - Labs Labs: 10/03/18 05:45 10/03/18 05:45 PT 14.0 SECONDS (9.4-12.5) H 10/01/18 05:55 INR 1.21 10/01/18 05:55 APTT 24.9 Seconds (25.1-36.5) L 10/01/18 05:55 - Constitutional Appears: Non-toxic, No Acute Distress - Eye Exam Eye Exam: Normal appearance - Respiratory Exam Respiratory Exam: Clear to Ausculation Bilateral. absent: Respiratory Distress - Cardiovascular Exam Cardiovascular Exam: RRR. absent: Gallop, Rubs - GI/Abdominal Exam GI & Abdominal Exam: Soft. absent: Distended - Neurological Exam Additional comments: sedated - Skin Skin Exam: Warm. absent: Cyanosis Assessment and Plan (1) FRANCESCA (acute kidney injury) Assessment & Plan: FRANCESCA on CKD IIIA; appears to be secondary to aggressive diuresis; serum creatinine further increased; CXR from this morning visualized; still reporting moderate vascular congestion though pulmonary edema appears resolved; CCM team able to decrease PEEP; can decrease diuretics and reassess renal function/CHF status tomorrow; -hold metolazone; -continue IV lasix 40 mg bid; -avoid nephrotoxic agents; -f/u with cardiology for CHF optimization (renal function may benefit from holding milrinone if not needed); Status: Acute (2) Acute hypoxemic respiratory failure Assessment & Plan: Multifactorial; being treated for CHF exacerbation and possible PNA; Status: Acute (3) CHF exacerbation Assessment & Plan: With mild systolic dysfunction, diastolic dysfunction? s/p AVR; -f/u cardio recs; Status: Acute
--- NOTE | 2018-10-03 23:31 | CP.PCM.PN ---
Subjective - Date & Time of Evaluation Date of Evaluation: 10/03/18 Time of Evaluation: 13:00 - Subjective Subjective: pt. is sedated, intubated. On pressor support. FIO2 decreased. renal functions deteriorated. Objective - Vital Signs/Intake and Output Vital Signs (last 24 hours): Temp Pulse Resp BP Pulse Ox 97.9 F 92 H 5 L 135/70 92 L 10/03/18 23:10 10/03/18 23:10 10/03/18 14:37 10/03/18 23:00 10/03/18 23:10 Intake and Output: 10/03/18 10/04/18 18:59 06:59 Intake Total 1040 200 Output Total 650 Balance 390 200 - Medications Medications: Current Medications Albuterol/Ipratropium (Duoneb 3 Mg/0.5 Mg (3 Ml) Ud) 3 ml IH [id number] [facility] Last Admin: 10/03/18 20:15 Dose: 3 ml Aspirin (Aspirin Chewable) 81 mg PO DAILY [facility] Last Admin: 10/03/18 09:15 Dose: 81 mg Furosemide (Lasix) 40 mg IV 0800,1999 [facility] Last Admin: 10/03/18 20:09 Dose: Not Given Heparin Sodium (Porcine) (Heparin) 5,000 units SC Q8H [facility]; Protocol Last Admin: 10/03/18 18:11 Dose: 5,000 units Propofol (Diprivan) 1,000 mg in 100 mls @ 4.15 mls/hr IV .Q24H PRN; Protocol PRN Reason: TITRATE PER MD ORDER Last Admin: 10/03/18 22:23 Dose: 20 mcg/kg/min, 16.602 mls/hr Fentanyl Citrate (Fentanyl Citrate/Sodium Chloride 1 Mg/100 Ml) 1,000 mcg in 100 mls @ 10 mls/hr IV .Q10H PRN; Protocol PRN Reason: TITRATE PER MD ORDER Last Admin: 10/03/18 20:27 Dose: 100 mcg/hr, 10 mls/hr Milrinone Lactate/Dextrose (Primacor 20mg/100ml D5w) 100 mls @ 8.301 mls/hr IV .Q12H3M PRN; Protocol PRN Reason: TITRATE PER MD ORDER Meropenem (Merrem Iv 1 Gm Premix) 1 gm in 50 mls @ 100 mls/hr IVPB Q12 [facility]; Protocol Stop: 10/10/18 22:01 Last Admin: 10/03/18 21:16 Dose: 100 mls/hr Linezolid (Zyvox 600mg/300ml D5w) 600 mg in 300 mls @ 200 mls/hr IVPB Q12 [facility]; Protocol Stop: 10/10/18 22:01 Last Admin: 10/03/18 21:17 Dose: 200 mls/hr Milrinone Lactate/Dextrose (Primacor 20mg/100ml D5w) 100 mls @ 8.137 mls/hr IV .[id number] PRN; Protocol PRN Reason: TITRATE PER MD ORDER Last Admin: 10/03/18 20:29 Dose: 0.2 mcg/kg/min, 8.137 mls/hr Methylprednisolone (Solu-Medrol) 20 mg IVP Q12 [facility] Last Admin: 10/03/18 21:15 Dose: 20 mg Metolazone (Zaroxolyn) 5 mg PO DAILY [facility] Stop: 10/03/18 23:59 Last Admin: 10/03/18 18:05 Dose: Not Given Midazolam HCl (Versed Inj) 5 mg IVP Q4H PRN PRN Reason: Agitation Oseltamivir Phosphate (Tamiflu Cap) 75 mg PO DAILY [facility]; Protocol Stop: 10/06/18 07:58 Last Admin: 10/03/18 09:15 Dose: 75 mg - Labs Labs: 10/03/18 05:45 10/03/18 05:45 PT 14.0 SECONDS (9.4-12.5) H 10/01/18 05:55 INR 1.21 10/01/18 05:55 APTT 24.9 Seconds (25.1-36.5) L 10/01/18 05:55 - Constitutional Appears: Chronically Ill - Head Exam Head Exam: ATRAUMATIC, NORMAL INSPECTION, NORMOCEPHALIC - Eye Exam Eye Exam: Normal appearance - Neck Exam Neck Exam: Normal Inspection - Respiratory Exam Additional comments: intubated - Cardiovascular Exam Cardiovascular Exam: REGULAR RHYTHM, +S1, +S2 - GI/Abdominal Exam GI & Abdominal Exam: Soft, Normal Bowel Sounds - Extremities Exam Extremities Exam: Normal Inspection - Neurological Exam Additional comments: sedated - Skin Skin Exam: Pallor Assessment and Plan - Assessment and Plan (Free Text) Assessment: 1. Respiratory failure, health care associated PNA : intubated. On IV antibiotics Zyvox, Meropenem, tamiflu. . . 2. Acute renal insufficiency.: renal functions deteriorated. Dr. Dorantes following. 3. CV : on milrinone drip. 4. Coronary artery disease. 5. History of bladder cancer.- low grade. no active issues. 6. Hypothyroidism.: 7. Congestive heart failure. 8. Chronic obstructive pulmonary disease. reviewed consultants notes- renal, ID, cardiology, ICU. Family bedside. Discussed with them status. condition remains critical.
--- NOTE | 2018-10-03 23:41 | CP.PCM.PN ---
Subjective - Date & Time of Evaluation Date of Evaluation: 10/02/18 Time of Evaluation: 11:00 - Subjective Subjective: Sedated, intubated. No events overnight. Objective - Vital Signs/Intake and Output Vital Signs (last 24 hours): Temp Pulse Resp BP Pulse Ox 97.9 F 92 H 5 L 135/70 92 L 10/03/18 23:10 10/03/18 23:10 10/03/18 14:37 10/03/18 23:00 10/03/18 23:10 Intake and Output: 10/03/18 10/04/18 18:59 06:59 Intake Total 1040 200 Output Total 650 Balance 390 200 - Medications Medications: Current Medications Albuterol/Ipratropium (Duoneb 3 Mg/0.5 Mg (3 Ml) Ud) 3 ml IH [id number] [facility] Last Admin: 10/03/18 20:15 Dose: 3 ml Aspirin (Aspirin Chewable) 81 mg PO DAILY [facility] Last Admin: 10/03/18 09:15 Dose: 81 mg Furosemide (Lasix) 40 mg IV 0800,1999 [facility] Last Admin: 10/03/18 20:09 Dose: Not Given Heparin Sodium (Porcine) (Heparin) 5,000 units SC Q8H [facility]; Protocol Last Admin: 10/03/18 18:11 Dose: 5,000 units Propofol (Diprivan) 1,000 mg in 100 mls @ 4.15 mls/hr IV .Q24H PRN; Protocol PRN Reason: TITRATE PER MD ORDER Last Admin: 10/03/18 22:23 Dose: 20 mcg/kg/min, 16.602 mls/hr Fentanyl Citrate (Fentanyl Citrate/Sodium Chloride 1 Mg/100 Ml) 1,000 mcg in 100 mls @ 10 mls/hr IV .Q10H PRN; Protocol PRN Reason: TITRATE PER MD ORDER Last Admin: 10/03/18 20:27 Dose: 100 mcg/hr, 10 mls/hr Milrinone Lactate/Dextrose (Primacor 20mg/100ml D5w) 100 mls @ 8.301 mls/hr IV .Q12H3M PRN; Protocol PRN Reason: TITRATE PER MD ORDER Meropenem (Merrem Iv 1 Gm Premix) 1 gm in 50 mls @ 100 mls/hr IVPB Q12 [facility]; Protocol Stop: 10/10/18 22:01 Last Admin: 10/03/18 21:16 Dose: 100 mls/hr Linezolid (Zyvox 600mg/300ml D5w) 600 mg in 300 mls @ 200 mls/hr IVPB Q12 [facility]; Protocol Stop: 10/10/18 22:01 Last Admin: 10/03/18 21:17 Dose: 200 mls/hr Milrinone Lactate/Dextrose (Primacor 20mg/100ml D5w) 100 mls @ 8.137 mls/hr IV .[id number] PRN; Protocol PRN Reason: TITRATE PER MD ORDER Last Admin: 10/03/18 20:29 Dose: 0.2 mcg/kg/min, 8.137 mls/hr Methylprednisolone (Solu-Medrol) 20 mg IVP Q12 [facility] Last Admin: 10/03/18 21:15 Dose: 20 mg Metolazone (Zaroxolyn) 5 mg PO DAILY [facility] Stop: 10/03/18 23:59 Last Admin: 10/03/18 18:05 Dose: Not Given Midazolam HCl (Versed Inj) 5 mg IVP Q4H PRN PRN Reason: Agitation Oseltamivir Phosphate (Tamiflu Cap) 75 mg PO DAILY [facility]; Protocol Stop: 10/06/18 07:58 Last Admin: 10/03/18 09:15 Dose: 75 mg - Labs Labs: 10/03/18 05:45 10/03/18 05:45 PT 14.0 SECONDS (9.4-12.5) H 10/01/18 05:55 INR 1.21 10/01/18 05:55 APTT 24.9 Seconds (25.1-36.5) L 10/01/18 05:55 - Constitutional Appears: Chronically Ill - Head Exam Head Exam: ATRAUMATIC, NORMAL INSPECTION, NORMOCEPHALIC - Eye Exam Eye Exam: Normal appearance Pupil Exam: NORMAL ACCOMODATION - ENT Exam ENT Exam: Mucous Membranes Moist - Neck Exam Neck Exam: Normal Inspection - Respiratory Exam Additional comments: intubated - Cardiovascular Exam Cardiovascular Exam: +S1, +S2 - GI/Abdominal Exam GI & Abdominal Exam: Soft, Normal Bowel Sounds - Back Exam Back Exam: NORMAL INSPECTION - Neurological Exam Additional comments: sedated - Skin Skin Exam: Pallor, Warm Assessment and Plan - Assessment and Plan (Free Text) Assessment: 1. respiratory failure : intubated. being treated for Health care associated PNA. On zyvox and meropenem . CXR improved since admission. 2. ID : blood cultures, urine cultures negative. ID, Dr. Kate following. 3. CV: h/o CAD. prolonged QT interval. Dr. Harrington following. On pressors. 4. GI : elevated alexander. NPO. 5. renal :lytes normal. Cr. elevated. 6. leukocytosis, anemia. will monitor blood counts. Condition critical.
[2018-10-04] MEDS: Propofol 10 mg/ml 1,000 MG/100 ML VIAL IV PRN ×5 (01:55→21:32)
[2018-10-04] MEDS: Albuterol-Ipratrop 3 mg / 0.5 (3 ml) UD IH SCH ×4 (02:40→19:50)
[2018-10-04] MEDS: Fentanyl 1000mcg/100ml NS 1,000 MCG/100 ML BAG IV PRN ×2 (04:34→16:34)
[2018-10-04] MEDS: Milrinone 20mg/100ml D5W 100 ML IV PRN ×2 (06:38→19:58)
[2018-10-04 06:46] LABS: ALB/GLOB RATIO 1.2 (1.1-1.8); ALBUMIN 3.7 g/dL (3.0-4.8); CALCIUM 8.4 mg/dL (8.4-10.5)
[2018-10-04 06:51] LABS: HEMOGLOBIN 10.9 g/dL (14.0-18.0); MEAN CELL VOLUME 89.6 fl (80.0-105.0); MEAN CORPUSCULAR HEMOGLOBIN 28.5 pg (25.0-35.0); MEAN CORPUSCULAR HGB CONC 31.8 g/dl (31.0-37.0); MEAN PLATELET VOLUME 9.8 fl (7.0-11.0); RBC 3.83 10^6/uL (3.5-6.1); WHITE BLOOD COUNT 12.3 10^3/uL (4.5-11.0)
[2018-10-04 07:56] LABS: PH,URINE 5.5 (4.7-8.0); URINE BILIRUBIN NEGATIVE (NEGATIVE); URINE BLOOD NEGATIVE (NEGATIVE); URINE GLUCOSE (UA) NEGATIVE (NEGATIVE); URINE LEUKOCYTE ESTERASE TRACE Leu/uL (NEGATIVE); URINE PROTEIN NEGATIVE mg/dL (<30 mg/dL); URINE UROBILINOGEN 0.2 E.U./dL (<1 E.U./dL)
[2018-10-04 08:15] LABS: URINE APPEARANCE CLEAR (CLEAR); URINE COLOR YELLOW (YELLOW)
[2018-10-04 08:23] LABS: URINE RBC 0 - 2 /hpf (0-2)
[2018-10-04 08:29] LABS: URINE BACTERIA MANY (NEG); URINE TRIPLE PHOSPHATE CRYSTAL SMALL /hpf
[2018-10-04 08:30] LABS: URINE AMORPHOUS SEDIMENT FEW; URINE FINE GRANULAR CAST 0 - 2 /hpf (0-2)
--- NOTE | 2018-10-04 09:10 | PN ---
DATE: 10/04/2018 STAMP PRESSER NOTE SUBJECTIVE: The patient is on the ventilator with FiO2 of 50% and a PEEP of 10. Patient is getting sedated. MEDICATIONS: Diprivan as well as fentanyl and is getting diuresed with Lasix. PHYSICAL EXAMINATION: GENERAL: At present, the patient is hemodynamically stable. VITAL SIGNS: Note that his vital signs reveal temperature of 98.6, pulse of 93, respirations of 18 and BP is 126/51. SKIN: Warm and dry. HEENT: Head atraumatic, normocephalic. Eyes reactive to light. Ears, nose and throat seem to be within normal limits. NECK: Supple. No JVD. No thyroid enlargement. No lymph nodes. HEART: Has regular rate and rhythm. Normal S1, S2. LUNGS: Reveal rare rhonchi at the bases. ABDOMEN: Soft, distended, is obese. GENITALIA: Deferred. RECTAL: Deferred. MUSCULOSKELETAL: No joint deformities. EXTREMITIES: Reveal positive lower extremity edema. NEUROLOGIC: The patient is sedated on the ventilator. LABORATORY DATA: Reveal a white count of 12.3, hemoglobin is 10.9, hematocrit 34.3 with platelets of 253,000. Arterial blood gas reveals a pH of 7.36, pCO2 of 46, pO2 of 185. Repeat arterial blood gas should be done this morning. Sodium is 135, potassium 3.8, chloride 97, CO2 of 25 with a BUN of 73 and a creatinine of 2.7, glucose of 143. As far as the patient's chest x-ray, it is pending. IMPRESSION: This patient has respiratory failure requiring ventilator support, presents with congestive heart failure and possible pneumonia. The patient has a history of chronic obstructive pulmonary disease, obesity, coronary artery disease, hypertension, renal insufficiency and anemia. PLAN: As our plan, we will continue with aggressive pulmonary toilet. We will decrease the FiO2 and PEEP as tolerated and possibly start weaning parameters in the morning. The patient will continue with bronchodilators of DuoNeb and is on fentanyl as well as heparin and Lasix. The patient continues to require meropenem as an antibiotic as well as milrinone, propofol, Solu-Medrol, Tamiflu, Versed. We will continue to treat aggressively along with the other consultants and the primary care doctor. Colt Mason MD [facility] # [id number]
[2018-10-04] MEDS: Meropenem IV 1 gm in NS 1 GM/50 ML BAG IVPB SCH ×2 (09:56→21:06)
[2018-10-04] MEDS: MethylPREDNISolone 40 mg Vial IVP SCH ×2 (09:57→21:05)
[2018-10-04] MEDS ORDERED: Acetylcysteine 20% Inhal Sol (30ml) IH SCH (10:00)
[2018-10-04] MEDS ORDERED: Acetylcysteine 20% Inhal Soln (4ml) IH SCH (10:00)
--- NOTE | 2018-10-04 10:00 | PN ---
DATE: 10/04/2018 SUBJECTIVE: The patient remains in the ICU intubated on the ventilator, Bed 5. He had an uneventful night as per nurse. He has no fevers and chills. PHYSICAL EXAMINATION: VITAL SIGNS: Temperature is 98.8, blood pressure is 156/76, on the vent, heart rate of 96. HEENT: Unremarkable. NECK: Supple. LUNGS: Decreased breath sounds. HEART: Normal S1 and S2. ABDOMEN: Soft. LABORATORY DATA: Blood cultures are negative. Urine culture is negative. Laboratory examination reveals a white count of 12,300, hemoglobin of 10. Creatinine is 2.7. Review of orders reveals the patient is on meropenem, linezolid, Tamiflu. Microbiology reveals the MRSA is not detected. Blood cultures are negative. Sputum cultures are pending. The patient's chest x-ray from today is pending. Chest x-ray from yesterday, pulmonary congestion, no consolidation. The patient's procalcitonin is 0.14. ASSESSMENT/PLAN: This is an 78-year-old male seen earlier this morning in ICU, Bed #5, with a history of chronic obstructive lung disease, congestive heart failure, coronary artery disease, emphysema, hypertension, low-grade bladder cancer, had a recent hospitalization in [place], has a history of basal cell skin cancer, history of colon polyps, renal disease, admitted with respiratory failure, intubated on a ventilator with healthcare-associated pneumonia with multiple allergies with blood cultures negative. MRSA screen is negative. Day #4 of Zyvox and meropenem. The patient is also on milrinone, also on Solu-Medrol. We will discontinue the Zyvox. Urine Legionella antigen is negative. Influenza is negative. The patient has never had any significant fever. We may be able to discontinue Tamiflu also, today is day #4. Dr. Evans's note is reviewed. The patient has not had an echo yet so far. The patient with a history of systolic congestive heart failure and chronic obstructive lung disease. Overall prognosis is quite poor. Clay Villalba MD
[2018-10-04 10:27] LABS: ARTERIAL BLOOD GAS HCO3 25.9 mmol/L (21-28); ARTERIAL BLOOD GAS HEMOGLOBIN 11.2 g/dL (11.7-17.4); ARTERIAL BLOOD GAS O2 CAPACITY 15.6 mL/dl (16-24); ARTERIAL BLOOD GAS O2 CONTENT 15.4 ML/dl (15-23); ARTERIAL BLOOD GAS PCO2 40 mm/Hg (35-45); ARTERIAL BLOOD GAS PH 7.42 (7.35-7.45); ARTERIAL BLOOD GAS TCO2 27.1 mmol.L (22-28)
--- NOTE | 2018-10-04 10:47 | RAD ---
HISTORY: chf COMPARISON: Chest x-ray performed 10/03/18 TECHNIQUE: Chest, one view. FINDINGS: Endotracheal tube terminates approximately 4.9 cm above the kristian. Nasogastric tube extends beyond the hemidiaphragm towards expected location of the stomach. Examination limited by habitus, hypoinflation, and patient obliquity. LUNGS: Mild pulmonary venous congestion. Bibasilar atelectasis/infiltrates. Please note that chest x-ray has limited sensitivity for the detection of pulmonary masses. PLEURA: Small left pleural effusion. No definite pneumothorax . CARDIOVASCULAR: Cardiomegaly. Atherosclerotic calcification present. OSSEOUS STRUCTURES: Degenerative changes. VISUALIZED UPPER ABDOMEN: Unremarkable. OTHER FINDINGS: None. IMPRESSION: Endotracheal tube and nasogastric tube as above. Cardiomegaly. Mild pulmonary venous congestion. Small left pleural effusion and associated atelectasis/infiltrate. Right basilar atelectasis/infiltrate. Hypoinflation.
--- NOTE | 2018-10-04 14:18 | PN ---
DATE: 10/04/2018 SUBJECTIVE: The patient is sedated, intubated. Currently on FiO2 of 50%, PEEP of 10. He is also on pressor support. He is currently on aggressive diuresis with Lasix. Renal function deteriorated today. PHYSICAL EXAMINATION: GENERAL: Intubated, sedated. VITAL SIGNS: Respiratory rate 18 per minute, blood pressure 120/60, heart rate is 93 per minute. SKIN: Warm and dry. NECK: No lymphadenopathy. CHEST: Air entry present and equal bilaterally. No added sound. HEART: S1 and S2 normal. No murmur. No gallop. ABDOMEN: Soft, nontender, nondistended. EXTREMITIES: 1+ edema bilaterally. NEUROLOGIC: Sedated and intubated. LABORATORY DATA: White count 12.3, hemoglobin 10.9, hematocrit 34, platelets 253. Sodium 135, potassium 3.8, BUN 73, creatinine 2.7, glucose 123. ASSESSMENT: 1. Respiratory failure. 2. Healthcare-associated pneumonia. 3. Renal insufficiency. 4. Anemia. PLAN: He is currently on IV antibiotics as per ID including Tamiflu. Currently, intubated and sedated. He will be weaned by ICU team to see if he tolerates. He is currently on bronchodilators. DVT prophylaxis with heparin to continue. IV antibiotic, meropenem. He is currently on milrinone drip. He is also on IV steroids for COPD. Elinor Evans MD
[2018-10-04] MEDS ORDERED: Midazolam 2 MG/2 ML VIAL IVP PRN (18:12)
--- NOTE | 2018-10-04 18:47 | PN ---
DATE: 10/04/2018 SUBJECTIVE: The patient is still on the ventilator on a relatively high pressure support and he is still on Primacor infusion. PHYSICAL EXAMINATION: VITAL SIGNS: Blood pressure 114/52, heart rate 82, temperature 98.8, respirations 20. HEENT: Pale conjunctivae. CHEST: Diminished breath sounds over the bases. HEART: S1 and S2 irregular and distant. ABDOMEN: Soft. EXTREMITIES: 2+ pitting edema. LABORATORY DATA: Hemoglobin and hematocrit 10.9 and 34.3, white count 12.3, and platelet count 153,000. SMA-7: Sodium 135, potassium 3.8, chloride 97, CO2 25, glucose 143, BUN 73, creatinine 2.7. Today's chest x-ray report, mild pulmonary venous congestion, small left pleural effusion, and associated right basal atelectasis/infiltration. ASSESSMENT: 1. Respiratory failure. 2. Systolic heart failure. 3. Presumptive bilateral pneumonia. 4. Status post transcatheter aortic valve replacement and Watchman device placement for atrial fibrillation. 5. Paroxysmal atrial fibrillation. 6. Morbid obesity. 7. Worsening renal insufficiency. 8. Uncontrolled diabetes mellitus. RECOMMENDATIONS: Case was discussed with the medical team in the ICU. Continue current albuterol inhaler. Continue subcutaneous heparin 5000 units every 8 hours. Lasix was reduced to 40 mg intravenously daily. Continue IV meropenem at 1 g every 12 hours. Continue Solu-Medrol 20 mg intravenously every 12 hours and Primacor infusion. Rasheed Delarosa MD
[2018-10-04] MEDS: Budesonide 0.5 mg/2 ml Inhal Susp UD IH SCH (19:50)
[2018-10-04] MEDS: Acetylcysteine 20% Inhal Soln (4ml) IH SCH (19:53)
[2018-10-05] MEDS: Fentanyl 1000mcg/100ml NS 1,000 MCG/100 ML BAG IV PRN (02:13)
[2018-10-05] MEDS: Propofol 10 mg/ml 1,000 MG/100 ML VIAL IV PRN (02:16)
[2018-10-05] MEDS: Albuterol-Ipratrop 3 mg / 0.5 (3 ml) UD IH SCH ×4 (02:55→19:47)
[2018-10-05 05:53] LABS: HEMOGLOBIN 10.6 g/dL (14.0-18.0); MEAN CELL VOLUME 89.7 fl (80.0-105.0); MEAN CORPUSCULAR HEMOGLOBIN 29.4 pg (25.0-35.0); MEAN CORPUSCULAR HGB CONC 32.8 g/dl (31.0-37.0); MEAN PLATELET VOLUME 9.7 fl (7.0-11.0); RBC 3.6 10^6/uL (3.5-6.1); RED CELL DISTRIBUTION WIDTH 15.2 % (11.5-14.5); WHITE BLOOD COUNT 9.6 10^3/uL (4.5-11.0)
[2018-10-05 06:35] LABS: CALCIUM 8.3 mg/dL (8.4-10.5)
[2018-10-05 06:41] LABS: ARTERIAL BLOOD GAS HCO3 25.4 mmol/L (21-28); ARTERIAL BLOOD GAS HEMOGLOBIN 13.2 g/dL (11.7-17.4); ARTERIAL BLOOD GAS O2 CAPACITY 18.4 mL/dl (16-24); ARTERIAL BLOOD GAS O2 CONTENT 18.2 ML/dl (15-23); ARTERIAL BLOOD GAS O2 SAT 98.9 % (95-98); ARTERIAL BLOOD GAS PCO2 44 mm/Hg (35-45); ARTERIAL BLOOD GAS PH 7.37 (7.35-7.45); ARTERIAL BLOOD GAS TCO2 26.8 mmol.L (22-28)
[2018-10-05] MEDS: Acetylcysteine 20% Inhal Soln (4ml) IH SCH ×2 (07:33→19:46)
[2018-10-05] MEDS: Budesonide 0.5 mg/2 ml Inhal Susp UD IH SCH ×2 (07:34→19:47)
--- NOTE | 2018-10-05 08:03 | CP.PCM.PN ---
Subjective - Date & Time of Evaluation Date of Evaluation: 10/04/18 Time of Evaluation: 11:00 - Subjective Subjective: Patient intubated/sedated; Objective - Vital Signs/Intake and Output Vital Signs (last 24 hours): Temp Pulse Resp BP Pulse Ox 99.1 F 86 5 L 96/42 L 94 L 10/05/18 06:00 10/05/18 06:00 10/03/18 14:37 10/05/18 06:00 10/05/18 06:00 Intake and Output: 10/05/18 10/05/18 06:59 18:59 Intake Total 1650 Output Total 950 Balance 700 - Medications Medications: Current Medications Acetylcysteine (Acetylcysteine 20%) 2 ml IH [id number] [facility] Last Admin: 10/05/18 07:33 Dose: 2 ml Albuterol/Ipratropium (Duoneb 3 Mg/0.5 Mg (3 Ml) Ud) 3 ml IH [id number] [facility] Last Admin: 10/05/18 07:34 Dose: 3 ml Aspirin (Aspirin Chewable) 81 mg PO DAILY [facility] Last Admin: 10/04/18 09:56 Dose: 81 mg Budesonide (Pulmicort Respules) 0.5 mg IH [id number] [facility] Last Admin: 10/05/18 07:34 Dose: 0.5 mg Furosemide (Lasix) 40 mg IV 0800,1999 [facility] Last Admin: 10/03/18 20:09 Dose: Not Given Furosemide (Lasix) 40 mg IVP DAILY [facility] Last Admin: 10/04/18 12:24 Dose: 40 mg Heparin Sodium (Porcine) (Heparin) 5,000 units SC Q8H [facility]; Protocol Last Admin: 10/05/18 00:45 Dose: 5,000 units Propofol (Diprivan) 1,000 mg in 100 mls @ 4.15 mls/hr IV .Q24H PRN; Protocol PRN Reason: TITRATE PER MD ORDER Last Admin: 10/05/18 02:16 Dose: 20 mcg/kg/min, 16.602 mls/hr Fentanyl Citrate (Fentanyl Citrate/Sodium Chloride 1 Mg/100 Ml) 1,000 mcg in 100 mls @ 10 mls/hr IV .Q10H PRN; Protocol PRN Reason: TITRATE PER MD ORDER Last Admin: 10/05/18 02:13 Dose: 100 mcg/hr, 10 mls/hr Meropenem (Merrem Iv 1 Gm Premix) 1 gm in 50 mls @ 100 mls/hr IVPB Q12 [facility]; Protocol Stop: 10/10/18 22:01 Last Admin: 10/04/18 21:06 Dose: 100 mls/hr Milrinone Lactate/Dextrose (Primacor 20mg/100ml D5w) 100 mls @ 8.137 mls/hr IV .[id number] PRN; Protocol PRN Reason: TITRATE PER MD ORDER Last Admin: 10/04/18 19:58 Dose: 0.2 mcg/kg/min, 8.137 mls/hr Acetaminophen (Ofirmev) 1,000 mg in 100 mls @ 400 mls/hr IVPB Q6H PRN PRN Reason: Temperature Stop: 10/06/18 17:52 Methylprednisolone (Solu-Medrol) 20 mg IVP Q12 [facility] Last Admin: 10/04/18 21:05 Dose: 20 mg Midazolam HCl (Versed Inj) 4 mg IVP Q4H PRN PRN Reason: Agitation Pantoprazole Sodium (Protonix Inj) 40 mg IVP DAILY [facility] Last Admin: 10/04/18 09:56 Dose: 40 mg - Labs Labs: 10/05/18 05:10 10/05/18 05:10 PT 14.0 SECONDS (9.4-12.5) H 10/01/18 05:55 INR 1.21 10/01/18 05:55 APTT 24.9 Seconds (25.1-36.5) L 10/01/18 05:55 - Constitutional Appears: Non-toxic, No Acute Distress - ENT Exam Additional comments: intubated - Neurological Exam Additional comments: sedated; Assessment and Plan (1) FRANCESCA (acute kidney injury) Assessment & Plan: FRANCESCA on CKD III; renal function stablilized after decreasing IV lasix to just once daily and holding metolazone; discussed with CCM team; still requiring high PEEP and FIO2; etiology of hypoxemic respiratory failure likely multifactorial (PNA, CHF); need to avoid over-diuresis; -agree with keeping on IV lasix 40 mg daily with goal of keeping net neg fluid balance; Status: Acute (2) Acute hypoxemic respiratory failure Status: Acute (3) CHF exacerbation Assessment & Plan: Preserved EF reported per recent echo; f/u with cardio for further recs; Status: Acute
[2018-10-05] MEDS: Milrinone 20mg/100ml D5W 100 ML IV PRN (08:04)
--- NOTE | 2018-10-05 08:49 | CP.CCUPN ---
<Alexis Feliciano - Last Filed: 10/05/18 11:18> CCU Subjective - Physician Review Subjective (Free Text): Alexis Feliciano, PGY1 ICU Progress Note for Dr. Barron Patient was seen and examined at bedside this morning. Vital signs stable, afebrile overnight. Patient is intubated, ET tube in place. Vent settings: PRVC 400/20/10/50%. Adams is in place and draining. OG tube in place and patient is receiving feeds at 50 mls/hr. Patient is awake but still on sedation; not following commands. No overnight changes. CCU Objective - Vital Signs / Intake & Output Vital Signs (Last 4 hours): Vital Signs Temp Pulse BP Pulse Ox 10/05/18 06:00 99.1 F 86 96/42 L 94 L 10/05/18 05:33 88 10/05/18 05:00 99.0 F 88 110/44 L 96 Intake and Output (Last 8hrs): Intake & Output 10/04/18 10/05/18 10/05/18 22:59 06:59 14:59 Intake Total 1311.0 1650 Output Total 650 950 Balance 661.0 700 Weight 136.73 kg 133.81 kg Intake: IV 781.0 620 Left Forearm 204 Left Hand 298 120 Right Hand 219 96 Oral 530 530 Tube Feeding 500 Output: Urine 650 950 Urethral (Adams) 650 950 Other: # Bowel Movements 0 - Physical Exam Head: Positive for: Atraumatic, Normocephalic Pupils: Positive for: PERRL Conjunctiva: Positive for: Normal Mouth: Positive for: Moist Mucous Membranes Neck: Positive for: Normal Range of Motion Respiratory/Chest: Negative for: Wheezes, Rales, Retracting, Rhonchi Cardiovascular: Positive for: Regular Rate and Rhythm, Normal S1, S2. Negative for: Murmurs Abdomen: Negative for: Tenderness, Distention, Peritoneal Signs, Rebound, Guarding Back: Positive for: Normal Inspection Upper Extremity: Positive for: Normal Inspection. Negative for: Cyanosis, Edema Lower Extremity: Positive for: NORMAL PULSES, Other (+1/+2 pitting edema bilateral lower ext ). Negative for: Edema, CALF TENDERNESS Skin: Positive for: Warm, Dry, Normal Color. Negative for: Rashes Psychiatric: Positive for: Alert - Medications Active Medications: Active Medications Generic Name Dose Route Start Last Admin Trade Name Freq PRN Reason Stop Dose Admin Acetylcysteine 2 ml 10/04/18 11:58 10/05/18 07:33 Acetylcysteine 20% IH 2 ml [id number] MARCO ANTONIO Administration Albuterol/Ipratropium 3 ml 10/03/18 14:00 10/05/18 07:34 Duoneb 3 Mg/0.5 Mg (3 Ml) Ud IH 3 ml [id number] MARCO ANTONIO Administration Aspirin 81 mg 10/01/18 10:00 10/04/18 09:56 Aspirin Chewable PO 81 mg DAILY MARCO ANTONIO Administration Budesonide 0.5 mg 10/04/18 20:00 10/05/18 07:34 Pulmicort Respules IH 0.5 mg [id number] MARCO ANTONIO Administration Furosemide 40 mg 10/04/18 11:15 10/04/18 12:24 Lasix IVP 40 mg DAILY MARCO ANTONIO Administration Heparin Sodium (Porcine) 5,000 units 10/01/18 08:15 10/05/18 00:45 Heparin SC 5,000 units Q8H MARCO ANTONIO Administration Protocol Propofol 1,000 mg in 100 mls @ 4.15 mls/hr 10/01/18 06:44 10/05/18 02:16 Diprivan IV 20 mcg/kg/min .Q24H PRN 16.602 mls/hr TITRATE PER MD ORDER Administration Protocol 5 MCG/KG/MIN Meropenem 1 gm in 50 mls @ 100 mls/hr 10/01/18 22:00 10/04/18 21:06 Merrem Iv 1 Gm Premix IVPB 10/10/18 22:01 100 mls/hr Q12 MARCO ANTONIO Administration Protocol Milrinone Lactate/Dextrose 100 mls @ 8.137 mls/hr 10/02/18 10:21 10/04/18 19:58 Primacor 20mg/100ml D5w IV 0.2 mcg/kg/min .[id number] PRN 8.137 mls/hr TITRATE PER MD ORDER Administration Protocol 0.2 MCG/KG/MIN Acetaminophen 1,000 mg in 100 mls @ 400 mls/hr 10/04/18 17:51 Ofirmev IVPB 10/06/18 17:52 Q6H PRN Temperature Methylprednisolone 20 mg 10/01/18 10:00 11/25/18 21:05 Solu-Medrol IVP 20 mg Q12 MARCO ANTONIO Administration Midazolam HCl 4 mg 10/04/18 18:12 Versed Inj IVP Q4H PRN Agitation Pantoprazole Sodium 40 mg 10/04/18 10:00 10/04/18 09:56 Protonix Inj IVP 40 mg DAILY MARCO ANTONIO Administration - Patient Studies Lab Studies: Microbiology Studies 10/01/18 06:30 Blood Culture - Preliminary Blood-Venous NO GROWTH AFTER 4 DAYS 10/01/18 06:30 Blood Culture - Preliminary Blood-Venous NO GROWTH AFTER 4 DAYS 10/02/18 08:17 Gram Stain - Final Sputum Induced Sputum Culture - Final No growth. Lab Studies 10/05/18 10/05/18 10/05/18 Range/Units 07:35 06:34 05:10 WBC (4.5-11.0) 10^3/uL RBC (3.5-6.1) 10^6/uL Hgb (14.0-18.0) g/dL Hct (42.0-52.0) % MCV (80.0-105.0) fl MCH (25.0-35.0) pg MCHC (31.0-37.0) g/dl RDW (11.5-14.5) % Plt Count (120.0-450.0) 10^3/uL MPV (7.0-11.0) fl APTT 23.9 L (25.1-36.5) Seconds pCO2 44 (35-45) mm/Hg pO2 116.0 H (80-100) mm/Hg HCO3 25.4 (21-28) mmol/L ABG pH 7.37 (7.35-7.45) ABG Total CO2 26.8 (22-28) mmol.L ABG O2 Saturation 98.9 H (95-98) % ABG O2 Content 18.2 (15-23) ML/dl ABG Base Excess -0.2 (-2.0-3.0) mmol/L ABG Hemoglobin 13.2 (11.7-17.4) g/dL ABG Carboxyhemoglobin 1.3 (0.5-1.5) % POC ABG HHb (Measured) 1.1 (0-5) % ABG Methemoglobin 0.6 (0.0-3.0) % ABG O2 Capacity 18.4 (16-24) mL/dl Hgb O2 Saturation 97.0 (95.0-98.0) % FiO2 60.0 % Sodium 134 (132-148) mmol/L Potassium 3.9 (3.6-5.0) mmol/L Chloride 98 (98-107) mmol/L Carbon Dioxide 26 (21-33) mmol/L Anion Gap 15 (10-20) BUN 97 H (7-21) mg/dL Creatinine 2.7 H (0.8-1.5) mg/dl Est GFR ( Amer) 28 Est GFR (Non-Af Amer) 23 POC Glucose (mg/dL) (65-110) mg/dL Random Glucose 163 H (70-110) mg/dL Calcium 8.3 L (8.4-10.5) mg/dL Magnesium 3.0 H (1.7-2.2) mg/dL 10/05/18 10/04/18 10/04/18 Range/Units 05:10 11:31 10:15 WBC 9.6 D (4.5-11.0) 10^3/uL RBC 3.60 (3.5-6.1) 10^6/uL Hgb 10.6 L (14.0-18.0) g/dL Hct 32.3 L (42.0-52.0) % MCV 89.7 (80.0-105.0) fl MCH 29.4 (25.0-35.0) pg MCHC 32.8 (31.0-37.0) g/dl RDW 15.2 H (11.5-14.5) % Plt Count 193 (120.0-450.0) 10^3/uL MPV 9.7 (7.0-11.0) fl APTT (25.1-36.5) Seconds pCO2 40 (35-45) mm/Hg pO2 120.0 H (80-100) mm/Hg HCO3 25.9 (21-28) mmol/L ABG pH 7.42 (7.35-7.45) ABG Total CO2 27.1 (22-28) mmol.L ABG O2 Saturation 99.0 H (95-98) % ABG O2 Content 15.4 (15-23) ML/dl ABG Base Excess 1.3 (-2.0-3.0) mmol/L ABG Hemoglobin 11.2 L (11.7-17.4) g/dL ABG Carboxyhemoglobin 1.3 (0.5-1.5) % POC ABG HHb (Measured) 1.0 (0-5) % ABG Methemoglobin 0.8 (0.0-3.0) % ABG O2 Capacity 15.6 L (16-24) mL/dl Hgb O2 Saturation 96.8 (95.0-98.0) % FiO2 60.0 % Sodium (132-148) mmol/L Potassium (3.6-5.0) mmol/L Chloride (98-107) mmol/L Carbon Dioxide (21-33) mmol/L Anion Gap (10-20) BUN (7-21) mg/dL Creatinine (0.8-1.5) mg/dl Est GFR ( Amer) Est GFR (Non-Af Amer) POC Glucose (mg/dL) 119 H (65-110) mg/dL Random Glucose (70-110) mg/dL Calcium (8.4-10.5) mg/dL Magnesium (1.7-2.2) mg/dL 10/04/18 Range/Units 08:01 WBC (4.5-11.0) 10^3/uL RBC (3.5-6.1) 10^6/uL Hgb (14.0-18.0) g/dL Hct (42.0-52.0) % MCV (80.0-105.0) fl MCH (25.0-35.0) pg MCHC (31.0-37.0) g/dl RDW (11.5-14.5) % Plt Count (120.0-450.0) 10^3/uL MPV (7.0-11.0) fl APTT (25.1-36.5) Seconds pCO2 (35-45) mm/Hg pO2 (80-100) mm/Hg HCO3 (21-28) mmol/L ABG pH (7.35-7.45) ABG Total CO2 (22-28) mmol.L ABG O2 Saturation (95-98) % ABG O2 Content (15-23) ML/dl ABG Base Excess (-2.0-3.0) mmol/L ABG Hemoglobin (11.7-17.4) g/dL ABG Carboxyhemoglobin (0.5-1.5) % POC ABG HHb (Measured) (0-5) % ABG Methemoglobin (0.0-3.0) % ABG O2 Capacity (16-24) mL/dl Hgb O2 Saturation (95.0-98.0) % FiO2 % Sodium (132-148) mmol/L Potassium (3.6-5.0) mmol/L Chloride (98-107) mmol/L Carbon Dioxide (21-33) mmol/L Anion Gap (10-20) BUN (7-21) mg/dL Creatinine (0.8-1.5) mg/dl Est GFR ( Amer) Est GFR (Non-Af Amer) POC Glucose (mg/dL) 117 H (65-110) mg/dL Random Glucose (70-110) mg/dL Calcium (8.4-10.5) mg/dL Magnesium (1.7-2.2) mg/dL Laboratory Results - last 24 hr 10/04/18 10/04/18 10/04/18 08:01 10:15 11:31 WBC RBC Hgb Hct MCV MCH MCHC RDW Plt Count MPV APTT pCO2 40 pO2 120.0 H HCO3 25.9 ABG pH 7.42 ABG Total CO2 27.1 ABG O2 Saturation 99.0 H ABG O2 Content 15.4 ABG Base Excess 1.3 ABG Hemoglobin 11.2 L ABG Carboxyhemoglobin 1.3 POC ABG HHb (Measured) 1.0 ABG Methemoglobin 0.8 ABG O2 Capacity 15.6 L Hgb O2 Saturation 96.8 FiO2 60.0 Sodium Potassium Chloride Carbon Dioxide Anion Gap BUN Creatinine Est GFR ( Amer) Est GFR (Non-Af Amer) POC Glucose (mg/dL) 117 H 119 H Random Glucose Calcium Magnesium 10/05/18 10/05/18 10/05/18 05:10 05:10 06:34 WBC 9.6 D RBC 3.60 Hgb 10.6 L Hct 32.3 L MCV 89.7 MCH 29.4 MCHC 32.8 RDW 15.2 H Plt Count 193 MPV 9.7 APTT pCO2 44 pO2 116.0 H HCO3 25.4 ABG pH 7.37 ABG Total CO2 26.8 ABG O2 Saturation 98.9 H ABG O2 Content 18.2 ABG Base Excess -0.2 ABG Hemoglobin 13.2 ABG Carboxyhemoglobin 1.3 POC ABG HHb (Measured) 1.1 ABG Methemoglobin 0.6 ABG O2 Capacity 18.4 Hgb O2 Saturation 97.0 FiO2 60.0 Sodium 134 Potassium 3.9 Chloride 98 Carbon Dioxide 26 Anion Gap 15 BUN 97 H Creatinine 2.7 H Est GFR ( Amer) 28 Est GFR (Non-Af Amer) 23 POC Glucose (mg/dL) Random Glucose 163 H Calcium 8.3 L Magnesium 3.0 H 10/05/18 07:35 WBC RBC Hgb Hct MCV MCH MCHC RDW Plt Count MPV APTT 23.9 L pCO2 pO2 HCO3 ABG pH ABG Total CO2 ABG O2 Saturation ABG O2 Content ABG Base Excess ABG Hemoglobin ABG Carboxyhemoglobin POC ABG HHb (Measured) ABG Methemoglobin ABG O2 Capacity Hgb O2 Saturation FiO2 Sodium Potassium Chloride Carbon Dioxide Anion Gap BUN Creatinine Est GFR ( Amer) Est GFR (Non-Af Amer) POC Glucose (mg/dL) Random Glucose Calcium Magnesium Fingerstick Blood Sugar Results: 122 Review of Systems - Review of Systems Systems not reviewed;Unavailable: Intubated Critical Care Progress Note - Ventilator Checklist Head of Bed 30 Degrees: Yes Daily Sedation Vacation: Yes Daily Assessment of Readiness to Wean: Yes Daily Spontaneous Breathing Trial: Yes PUD Prophalyxis: Yes DVT Prophylaxis: Yes Oral Care with Chlorhexidine Gluconate {CHG}: Yes - Vent Settings MODE:: PRVC - Extremities/Vascular Does the Patient have a Central Venous Catheter?: No Does the Patient need a Central Venous Catheter?: No Does the Patient have a Adams Catheter?: Yes Does the Patient need a Adasm Catheter?: Yes Catheter Insertion Criteria: Need for accurate measurement of output in critically ill patient - Restraints Justification for Restraints: High risk for self extubation - Prophylaxis GI Prophylaxis GI: PPI - Prophylaxis DVT Prophylaxis DVT: SCDs - Nutrition Nutrition: Nutrition Category Date Time Status NPO Diet [DIET] Diets 10/01/18 Breakfast Ordered Assessment/Plan - Assessment and Plan (Free Text) Assessment: Patient is a 78 y/o M with PMHx of HTN, CAD (x2 stents in 2013 and 2014), bioprosthetic aortic valve replacement (2017), Watchman device at [facility] for paroxysmal afib, COPD, CHF, chronic vertigo, L-knee replacement (2016), and bladder cancer who presented to the ICU for hypoxic respiratory failure 2/2 CAP vs CHF exacerbation. Also noted to have FRANCESCA and transaminitis. Plan: Neuro: - Awake, moves extremities. - Held sedatives - patient is more awake and alert; plan to extubate today Pulm: - Switch to pressure support ventilation settings; plan for extubation today with BiPAP afterwards - Lasix 40mg IVP BID since patient still has positive fluid balance, +1.6 L - tapered steroids to 20 mg IVP daily - CXR (10/05): improvement from previous CXR that showed mild cardiopulmonary vascular congestion likely 2/2 CHF - c/w duonebs q4h, bronchodilators - c/w milrinone gtt as per cardiology recs - Maintain SaO2 > 92% Cardio: - c/w ASA 81mg - Echo: EF 45-50% (June 2018) as per cardio - Hx of CAD (x2 stents), bioprosthetic aortic valve replacement, Watchman device at [facility] for paroxysmal afib - maintain normal blood pressure - Cardio on consult - EKG on admission showed prolonged QT interval (561) GI: - Transaminitis is now resolved - OG tube in place - NPO - GI ppx Renal: - Cr is 2.7 today; uptrending - nephro on consult - Avoid nephrotoxic drugs Heme: - DVT ppx with heparin - H/H stable ID: - Treatment of CAP; currently on Meropenem (Day #5) as per ID recs - Procalcitonin negative; afebrile with no leukocytosis - Blood cx negative x2, sputum cx negative, MRSA negative, urine cx negative - ID on consult GI ppx: protonix DVT ppx: SCDs, heparin sc Dispo: Held sedatives. Plan to extubate today. Case was discussed and reviewed with Attending Physician, Dr. Barron <Jay Barron - Last Filed: 10/05/18 13:58> CCU Objective - Vital Signs / Intake & Output Vital Signs (Last 4 hours): Vital Signs Pulse 10/05/18 11:00 102 H Intake and Output (Last 8hrs): Intake & Output 10/04/18 10/05/18 10/05/18 22:59 06:59 14:59 Intake Total 1311.0 1650 100 Output Total 650 950 Balance 661.0 700 100 Weight 301 lb 7 oz 295 lb Intake: IV 781.0 620 100 Left Forearm 204 Left Hand 298 120 Right Hand 219 96 Oral 530 530 Tube Feeding 500 Output: Urine 650 950 Urethral (Adams) 650 950 Other: # Bowel Movements 0 - Medications Active Medications: Active Medications Generic Name Dose Route Start Last Admin Trade Name Freq PRN Reason Stop Dose Admin Acetylcysteine 2 ml 10/04/18 11:58 10/05/18 07:33 Acetylcysteine 20% IH 2 ml [id number] MARCO ANTONIO Administration Albuterol/Ipratropium 3 ml 10/03/18 14:00 10/05/18 13:25 Duoneb 3 Mg/0.5 Mg (3 Ml) Ud IH 3 ml [id number] MARCO ANTONIO Administration Aspirin 81 mg 10/01/18 10:00 10/05/18 09:14 Aspirin Chewable PO 81 mg DAILY MARCO ANTONIO Administration Budesonide 0.5 mg 10/04/18 20:00 10/05/18 07:34 Pulmicort Respules IH 0.5 mg [id number] MARCO ANTONIO Administration Furosemide 40 mg 10/05/18 10:00 Lasix IVP BID MARCO ANTONIO Heparin Sodium (Porcine) 5,000 units 10/01/18 08:15 10/05/18 08:42 Heparin SC 5,000 units Q8H MARCO ANTONIO Administration Protocol Propofol 1,000 mg in 100 mls @ 4.15 mls/hr 10/01/18 06:44 10/05/18 02:16 Diprivan IV 20 mcg/kg/min .Q24H PRN 16.602 mls/hr TITRATE PER MD ORDER Administration Protocol 5 MCG/KG/MIN Meropenem 1 gm in 50 mls @ 100 mls/hr 10/01/18 22:00 10/05/18 09:16 Merrem Iv 1 Gm Premix IVPB 10/10/18 22:01 100 mls/hr Q12 MARCO ANTONIO Administration Protocol Acetaminophen 1,000 mg in 100 mls @ 400 mls/hr 10/04/18 17:51 Ofirmev IVPB 10/06/18 17:52 Q6H PRN Temperature Methylprednisolone 20 mg 10/05/18 10:00 Solu-Medrol IVP DAILY MARCO ANTONIO Midazolam HCl 4 mg 10/04/18 18:12 Versed Inj IVP Q4H PRN Agitation Pantoprazole Sodium 40 mg 10/04/18 10:00 10/05/18 09:15 Protonix Inj IVP 40 mg DAILY MARCO ANTONIO Administration - Patient Studies Lab Studies: Microbiology Studies 10/01/18 06:30 Blood Culture - Preliminary Blood-Venous NO GROWTH AFTER 4 DAYS 10/01/18 06:30 Blood Culture - Preliminary Blood-Venous NO GROWTH AFTER 4 DAYS 10/02/18 08:17 Gram Stain - Final Sputum Induced Sputum Culture - Final No growth. Lab Studies 10/05/18 10/05/18 10/05/18 Range/Units 07:35 06:48 06:34 WBC (4.5-11.0) 10^3/uL RBC (3.5-6.1) 10^6/uL Hgb (14.0-18.0) g/dL Hct (42.0-52.0) % MCV (80.0-105.0) fl MCH (25.0-35.0) pg MCHC (31.0-37.0) g/dl RDW (11.5-14.5) % Plt Count (120.0-450.0) 10^3/uL MPV (7.0-11.0) fl APTT 23.9 L (25.1-36.5) Seconds pCO2 44 (35-45) mm/Hg pO2 116.0 H (80-100) mm/Hg HCO3 25.4 (21-28) mmol/L ABG pH 7.37 (7.35-7.45) ABG Total CO2 26.8 (22-28) mmol.L ABG O2 Saturation 98.9 H (95-98) % ABG O2 Content 18.2 (15-23) ML/dl ABG Base Excess -0.2 (-2.0-3.0) mmol/L ABG Hemoglobin 13.2 (11.7-17.4) g/dL ABG Carboxyhemoglobin 1.3 (0.5-1.5) % POC ABG HHb (Measured) 1.1 (0-5) % ABG Methemoglobin 0.6 (0.0-3.0) % ABG O2 Capacity 18.4 (16-24) mL/dl Hgb O2 Saturation 97.0 (95.0-98.0) % FiO2 60.0 % Sodium (132-148) mmol/L Potassium (3.6-5.0) mmol/L Chloride (98-107) mmol/L Carbon Dioxide (21-33) mmol/L Anion Gap (10-20) BUN (7-21) mg/dL Creatinine (0.8-1.5) mg/dl Est GFR ( Amer) Est GFR (Non-Af Amer) POC Glucose (mg/dL) 131 H (65-110) mg/dL Random Glucose (70-110) mg/dL Calcium (8.4-10.5) mg/dL Magnesium (1.7-2.2) mg/dL 10/05/18 10/05/18 10/04/18 Range/Units 05:10 05:10 11:31 WBC 9.6 D (4.5-11.0) 10^3/uL RBC 3.60 (3.5-6.1) 10^6/uL Hgb 10.6 L (14.0-18.0) g/dL Hct 32.3 L (42.0-52.0) % MCV 89.7 (80.0-105.0) fl MCH 29.4 (25.0-35.0) pg MCHC 32.8 (31.0-37.0) g/dl RDW 15.2 H (11.5-14.5) % Plt Count 193 (120.0-450.0) 10^3/uL MPV 9.7 (7.0-11.0) fl APTT (25.1-36.5) Seconds pCO2 (35-45) mm/Hg pO2 (80-100) mm/Hg HCO3 (21-28) mmol/L ABG pH (7.35-7.45) ABG Total CO2 (22-28) mmol.L ABG O2 Saturation (95-98) % ABG O2 Content (15-23) ML/dl ABG Base Excess (-2.0-3.0) mmol/L ABG Hemoglobin (11.7-17.4) g/dL ABG Carboxyhemoglobin (0.5-1.5) % POC ABG HHb (Measured) (0-5) % ABG Methemoglobin (0.0-3.0) % ABG O2 Capacity (16-24) mL/dl Hgb O2 Saturation (95.0-98.0) % FiO2 % Sodium 134 (132-148) mmol/L Potassium 3.9 (3.6-5.0) mmol/L Chloride 98 (98-107) mmol/L Carbon Dioxide 26 (21-33) mmol/L Anion Gap 15 (10-20) BUN 97 H (7-21) mg/dL Creatinine 2.7 H (0.8-1.5) mg/dl Est GFR ( Amer) 28 Est GFR (Non-Af Amer) 23 POC Glucose (mg/dL) 119 H (65-110) mg/dL Random Glucose 163 H (70-110) mg/dL Calcium 8.3 L (8.4-10.5) mg/dL Magnesium 3.0 H (1.7-2.2) mg/dL 10/04/18 Range/Units 08:01 WBC (4.5-11.0) 10^3/uL RBC (3.5-6.1) 10^6/uL Hgb (14.0-18.0) g/dL Hct (42.0-52.0) % MCV (80.0-105.0) fl MCH (25.0-35.0) pg MCHC (31.0-37.0) g/dl RDW (11.5-14.5) % Plt Count (120.0-450.0) 10^3/uL MPV (7.0-11.0) fl APTT (25.1-36.5) Seconds pCO2 (35-45) mm/Hg pO2 (80-100) mm/Hg HCO3 (21-28) mmol/L ABG pH (7.35-7.45) ABG Total CO2 (22-28) mmol.L ABG O2 Saturation (95-98) % ABG O2 Content (15-23) ML/dl ABG Base Excess (-2.0-3.0) mmol/L ABG Hemoglobin (11.7-17.4) g/dL ABG Carboxyhemoglobin (0.5-1.5) % POC ABG HHb (Measured) (0-5) % ABG Methemoglobin (0.0-3.0) % ABG O2 Capacity (16-24) mL/dl Hgb O2 Saturation (95.0-98.0) % FiO2 % Sodium (132-148) mmol/L Potassium (3.6-5.0) mmol/L Chloride (98-107) mmol/L Carbon Dioxide (21-33) mmol/L Anion Gap (10-20) BUN (7-21) mg/dL Creatinine (0.8-1.5) mg/dl Est GFR ( Amer) Est GFR (Non-Af Amer) POC Glucose (mg/dL) 117 H (65-110) mg/dL Random Glucose (70-110) mg/dL Calcium (8.4-10.5) mg/dL Magnesium (1.7-2.2) mg/dL Laboratory Results - last 24 hr 10/04/18 10/04/18 10/05/18 08:01 11:31 05:10 WBC 9.6 D RBC 3.60 Hgb 10.6 L Hct 32.3 L MCV 89.7 MCH 29.4 MCHC 32.8 RDW 15.2 H Plt Count 193 MPV 9.7 APTT pCO2 pO2 HCO3 ABG pH ABG Total CO2 ABG O2 Saturation ABG O2 Content ABG Base Excess ABG Hemoglobin ABG Carboxyhemoglobin POC ABG HHb (Measured) ABG Methemoglobin ABG O2 Capacity Hgb O2 Saturation FiO2 Sodium Potassium Chloride Carbon Dioxide Anion Gap BUN Creatinine Est GFR ( Amer) Est GFR (Non-Af Amer) POC Glucose (mg/dL) 117 H 119 H Random Glucose Calcium Magnesium 10/05/18 10/05/18 10/05/18 05:10 06:34 06:48 WBC RBC Hgb Hct MCV MCH MCHC RDW Plt Count MPV APTT pCO2 44 pO2 116.0 H HCO3 25.4 ABG pH 7.37 ABG Total CO2 26.8 ABG O2 Saturation 98.9 H ABG O2 Content 18.2 ABG Base Excess -0.2 ABG Hemoglobin 13.2 ABG Carboxyhemoglobin 1.3 POC ABG HHb (Measured) 1.1 ABG Methemoglobin 0.6 ABG O2 Capacity 18.4 Hgb O2 Saturation 97.0 FiO2 60.0 Sodium 134 Potassium 3.9 Chloride 98 Carbon Dioxide 26 Anion Gap 15 BUN 97 H Creatinine 2.7 H Est GFR ( Amer) 28 Est GFR (Non-Af Amer) 23 POC Glucose (mg/dL) 131 H Random Glucose 163 H Calcium 8.3 L Magnesium 3.0 H 10/05/18 07:35 WBC RBC Hgb Hct MCV MCH MCHC RDW Plt Count MPV APTT 23.9 L pCO2 pO2 HCO3 ABG pH ABG Total CO2 ABG O2 Saturation ABG O2 Content ABG Base Excess ABG Hemoglobin ABG Carboxyhemoglobin POC ABG HHb (Measured) ABG Methemoglobin ABG O2 Capacity Hgb O2 Saturation FiO2 Sodium Potassium Chloride Carbon Dioxide Anion Gap BUN Creatinine Est GFR ( Amer) Est GFR (Non-Af Amer) POC Glucose (mg/dL) Random Glucose Calcium Magnesium Critical Care Progress Note - Nutrition Nutrition: Nutrition Category Date Time Status NPO Diet [DIET] Diets 10/01/18 Breakfast Ordered Assessment/Plan - Assessment and Plan (Free Text) Plan: Patient seen and examined on rounds, with resident, agree with note with following additions/exceptions: Patient is 78yo male with PMHx of HTN, CAD (x2 stents in 2013 and 2014), bioprosthetic aortic valve replacement (2017), Watchman device at [facility] for paroxysmal afib, COPD, CHF, chronic vertigo, L-knee replacement (2015), and bladder cancer who presented to the ICU for hypoxic respiratory failure 2/2 CAP/CHF exacerbation. Labs, imaging, chart reviewed This morning, sedation shut off, patient awake, alert, following commands, placed on CPAP trial PS 8 for 60 minutes, did well, RSBI 30-40, subsequently extubated to BIPAP Patient is currently afebrile, HD stable, comfortable in NAD Cr has been stable at 2.7 Acute decompensated CHF failure CAP Respiratory failure CAD HTN Afib COPD Recommend: - cont with BIPAP as needed, and at night, goal sat 90% - duonebs PRN, taper steroids - Lasix IV diuresis, monitor I/Os, daily weight - Abx as per ID - Repeat ECHO - follow up cardiology - DC Milrinone - Cont with ASA, Statin, BB - Monitor Cr - Follow up renal - GI ppx - DVT ppx - Monitor in MICU Critical care time 35 minutes
[2018-10-05] MEDS: MethylPREDNISolone 40 mg Vial IVP SCH (09:14)
[2018-10-05] MEDS: Meropenem IV 1 gm in NS 1 GM/50 ML BAG IVPB SCH ×2 (09:16→23:00)
--- NOTE | 2018-10-05 09:32 | RAD ---
Date of service: 10/05/2018 HISTORY: intubated COMPARISON: 10/04/2018 FINDINGS: LUNGS: No active pulmonary disease. PLEURA: No significant pleural effusion identified, no pneumothorax apparent. CARDIOVASCULAR: No aortic atherosclerotic calcification present. Moderate cardiomegaly no pulmonary vascular congestion. OSSEOUS STRUCTURES: No significant abnormalities. VISUALIZED UPPER ABDOMEN: Normal. OTHER FINDINGS: Endotracheal and nasogastric tube remain in satisfactory position IMPRESSION: No active disease.
--- NOTE | 2018-10-05 10:00 | CP.PCM.PN ---
<Jarvis Zurita - Last Filed: 10/05/18 13:42> Subjective - Date & Time of Evaluation Date of Evaluation: 10/05/18 Time of Evaluation: 07:00 - Subjective Subjective: Progress Note for Dr. Dahl Service Patient seen and examined at bedside. No acute events reported overnight. Remains intubated and sedated. Over the weekend, creatinine appears to have plateaued (2.6 friday, 2.7 friday, 2.7 today). Continues to have urine output, but remains net positive in fluid intake. Current diuretic regimen is 40mg IV daily lasix. Objective - Vital Signs/Intake and Output Vital Signs (last 24 hours): Temp Pulse Resp BP Pulse Ox 99.9 F H 88 5 L 122/59 L 95 10/05/18 09:00 10/05/18 09:00 10/03/18 14:37 10/05/18 09:15 10/05/18 09:00 Intake and Output: 10/05/18 10/05/18 06:59 18:59 Intake Total 1650 100 Output Total 950 Balance 700 100 - Medications Medications: Current Medications Acetylcysteine (Acetylcysteine 20%) 2 ml IH [id number] [facility] Last Admin: 10/05/18 07:33 Dose: 2 ml Albuterol/Ipratropium (Duoneb 3 Mg/0.5 Mg (3 Ml) Ud) 3 ml IH [id number] [facility] Last Admin: 10/05/18 07:34 Dose: 3 ml Aspirin (Aspirin Chewable) 81 mg PO DAILY [facility] Last Admin: 10/05/18 09:14 Dose: 81 mg Budesonide (Pulmicort Respules) 0.5 mg IH [id number] [facility] Last Admin: 10/05/18 07:34 Dose: 0.5 mg Furosemide (Lasix) 40 mg IVP BID [facility] Heparin Sodium (Porcine) (Heparin) 5,000 units SC Q8H [facility]; Protocol Last Admin: 10/05/18 08:42 Dose: 5,000 units Propofol (Diprivan) 1,000 mg in 100 mls @ 4.15 mls/hr IV .Q24H PRN; Protocol PRN Reason: TITRATE PER MD ORDER Last Admin: 10/05/18 02:16 Dose: 20 mcg/kg/min, 16.602 mls/hr Meropenem (Merrem Iv 1 Gm Premix) 1 gm in 50 mls @ 100 mls/hr IVPB Q12 [facility]; Protocol Stop: 10/10/18 22:01 Last Admin: 10/05/18 09:16 Dose: 100 mls/hr Milrinone Lactate/Dextrose (Primacor 20mg/100ml D5w) 100 mls @ 8.137 mls/hr IV .[id number] PRN; Protocol PRN Reason: TITRATE PER MD ORDER Last Admin: 10/05/18 08:04 Dose: 0.2 mcg/kg/min, 8.137 mls/hr Acetaminophen (Ofirmev) 1,000 mg in 100 mls @ 400 mls/hr IVPB Q6H PRN PRN Reason: Temperature Stop: 10/06/18 17:52 Methylprednisolone (Solu-Medrol) 20 mg IVP DAILY [facility] Midazolam HCl (Versed Inj) 4 mg IVP Q4H PRN PRN Reason: Agitation Pantoprazole Sodium (Protonix Inj) 40 mg IVP DAILY [facility] Last Admin: 10/05/18 09:15 Dose: 40 mg - Labs Labs: 10/05/18 05:10 10/05/18 05:10 PT 14.0 SECONDS (9.4-12.5) H 10/01/18 05:55 INR 1.21 10/01/18 05:55 APTT 23.9 Seconds (25.1-36.5) L 10/05/18 07:35 - Constitutional Appears: Other (Sedated on ventilator, ill-appearing, no acute distress through the sedation) - Head Exam Head Exam: ATRAUMATIC, NORMOCEPHALIC - Eye Exam Eye Exam: Normal appearance. absent: Conjunctival injection, Scleral icterus Pupil Exam: absent: Irregular, Unequal - ENT Exam ENT Exam: Mucous Membranes Moist Additional comments: ETT in place - Neck Exam Neck Exam: absent: Lymphadenopathy - Respiratory Exam Respiratory Exam: Decreased Breath Sounds (decreased at bilateral bases), Rales (difuse rales in all urban). absent: Clear to Ausculation Bilateral, Rhonchi, Wheezes Additional comments: intubated and ventilated - Cardiovascular Exam Cardiovascular Exam: +S1, +S2. absent: JVD Additional comments: Regular rate but frequent PVCs - GI/Abdominal Exam GI & Abdominal Exam: Soft, Normal Bowel Sounds. absent: Firm, Rigid, Diminished Bowel Sounds, Hyperactive Bowel Sounds, Hypoactive Bowel Sounds - Extremities Exam Extremities Exam: Pedal Edema (+1-2 pitting in bilateral LE from feet to mid- gerber) - Neurological Exam Additional comments: sedated, withdraws from noxious pain stimuli but otherwise not arousable GCS 6 (E1 V1t M4) - Psychiatric Exam Additional comments: sedated, unable to assess - Skin Skin Exam: Dry, Intact, Normal Color, Warm Assessment and Plan - Assessment and Plan (Free Text) Assessment: This is a 78 yo M with PMH of HTN, CAD (x2 stents in 2013 and 2014), bioprosthetic aortic valve replacement (2017), Watchman device at [facility] for paroxysmal afib, COPD, CHF, chronic vertigo, L-knee replacement (2015), and bladder cancer who presented to the ICU for hypoxic respiratory failure 2/2 CAP vs CHF exacerbation. He has since developed worsening FRANCESCA overlying CKD and transaminitis. Plan: 1) Acute hypoxic respiratory failure -ddx: HAP vs CHF exacerbation, may be multifactorial unlikely COPD exacerbation, not retaining CO2 on ABGs -intubated and ventilated -AM ABG reviewed, may be candidate for further FiO2 weaning and breathing trials, defer to ICU for this -AM CXR reviewed and compared to prior, appears unchanged -Abx as per ID 2) FRANCESCA overlying CKD -likely 2/2 aggressive diuresis -CR plateaued over the weekend, 2.7 x2 days, continue to monitor -Good UOP, but remains net positive in intake every day since admission day, rec reducing input, try to get net negative -current regimen: Lasix 40mg IV daily; metalozone d/c'ed 3) COPD -continue Duonebs and Budesonide -taper steroids as per ICU 4) Anemia -as baseline per prior charting -Iron studies ordered, f/u Dispo: ICU, pending possible ventilator weaning, further diuresis, monitoring renal function Ppx: Protonix for GI, Heparin SC for DVT Reviewed and discussed with attending, Dr. Dahl <Sixto Dahl S - Last Filed: 10/05/18 21:57> Objective - Vital Signs/Intake and Output Vital Signs (last 24 hours): Temp Pulse Resp BP Pulse Ox 99.9 F H 81 21 151/74 H 93 L 10/05/18 21:03 10/05/18 21:03 10/05/18 21:00 10/05/18 21:00 10/05/18 21:03 Intake and Output: 10/05/18 10/06/18 18:59 06:59 Intake Total 250 Output Total 2550 Balance -2300 - Medications Medications: Current Medications Acetylcysteine (Acetylcysteine 20%) 2 ml IH [id number] [facility] Last Admin: 10/05/18 19:46 Dose: 2 ml Albuterol/Ipratropium (Duoneb 3 Mg/0.5 Mg (3 Ml) Ud) 3 ml IH [id number] [facility] Last Admin: 10/05/18 19:47 Dose: 3 ml Aspirin (Aspirin Chewable) 81 mg PO DAILY [facility] Last Admin: 10/05/18 09:14 Dose: 81 mg Budesonide (Pulmicort Respules) 0.5 mg IH [id number] [facility] Last Admin: 10/05/18 19:47 Dose: 0.5 mg Furosemide (Lasix) 40 mg IVP BID [facility] Last Admin: 10/05/18 18:07 Dose: 40 mg Heparin Sodium (Porcine) (Heparin) 5,000 units SC Q8H [facility]; Protocol Last Admin: 10/05/18 16:32 Dose: 5,000 units Propofol (Diprivan) 1,000 mg in 100 mls @ 4.15 mls/hr IV .Q24H PRN; Protocol PRN Reason: TITRATE PER MD ORDER Last Admin: 10/05/18 02:16 Dose: 20 mcg/kg/min, 16.602 mls/hr Meropenem (Merrem Iv 1 Gm Premix) 1 gm in 50 mls @ 100 mls/hr IVPB Q12 [facility]; Protocol Stop: 10/10/18 22:01 Last Admin: 10/05/18 09:16 Dose: 100 mls/hr Acetaminophen (Ofirmev) 1,000 mg in 100 mls @ 400 mls/hr IVPB Q6H PRN PRN Reason: Temperature Stop: 10/06/18 17:52 Last Admin: 10/05/18 14:47 Dose: 400 mls/hr Methylprednisolone (Solu-Medrol) 20 mg IVP DAILY [facility] Midazolam HCl (Versed Inj) 4 mg IVP Q4H PRN PRN Reason: Agitation Pantoprazole Sodium (Protonix Inj) 40 mg IVP DAILY [facility] Last Admin: 10/05/18 09:15 Dose: 40 mg - Labs Labs: 10/05/18 05:10 10/05/18 05:10 PT 14.0 SECONDS (9.4-12.5) H 10/01/18 05:55 INR 1.21 10/01/18 05:55 APTT 23.9 Seconds (25.1-36.5) L 10/05/18 07:35 Assessment and Plan - Assessment and Plan (Free Text) Plan: Pt seen and examined. I have reviewed the note of the spanish medical interpreter and agree with it. I have discussed the assessment and plan with the resident. I have reviewed the patient's labs and medications. Pt with resp failure. ABG reviewed. Pt with FRANCESCA. COPD treated with Duoneb and Budesonide. Will get iron studies to evaluate for anemia. Pt will stay in the ICU and remains critical.
--- NOTE | 2018-10-05 10:29 | CP.PCM.PN ---
<Carlos Eduardo Henderson - Last Filed: 10/05/18 10:25> Subjective - Date & Time of Evaluation Date of Evaluation: 10/05/18 Time of Evaluation: 10:25 - Subjective Subjective: Infectious disease progress note for Dr. Cee/Dr. Villalba service - Morris Henderson PGY3 Patient seen and examined at bedside this morning. No acute overnight events or new complaints reported. Patient intubated on PRVC 400/20/10/50% with plan for possible pressure support trial today by ICU team. Urine output of approx 1.6L over last 24hrs however remains in net positive balance. Lasix were increased and patient remains on ABX for HCAP coverage. 12point ROS limited due to patient status. Objective - Vital Signs/Intake and Output Vital Signs (last 24 hours): Temp Pulse Resp BP Pulse Ox 99.9 F H 88 5 L 122/59 L 95 10/05/18 09:00 10/05/18 09:00 10/03/18 14:37 10/05/18 09:15 10/05/18 09:00 Intake and Output: 10/05/18 10/05/18 06:59 18:59 Intake Total 1650 100 Output Total 950 Balance 700 100 - Medications Medications: Current Medications Acetylcysteine (Acetylcysteine 20%) 2 ml IH [id number] [facility] Last Admin: 10/05/18 07:33 Dose: 2 ml Albuterol/Ipratropium (Duoneb 3 Mg/0.5 Mg (3 Ml) Ud) 3 ml IH [id number] [facility] Last Admin: 10/05/18 07:34 Dose: 3 ml Aspirin (Aspirin Chewable) 81 mg PO DAILY [facility] Last Admin: 10/05/18 09:14 Dose: 81 mg Budesonide (Pulmicort Respules) 0.5 mg IH [id number] [facility] Last Admin: 10/05/18 07:34 Dose: 0.5 mg Furosemide (Lasix) 40 mg IVP BID [facility] Heparin Sodium (Porcine) (Heparin) 5,000 units SC Q8H [facility]; Protocol Last Admin: 10/05/18 08:42 Dose: 5,000 units Propofol (Diprivan) 1,000 mg in 100 mls @ 4.15 mls/hr IV .Q24H PRN; Protocol PRN Reason: TITRATE PER MD ORDER Last Admin: 10/05/18 02:16 Dose: 20 mcg/kg/min, 16.602 mls/hr Meropenem (Merrem Iv 1 Gm Premix) 1 gm in 50 mls @ 100 mls/hr IVPB Q12 [facility]; Protocol Stop: 10/10/18 22:01 Last Admin: 10/05/18 09:16 Dose: 100 mls/hr Milrinone Lactate/Dextrose (Primacor 20mg/100ml D5w) 100 mls @ 8.137 mls/hr IV .[id number] PRN; Protocol PRN Reason: TITRATE PER MD ORDER Last Admin: 10/05/18 08:04 Dose: 0.2 mcg/kg/min, 8.137 mls/hr Acetaminophen (Ofirmev) 1,000 mg in 100 mls @ 400 mls/hr IVPB Q6H PRN PRN Reason: Temperature Stop: 10/06/18 17:52 Methylprednisolone (Solu-Medrol) 20 mg IVP DAILY [facility] Midazolam HCl (Versed Inj) 4 mg IVP Q4H PRN PRN Reason: Agitation Pantoprazole Sodium (Protonix Inj) 40 mg IVP DAILY [facility] Last Admin: 10/05/18 09:15 Dose: 40 mg - Labs Labs: 10/05/18 05:10 10/05/18 05:10 PT 14.0 SECONDS (9.4-12.5) H 10/01/18 05:55 INR 1.21 10/01/18 05:55 APTT 23.9 Seconds (25.1-36.5) L 10/05/18 07:35 - Constitutional Appears: No Acute Distress - Head Exam Head Exam: ATRAUMATIC, NORMAL INSPECTION, NORMOCEPHALIC - Eye Exam Eye Exam: EOMI, PERRL - ENT Exam ENT Exam: Mucous Membranes Moist - Respiratory Exam Respiratory Exam: absent: Rales, Rhonchi, Wheezes - Cardiovascular Exam Cardiovascular Exam: +S1, +S2. absent: Clicks, Gallop, Rubs - GI/Abdominal Exam GI & Abdominal Exam: Distended, Soft. absent: Firm, Guarding, Rigid, Tenderness, Rebound - Extremities Exam Extremities Exam: Pedal Edema - Neurological Exam Neurological Exam: Awake - Skin Skin Exam: Dry, Intact, Normal Color, Warm Assessment and Plan - Assessment and Plan (Free Text) Plan: 78yo male with history of HTN, CAD s/p stent placement, bioprosthetic aortic valve replacement, Watchman device, paroxysmal afib, COPD, CHF, and bladder cancer presented with hypoxic respiratory failure in the setting of healthcare associated pneumonia and/or CHF exacerbation complicated by acute kidney injury. 1. Hypoxemic respiratory failure likely secondary to CHF exacerbation 2. r/o superimposed healthcare associated pneumonia 3. <Morro Cee S - Last Filed: 10/05/18 13:14> Objective - Vital Signs/Intake and Output Vital Signs (last 24 hours): Temp Pulse Resp BP Pulse Ox 99.9 F H 88 5 L 122/59 L 95 10/05/18 09:00 10/05/18 09:00 10/03/18 14:37 10/05/18 09:15 10/05/18 09:00 Intake and Output: 10/05/18 10/05/18 06:59 18:59 Intake Total 1650 100 Output Total 950 Balance 700 100 - Medications Medications: Current Medications Acetylcysteine (Acetylcysteine 20%) 2 ml IH [id number] [facility] Last Admin: 10/05/18 07:33 Dose: 2 ml Albuterol/Ipratropium (Duoneb 3 Mg/0.5 Mg (3 Ml) Ud) 3 ml IH [id number] [facility] Last Admin: 10/05/18 07:34 Dose: 3 ml Aspirin (Aspirin Chewable) 81 mg PO DAILY [facility] Last Admin: 10/05/18 09:14 Dose: 81 mg Budesonide (Pulmicort Respules) 0.5 mg IH [id number] [facility] Last Admin: 10/05/18 07:34 Dose: 0.5 mg Furosemide (Lasix) 40 mg IVP BID [facility] Heparin Sodium (Porcine) (Heparin) 5,000 units SC Q8H [facility]; Protocol Last Admin: 10/05/18 08:42 Dose: 5,000 units Propofol (Diprivan) 1,000 mg in 100 mls @ 4.15 mls/hr IV .Q24H PRN; Protocol PRN Reason: TITRATE PER MD ORDER Last Admin: 10/05/18 02:16 Dose: 20 mcg/kg/min, 16.602 mls/hr Meropenem (Merrem Iv 1 Gm Premix) 1 gm in 50 mls @ 100 mls/hr IVPB Q12 [facility]; Protocol Stop: 10/10/18 22:01 Last Admin: 10/05/18 09:16 Dose: 100 mls/hr Acetaminophen (Ofirmev) 1,000 mg in 100 mls @ 400 mls/hr IVPB Q6H PRN PRN Reason: Temperature Stop: 10/06/18 17:52 Methylprednisolone (Solu-Medrol) 20 mg IVP DAILY [facility] Midazolam HCl (Versed Inj) 4 mg IVP Q4H PRN PRN Reason: Agitation Pantoprazole Sodium (Protonix Inj) 40 mg IVP DAILY [facility] Last Admin: 10/05/18 09:15 Dose: 40 mg - Labs Labs: 10/05/18 05:10 10/05/18 05:10 PT 14.0 SECONDS (9.4-12.5) H 10/01/18 05:55 INR 1.21 10/01/18 05:55 APTT 23.9 Seconds (25.1-36.5) L 10/05/18 07:35 Assessment and Plan - Assessment and Plan (Free Text) Plan: Infectious diseases Attending Physician Attestation Patient seen and examined, discussed with medical affairs director. I have reviewed the patient's history of present illness, past medical, social, personal and family histories, pertinent physical exam findings, course so far in this hospital admission, pertinent laboratory and imaging results. I agree with the above findings, assessment and plan. In addition, will continue Merrem for this patient with possible HCAP on top of acute CHF. Complete at least 7 days of antibiotics. Patient continues to be on the ventilator.
--- NOTE | 2018-10-05 16:24 | CON ---
DATE: 10/05/2018 PULMONARY CONSULTATION REASON FOR CONSULTATION: Chronic obstructive pulmonary disease. REFERRING PHYSICIAN: Dr. Sixto Dahl. SOURCE OF HISTORY: History is obtained via extensive discussion with the and daughter. I have also discussed the case with the patient at length, and reviewed the chart at length. HISTORY OF PRESENT ILLNESS: The patient is an 78-year-old male, morbidly obese, with past medical history significant for chronic obstructive pulmonary disease, obstructive sleep apnea, coronary artery disease, status post multiple cardiac stents, recurrent congestive heart failure, who presented to [facility] - originally on 10/01/2018 - with increasing shortness of breath at rest and dyspnea on exertion for 1 day. Again, I did discuss the case with the at length. Apparently, the patient was hospitalized for congestive heart failure twice when they were both in [place]. One day after returning from [place], the patient did experience the above symptoms. There is no history of cough or sputum production. There is no history of chest pain, coughing up of blood, or chest pain - made worse with deep respirations. There have been low-grade temperatures measured in the hospital. No history of chills or infectious exposure. No history of night sweats, weight loss, or appetite change prior to the above events. No history of calf pains. No history of syncope or diaphoresis. No history of recent trauma. REVIEW OF SYSTEMS: No history of nausea, vomiting, or diarrhea. No acute urinary symptoms. No new neurologic complaints. Rest of the review of systems is negative. ALLERGIES: TETANUS TOXOID, CEFEPIME, AND PENICILLINS. SOCIAL HISTORY: Positive for former tobacco usage. No alcohol. FAMILY HISTORY: No inheritable diseases. HOME MEDICATIONS: Include Cardizem, Spiriva, Breo Ellipta, ProAir, Lipitor, Synthroid, Lasix, Proscar, Ecotrin, Toprol. PHYSICAL EXAMINATION: GENERAL: The patient appears comfortable at the time of my examination. He is currently on BiPAP. He is not short of breath at rest. VITAL SIGNS: Temperature is 99.5, pulse is 82, respirations 20, blood pressure 117/46. Oxygen saturation on BiPAP is 95%. HEENT: Normocephalic, atraumatic. No JVD. CARDIOVASCULAR: Systolic ejection murmur at the lower left sternal border. Questionable S3 gallop. LUNGS: Decreased breath sounds with minimal crackles at the bases. Minimal bilateral rhonchi. No wheezing. EXTREMITIES: Positive for mild edema. No cyanosis. No clubbing. Calves are nontender to palpation. GASTROINTESTINAL: Abdomen is soft, nontender and nondistended. Bowel sounds are positive. SKIN: No acute rash. NEUROLOGIC: Exam limited at the present time. PERTINENT LABORATORY DATA: Chest x-ray was done this morning and reviewed. There is very mild/less pulmonary vascular congestion noted. The film is significantly improved from the original film - 10/01/2018. CBC: White count 9.6K, hemoglobin 10.6, hematocrit 32.3, platelets of 193,000. Complete metabolic profile: BUN 97, creatinine 2.7, glucose 163, calcium 8.3, magnesium 3.0. Rest of the metabolic profile is within normal limits. Initial B-type natriuretic peptide 2030. IMPRESSION: 1. Respiratory failure. 2. Recurrent congestive heart failure. 3. Rule out underlying pneumonia. 4. Chronic obstructive pulmonary disease. 5. Renal insufficiency. 6. Coronary artery disease. PLAN: Again, I did discuss the case with the and daughter at length. I have also discussed the case with the staff counsel (Dr. Barron), and the ICU residents at length. The patient presented to [facility] - originally on 10/01/2018 - with a 1-day history of increasing shortness of breath at rest and dyspnea on exertion. As above, he was recently hospitalized in [place] for congestive heart failure. The offers no other pulmonary symptoms. I did review the original chest x-ray done. There is significant pulmonary vascular congestion noted. I certainly could not rule out a small underlying pneumonia. I have also reviewed the most recent x-ray - done today. The x-ray is significantly improved with no significant abnormalities. The patient has been followed by Cardiology and renal throughout the hospital stay. On physical exam, there is no significant bronchospasm noted. In addition, there is no significant alveolar-arterial gradient. I will continue the current nebulizer treatments, inhaled steroids, and low-dose intravenous steroids for now. The patient also remains on intravenous Lasix. Clinical status of the patient appears significantly improved - compared to the initial presentation. Again, I did discuss the above with the ICU team at length. I will discuss the above with the attending physician. Thank you very much for this pulmonary consultation. Rosas Mccann MD Ken # [id number] JOSE
--- NOTE | 2018-10-05 19:21 | PN ---
DATE: 10/05/2018 SEX OF THE PATIENT: Male. AGE OF THE PATIENT: 78 REASON FOR CONSULTATION AND FOLLOWUP: Respiratory failure, congestive heart failure, pneumonia. SUBJECTIVE: The patient remains on the vent, intubated, on Primacor. PHYSICAL EXAMINATION: VITAL SIGNS: Temperature, afebrile. Temperature 99.9, heart rate 88, blood pressure 122/59. HEENT: PERRLA. Extraocular muscles intact. NECK: Supple. No carotid bruit or thyromegaly. CHEST: Clear to auscultation. HEART: S1, S2 regular. ABDOMEN: Soft. EXTREMITIES: Clubbing and cyanosis negative. LABORATORY DATA: WBC 9.6, hemoglobin 10.6, hematocrit 32.3, platelet count 193. Chemistries show sodium 134, potassium 3.9, chloride 92, carbon dioxide 26, anion gap of 15, BUN 98, creatinine 2.7. IMPRESSION: An 78-year-old morbidly obese male with past medical history significant for coronary artery disease in the past, history of paroxysmal atrial fibrillation, status post Watchman device, history of recently discharged pneumonia, on Levaquin. He had history of percutaneous transluminal coronary angioplasty 2 years ago at [facility], history of Watchman procedure for paroxysmal atrial fibrillation, as the patient cannot tolerate anticoagulants for atrial fibrillation. Admitted with shortness of breath, initially by BiPAP by EMT, but later on intubated. According to the family, recent echo upon discharge ____ 2 weeks ago, ejection fraction reported was 60%. The patient's admission x-ray consistent with congestive heart failure, most likely diastolic dysfunction. Last echo in 03/2016 showed ejection fraction 50%, on Primacor. still the patient remained on vent. Worsening renal insufficiency and no evidence of acute myocardial infarction by serial CPK, troponin. RECOMMENDATIONS: Continue vent management, continue Primacor, continue broad-spectrum antibiotics, continue IV Lasix. We will repeat echo to assess LV function and mitral and tricuspid regurgitation. History of Watchman procedure for paroxysmal atrial fibrillation, history of transcatheter aortic valve replacement in the past, morbid obesity, worsening renal insufficiency, diabetes, history of aortic valve replacement, but no sternotomy, mostly likely is a transcatheter aortic valve replacement. We will follow with you. We will repeat the echo to assess LV function and aortic valvular function. Thank you Dr. Evans for providing the opportunity in taking care of the patient, Andrez Coelho. Victor M Harrington MD
[2018-10-06 00:24] LABS: SOURCE SERUM
[2018-10-06] MEDS: Albuterol-Ipratrop 3 mg / 0.5 (3 ml) UD IH SCH ×4 (02:37→19:54)
[2018-10-06 05:55] LABS: ARTERIAL BLOOD GAS HCO3 31.9 mmol/L (21-28); ARTERIAL BLOOD GAS O2 CAPACITY 22.4 mL/dl (16-24); ARTERIAL BLOOD GAS O2 CONTENT 22.2 ML/dl (15-23); ARTERIAL BLOOD GAS O2 SAT 99.2 % (95-98); ARTERIAL BLOOD GAS PCO2 48 mm/Hg (35-45); ARTERIAL BLOOD GAS PH 7.43 (7.35-7.45); ARTERIAL BLOOD GAS TCO2 33.4 mmol.L (22-28)
[2018-10-06 05:57] LABS: IRON 137 ug/dL (45-180)
[2018-10-06 06:00] LABS: HEMOGLOBIN 11.7 g/dL (14.0-18.0); MEAN CELL VOLUME 90.9 fl (80.0-105.0); MEAN CORPUSCULAR HEMOGLOBIN 28.8 pg (25.0-35.0); MEAN CORPUSCULAR HGB CONC 31.7 g/dl (31.0-37.0); MEAN PLATELET VOLUME 9.2 fl (7.0-11.0); RBC 4.06 10^6/uL (3.5-6.1); RED CELL DISTRIBUTION WIDTH 15.4 % (11.5-14.5); WHITE BLOOD COUNT 11.6 10^3/uL (4.5-11.0)
[2018-10-06 06:06] LABS: % IRON SATURATION 40 % (20-55); TOTAL IRON BINDING CAPACITY 344 ug/dL (261-462)
[2018-10-06 06:28] LABS: ALB/GLOB RATIO 1.2 (1.1-1.8); ALBUMIN 3.9 g/dL (3.0-4.8); CALCIUM 9.2 mg/dL (8.4-10.5)
--- NOTE | 2018-10-06 06:36 | CP.PCM.PN ---
<Jarvis Zurita - Last Filed: 10/06/18 14:29> Subjective - Date & Time of Evaluation Date of Evaluation: 10/06/18 Time of Evaluation: 07:00 - Subjective Subjective: Progress Note for Dr. Dahl Service Patient seen and examined at bedside. No acute events reported overnight. Was extubated yesterday and is tolerating well. Receiving a breathing tx at time of exam this AM. Speaks without dyspnic or hoarsness. AAOx3, no acute complaints at time of exam. Denies productive cough, shortness of breath at rest, chest pain, nausea, emesis. Put out ~2.5L yesterday on BID Lasix, now net negative for the admission and Cr improved today. Objective - Vital Signs/Intake and Output Vital Signs (last 24 hours): Temp Pulse Resp BP Pulse Ox 99.9 F H 67 21 151/74 H 93 L 10/05/18 21:03 10/06/18 03:00 10/05/18 21:00 10/05/18 21:00 10/05/18 21:03 Intake and Output: 10/05/18 10/06/18 18:59 06:59 Intake Total 250 Output Total 2550 Balance -2300 - Medications Medications: Current Medications Acetylcysteine (Acetylcysteine 20%) 2 ml IH [id number] [facility] Last Admin: 10/05/18 19:46 Dose: 2 ml Albuterol/Ipratropium (Duoneb 3 Mg/0.5 Mg (3 Ml) Ud) 3 ml IH [id number] [facility] Last Admin: 10/06/18 02:37 Dose: 3 ml Aspirin (Aspirin Chewable) 81 mg PO DAILY [facility] Last Admin: 10/05/18 09:14 Dose: 81 mg Budesonide (Pulmicort Respules) 0.5 mg IH [id number] [facility] Last Admin: 10/05/18 19:47 Dose: 0.5 mg Furosemide (Lasix) 40 mg IVP BID [facility] Last Admin: 10/05/18 18:07 Dose: 40 mg Heparin Sodium (Porcine) (Heparin) 5,000 units SC Q8H [facility]; Protocol Last Admin: 10/06/18 00:15 Dose: 5,000 units Propofol (Diprivan) 1,000 mg in 100 mls @ 4.15 mls/hr IV .Q24H PRN; Protocol PRN Reason: TITRATE PER MD ORDER Last Admin: 10/05/18 02:16 Dose: 20 mcg/kg/min, 16.602 mls/hr Meropenem (Merrem Iv 1 Gm Premix) 1 gm in 50 mls @ 100 mls/hr IVPB Q12 [facility]; Protocol Stop: 10/10/18 22:01 Last Admin: 10/05/18 23:00 Dose: 100 mls/hr Acetaminophen (Ofirmev) 1,000 mg in 100 mls @ 400 mls/hr IVPB Q6H PRN PRN Reason: Temperature Stop: 10/06/18 17:52 Last Admin: 10/05/18 14:47 Dose: 400 mls/hr Methylprednisolone (Solu-Medrol) 20 mg IVP DAILY [facility] Midazolam HCl (Versed Inj) 4 mg IVP Q4H PRN PRN Reason: Agitation Pantoprazole Sodium (Protonix Inj) 40 mg IVP DAILY [facility] Last Admin: 10/05/18 09:15 Dose: 40 mg - Labs Labs: 10/06/18 05:15 10/06/18 05:15 PT 14.0 SECONDS (9.4-12.5) H 10/01/18 05:55 INR 1.21 10/01/18 05:55 APTT 23.9 Seconds (25.1-36.5) L 10/05/18 07:35 - Additional Findings Additional findings: - Constitutional Appears: Awake and alert, no acute distress - Head Exam Head Exam: ATRAUMATIC, NORMOCEPHALIC - Eye Exam Eye Exam: Normal appearance. absent: Conjunctival injection, Scleral icterus Pupil Exam: absent: Irregular, Unequal - ENT Exam ENT Exam: Mucous Membranes Moist - Neck Exam Neck Exam: absent: Lymphadenopathy - Respiratory Exam Respiratory Exam: Decreased Breath Sounds (decreased at bilateral bases), Rales (faint bi-basilar rales). absent: Clear to Ausculation Bilateral, Rhonchi, Wheezes Additional comments: no longer intubated, no respiratory distress and no dyspnea with speech - Cardiovascular Exam Cardiovascular Exam: +S1, +S2, RRR. absent: JVD - GI/Abdominal Exam GI & Abdominal Exam: Soft, Normal Bowel Sounds. absent: Firm, Rigid, Diminished Bowel Sounds, Hyperactive Bowel Sounds, Hypoactive Bowel Sounds, Tenderness - Extremities Exam Extremities Exam: Pedal Edema (+1 pitting in bilateral LE from feet to mid-gerber, improved compared to prior), no tenderness - Neurological Exam Awake and alert, following all commands, moving all extremities spontaneously - Psychiatric Exam Normal mood and affect - Skin Skin Exam: Dry, Intact, Normal Color, Warm Assessment and Plan - Assessment and Plan (Free Text) Assessment: This is a 78 yo M with PMH of HTN, CAD (x2 stents in 2013 and 2014), bioprosthetic aortic valve replacement (2017), Watchman device at [facility] for paroxysmal afib, COPD, CHF, chronic vertigo, L-knee replacement (2015), and bladder cancer who presented to the ICU for hypoxic respiratory failure 2/2 CAP vs CHF exacerbation. He has since developed worsening FRANCESCA overlying CKD. Plan: 1) Acute hypoxic respiratory failure - resolved -ddx: HAP vs CHF exacerbation, may be multifactorial unlikely COPD exacerbation, not retaining CO2 on ABGs -extubated to [place], satting well at 4L -AM ABG reviewed, wnl pH, paO2 wnl, not retaining CO2 -AM CXR reviewed and compared to prior, improved bilaterally -Abx as per ID -Incentive spirometer 2) FRANCESCA overlying CKD - improving -likely 2/2 aggressive diuresis -CR plateaued over the weekend, 2.7 x2 days, improved to 1.9 today -~2.5L UOP yesterday, now net negative for admission -Lasix decreased to daily (was BID) 3) COPD -continue Duonebs and Budesonide -taper steroids, down to 20mg IVP daily solumedrol 4) Anemia -as baseline per prior charting -Iron studies obtained: Fe 137. TIBC 344, %Sat 40, Ferritin 121 Dispo: extubated, pending transfer out of ICU, Incentive spirometer and daily di uresis Ppx: Protonix for GI, Heparin SC for DVT Reviewed and discussed with attending, Dr. Dahl <Sixto Dahl - Last Filed: 10/06/18 20:18> Objective - Vital Signs/Intake and Output Vital Signs (last 24 hours): Temp Pulse Resp BP Pulse Ox 99.0 F 54 L 31 H 165/85 H 91 L 10/06/18 14:29 10/06/18 17:33 10/06/18 13:59 10/06/18 17:33 10/06/18 14:29 Intake and Output: 10/06/18 10/06/18 06:59 18:59 Intake Total 150 Output Total 2500 Balance -2350 - Medications Medications: Current Medications Acetylcysteine (Acetylcysteine 20%) 2 ml IH [id number] [facility] Last Admin: 10/06/18 07:47 Dose: 2 ml Albuterol/Ipratropium (Duoneb 3 Mg/0.5 Mg (3 Ml) Ud) 3 ml IH [id number] [facility] Last Admin: 10/06/18 13:31 Dose: 3 ml Amlodipine Besylate (Norvasc) 5 mg PO DAILY [facility] Last Admin: 10/06/18 10:05 Dose: Not Given Aspirin (Aspirin Chewable) 81 mg PO DAILY [facility] Last Admin: 10/06/18 09:38 Dose: 81 mg Budesonide (Pulmicort Respules) 0.5 mg IH [id number] [facility] Last Admin: 10/06/18 07:48 Dose: 0.5 mg Diltiazem HCl (Cardizem) 60 mg PO QID [facility] Last Admin: 10/06/18 17:32 Dose: 60 mg Furosemide (Lasix) 40 mg IVP DAILY [facility] Last Admin: 10/06/18 09:38 Dose: 40 mg Heparin Sodium (Porcine) (Heparin) 5,000 units SC Q8H [facility]; Protocol Last Admin: 10/06/18 17:32 Dose: 5,000 units Hydralazine HCl (Apresoline) 10 mg IVP Q6 PRN PRN Reason: FOR SBP>170 Meropenem (Merrem Iv 1 Gm Premix) 1 gm in 50 mls @ 100 mls/hr IVPB Q12 [facility]; Protocol Stop: 10/10/18 22:01 Last Admin: 10/06/18 09:37 Dose: 100 mls/hr Methylprednisolone (Solu-Medrol) 20 mg IVP DAILY [facility] Last Admin: 10/06/18 09:37 Dose: 20 mg Metoprolol Tartrate (Lopressor) 25 mg PO BID [facility] Last Admin: 10/06/18 17:33 Dose: Not Given Potassium Chloride (K-Dur 20 Meq Er Tab) 40 meq PO ONCE ONE Stop: 10/06/18 20:01 - Labs Labs: 10/06/18 05:15 10/06/18 05:15 PT 14.0 SECONDS (9.4-12.5) H 10/01/18 05:55 INR 1.21 10/01/18 05:55 APTT 23.9 Seconds (25.1-36.5) L 10/05/18 07:35 Assessment and Plan - Assessment and Plan (Free Text) Plan: Pt seen and examined. I have reviewed the note of the medical records coordinator and agree with it. I have discussed the assessment and plan with the resident. I have reviewed the patient's labs and medications. Pt had respiratory failure and is not extubated. The FRANCESCA has improved. Will decrease Lasix. He has significant urine output over the last 24h. Pt is on Solumedrol for COPD. He has anemia and Iron stores were done.
[2018-10-06] MEDS: Acetylcysteine 20% Inhal Soln (4ml) IH SCH ×2 (07:47→19:54)
[2018-10-06] MEDS: Budesonide 0.5 mg/2 ml Inhal Susp UD IH SCH ×2 (07:48→19:55)
--- NOTE | 2018-10-06 08:02 | RAD ---
Date of service: 10/06/2018 HISTORY: follow up COMPARISON: Portable chest 10/05/2018 FINDINGS: LUNGS: Endotracheal and nasogastric tubes have been removed. Improved aeration is seen the left base with limited residual airspace disease noted posterior to the left heart. Linear atelectasis is identified at the right base with limited patchy airspace disease in the right infrahilar space as well. No pneumothorax bilaterally or right pleural effusion. Limited left pleural effusion question. Increased pulmonary volumes. PLEURA: As above. CARDIOVASCULAR: Calcific atherosclerotic changes are seen related to the thoracic aorta. Cardiomediastinal silhouette appears stable. No pulmonary vascular congestion. Cardiac valvular stent reiterated. OSSEOUS STRUCTURES: No significant abnormalities. VISUALIZED UPPER ABDOMEN: Normal. OTHER FINDINGS: None. IMPRESSION: Status post apparent extubation and removal of nasogastric tube as well. Improved pulmonary volumes with diminishing left basilar airspace disease and limited residual at the right infrahilar space. Linear atelectasis right base. No pulmonary vascular congestion.
[2018-10-06] MEDS ORDERED: Potassium Chloride 20 mEq ER Tab PO ONE ×2 (08:17→20:00)
[2018-10-06] MEDS: MethylPREDNISolone 40 mg Vial IVP SCH (09:37)
[2018-10-06] MEDS: Meropenem IV 1 gm in NS 1 GM/50 ML BAG IVPB SCH ×2 (09:37→21:00)
--- NOTE | 2018-10-06 10:35 | PN ---
DATE: 10/06/2018 SUBJECTIVE: The patient seen and examined at bedside. He is comfortable. He talks full sentences. He is not in respiratory or otherwise distress. He is alert, awake and oriented x3. The patient passed bedside swallow eval and was tolerating liquids pretty well. PHYSICAL EXAMINATION: VITAL SIGNS: Blood pressure 180/81 (amlodipine 5 mg p.o. daily first dose stat ordered), heart rate 99, respiratory rate 17 and oxygen saturation 94% on 3 liters nasal cannula. HEENT: Head and neck atraumatic. LUNGS: Clear to auscultation bilaterally. HEART: Regular rate and rhythm. S1 and S2 normal. ABDOMEN: Soft, nontender and nondistended. MUSCULOSKELETAL: No C/C/E. NEURO: The patient moves all extremities spontaneously. SKIN: Moist. PSYCH: The patient is alert, awake and oriented x3. LABORATORY DATA: Sodium 141, potassium 3.3 (supplemented), chloride 99, carbon dioxide 34, BUN 96 and creatinine 1.9 down from 2.7. The patient has outstanding urine output overnight. AST 72 and ALT is 73. Glucose 109, phosphorus 5.5 and magnesium 3.1. WBC 11.6, hemoglobin 11.7 and platelet count 217,000. ABG today is 7.43/48/182. MEDICATION: Tylenol IV, acetylcysteine inhaled, DuoNeb every 6 hours, amlodipine, aspirin, Pulmicort, Lasix 40 mg IV b.i.d., heparin subcutaneous, meropenem, Solu-Medrol 20 mg IV daily, Protonix and potassium supplementation. ASSESSMENT AND PLAN: This is an 78-year-old gentleman who presented initially with hypoxemic respiratory failure secondary to diastolic congestive heart failure exacerbation plus/minus bilateral pneumonia. The patient was aggressively diuresed, put on positive pressure ventilation and started on antibiotics after septic workup initiated. The patient substantially improved. His chest x-ray showed substantial improvement in bilateral congestion. The patient was successfully extubated yesterday to bilevel positive airway pressure. He is on nasal cannula and his oxygen saturation is fine, he is not in respiratory or otherwise distress. We will continue with antibiotics course, conservative fluid and oxygen management. His blood pressure is elevated; however, I will withhold beta-blockers as the patient heart rate is in 60s. I will hold on [place] inhibitors as well as his renal function not completely recovered. I will proceed with amlodipine 5 mg p.o. daily. At present time, the patient would benefit mostly from physical therapy, out of bed to chair, chest PT, incentive spirometer, optimization of his oral nutrition and hydration. I would continue with bronchodilators, inhaled corticosteroids and would taper down/off steroids within 7 days total. We will continue with deep venous thrombosis and gastrointestinal prophylaxis. Okay to downgrade to telemetry. ccm time 40 min Stephon Manjarrez MD MTDAngelica
--- NOTE | 2018-10-06 11:26 | PN ---
DATE: 10/06/2018([id number]) SUBJECTIVE: The patient appears comfortable this morning. He is not short of breath at rest. PHYSICAL EXAMINATION: VITAL SIGNS: Temperature 98.2, pulse 58, respirations 16, blood pressure 162/76. Oxygen saturation on nasal cannula is 93-94%. HEENT: Normocephalic, atraumatic. No JVD. CARDIOVASCULAR: Systolic ejection murmur at the lower left sternal border. Questionable S3 gallop. LUNGS: Decreased breath sounds at the bases with minimal crackles. Less rhonchi. No wheezing. EXTREMITIES: Positive for mild edema. No cyanosis. No clubbing. Calves are nontender to palpation. GI: Abdomen is soft, nontender and nondistended. Bowel sounds are positive. SKIN: No acute rash. NEUROLOGIC: Exam limited at the present time. PERTINENT LABORATORY DATA: Chest x-ray was done this morning and reviewed. There is clearing of the previously seen pulmonary vascular congestion. There may be very small pleural effusions. Arterial blood gas was also done this morning. It is believed to be on nasal cannula (I will check with respiratory). PH is 7.43, pCO2 of 48, pO2 of 182. IMPRESSION: 1. Respiratory failure. 2. Recurrent congestive heart failure. 3. Rule out underlying pneumonia. 4. Chronic obstructive pulmonary disease. 5. Renal insufficiency. 6. Coronary artery disease. PLAN: The patient appears comfortable this morning. He is not short of breath at rest. He does state to feeling much better overall. I did discuss the case with the night nurse at length. The night nurse stated that the patient had a very good night. I did review the chest x-ray as above. The previously seen pulmonary vascular congestion - has now resolved. There may be some very small pleural effusions left. I have also reviewed the arterial blood gas. The arterial blood gas is also significantly improved - with resolution of the acidosis, and a significant decrease in the alveolar-arterial gradient. We will decrease the FiO2 this morning. I will also continue with the current nebulizer treatments and low-dose intravenous steroids for now. I would continue with the treatment for congestive heart failure as per Cardiology. Input by Dr. Harrington is noted. The patient remains on intravenous Lasix. Clinical status of the patient is significantly improved overall. I will discuss the above with the entire ICU team in the next few moments. I will also discuss the above with the attending physician later this morning. Rosas Mccann MD JOSE
--- NOTE | 2018-10-06 11:34 | CP.CCUPN ---
<Alexis Feliciano - Last Filed: 10/06/18 12:05> CCU Subjective - Physician Review Subjective (Free Text): Alexis Feliciano, PGY1 ICU Progress Note for Dr. Manjarrez Patient was seen and examined at bedside this morning. Patient was successfully extubated yesterday afternoon. Currently on nasal cannula. Patient is AAOx3. Denies chest pain, shortness of breath, abdominal pain, n/v/d, lightheadedness, dizziness, fever, chills. No adverse overnight events. Vital signs are stable. CCU Objective - Vital Signs / Intake & Output Vital Signs (Last 4 hours): Vital Signs Temp Pulse Resp BP Pulse Ox 10/06/18 09:38 172/65 H 10/06/18 09:37 72 172/65 H 10/06/18 09:01 172/65 H 10/06/18 08:59 98.4 F 116 H 13 94 L 10/06/18 08:55 98.4 F 100 H 95 10/06/18 08:45 98.4 F 89 94 L 10/06/18 08:27 98.4 F 113 H 94 L 10/06/18 08:20 98.2 F 112 H 94 L 10/06/18 08:11 98.4 F 94 L 10/06/18 08:10 98.4 F 92 H 94 L 10/06/18 08:09 98.4 F 86 95 10/06/18 08:03 98.2 F 107 H 97 10/06/18 08:00 98.2 F 21 180/81 H 98 10/06/18 07:45 98.2 F 60 95 Intake and Output (Last 8hrs): Intake & Output 10/05/18 10/06/18 10/06/18 22:59 06:59 14:59 Intake Total 150 150 Output Total 2550 2500 Balance -2400 -2350 Intake: IV 100 100 Left Hand 100 Right Hand 100 Oral 50 50 Output: Urine 2550 2500 Urethral (Adams) 2550 2500 Other: # Bowel Movements 0 - Physical Exam Head: Positive for: Atraumatic, Normocephalic Pupils: Positive for: PERRL Extroacular Muscles: Positive for: EOMI Conjunctiva: Positive for: Normal Mouth: Positive for: Moist Mucous Membranes Neck: Positive for: Normal Range of Motion Respiratory/Chest: Positive for: Clear to Auscultation. Negative for: Accessory Muscle Use, Wheezes, Rales, Retracting, Rhonchi Cardiovascular: Positive for: Regular Rate and Rhythm, Normal S1, S2. Negative for: Murmurs Abdomen: Positive for: Other (Obese abdomen). Negative for: Tenderness, Distention, Peritoneal Signs, Rebound, Guarding Back: Positive for: Normal Inspection Upper Extremity: Positive for: Normal Inspection. Negative for: Cyanosis, Edema Lower Extremity: Positive for: NORMAL PULSES. Negative for: Edema, CALF TEND ERNESS, Tenderness Neurological: Positive for: GCS=15, CN II-XII Intact Skin: Positive for: Warm, Dry, Normal Color. Negative for: Rashes Psychiatric: Positive for: Alert, Oriented x 3, Normal Insight, Normal Concentration - Medications Active Medications: Active Medications Generic Name Dose Route Start Last Admin Trade Name Freq PRN Reason Stop Dose Admin Acetylcysteine 2 ml 10/04/18 11:58 10/06/18 07:47 Acetylcysteine 20% IH 2 ml [id number] MARCO ANTONIO Administration Albuterol/Ipratropium 3 ml 10/03/18 14:00 10/06/18 07:48 Duoneb 3 Mg/0.5 Mg (3 Ml) Ud IH 3 ml [id number] MARCO ANTONIO Administration Amlodipine Besylate 5 mg 10/06/18 08:15 10/06/18 10:05 Norvasc PO Not Given DAILY MARCO ANTONIO Aspirin 81 mg 10/01/18 10:00 10/06/18 09:38 Aspirin Chewable PO 81 mg DAILY MARCO ANTONIO Administration Budesonide 0.5 mg 10/04/18 20:00 10/06/18 07:48 Pulmicort Respules IH 0.5 mg [id number] MARCO ANTONIO Administration Furosemide 40 mg 10/06/18 10:00 10/06/18 09:38 Lasix IVP 40 mg DAILY MARCO ANTONIO Administration Heparin Sodium (Porcine) 5,000 units 10/01/18 08:15 10/06/18 08:06 Heparin SC 5,000 units Q8H MARCO ANTONIO Administration Protocol Meropenem 1 gm in 50 mls @ 100 mls/hr 10/01/18 22:00 10/06/18 09:37 Merrem Iv 1 Gm Premix IVPB 10/10/18 22:01 100 mls/hr Q12 MARCO ANTONIO Administration Protocol Acetaminophen 1,000 mg in 100 mls @ 400 mls/hr 10/04/18 17:51 10/05/18 14:47 Ofirmev IVPB 10/06/18 17:52 400 mls/hr Q6H PRN Administration Temperature Methylprednisolone 20 mg 10/05/18 10:00 10/06/18 09:37 Solu-Medrol IVP 20 mg DAILY MARCO ANTONIO Administration Potassium Chloride 40 meq 10/06/18 20:00 K-Dur 20 Meq Er Tab PO 10/06/18 20:01 ONCE ONE - Patient Studies Lab Studies: Microbiology Studies 10/01/18 06:30 Blood Culture - Final Blood-Venous NO GROWTH AFTER 5 DAYS Gram Stain - Final TEST NOT PERFORMED 10/01/18 06:30 Blood Culture - Final Blood-Venous NO GROWTH AFTER 5 DAYS Gram Stain - Final TEST NOT PERFORMED Lab Studies 10/06/18 10/06/18 10/06/18 Range/Units 05:30 05:15 05:15 WBC 11.6 H D (4.5-11.0) 10^3/uL RBC 4.06 (3.5-6.1) 10^6/uL Hgb 11.7 L (14.0-18.0) g/dL Hct 36.9 L (42.0-52.0) % MCV 90.9 (80.0-105.0) fl MCH 28.8 (25.0-35.0) pg MCHC 31.7 (31.0-37.0) g/dl RDW 15.4 H (11.5-14.5) % Plt Count 217 (120.0-450.0) 10^3/uL MPV 9.2 (7.0-11.0) fl pCO2 48 H (35-45) mm/Hg pO2 182.0 H (80-100) mm/Hg HCO3 31.9 H (21-28) mmol/L ABG pH 7.43 (7.35-7.45) ABG Total CO2 33.4 H (22-28) mmol.L ABG O2 Saturation 99.2 H (95-98) % ABG O2 Content 22.2 (15-23) ML/dl ABG Base Excess 6.2 H (-2.0-3.0) mmol/L ABG Hemoglobin 16.0 (11.7-17.4) g/dL ABG Carboxyhemoglobin 1.2 (0.5-1.5) % POC ABG HHb (Measured) 0.8 (0-5) % ABG Methemoglobin 0.9 (0.0-3.0) % ABG O2 Capacity 22.4 (16-24) mL/dl Hgb O2 Saturation 97.1 (95.0-98.0) % FiO2 60.0 % Sodium 141 (132-148) mmol/L Potassium 3.3 L (3.6-5.0) mmol/L Chloride 99 (98-107) mmol/L Carbon Dioxide 34 H (21-33) mmol/L Anion Gap 12 (10-20) BUN 96 H (7-21) mg/dL Creatinine 1.9 H (0.8-1.5) mg/dl Est GFR ( Amer) 41 Est GFR (Non-Af Amer) 34 POC Glucose (mg/dL) (65-110) mg/dL Random Glucose 109 (70-110) mg/dL Calcium 9.2 (8.4-10.5) mg/dL Phosphorus 5.5 H (2.5-4.5) mg/dL Magnesium 3.1 H (1.7-2.2) mg/dL Iron (45-180) ug/dL TIBC (261-462) ug/dL % Saturation (20-55) % Ferritin ng/mL Total Bilirubin 0.9 (0.2-1.3) mg/dL AST 72 H D (17-59) U/L ALT 73 H (7-56) U/L Alkaline Phosphatase 78 (38-126) U/L Total Protein 7.3 (5.8-8.3) g/dL Albumin 3.9 (3.0-4.8) g/dL Globulin 3.4 gm/dL Albumin/Globulin Ratio 1.2 (1.1-1.8) Pneumocystis Source S. pneumoniae Antigen 10/06/18 10/06/18 10/05/18 Range/Units 05:15 05:10 21:30 WBC (4.5-11.0) 10^3/uL RBC (3.5-6.1) 10^6/uL Hgb (14.0-18.0) g/dL Hct (42.0-52.0) % MCV (80.0-105.0) fl MCH (25.0-35.0) pg MCHC (31.0-37.0) g/dl RDW (11.5-14.5) % Plt Count (120.0-450.0) 10^3/uL MPV (7.0-11.0) fl pCO2 (35-45) mm/Hg pO2 (80-100) mm/Hg HCO3 (21-28) mmol/L ABG pH (7.35-7.45) ABG Total CO2 (22-28) mmol.L ABG O2 Saturation (95-98) % ABG O2 Content (15-23) ML/dl ABG Base Excess (-2.0-3.0) mmol/L ABG Hemoglobin (11.7-17.4) g/dL ABG Carboxyhemoglobin (0.5-1.5) % POC ABG HHb (Measured) (0-5) % ABG Methemoglobin (0.0-3.0) % ABG O2 Capacity (16-24) mL/dl Hgb O2 Saturation (95.0-98.0) % FiO2 % Sodium (132-148) mmol/L Potassium (3.6-5.0) mmol/L Chloride (98-107) mmol/L Carbon Dioxide (21-33) mmol/L Anion Gap (10-20) BUN (7-21) mg/dL Creatinine (0.8-1.5) mg/dl Est GFR ( Amer) Est GFR (Non-Af Amer) POC Glucose (mg/dL) 104 100 (65-110) mg/dL Random Glucose (70-110) mg/dL Calcium (8.4-10.5) mg/dL Phosphorus (2.5-4.5) mg/dL Magnesium (1.7-2.2) mg/dL Iron 137 (45-180) ug/dL TIBC 344 (261-462) ug/dL % Saturation 40 (20-55) % Ferritin ng/mL Total Bilirubin (0.2-1.3) mg/dL AST (17-59) U/L ALT (7-56) U/L Alkaline Phosphatase (38-126) U/L Total Protein (5.8-8.3) g/dL Albumin (3.0-4.8) g/dL Globulin gm/dL Albumin/Globulin Ratio (1.1-1.8) Pneumocystis Source S. pneumoniae Antigen 10/05/18 10/05/18 10/05/18 Range/Units 15:16 15:06 06:48 WBC (4.5-11.0) 10^3/uL RBC (3.5-6.1) 10^6/uL Hgb (14.0-18.0) g/dL Hct (42.0-52.0) % MCV (80.0-105.0) fl MCH (25.0-35.0) pg MCHC (31.0-37.0) g/dl RDW (11.5-14.5) % Plt Count (120.0-450.0) 10^3/uL MPV (7.0-11.0) fl pCO2 (35-45) mm/Hg pO2 (80-100) mm/Hg HCO3 (21-28) mmol/L ABG pH (7.35-7.45) ABG Total CO2 (22-28) mmol.L ABG O2 Saturation (95-98) % ABG O2 Content (15-23) ML/dl ABG Base Excess (-2.0-3.0) mmol/L ABG Hemoglobin (11.7-17.4) g/dL ABG Carboxyhemoglobin (0.5-1.5) % POC ABG HHb (Measured) (0-5) % ABG Methemoglobin (0.0-3.0) % ABG O2 Capacity (16-24) mL/dl Hgb O2 Saturation (95.0-98.0) % FiO2 % Sodium (132-148) mmol/L Potassium (3.6-5.0) mmol/L Chloride (98-107) mmol/L Carbon Dioxide (21-33) mmol/L Anion Gap (10-20) BUN (7-21) mg/dL Creatinine (0.8-1.5) mg/dl Est GFR ( Amer) Est GFR (Non-Af Amer) POC Glucose (mg/dL) 114 H 131 H (65-110) mg/dL Random Glucose (70-110) mg/dL Calcium (8.4-10.5) mg/dL Phosphorus (2.5-4.5) mg/dL Magnesium (1.7-2.2) mg/dL Iron (45-180) ug/dL TIBC (261-462) ug/dL % Saturation (20-55) % Ferritin 121.0 ng/mL Total Bilirubin (0.2-1.3) mg/dL AST (17-59) U/L ALT (7-56) U/L Alkaline Phosphatase (38-126) U/L Total Protein (5.8-8.3) g/dL Albumin (3.0-4.8) g/dL Globulin gm/dL Albumin/Globulin Ratio (1.1-1.8) Pneumocystis Source S. pneumoniae Antigen 10/04/18 10/01/18 Range/Units 22:15 07:30 WBC (4.5-11.0) 10^3/uL RBC (3.5-6.1) 10^6/uL Hgb (14.0-18.0) g/dL Hct (42.0-52.0) % MCV (80.0-105.0) fl MCH (25.0-35.0) pg MCHC (31.0-37.0) g/dl RDW (11.5-14.5) % Plt Count (120.0-450.0) 10^3/uL MPV (7.0-11.0) fl pCO2 (35-45) mm/Hg pO2 (80-100) mm/Hg HCO3 (21-28) mmol/L ABG pH (7.35-7.45) ABG Total CO2 (22-28) mmol.L ABG O2 Saturation (95-98) % ABG O2 Content (15-23) ML/dl ABG Base Excess (-2.0-3.0) mmol/L ABG Hemoglobin (11.7-17.4) g/dL ABG Carboxyhemoglobin (0.5-1.5) % POC ABG HHb (Measured) (0-5) % ABG Methemoglobin (0.0-3.0) % ABG O2 Capacity (16-24) mL/dl Hgb O2 Saturation (95.0-98.0) % FiO2 % Sodium (132-148) mmol/L Potassium (3.6-5.0) mmol/L Chloride (98-107) mmol/L Carbon Dioxide (21-33) mmol/L Anion Gap (10-20) BUN (7-21) mg/dL Creatinine (0.8-1.5) mg/dl Est GFR ( Amer) Est GFR (Non-Af Amer) POC Glucose (mg/dL) 122 H (65-110) mg/dL Random Glucose (70-110) mg/dL Calcium (8.4-10.5) mg/dL Phosphorus (2.5-4.5) mg/dL Magnesium (1.7-2.2) mg/dL Iron (45-180) ug/dL TIBC (261-462) ug/dL % Saturation (20-55) % Ferritin ng/mL Total Bilirubin (0.2-1.3) mg/dL AST (17-59) U/L ALT (7-56) U/L Alkaline Phosphatase (38-126) U/L Total Protein (5.8-8.3) g/dL Albumin (3.0-4.8) g/dL Globulin gm/dL Albumin/Globulin Ratio (1.1-1.8) Pneumocystis Source Serum S. pneumoniae Antigen Not detected Laboratory Results - last 24 hr 10/01/18 10/04/18 10/05/18 07:30 22:15 06:48 WBC RBC Hgb Hct MCV MCH MCHC RDW Plt Count MPV pCO2 pO2 HCO3 ABG pH ABG Total CO2 ABG O2 Saturation ABG O2 Content ABG Base Excess ABG Hemoglobin ABG Carboxyhemoglobin POC ABG HHb (Measured) ABG Methemoglobin ABG O2 Capacity Hgb O2 Saturation FiO2 Sodium Potassium Chloride Carbon Dioxide Anion Gap BUN Creatinine Est GFR ( Amer) Est GFR (Non-Af Amer) POC Glucose (mg/dL) 122 H 131 H Random Glucose Calcium Phosphorus Magnesium Iron TIBC % Saturation Ferritin Total Bilirubin AST ALT Alkaline Phosphatase Total Protein Albumin Globulin Albumin/Globulin Ratio Pneumocystis Source Serum S. pneumoniae Antigen Not detected 10/05/18 10/05/18 10/05/18 15:06 15:16 21:30 WBC RBC Hgb Hct MCV MCH MCHC RDW Plt Count MPV pCO2 pO2 HCO3 ABG pH ABG Total CO2 ABG O2 Saturation ABG O2 Content ABG Base Excess ABG Hemoglobin ABG Carboxyhemoglobin POC ABG HHb (Measured) ABG Methemoglobin ABG O2 Capacity Hgb O2 Saturation FiO2 Sodium Potassium Chloride Carbon Dioxide Anion Gap BUN Creatinine Est GFR ( Amer) Est GFR (Non-Af Amer) POC Glucose (mg/dL) 114 H 100 Random Glucose Calcium Phosphorus Magnesium Iron TIBC % Saturation Ferritin 121.0 Total Bilirubin AST ALT Alkaline Phosphatase Total Protein Albumin Globulin Albumin/Globulin Ratio Pneumocystis Source S. pneumoniae Antigen 10/06/18 10/06/18 10/06/18 05:10 05:15 05:15 WBC 11.6 H D RBC 4.06 Hgb 11.7 L Hct 36.9 L MCV 90.9 MCH 28.8 MCHC 31.7 RDW 15.4 H Plt Count 217 MPV 9.2 pCO2 pO2 HCO3 ABG pH ABG Total CO2 ABG O2 Saturation ABG O2 Content ABG Base Excess ABG Hemoglobin ABG Carboxyhemoglobin POC ABG HHb (Measured) ABG Methemoglobin ABG O2 Capacity Hgb O2 Saturation FiO2 Sodium Potassium Chloride Carbon Dioxide Anion Gap BUN Creatinine Est GFR ( Amer) Est GFR (Non-Af Amer) POC Glucose (mg/dL) 104 Random Glucose Calcium Phosphorus Magnesium Iron 137 TIBC 344 % Saturation 40 Ferritin Total Bilirubin AST ALT Alkaline Phosphatase Total Protein Albumin Globulin Albumin/Globulin Ratio Pneumocystis Source S. pneumoniae Antigen 10/06/18 10/06/18 05:15 05:30 WBC RBC Hgb Hct MCV MCH MCHC RDW Plt Count MPV pCO2 48 H pO2 182.0 H HCO3 31.9 H ABG pH 7.43 ABG Total CO2 33.4 H ABG O2 Saturation 99.2 H ABG O2 Content 22.2 ABG Base Excess 6.2 H ABG Hemoglobin 16.0 ABG Carboxyhemoglobin 1.2 POC ABG HHb (Measured) 0.8 ABG Methemoglobin 0.9 ABG O2 Capacity 22.4 Hgb O2 Saturation 97.1 FiO2 60.0 Sodium 141 Potassium 3.3 L Chloride 99 Carbon Dioxide 34 H Anion Gap 12 BUN 96 H Creatinine 1.9 H Est GFR ( Amer) 41 Est GFR (Non-Af Amer) 34 POC Glucose (mg/dL) Random Glucose 109 Calcium 9.2 Phosphorus 5.5 H Magnesium 3.1 H Iron TIBC % Saturation Ferritin Total Bilirubin 0.9 AST 72 H D ALT 73 H Alkaline Phosphatase 78 Total Protein 7.3 Albumin 3.9 Globulin 3.4 Albumin/Globulin Ratio 1.2 Pneumocystis Source S. pneumoniae Antigen Fingerstick Blood Sugar Results: 114 Review of Systems - Review of Systems All systems: reviewed and no additional remarkable complaints except (as per HPI.) Critical Care Progress Note - Extremities/Vascular Does the Patient have a Central Venous Catheter?: No Does the Patient need a Central Venous Catheter?: No Does the Patient have a Adams Catheter?: Yes Does the Patient need a Adams Catheter?: Yes Catheter Insertion Criteria: Need for accurate measurement of output in critically ill patient - Prophylaxis GI Prophylaxis GI: PPI - Prophylaxis DVT Prophylaxis DVT: Heparin SQ, SCDs - Nutrition Nutrition: Nutrition Category Date Time Status Liquid Diet [DIET] Diets 10/05/18 Lunch Ordered Assessment/Plan - Assessment and Plan (Free Text) Assessment: Patient is a 78 y/o M with PMHx of HTN, CAD (x2 stents in 2013 and 2014), bioprosthetic aortic valve replacement (2017), Watchman device at [facility] for paroxysmal afib, COPD, CHF, chronic vertigo, L-knee replacement (2015), and bladder cancer who presented to the ICU for hypoxic respiratory failure 2/2 CAP vs CHF exacerbation (intubated), FRANCESCA, and transaminitis. Patient has been successfully extubated and stabilized in the ICU. Transfer to telemetry. Plan: Neuro: - AAOx 3 at baseline mental status Pulm: - encourage incentive spirometer use - Resting comfortably on nasal cannula; s/p extubation - CXR (10/06): significantly improved since admission; improved aeration with linear atelectasis at right lung base. - Consider switching to Lasix PO once transferred out of the unit - continue to taper steroids - c/w duonebs q4h, bronchodilators - Pulm on consult. No further recommendations. - Maintain SaO2 > 92% Cardio: - Repeat Echo to evaluate LV function and aortic valve function; as per cardio recs - c/w ASA 81mg - Hx of CAD (x2 stents), bioprosthetic aortic valve replacement, Watchman device at [facility] for paroxysmal afib - maintain normal blood pressure - Cardio on consult GI: - Transaminitis - improving - Liquid Diet; advance as tolerated - GI ppx Renal: - FRANCESCA likely 2/2 diuresis; BUN/Cr is 96/1.9 today, downtrending - Taper the Lasix - Nephro on consult - Avoid nephrotoxic drugs Heme: - DVT ppx with heparin - H/H stable ID: - Treatment of CAP; currently on Meropenem (Day #6). Complete 7 days total as per ID recs. - Procalcitonin negative; afebrile with no leukocytosis - Blood cx negative x2, sputum cx negative, MRSA negative, urine cx negative - ID on consult GI ppx: protonix DVT ppx: SCDs, heparin sc PT is on board. Encourage OOB to chair. Dispo: No acute issues at this time. Patient is hemodynamically stable for transfer to telemetry. Case was discussed and reviewed with Attending Physician, Dr. Manjarrez. <Stephon Manjarrez - Last Filed: 10/06/18 12:10> CCU Objective - Vital Signs / Intake & Output Vital Signs (Last 4 hours): Vital Signs Temp Pulse Resp BP Pulse Ox 10/06/18 11:30 98.3 F 10/06/18 09:38 172/65 H 10/06/18 09:37 72 172/65 H 10/06/18 09:01 172/65 H 10/06/18 08:59 98.4 F 116 H 13 94 L 10/06/18 08:55 98.4 F 100 H 95 10/06/18 08:45 98.4 F 89 94 L 10/06/18 08:27 98.4 F 113 H 94 L 10/06/18 08:20 98.2 F 112 H 94 L 10/06/18 08:11 98.4 F 94 L 10/06/18 08:10 98.4 F 92 H 94 L Intake and Output (Last 8hrs): Intake & Output 10/05/18 10/06/18 10/06/18 22:59 06:59 14:59 Intake Total 150 150 Output Total 2550 2500 Balance -2400 -2350 Intake: IV 100 100 Left Hand 100 Right Hand 100 Oral 50 50 Output: Urine 2550 2500 Urethral (Adams) 2550 2500 Other: # Bowel Movements 0 - Medications Active Medications: Active Medications Generic Name Dose Route Start Last Admin Trade Name Freq PRN Reason Stop Dose Admin Acetylcysteine 2 ml 10/04/18 11:58 10/06/18 07:47 Acetylcysteine 20% IH 2 ml [id number] MARCO ANTONIO Administration Albuterol/Ipratropium 3 ml 10/03/18 14:00 10/06/18 07:48 Duoneb 3 Mg/0.5 Mg (3 Ml) Ud IH 3 ml [id number] MARCO ANTONIO Administration Amlodipine Besylate 5 mg 10/06/18 08:15 10/06/18 10:05 Norvasc PO Not Given DAILY MARCO ANTONIO Aspirin 81 mg 10/01/18 10:00 10/06/18 09:38 Aspirin Chewable PO 81 mg DAILY MARCO ANTONIO Administration Budesonide 0.5 mg 10/04/18 20:00 10/06/18 07:48 Pulmicort Respules IH 0.5 mg [id number] MARCO ANTONIO Administration Diltiazem HCl 60 mg 10/06/18 14:00 Cardizem PO QID MARCO ANTONIO Furosemide 40 mg 10/06/18 10:00 10/06/18 09:38 Lasix IVP 40 mg DAILY MARCO ANTONIO Administration Heparin Sodium (Porcine) 5,000 units 10/01/18 08:15 10/06/18 08:06 Heparin SC 5,000 units Q8H AMRCO ANTONIO Administration Protocol Hydralazine HCl 10 mg 10/06/18 11:54 Apresoline IVP Q6 PRN FOR SBP>170 Meropenem 1 gm in 50 mls @ 100 mls/hr 10/01/18 22:00 10/06/18 09:37 Merrem Iv 1 Gm Premix IVPB 10/10/18 22:01 100 mls/hr Q12 MARCO ANTONIO Administration Protocol Acetaminophen 1,000 mg in 100 mls @ 400 mls/hr 10/04/18 17:51 10/05/18 14:47 Ofirmev IVPB 10/06/18 17:52 400 mls/hr Q6H PRN Administration Temperature Methylprednisolone 20 mg 10/05/18 10:00 10/06/18 09:37 Solu-Medrol IVP 20 mg DAILY [facility] Administration Metoprolol Tartrate 25 mg 10/06/18 18:00 Lopressor PO BID [facility] Potassium Chloride 40 meq 10/06/18 20:00 K-Dur 20 Meq Er Tab PO 10/06/18 20:01 ONCE ONE - Patient Studies Lab Studies: Microbiology Studies 10/01/18 06:30 Blood Culture - Final Blood-Venous NO GROWTH AFTER 5 DAYS Gram Stain - Final TEST NOT PERFORMED 10/01/18 06:30 Blood Culture - Final Blood-Venous NO GROWTH AFTER 5 DAYS Gram Stain - Final TEST NOT PERFORMED Lab Studies 10/06/18 10/06/18 10/06/18 Range/Units 05:30 05:15 05:15 WBC 11.6 H D (4.5-11.0) 10^3/uL RBC 4.06 (3.5-6.1) 10^6/uL Hgb 11.7 L (14.0-18.0) g/dL Hct 36.9 L (42.0-52.0) % MCV 90.9 (80.0-105.0) fl MCH 28.8 (25.0-35.0) pg MCHC 31.7 (31.0-37.0) g/dl RDW 15.4 H (11.5-14.5) % Plt Count 217 (120.0-450.0) 10^3/uL MPV 9.2 (7.0-11.0) fl pCO2 48 H (35-45) mm/Hg pO2 182.0 H (80-100) mm/Hg HCO3 31.9 H (21-28) mmol/L ABG pH 7.43 (7.35-7.45) ABG Total CO2 33.4 H (22-28) mmol.L ABG O2 Saturation 99.2 H (95-98) % ABG O2 Content 22.2 (15-23) ML/dl ABG Base Excess 6.2 H (-2.0-3.0) mmol/L ABG Hemoglobin 16.0 (11.7-17.4) g/dL ABG Carboxyhemoglobin 1.2 (0.5-1.5) % POC ABG HHb (Measured) 0.8 (0-5) % ABG Methemoglobin 0.9 (0.0-3.0) % ABG O2 Capacity 22.4 (16-24) mL/dl Hgb O2 Saturation 97.1 (95.0-98.0) % FiO2 60.0 % Sodium 141 (132-148) mmol/L Potassium 3.3 L (3.6-5.0) mmol/L Chloride 99 (98-107) mmol/L Carbon Dioxide 34 H (21-33) mmol/L Anion Gap 12 (10-20) BUN 96 H (7-21) mg/dL Creatinine 1.9 H (0.8-1.5) mg/dl Est GFR ( Amer) 41 Est GFR (Non-Af Amer) 34 POC Glucose (mg/dL) (65-110) mg/dL Random Glucose 109 (70-110) mg/dL Calcium 9.2 (8.4-10.5) mg/dL Phosphorus 5.5 H (2.5-4.5) mg/dL Magnesium 3.1 H (1.7-2.2) mg/dL Iron (45-180) ug/dL TIBC (261-462) ug/dL % Saturation (20-55) % Ferritin ng/mL Total Bilirubin 0.9 (0.2-1.3) mg/dL AST 72 H D (17-59) U/L ALT 73 H (7-56) U/L Alkaline Phosphatase 78 (38-126) U/L Total Protein 7.3 (5.8-8.3) g/dL Albumin 3.9 (3.0-4.8) g/dL Globulin 3.4 gm/dL Albumin/Globulin Ratio 1.2 (1.1-1.8) Pneumocystis Source S. pneumoniae Antigen 10/06/18 10/06/18 10/05/18 Range/Units 05:15 05:10 21:30 WBC (4.5-11.0) 10^3/uL RBC (3.5-6.1) 10^6/uL Hgb (14.0-18.0) g/dL Hct (42.0-52.0) % MCV (80.0-105.0) fl MCH (25.0-35.0) pg MCHC (31.0-37.0) g/dl RDW (11.5-14.5) % Plt Count (120.0-450.0) 10^3/uL MPV (7.0-11.0) fl pCO2 (35-45) mm/Hg pO2 (80-100) mm/Hg HCO3 (21-28) mmol/L ABG pH (7.35-7.45) ABG Total CO2 (22-28) mmol.L ABG O2 Saturation (95-98) % ABG O2 Content (15-23) ML/dl ABG Base Excess (-2.0-3.0) mmol/L ABG Hemoglobin (11.7-17.4) g/dL ABG Carboxyhemoglobin (0.5-1.5) % POC ABG HHb (Measured) (0-5) % ABG Methemoglobin (0.0-3.0) % ABG O2 Capacity (16-24) mL/dl Hgb O2 Saturation (95.0-98.0) % FiO2 % Sodium (132-148) mmol/L Potassium (3.6-5.0) mmol/L Chloride (98-107) mmol/L Carbon Dioxide (21-33) mmol/L Anion Gap (10-20) BUN (7-21) mg/dL Creatinine (0.8-1.5) mg/dl Est GFR ( Amer) Est GFR (Non-Af Amer) POC Glucose (mg/dL) 104 100 (65-110) mg/dL Random Glucose (70-110) mg/dL Calcium (8.4-10.5) mg/dL Phosphorus (2.5-4.5) mg/dL Magnesium (1.7-2.2) mg/dL Iron 137 (45-180) ug/dL TIBC 344 (261-462) ug/dL % Saturation 40 (20-55) % Ferritin ng/mL Total Bilirubin (0.2-1.3) mg/dL AST (17-59) U/L ALT (7-56) U/L Alkaline Phosphatase (38-126) U/L Total Protein (5.8-8.3) g/dL Albumin (3.0-4.8) g/dL Globulin gm/dL Albumin/Globulin Ratio (1.1-1.8) Pneumocystis Source S. pneumoniae Antigen 10/05/18 10/05/18 10/05/18 Range/Units 15:16 15:06 06:48 WBC (4.5-11.0) 10^3/uL RBC (3.5-6.1) 10^6/uL Hgb (14.0-18.0) g/dL Hct (42.0-52.0) % MCV (80.0-105.0) fl MCH (25.0-35.0) pg MCHC (31.0-37.0) g/dl RDW (11.5-14.5) % Plt Count (120.0-450.0) 10^3/uL MPV (7.0-11.0) fl pCO2 (35-45) mm/Hg pO2 (80-100) mm/Hg HCO3 (21-28) mmol/L ABG pH (7.35-7.45) ABG Total CO2 (22-28) mmol.L ABG O2 Saturation (95-98) % ABG O2 Content (15-23) ML/dl ABG Base Excess (-2.0-3.0) mmol/L ABG Hemoglobin (11.7-17.4) g/dL ABG Carboxyhemoglobin (0.5-1.5) % POC ABG HHb (Measured) (0-5) % ABG Methemoglobin (0.0-3.0) % ABG O2 Capacity (16-24) mL/dl Hgb O2 Saturation (95.0-98.0) % FiO2 % Sodium (132-148) mmol/L Potassium (3.6-5.0) mmol/L Chloride (98-107) mmol/L Carbon Dioxide (21-33) mmol/L Anion Gap (10-20) BUN (7-21) mg/dL Creatinine (0.8-1.5) mg/dl Est GFR ( Amer) Est GFR (Non-Af Amer) POC Glucose (mg/dL) 114 H 131 H (65-110) mg/dL Random Glucose (70-110) mg/dL Calcium (8.4-10.5) mg/dL Phosphorus (2.5-4.5) mg/dL Magnesium (1.7-2.2) mg/dL Iron (45-180) ug/dL TIBC (261-462) ug/dL % Saturation (20-55) % Ferritin 121.0 ng/mL Total Bilirubin (0.2-1.3) mg/dL AST (17-59) U/L ALT (7-56) U/L Alkaline Phosphatase (38-126) U/L Total Protein (5.8-8.3) g/dL Albumin (3.0-4.8) g/dL Globulin gm/dL Albumin/Globulin Ratio (1.1-1.8) Pneumocystis Source S. pneumoniae Antigen 10/04/18 10/01/18 Range/Units 22:15 07:30 WBC (4.5-11.0) 10^3/uL RBC (3.5-6.1) 10^6/uL Hgb (14.0-18.0) g/dL Hct (42.0-52.0) % MCV (80.0-105.0) fl MCH (25.0-35.0) pg MCHC (31.0-37.0) g/dl RDW (11.5-14.5) % Plt Count (120.0-450.0) 10^3/uL MPV (7.0-11.0) fl pCO2 (35-45) mm/Hg pO2 (80-100) mm/Hg HCO3 (21-28) mmol/L ABG pH (7.35-7.45) ABG Total CO2 (22-28) mmol.L ABG O2 Saturation (95-98) % ABG O2 Content (15-23) ML/dl ABG Base Excess (-2.0-3.0) mmol/L ABG Hemoglobin (11.7-17.4) g/dL ABG Carboxyhemoglobin (0.5-1.5) % POC ABG HHb (Measured) (0-5) % ABG Methemoglobin (0.0-3.0) % ABG O2 Capacity (16-24) mL/dl Hgb O2 Saturation (95.0-98.0) % FiO2 % Sodium (132-148) mmol/L Potassium (3.6-5.0) mmol/L Chloride (98-107) mmol/L Carbon Dioxide (21-33) mmol/L Anion Gap (10-20) BUN (7-21) mg/dL Creatinine (0.8-1.5) mg/dl Est GFR ( Amer) Est GFR (Non-Af Amer) POC Glucose (mg/dL) 122 H (65-110) mg/dL Random Glucose (70-110) mg/dL Calcium (8.4-10.5) mg/dL Phosphorus (2.5-4.5) mg/dL Magnesium (1.7-2.2) mg/dL Iron (45-180) ug/dL TIBC (261-462) ug/dL % Saturation (20-55) % Ferritin ng/mL Total Bilirubin (0.2-1.3) mg/dL AST (17-59) U/L ALT (7-56) U/L Alkaline Phosphatase (38-126) U/L Total Protein (5.8-8.3) g/dL Albumin (3.0-4.8) g/dL Globulin gm/dL Albumin/Globulin Ratio (1.1-1.8) Pneumocystis Source Serum S. pneumoniae Antigen Not detected Laboratory Results - last 24 hr 10/01/18 10/04/18 10/05/18 07:30 22:15 06:48 WBC RBC Hgb Hct MCV MCH MCHC RDW Plt Count MPV pCO2 pO2 HCO3 ABG pH ABG Total CO2 ABG O2 Saturation ABG O2 Content ABG Base Excess ABG Hemoglobin ABG Carboxyhemoglobin POC ABG HHb (Measured) ABG Methemoglobin ABG O2 Capacity Hgb O2 Saturation FiO2 Sodium Potassium Chloride Carbon Dioxide Anion Gap BUN Creatinine Est GFR ( Amer) Est GFR (Non-Af Amer) POC Glucose (mg/dL) 122 H 131 H Random Glucose Calcium Phosphorus Magnesium Iron TIBC % Saturation Ferritin Total Bilirubin AST ALT Alkaline Phosphatase Total Protein Albumin Globulin Albumin/Globulin Ratio Pneumocystis Source Serum S. pneumoniae Antigen Not detected 10/05/18 10/05/18 10/05/18 15:06 15:16 21:30 WBC RBC Hgb Hct MCV MCH MCHC RDW Plt Count MPV pCO2 pO2 HCO3 ABG pH ABG Total CO2 ABG O2 Saturation ABG O2 Content ABG Base Excess ABG Hemoglobin ABG Carboxyhemoglobin POC ABG HHb (Measured) ABG Methemoglobin ABG O2 Capacity Hgb O2 Saturation FiO2 Sodium Potassium Chloride Carbon Dioxide Anion Gap BUN Creatinine Est GFR ( Amer) Est GFR (Non-Af Amer) POC Glucose (mg/dL) 114 H 100 Random Glucose Calcium Phosphorus Magnesium Iron TIBC % Saturation Ferritin 121.0 Total Bilirubin AST ALT Alkaline Phosphatase Total Protein Albumin Globulin Albumin/Globulin Ratio Pneumocystis Source S. pneumoniae Antigen 10/06/18 10/06/18 10/06/18 05:10 05:15 05:15 WBC 11.6 H D RBC 4.06 Hgb 11.7 L Hct 36.9 L MCV 90.9 MCH 28.8 MCHC 31.7 RDW 15.4 H Plt Count 217 MPV 9.2 pCO2 pO2 HCO3 ABG pH ABG Total CO2 ABG O2 Saturation ABG O2 Content ABG Base Excess ABG Hemoglobin ABG Carboxyhemoglobin POC ABG HHb (Measured) ABG Methemoglobin ABG O2 Capacity Hgb O2 Saturation FiO2 Sodium Potassium Chloride Carbon Dioxide Anion Gap BUN Creatinine Est GFR ( Amer) Est GFR (Non-Af Amer) POC Glucose (mg/dL) 104 Random Glucose Calcium Phosphorus Magnesium Iron 137 TIBC 344 % Saturation 40 Ferritin Total Bilirubin AST ALT Alkaline Phosphatase Total Protein Albumin Globulin Albumin/Globulin Ratio Pneumocystis Source S. pneumoniae Antigen 10/06/18 10/06/18 05:15 05:30 WBC RBC Hgb Hct MCV MCH MCHC RDW Plt Count MPV pCO2 48 H pO2 182.0 H HCO3 31.9 H ABG pH 7.43 ABG Total CO2 33.4 H ABG O2 Saturation 99.2 H ABG O2 Content 22.2 ABG Base Excess 6.2 H ABG Hemoglobin 16.0 ABG Carboxyhemoglobin 1.2 POC ABG HHb (Measured) 0.8 ABG Methemoglobin 0.9 ABG O2 Capacity 22.4 Hgb O2 Saturation 97.1 FiO2 60.0 Sodium 141 Potassium 3.3 L Chloride 99 Carbon Dioxide 34 H Anion Gap 12 BUN 96 H Creatinine 1.9 H Est GFR ( Amer) 41 Est GFR (Non-Af Amer) 34 POC Glucose (mg/dL) Random Glucose 109 Calcium 9.2 Phosphorus 5.5 H Magnesium 3.1 H Iron TIBC % Saturation Ferritin Total Bilirubin 0.9 AST 72 H D ALT 73 H Alkaline Phosphatase 78 Total Protein 7.3 Albumin 3.9 Globulin 3.4 Albumin/Globulin Ratio 1.2 Pneumocystis Source S. pneumoniae Antigen Critical Care Progress Note - Nutrition Nutrition: Nutrition Category Date Time Status Liquid Diet [DIET] Diets 10/05/18 Lunch Ordered Attending/Attestation - Attestation I have personally seen and examined this patient.: Yes I have fully participated in the care of the patient.: Yes I have reviewed all pertinent clinical information: Yes Notes (Text): 10/06/18 12:[address] Manjarrez note
--- NOTE | 2018-10-06 17:39 | PN ---
DATE: 10/06/2018 REASON FOR CONSULTATION AND FOLLOWUP: Respiratory failure, congestive heart failure, diastolic dysfunction, pneumonia, history of coronary artery disease, history of transcutaneous aortic valve replacement and history of Watchman procedure. SUBJECTIVE: The patient successfully extubated and family is at the bedside and more information obtained from the patient. OBJECTIVE: GENERAL: Not in any distress. VITAL SIGNS: Temperature, afebrile. Heart rate 52, blood pressure 172/65. HEENT: PERRLA. Extraocular muscles intact. NECK: Supple. No carotid bruit or thyromegaly. CHEST: Clear to auscultation. HEART: S1, S2 regular. ABDOMEN: Soft. EXTREMITIES: Clubbing and cyanosis negative. LABORATORY DATA: WBC 11.6, hemoglobin 11.7, hematocrit 36.9, platelet count 217. Chemistries show sodium 141, potassium 3.3, chloride 99, carbon dioxide 34, anion gap of 4, BUN 96, creatinine 1.9. IMPRESSION: An 78-year-old male with past medical history significant for coronary artery disease, status post stent twice in 2013 and 2014, then the patient had a transcutaneous aortic valve replacement in March 2017 and then the patient two months later had a Watchman procedure there because the patient cannot tolerate anticoagulation for atrial fibrillation and somewhere in May 2017 at [facility] by his classified ad taker being followed at [facility] who was in [place] has pneumonia and with last dose of Levaquin, the patient ended up having shortness of breath, initially managed by EMT, by BiPAP , but later on the patient requiring intubation. Now the patient successfully extubated. Family is at the bedside and patient gives all the information and the , says that two weeks ago, had echo done with ejection fraction 50%, but this time the patient's admission consistent with congestive heart failure, most likely secondary to diastolic dysfunction, if ejection fraction is still preserved. So started on IV Primacor and had diuresis. The patient also came with acute kidney injury, which is resolving now. Today's creatinine is 1.9 with a creatinine clearance of 30 mL an hour. In view of above, we suggested to have another echo to assess LV function, continue DVT prophylaxis, continue broad spectrum antibiotics and continue diuresed and keep negative fluid balance. Continue broad spectrum antibiotics, continue milrinone to get more diuresis. Questionable history of bilateral pneumonia, so far the patient did not show any evidence of acute [place] or NON-STEMI. I discussed with the that the patient needs stress study. They said he is tested over a year, but they prefer to go back to the classified ad taker. Once the patient is discharged, follow up with the classified ad taker, get echo to assess his LV function, interm continue aggressive control of blood pressure, aggressive medical management. We will try to avoid any nephrotoxic medication. We will start metoprolol 25 mg by mouth twice daily as well as Cardizem 60 mg three times daily, as the patient was at home on the medication. We will follow with you. Discussed in length with and the patient, who was extubated now. Day before yesterday, discussed with the daughter who is a PHLEBOTOMY SERVICES TECHNICIAN specialist. We will resume back Cardizem and we will resume back metoprolol as mentioned upon discharge and the patient will be followed up with the classified ad taker. He has an appointment today, but it is canceled because the patient is here. I explained to the patient's that the patient needs to be followed with classified ad taker and needs a stress test and they prefer to do it with a classified ad taker. We will supplement potassium. We will put as necessary hydralazine medication also. Thank you for providing the opportunity in taking care of the patient. Victor M Harrington MD
--- NOTE | 2018-10-06 19:08 | PN ---
DATE: 10/06/2018 SUBJECTIVE: The patient is in bed in no acute distress, nontoxic. PHYSICAL EXAMINATION: VITAL SIGNS: Temperature is 98, blood pressure is 170/60, respiratory rate of 18. HEENT: Examination of HEENT is unremarkable. NECK: Supple. LUNGS: Decreased breath sounds. HEART: Normal S1, S2. ABDOMEN: Soft, nontender. LABORATORY EXAMINATION: Reveals a white count of 11,600, hemoglobin of 11. Chemistries reveal a BUN of 96, creatinine of 1.9. Microbiology is noted. Chest x-ray is noted. note is reviewed. ASSESSMENT/PLAN: An 78-year-old male with history of hypertension, coronary artery disease, bioprosthetic aortic valve replacement and Watchman device, paroxysmal atrial fibrillation, congestive heart failure, chronic obstructive pulmonary disease, bladder cancer, now the patient is extubated, appears to be comfortable. The patient had recent hospitalization in [place] admitted with respiratory failure, intubated on a ventilator, had healthcare-associated pneumonia with multiple allergies, day #6 of meropenem and Zyvox. Review of orders confirms the patient to be on meropenem which requires renewal and which I have renewed. The patient is also on Solu-Medrol. Nares methicillin-resistant Staphylococcus aureus is negative. Blood cultures are negative. Sputum cultures are negative. The patient's procalcitonin is negative. Urine Legionella is negative. Influenza is negative. Streptococcus pneumoniae antigen is not detected. We will complete a short course therapy. The patient is extubated, he is comfortable. Clay Villalba MD
--- NOTE | 2018-10-06 20:40 | CARD ---
APPROVED REPORT Date of service: 10/06/2018 EXAM: Two-dimensional and M-mode echocardiogram with Doppler and color Doppler. INDICATION LVFX/MR/TR 2D DIMENSIONS Left Atrium (2D)5.1 (1.6-4.0cm)IVSd1.7 (0.7-1.1cm) LVDd5.3 (3.9-5.9cm)PWd1.5 (0.7-1.1cm) LVDs4.2 (2.5-4.0cm)FS (%) 20.2 % LVEF (%)40.8 (>50%) M-Mode DIMENSIONS Aortic Root3.20 (2.2-3.7cm) Aortic Valve AoV Peak Punambob595.0cm/sAoV VTI59.9cmAO Peak GR.33mmHg AO Mean GR.19mmHg Mitral Valve MV E Luppdpak36.2cm/sMV A Ekabttck18.3cm/sE/A ratio1.0 TDI Lateral E' Peak V7.02cm/sMedial E' Peak V5.17cm/sE/Lateral E'14.0 E/Medial E'19.0 Pulmonary Valve PV Peak Usvybkhi63.9cm/sPV Peak Grad.3mmHg Tricuspid Valve TR Peak Pjcvjvlz666sv/sRAP [id number] Peak Gr.25mmHg [id number] LEFT VENTRICLE The left ventricle is normal size. There is mild concentric left ventricular hypertrophy. The systolic function is moderately impaired.EF-35-40% There is global hypokinesis of the left ventricle. Transmitral Doppler flow pattern is Grade III-reversible restrictive diastolic dysfunction. No left ventricle thrombus noted on this study. There is no ventricular septal defect visualized. There is no left ventricular aneurysm. There is no mass noted in the left ventricle. RIGHT VENTRICLE The right ventricle is normal size. There is normal right ventricular wall thickness. The right ventricular systolic function is normal. ATRIA The left atrium is mildly dilated. The right atrium size is normal. The interatrial septum is intact with no evidence for an atrial septal defect. AORTIC VALVE No aortic regurgitation is present. S/p TAVR,normal functioning. MITRAL VALVE The mitral valve is thickened but opens well. Mitral annular calcification is mild to moderate. Mitral regurgitation is moderate. There is no mitral valve stenosis. There is no evidence of mitral valve prolapse. TRICUSPID VALVE The tricuspid valve leaflets are thickened , but open well. There is mild tricuspid regurgitation.RVSP-35 mmof Hg. There is no tricuspid valve stenosis. There is no tricuspid valve prolapse or vegetation. PULMONIC VALVE The pulmonic valve is mildly thickened. There is trace to mild pulmonic valvular regurgitation. There is no pulmonic valvular stenosis. GREAT VESSELS The aortic root is normal in size. The ascending aorta is normal in size. The pulmonary artery is normal. The IVC is normal in size and collapses >50% with inspiration. PERICARDIAL EFFUSION There is no pleural effusion. There is no pericardial effusion. <Conclusion> The left ventricle is normal size. There is mild concentric left ventricular hypertrophy. The systolic function is moderately impaired.EF-35-40% No aortic regurgitation is present. S/p TAVR,normal functioning. Mitral regurgitation is moderate. There is mild tricuspid regurgitation.RVSP-35 mmof Hg. There is trace to mild pulmonic valvular regurgitation. The IVC is normal in size and collapses >50% with inspiration. There is no pericardial effusion.
[2018-10-07] MEDS: Albuterol-Ipratrop 3 mg / 0.5 (3 ml) UD IH SCH ×2 (01:23→07:38)
[2018-10-07 07:12] LABS: HEMOGLOBIN 12.2 g/dL (14.0-18.0); MEAN CELL VOLUME 93.4 fl (80.0-105.0); MEAN CORPUSCULAR HEMOGLOBIN 28.7 pg (25.0-35.0); MEAN CORPUSCULAR HGB CONC 30.7 g/dl (31.0-37.0); MEAN PLATELET VOLUME 9.1 fl (7.0-11.0); RBC 4.25 10^6/uL (3.5-6.1); RED CELL DISTRIBUTION WIDTH 15.6 % (11.5-14.5); WHITE BLOOD COUNT 12.7 10^3/uL (4.5-11.0)
[2018-10-07 07:30] LABS: ALB/GLOB RATIO 1.1 (1.1-1.8); ALBUMIN 3.8 g/dL (3.0-4.8); ALT/SGPT 70 U/L (7-56); AST/SGOT 67 U/L (17-59); BLOOD UREA NITROGEN 80 mg/dL (7-21); CALCIUM 9.4 mg/dL (8.4-10.5); GFR NON-AFRICAN AMERICAN 53
[2018-10-07] MEDS: Acetylcysteine 20% Inhal Soln (4ml) IH SCH (07:37)
[2018-10-07] MEDS: Budesonide 0.5 mg/2 ml Inhal Susp UD IH SCH ×2 (07:38→19:21)
[2018-10-07] MEDS ORDERED: Albuterol-Ipratrop 3 mg / 0.5 (3 ml) UD IH PRN (08:07)
[2018-10-07] MEDS: Meropenem IV 1 gm in NS 1 GM/50 ML BAG IVPB SCH ×2 (10:13→21:56)
[2018-10-07] MEDS: MethylPREDNISolone 40 mg Vial IVP SCH ×2 (10:14→10:15)
--- NOTE | 2018-10-07 11:03 | CP.PCM.DIS ---
Provider - Provider Date of Admission: 10/01/18 07:51 Attending physician: Sixto Dahl MD Hospital Course - Lab Results Lab Results: Micro Results 10/01/18 06:30 Blood-Venous Blood Culture - Final NO GROWTH AFTER 5 DAYS 10/01/18 06:30 Blood-Venous Gram Stain - Final TEST NOT PERFORMED 10/01/18 06:30 Blood-Venous Blood Culture - Final NO GROWTH AFTER 5 DAYS 10/01/18 06:30 Blood-Venous Gram Stain - Final TEST NOT PERFORMED 10/02/18 08:17 Sputum Induced Gram Stain - Final 10/02/18 08:17 Sputum Induced Sputum Culture - Final No growth. 10/01/18 15:21 Urine,Catheterized Urine Culture - Final No Growth (<1,000 CFU/ML) 10/01/18 09:20 Naris MRSA Culture (Admit) - Final MRSA NOT DETECTED Most Recent Lab Values WBC 12.7 10^3/uL (4.5-11.0) H 10/07/18 06:30 RBC 4.25 10^6/uL (3.5-6.1) 10/07/18 06:30 Hgb 12.2 g/dL (14.0-18.0) L 10/07/18 06:30 Hct 39.7 % (42.0-52.0) L 10/07/18 06:30 MCV 93.4 fl (80.0-105.0) 10/07/18 06:30 MCH 28.7 pg (25.0-35.0) 10/07/18 06:30 MCHC 30.7 g/dl (31.0-37.0) L 10/07/18 06:30 RDW 15.6 % (11.5-14.5) H 10/07/18 06:30 Plt Count 200 10^3/uL (120.0-450.0) 10/07/18 06:30 MPV 9.1 fl (7.0-11.0) 10/07/18 06:30 Gran % 57.6 % (50.0-68.0) 10/01/18 05:55 Lymph % (Auto) 27.9 % (22.0-35.0) 10/01/18 05:55 [place] % (Auto) 12.1 % (1.0-6.0) H 10/01/18 05:55 Eos % (Auto) 2.1 % (1.5-5.0) 10/01/18 05:55 Baso % (Auto) 0.3 % (0.0-3.0) 10/01/18 05:55 Gran # 6.36 (1.4-6.5) 10/01/18 05:55 Lymph # (Auto) 3.1 (1.2-3.4) 10/01/18 05:55 [place] # (Auto) 1.3 (0.1-0.6) H 10/01/18 05:55 Eos # (Auto) 0.2 (0.0-0.7) 10/01/18 05:55 Baso # (Auto) 0.03 K/mm3 (0.0-2.0) 10/01/18 05:55 PT 14.0 SECONDS (9.4-12.5) H 10/01/18 05:55 INR 1.21 10/01/18 05:55 APTT 23.9 Seconds (25.1-36.5) L 10/05/18 07:35 pCO2 48 mm/Hg (35-45) H 10/06/18 05:30 pO2 182.0 mm/Hg (80-100) H 10/06/18 05:30 HCO3 31.9 mmol/L (21-28) H 10/06/18 05:30 ABG pH 7.43 (7.35-7.45) 10/06/18 05:30 ABG Total CO2 33.4 mmol.L (22-28) H 10/06/18 05:30 ABG O2 Saturation 99.2 % (95-98) H 10/06/18 05:30 ABG O2 Content 22.2 ML/dl (15-23) 10/06/18 05:30 ABG Base Excess 6.2 mmol/L (-2.0-3.0) H 10/06/18 05:30 ABG Hemoglobin 16.0 g/dL (11.7-17.4) 10/06/18 05:30 ABG Carboxyhemoglobin 1.2 % (0.5-1.5) 10/06/18 05:30 POC ABG HHb (Measured) 0.8 % (0-5) 10/06/18 05:30 ABG Methemoglobin 0.9 % (0.0-3.0) 10/06/18 05:30 ABG O2 Capacity 22.4 mL/dl (16-24) 10/06/18 05:30 ABG Potassium 3.6 mmol/L (3.6-5.2) 10/01/18 10:10 Hgb O2 Saturation 97.1 % (95.0-98.0) 10/06/18 05:30 Sodium 139.0 mmol/L (132-148) 10/01/18 10:10 Chloride 107.0 mmol/L (98-107) 10/01/18 10:10 Glucose 141 mg/dl (75-110) H 10/01/18 10:10 Lactate 1.2 mmol/L (0.7-2.1) 10/01/18 10:10 Mechanical Rate 20 10/01/18 10:10 FiO2 60.0 % 10/06/18 05:30 Tidal Volume 400 10/01/18 10:10 PEEP 15 10/01/18 10:10 Sodium 142 mmol/L (132-148) 10/07/18 06:30 Potassium 3.9 mmol/L (3.6-5.0) 10/07/18 06:30 Chloride 99 mmol/L (98-107) 10/07/18 06:30 Carbon Dioxide 37 mmol/L (21-33) H 10/07/18 06:30 Anion Gap 9 (10-20) L 10/07/18 06:30 BUN 80 mg/dL (7-21) H 10/07/18 06:30 Creatinine 1.3 mg/dl (0.8-1.5) 10/07/18 06:30 Est GFR ( Amer) > 60 10/07/18 06:30 Est GFR (Non-Af Amer) 53 10/07/18 06:30 POC Glucose (mg/dL) 106 mg/dL (65-110) 10/07/18 06:58 Random Glucose 114 mg/dL (70-110) H 10/07/18 06:30 Hemoglobin A1c 6.4 % (4.2-6.5) 10/02/18 05:30 Calcium 9.4 mg/dL (8.4-10.5) 10/07/18 06:30 Phosphorus 3.4 mg/dL (2.5-4.5) 10/07/18 06:30 Magnesium 3.2 mg/dL (1.7-2.2) H 10/07/18 06:30 Iron 137 ug/dL (45-180) 10/06/18 05:15 TIBC 344 ug/dL (261-462) 10/06/18 05:15 % Saturation 40 % (20-55) 10/06/18 05:15 Ferritin 121.0 ng/mL 10/05/18 15:16 Total Bilirubin 1.1 mg/dL (0.2-1.3) 10/07/18 06:30 AST 67 U/L (17-59) H 10/07/18 06:30 ALT 70 U/L (7-56) H 10/07/18 06:30 Alkaline Phosphatase 79 U/L (38-126) 10/07/18 06:30 Lactate Dehydrogenase 852 U/L (333-699) H 10/01/18 05:55 Total Creatine Kinase 95 U/L (35-230) 10/01/18 05:55 Troponin I 0.02 ng/mL 10/01/18 05:55 NT-Pro-B Natriuret Pep 2030 pg/mL (0-450) H 10/01/18 05:55 Total Protein 7.2 g/dL (5.8-8.3) 10/07/18 06:30 Albumin 3.8 g/dL (3.0-4.8) 10/07/18 06:30 Globulin 3.4 gm/dL 10/07/18 06:30 Albumin/Globulin Ratio 1.1 (1.1-1.8) 10/07/18 06:30 Triglycerides 120 mg/dL (35-160) 10/02/18 05:30 Cholesterol 91 mg/dL (130-200) L 10/02/18 05:30 LDL Cholesterol Direct 52 mg/dL (0-129) 10/02/18 05:30 HDL Cholesterol 31 mg/dL (29-60) 10/02/18 05:30 Procalcitonin 0.14 NG/ML (0.19-0.49) L 10/01/18 07:54 TSH 3rd Generation 0.62 mIU/mL (0.46-4.68) 10/02/18 05:30 Arterial Blood Potassium 3.6 mmol/L (3.6-5.2) 10/01/18 10:10 Urine Color Yellow (YELLOW) 10/04/18 07:30 Urine Appearance Clear (CLEAR) 10/04/18 07:30 Urine pH 5.5 (4.7-8.0) 10/04/18 07:30 Ur Specific [place] 1.025 (1.005-1.035) 10/04/18 07:30 Urine Protein Negative mg/dL (<30 mg/dL) 10/04/18 07:30 Urine Glucose (UA) Negative mg/dL (NEGATIVE) 10/04/18 07:30 Urine Ketones Negative mg/dL (NEGATIVE) 10/04/18 07:30 Urine Blood Negative (NEGATIVE) 10/04/18 07:30 Urine Nitrate Negative (NEGATIVE) 10/04/18 07:30 Urine Bilirubin Negative (NEGATIVE) 10/04/18 07:30 Urine Urobilinogen 0.2 E.U./dL (<1 E.U./dL) 10/04/18 07:30 Ur Leukocyte Esterase Trace Lorrie/uL (NEGATIVE) H 10/04/18 07:30 Urine RBC 0 - 2 /hpf (0-2) 10/04/18 07:30 Urine WBC 2 - 5 /hpf (0-6) 10/04/18 07:30 Ur Epithelial Cells None /hpf (0-5) 10/04/18 07:30 Triple Phos Crystals Small /hpf 10/04/18 07:30 Amorphous Sediment Few 10/04/18 07:30 Urine Bacteria Many (NEG) 10/04/18 07:30 Fine Granular Casts 0 - 2 /hpf (0-2) 10/04/18 07:30 Urine Other Uyeast 10/04/18 07:30 Ur Random Creatinine 81 mg/dL (20-320) 10/03/18 12:30 Urine Total Volume 0.5 mg/dL 10/03/18 12:30 Urine Microalbumin 44.6 mg/L (0.0-16.6) H 10/01/18 15:25 Microalb/Creat Ratio 6 (<30) 10/03/18 12:30 Influenza Typ A,B (EIA) Negative for flu a/b (NEGATIVE) 10/01/18 07:45 Ur L.pneumophila Ag Negative (NEGATIVE) 10/01/18 15:31 Pneumocystis Source Serum 10/01/18 07:30 S. pneumoniae Antigen Not detected 10/01/18 07:30 Discharge Exam - Head Exam Head Exam: ATRAUMATIC, NORMOCEPHALIC Discharge Plan - Follow Up Plan Condition: GUARDED Disposition: HOME/ ROUTINE
--- NOTE | 2018-10-07 11:42 | PN ---
DATE: 10/07/2018 SUBJECTIVE: The patient appears very comfortable this morning. He is not short of breath at rest. PHYSICAL EXAMINATION: VITAL SIGNS: Temperature 97.7, pulse 57, respirations 16, blood pressure 161/63. Oxygen saturation on nasal cannula is 94%. HEENT: Normocephalic, atraumatic. NECK: No JVD. CARDIOVASCULAR: Systolic ejection murmur at the lower left sternal border. Questionable S3 gallop. LUNGS: Decreased breath sounds at the bases with minimal crackles. Very minimal/less rhonchi. No wheezing. EXTREMITIES: Positive for mild edema. No cyanosis. No clubbing. Calves are nontender to palpation. GI: Abdomen is soft, nontender and nondistended. Bowel sounds are positive. SKIN: No acute rash. NEUROLOGIC: Exam is limited at the present time. PERTINENT LABORATORY DATA: Echocardiogram was done yesterday and reviewed. There is a moderately impaired systolic ejection fraction - 35 to 40%. The right ventricular systolic pressure is 35 mmHg. IMPRESSION: 1. Respiratory failure. 2. Recurrent congestive heart failure. 3. Cardiomyopathy. 4. Rule out underlying pneumonia. 5. Chronic obstructive pulmonary disease. 6. Renal insufficiency. 7. Coronary artery disease. PLAN: The patient appears very comfortable this morning. He is not short of breath at rest. He does state to feeling much, much better overall. I did discuss the case with the night nurse at length. The night nurse stated the patient had a very good night. On physical exam, there is certainly less bronchospasm noted. In addition, the alveolar-arterial gradient is also less. I will continue with the current nebulizer treatments and low-dose intravenous steroids for now. The patient remains on antibiotic therapy - as per Infectious Disease. Input by Dr. Villalba is noted. Temperatures have resolved. There is only a very mild leukocytosis. Lastly, echocardiogram results are noted above. The patient remains on intravenous Lasix. Input by Cardiology (Dr. Harrington) is noted. Clinical status of the patient is significantly improved - compared to the initial presentation. However, the future status/prognosis for this patient does remain guarded. I will discuss the above with the entire ICU team in the next few moments. I will discuss the above the attending physician later this morning. Rosas Mccann MD [facility] # [id number] JOSE
--- NOTE | 2018-10-07 13:17 | CP.PCM.PN ---
<Carlos Eduardo Henderson - Last Filed: 10/07/18 13:14> Subjective - Date & Time of Evaluation Date of Evaluation: 10/07/18 Time of Evaluation: 09:50 - Subjective Subjective: Infectious disease progress note for Dr. Cee/Dr. Villalba service - Morris Henderson PGY3 Patient seen and examined at bedside this morning. No acute overnight events or new complaints reported. Tolerating diet and with family at bedside. Denies cp, palpitations, SOB. Objective - Vital Signs/Intake and Output Vital Signs (last 24 hours): Temp Pulse Resp BP Pulse Ox 97.7 F 57 L 16 169/69 H 93 L 10/06/18 22:01 10/07/18 00:18 10/06/18 22:01 10/07/18 10:14 10/06/18 22:01 Intake and Output: 10/07/18 10/07/18 06:59 18:59 Intake Total 950 Output Total 1200 Balance -250 - Medications Medications: Current Medications Albuterol/Ipratropium (Duoneb 3 Mg/0.5 Mg (3 Ml) Ud) 3 ml IH [id number] PRN PRN Reason: Shortness of Breath Amlodipine Besylate (Norvasc) 10 mg PO DAILY [facility] Last Admin: 10/07/18 10:14 Dose: 10 mg Aspirin (Aspirin Chewable) 81 mg PO DAILY [facility] Last Admin: 10/07/18 10:12 Dose: 81 mg Budesonide (Pulmicort Respules) 0.5 mg IH [id number] [facility] Last Admin: 10/07/18 07:38 Dose: 0.5 mg Diltiazem HCl (Cardizem) 60 mg PO QID [facility] Last Admin: 10/07/18 10:12 Dose: 60 mg Furosemide (Lasix) 40 mg PO 0800,1400 [facility] Heparin Sodium (Porcine) (Heparin) 5,000 units SC Q8H [facility]; Protocol Last Admin: 10/07/18 08:08 Dose: 5,000 units Meropenem (Merrem Iv 1 Gm Premix) 1 gm in 50 mls @ 100 mls/hr IVPB Q12 [facility]; Protocol Stop: 10/10/18 22:01 Last Admin: 10/07/18 10:13 Dose: 100 mls/hr Losartan Potassium (Cozaar) 25 mg PO DAILY [facility] Last Admin: 10/07/18 10:13 Dose: 25 mg Methylprednisolone (Solu-Medrol) 20 mg IVP DAILY [facility] Last Admin: 10/07/18 10:15 Dose: 20 mg Metoprolol Tartrate (Lopressor) 25 mg PO BID [facility] Last Admin: 10/07/18 10:13 Dose: 25 mg Spironolactone (Aldactone) 25 mg PO DAILY [facility] Last Admin: 10/07/18 10:12 Dose: 25 mg - Labs Labs: 10/07/18 06:30 10/07/18 06:30 PT 14.0 SECONDS (9.4-12.5) H 10/01/18 05:55 INR 1.21 10/01/18 05:55 APTT 23.9 Seconds (25.1-36.5) L 10/05/18 07:35 - Constitutional Appears: No Acute Distress - Head Exam Head Exam: ATRAUMATIC, NORMAL INSPECTION, NORMOCEPHALIC - Eye Exam Eye Exam: EOMI, PERRL - ENT Exam ENT Exam: Mucous Membranes Moist - Respiratory Exam Respiratory Exam: absent: Rales, Rhonchi, Wheezes - Cardiovascular Exam Cardiovascular Exam: +S1, +S2. absent: Gallop, Rubs - GI/Abdominal Exam GI & Abdominal Exam: Soft. absent: Distended, Firm, Guarding, Rigid, Tenderness, Rebound - Extremities Exam Extremities Exam: absent: Pedal Edema - Neurological Exam Neurological Exam: Alert, Awake, Oriented x3 - Psychiatric Exam Psychiatric exam: Normal Affect, Normal Mood - Skin Skin Exam: Dry, Intact, Normal Color, Warm Assessment and Plan - Assessment and Plan (Free Text) Plan: 78yo male with history of HTN, CAD s/p stent placement, bioprosthetic aortic valve replacement, Watchman device, paroxysmal afib, COPD, CHF, and bladder cancer presented with hypoxic respiratory failure in the setting of diastolic CHF exacerbation complicated by acute kidney injury with possiblity of HCAP 1. now resolved, hypoxemic respiratory failure secondary to CHF exacerbation 2. r/o superimposed healthcare associated pneumonia 3. HTN 4. CAD s/p stent placement 5. paroxysmal afib 6. COPD -Recommend patient complete at least 7 days of antibiotics; Today is day 7 of meropenem for concern of possible HCAP -Presently substantially improved post diuresis and ionotropic support -Echocardiogram was reviewed; LVEF 35-40%; see full report -MRSA screen negative -Urine legionella, influenza, and strep pneumo antigen are negative -Procalcitonin negative Patient seen and case discussed/reviewed with attending, Dr. Cee <Morro Cee - Last Filed: 10/07/18 16:50> Subjective - Subjective Subjective: Infectious diseases Attending Physician Attestation Patient seen and examined, discussed with regional medical director. I have reviewed the patient's history of present illness, past medical, social, personal and family histories, pertinent physical exam findings, course so far in this hospital admission, pertinent laboratory and imaging results. I agree with the above findings, assessment and plan. In addition, will complete 7 days of Vancomycin and Merrem for this patient with sepsis from HCAP (day 7 today) and can d/c antibiotics for tomorrow. Objective - Vital Signs/Intake and Output Vital Signs (last 24 hours): Temp Pulse Resp BP Pulse Ox 95.5 F L 52 L 19 160/60 H 92 L 10/07/18 12:00 10/07/18 14:37 10/07/18 14:37 10/07/18 14:45 10/07/18 14:37 Intake and Output: 10/07/18 10/07/18 06:59 18:59 Intake Total 950 200 Output Total 1200 875 Balance -250 -675 - Medications Medications: Current Medications Albuterol/Ipratropium (Duoneb 3 Mg/0.5 Mg (3 Ml) Ud) 3 ml IH [id number] PRN PRN Reason: Shortness of Breath Amlodipine Besylate (Norvasc) 10 mg PO DAILY [facility] Last Admin: 10/07/18 10:14 Dose: 10 mg Aspirin (Aspirin Chewable) 81 mg PO DAILY [facility] Last Admin: 10/07/18 10:12 Dose: 81 mg Budesonide (Pulmicort Respules) 0.5 mg IH [id number] [facility] Last Admin: 10/07/18 07:38 Dose: 0.5 mg Diltiazem HCl (Cardizem) 60 mg PO QID [facility] Last Admin: 10/07/18 14:46 Dose: 60 mg Furosemide (Lasix) 40 mg PO 0800,1400 [facility] Last Admin: 10/07/18 14:45 Dose: 40 mg Heparin Sodium (Porcine) (Heparin) 5,000 units SC Q8H [facility]; Protocol Last Admin: 10/07/18 08:08 Dose: 5,000 units Meropenem (Merrem Iv 1 Gm Premix) 1 gm in 50 mls @ 100 mls/hr IVPB Q12 [facility]; Protocol Stop: 10/10/18 22:01 Last Admin: 10/07/18 10:13 Dose: 100 mls/hr Losartan Potassium (Cozaar) 25 mg PO DAILY [facility] Last Admin: 10/07/18 10:13 Dose: 25 mg Methylprednisolone (Solu-Medrol) 20 mg IVP DAILY [facility] Last Admin: 10/07/18 10:15 Dose: 20 mg Metoprolol Tartrate (Lopressor) 25 mg PO BID [facility] Last Admin: 10/07/18 10:13 Dose: 25 mg Spironolactone (Aldactone) 25 mg PO DAILY [facility] Last Admin: 10/07/18 10:12 Dose: 25 mg - Labs Labs: 10/07/18 06:30 10/07/18 06:30 PT 14.0 SECONDS (9.4-12.5) H 10/01/18 05:55 INR 1.21 10/01/18 05:55 APTT 23.9 Seconds (25.1-36.5) L 10/05/18 07:35
--- NOTE | 2018-10-07 15:00 | PN ---
DATE: 10/07/2018 REASON FOR CONSULTATION AND FOLLOWUP: Respiratory failure, congestive heart failure secondary to systolic dysfunction, possible pneumonia, coronary artery disease, history of transcutaneous aortic valve replacement, and history of Watchman procedure, admitted with flash pulmonary edema, intubated, now successfully extubated. SUBJECTIVE: The patient is successfully extubated. Discussed in length with the patient, family, and Dr. Tang about the patient's condition. The patient feels a lot better. I explained all the patient's condition. The patient had an echo yesterday done and findings were discussed with the patient. OBJECTIVE: GENERAL: Not in any distress. Having the breakfast. VITAL SIGNS: Temperature afebrile. Heart rate 57, blood pressure 160/63. HEENT: PERRLA. Extraocular muscles intact. NECK: Supple. No carotid bruit or thyromegaly. CHEST: Clear to auscultation. HEART: S1 and S2 regular. ABDOMEN: Soft. EXTREMITIES: Clubbing and cyanosis negative. LABORATORY DATA: Chest x-ray is consistent with good air entry. Pulmonary edema significantly resolved. It still shows some mild congestion. Blood workup as follows: WBC is 12.7, hemoglobin 12.2, hematocrit 39.7, platelet count 200. Chemistries show sodium 142, potassium 3.9, chloride 99, carbon dioxide 37, anion gap of 9, BUN 18, and creatinine 1.3 with a creatinine clearance of 50 mL an hour. The patient had echocardiography done yesterday that revealed ejection fraction 35% to 40%. No aortic regurgitation. The patient is status post TAVR, normal functioning. Moderate mitral regurgitation. Mild tricuspid regurgitation. RV systolic pressure 35. Trace to mild pulmonary insufficiency. IMPRESSION: An 78-year-old male with past medical history significant for aortic stenosis status post transcutaneous aortic valve replacement in 03/2017 at [facility], coronary artery disease status post a stent twice in 2013 and 2014. Somewhere in June, two months later after the transcutaneous aortic valve replacement, the patient had a Watchman procedure because of atrial fibrillation, unable to tolerate anticoagulation. Being followed by Dr. Tang at [facility]. According to the patient's , the patient was recently admitted to [place] with pneumonia, where the echo was found to be with 60% ejection fraction two weeks prior to being admitted here, but the patient admitted with flash pulmonary edema, so thought to be diastolic dysfunction. I repeated echo yesterday and that found ejection fraction 35 to 40. Prior in July here, the echo also shows decreased left ventricular function. Repeat echo on 07/06/2014, 45% to 50% ejection fraction, but because of the pulmonary edema, his repeated echo as mentioned yesterday significantly decreased. That explained why the patient went into pulmonary edema, which is being treated with intravenous Primacor as well as antibiotic. So far, no evidence of myocardial infarction or non-ST elevation myocardial infarction. Note, troponin remains flat. Initially, when the patient is being treated, he developed acute kidney injury, which has significantly decreased, though the patient came in with acute kidney injury with creatinine 1.6, with a creatinine clearance of 40 to 60, now kidney function improved and creatinine is 1.3. PLAN: Discussed with the , Gela, on the telephone number [phone], as well as Dr. Tang on [phone], admitted the patient definitely needs cardiac catheterization, though the patient did not ruled in, but it looks like some time from [place] to here, the patient had a coronary event and significantly decreased LV function from 60% to 35% to 40%. Dr. Tang also admitted the patient needs cardiac catheterization, but he wanted to do at [facility], which is his facility, because he knows the patient well. Above information also communicated to the that Dr. Tang wants to do cath there. So, the plan is to continue aspirin, continue Cardizem as he was taking before, and continue metoprolol. Continue deep venous thrombosis prophylaxis. Continue gentle diuretics, change to p.o. We will get a MUGA scan today to assess LV function since there is a discrepancy between the echo here and [place]. If it is still low, suggest that it will be either secondary to coronary event, needs cardiac catheterization or versus sepsis overwhelming translate decreased LV function. So for now, we will continue as mentioned above and we will put low dose of AUSTIN inhibitor if renal function can be tolerated and change Lasix to p.o., and once the patient is stabilized, we will discharge and follow up cardiac catheterization at [facility] by Dr. Tang. We will add losartan 25 mg daily. Continue deep venous thrombosis prophylaxis and add Lasix 40 mg twice a day. Put spironolactone 25 once a day, typical heart failure therapy. Thank you Dr. Dahl for providing the opportunity in taking care of the patient, Andrez Coelho. Victor M Harrington MD
--- NOTE | 2018-10-07 17:08 | CP.PCM.PN ---
<Jarvis Zurita - Last Filed: 10/07/18 16:57> Subjective - Date & Time of Evaluation Date of Evaluation: 10/07/18 Time of Evaluation: 07:20 - Subjective Subjective: Progress Note for Dr. Dahl Service Patient seen and examined at bedside. No acute events reported overnight. Continues to put out copious urine on only daily lasix. No acute complaints, feels better overall. Pending placement for rehab. Objective - Vital Signs/Intake and Output Vital Signs (last 24 hours): Temp Pulse Resp BP Pulse Ox 95.5 F L 52 L 19 160/60 H 92 L 10/07/18 12:00 10/07/18 14:37 10/07/18 14:37 10/07/18 14:45 10/07/18 14:37 Intake and Output: 10/07/18 10/07/18 06:59 18:59 Intake Total 950 200 Output Total 1200 875 Balance -250 -675 - Medications Medications: Current Medications Albuterol/Ipratropium (Duoneb 3 Mg/0.5 Mg (3 Ml) Ud) 3 ml IH [id number] PRN PRN Reason: Shortness of Breath Amlodipine Besylate (Norvasc) 10 mg PO DAILY [facility] Last Admin: 10/07/18 10:14 Dose: 10 mg Aspirin (Aspirin Chewable) 81 mg PO DAILY [facility] Last Admin: 10/07/18 10:12 Dose: 81 mg Budesonide (Pulmicort Respules) 0.5 mg IH [id number] [facility] Last Admin: 10/07/18 07:38 Dose: 0.5 mg Diltiazem HCl (Cardizem) 60 mg PO QID [facility] Last Admin: 10/07/18 14:46 Dose: 60 mg Furosemide (Lasix) 40 mg PO 0800,1400 [facility] Last Admin: 10/07/18 14:45 Dose: 40 mg Heparin Sodium (Porcine) (Heparin) 5,000 units SC Q8H [facility]; Protocol Last Admin: 10/07/18 08:08 Dose: 5,000 units Meropenem (Merrem Iv 1 Gm Premix) 1 gm in 50 mls @ 100 mls/hr IVPB Q12 [facility]; Protocol Stop: 10/10/18 22:01 Last Admin: 10/07/18 10:13 Dose: 100 mls/hr Losartan Potassium (Cozaar) 25 mg PO DAILY [facility] Last Admin: 10/07/18 10:13 Dose: 25 mg Methylprednisolone (Solu-Medrol) 20 mg IVP DAILY [facility] Last Admin: 10/07/18 10:15 Dose: 20 mg Metoprolol Tartrate (Lopressor) 25 mg PO BID [facility] Last Admin: 10/07/18 10:13 Dose: 25 mg Spironolactone (Aldactone) 25 mg PO DAILY [facility] Last Admin: 10/07/18 10:12 Dose: 25 mg - Labs Labs: 10/07/18 06:30 10/07/18 06:30 PT 14.0 SECONDS (9.4-12.5) H 10/01/18 05:55 INR 1.21 10/01/18 05:55 APTT 23.9 Seconds (25.1-36.5) L 10/05/18 07:35 - Additional Findings Additional findings: - Constitutional Appears: Awake and alert, no acute distress - Head Exam Head Exam: ATRAUMATIC, NORMOCEPHALIC - Eye Exam Eye Exam: Normal appearance. absent: Conjunctival injection, Scleral icterus Pupil Exam: absent: Irregular, Unequal - ENT Exam ENT Exam: Mucous Membranes Moist - Neck Exam Neck Exam: absent: Lymphadenopathy - Respiratory Exam Respiratory Exam: Decreased Breath Sounds (decreased at bilateral bases) but otherwise clear to auscultation. absent: Rales, Rhonchi, Wheezes - Cardiovascular Exam Cardiovascular Exam: +S1, +S2, RRR. absent: JVD - GI/Abdominal Exam GI & Abdominal Exam: Soft, Normal Bowel Sounds. absent: Firm, Rigid, Diminished Bowel Sounds, Hyperactive Bowel Sounds, Hypoactive Bowel Sounds, Tenderness - Extremities Exam Extremities Exam: Pedal Edema (+1 pitting in bilateral LE from feet to mid-gerber, improved compared to prior), no tenderness - Neurological Exam Awake and alert, following all commands, moving all extremities spontaneously - Psychiatric Exam Normal mood and affect - Skin Skin Exam: Dry, Intact, Normal Color, Warm Assessment and Plan - Assessment and Plan (Free Text) Assessment: This is a 78 yo M with PMH of HTN, CAD (x2 stents in 2013 and 2014), bioprosthetic aortic valve replacement (2017), Watchman device at [facility] for paroxysmal afib, COPD, CHF, chronic vertigo, L-knee replacement (2016), and bladder cancer who presented to the ICU for hypoxic respiratory failure 2/2 CAP vs CHF exacerbation. He developed worsening FRANCESCA overlying CKD, but this has improved. Plan: 1) Acute hypoxic respiratory failure - resolved -ddx: HAP vs CHF exacerbation, may be multifactorial unlikely COPD exacerbation, not retaining CO2 on ABGs -extubated to [place], satting well at 4L -AM ABG reviewed, wnl pH, paO2 wnl, not retaining CO2 -AM CXR reviewed and compared to prior, improved bilaterally -Abx as per ID -Incentive spirometer 2) FRANCESCA overlying CKD - resolved -likely 2/2 aggressive diuresis -Cr back to baseline at 1.3 -net output approx 3L yesterday, remains net negative for admission 3) COPD -continue Duonebs and Budesonide -taper steroids, down to 20mg IVP daily solumedrol -titrate down supplemental O2 4) Anemia -as baseline per prior charting -Iron studies obtained and reviewed Dispo: pending placement for reconditioning Ppx: Protonix for GI, Heparin SC for DVT Reviewed and discussed with attending, Dr. Dahl <Sixto Dahl S - Last Filed: 10/07/18 21:29> Objective - Vital Signs/Intake and Output Vital Signs (last 24 hours): Temp Pulse Resp BP Pulse Ox 93.9 F L 47 L 19 127/63 96 10/07/18 17:00 10/07/18 18:09 10/07/18 18:00 10/07/18 18:00 10/07/18 18:00 Intake and Output: 10/07/18 10/08/18 18:59 06:59 Intake Total 200 Output Total 975 Balance -775 - Medications Medications: Current Medications Albuterol/Ipratropium (Duoneb 3 Mg/0.5 Mg (3 Ml) Ud) 3 ml IH [id number] PRN PRN Reason: Shortness of Breath Amlodipine Besylate (Norvasc) 10 mg PO DAILY [facility] Last Admin: 10/07/18 10:14 Dose: 10 mg Aspirin (Aspirin Chewable) 81 mg PO DAILY [facility] Last Admin: 10/07/18 10:12 Dose: 81 mg Budesonide (Pulmicort Respules) 0.5 mg IH [id number] [facility] Last Admin: 10/07/18 19:21 Dose: 0.5 mg Diltiazem HCl (Cardizem) 60 mg PO QID [facility] Last Admin: 10/07/18 17:30 Dose: 60 mg Furosemide (Lasix) 40 mg PO 0800,1400 [facility] Last Admin: 10/07/18 14:45 Dose: 40 mg Heparin Sodium (Porcine) (Heparin) 5,000 units SC Q8H [facility]; Protocol Last Admin: 10/07/18 17:30 Dose: 5,000 units Meropenem (Merrem Iv 1 Gm Premix) 1 gm in 50 mls @ 100 mls/hr IVPB Q12 [facility]; Protocol Stop: 10/10/18 22:01 Last Admin: 10/07/18 10:13 Dose: 100 mls/hr Losartan Potassium (Cozaar) 25 mg PO DAILY [facility] Last Admin: 10/07/18 10:13 Dose: 25 mg Methylprednisolone (Solu-Medrol) 20 mg IVP DAILY [facility] Last Admin: 10/07/18 10:15 Dose: 20 mg Metoprolol Tartrate (Lopressor) 25 mg PO BID [facility] Last Admin: 10/07/18 17:31 Dose: Not Given Spironolactone (Aldactone) 25 mg PO DAILY [facility] Last Admin: 10/07/18 10:12 Dose: 25 mg - Labs Labs: 10/07/18 06:30 10/07/18 06:30 PT 14.0 SECONDS (9.4-12.5) H 10/01/18 05:55 INR 1.21 10/01/18 05:55 APTT 23.9 Seconds (25.1-36.5) L 10/05/18 07:35 Assessment and Plan - Assessment and Plan (Free Text) Plan: Pt seen and examined. I have reviewed the note of the biomedical equipment technician and agree with it. I have discussed the assessment and plan with the resident. I have reviewed the patient's labs and medications. Pt with acute resp failure that has resolved. Pt is waiting to go to med/surgery. FRANCESCA has improved. He has a high urine output. Will D/C lasix. Pt is on Duoneb for COPD. Pt is on steroids.
[2018-10-07 17:14] LABS: URINE BILIRUBIN NEGATIVE (NEGATIVE); URINE BLOOD LARGE (NEGATIVE); URINE GLUCOSE (UA) NEGATIVE (NEGATIVE); URINE LEUKOCYTE ESTERASE SMALL Leu/uL (NEGATIVE); URINE PROTEIN 30 mg/dL (<30 mg/dL); URINE UROBILINOGEN 0.2 E.U./dL (<1 E.U./dL)
[2018-10-07 17:16] LABS: URINE APPEARANCE CLOUDY (CLEAR); URINE COLOR LIGHT RED (YELLOW)
[2018-10-07 17:18] LABS: URINE BACTERIA FEW (NEG); URINE RBC TNTC /hpf (0-2)
--- NOTE | 2018-10-07 18:39 | CARD ---
APPROVED REPORT Date of service: 10/07/2018 INDICATION EVALUATE LV AND RV EF% PROCEDURE The above named patient recieved 30 millicuries of Tc99m tagged red blood cells intravenously. After achieving equilibrium, gated imaging of 16/frame/cycle was performed utillizing Gamma camera interfaced with a digital computer and gated device. Gated imaging was then performed in the left anterior oblique, anterior, and the left lateral projections. Findings Calculated LV Ejection Fraction is 62%. Impressions Calculated Ejection Fraction is 62 %.
[2018-10-08 06:07] LABS: BASO # 0.02 K/mm3 (0.0-2.0); BASO % 0.1 % (0.0-3.0); EOS % 0.2 % (1.5-5.0); GRAN # 13.37 (1.4-6.5); GRAN % 74.1 % (50.0-68.0); HEMOGLOBIN 13.2 g/dL (14.0-18.0); LYMPH # 2.3 (1.2-3.4); LYMPH % 12.9 % (22.0-35.0); MEAN CELL VOLUME 93.3 fl (80.0-105.0); MEAN CORPUSCULAR HEMOGLOBIN 29.4 pg (25.0-35.0); MEAN CORPUSCULAR HGB CONC 31.5 g/dl (31.0-37.0); MEAN PLATELET VOLUME 9.4 fl (7.0-11.0); MONO # 2.3 (0.1-0.6); MONO % 12.7 % (1.0-6.0); RBC 4.49 10^6/uL (3.5-6.1); RED CELL DISTRIBUTION WIDTH 15.2 % (11.5-14.5); WHITE BLOOD COUNT 18.1 10^3/uL (4.5-11.0)
[2018-10-08 06:24] LABS: ALB/GLOB RATIO 1.2 (1.1-1.8); ALBUMIN 4.1 g/dL (3.0-4.8); ALT/SGPT 93 U/L (7-56); AST/SGOT 88 U/L (17-59); BLOOD UREA NITROGEN 75 mg/dL (7-21); CALCIUM 9.6 mg/dL (8.4-10.5); GFR NON-AFRICAN AMERICAN 58
[2018-10-08] MEDS ORDERED: Albuterol-Ipratrop 3 mg / 0.5 (3 ml) UD IH PRN (06:59)
[2018-10-08] MEDS: Albuterol-Ipratrop 3 mg / 0.5 (3 ml) UD IH SCH ×3 (08:11→20:05)
[2018-10-08] MEDS: Budesonide 0.5 mg/2 ml Inhal Susp UD IH SCH ×2 (08:11→20:05)
--- NOTE | 2018-10-08 08:33 | RAD ---
Date of service: 10/08/2018 HISTORY: follow up COMPARISON: 10/06/2018 FINDINGS: LUNGS: No active pulmonary disease. PLEURA: No significant pleural effusion identified, no pneumothorax apparent. CARDIOVASCULAR: No aortic atherosclerotic calcification present. Moderate cardiomegaly. Aortic valve replacement. No pulmonary vascular congestion. OSSEOUS STRUCTURES: No significant abnormalities. VISUALIZED UPPER ABDOMEN: Normal. OTHER FINDINGS: None. IMPRESSION: No active disease.
--- NOTE | 2018-10-08 08:46 | PN ---
DATE: 10/08/2018 SUBJECTIVE: The patient appears comfortable this morning. He is not short of breath at rest. PHYSICAL EXAMINATION: VITALS: Temperature is 98.2, pulse 54, respirations 18, blood pressure 123/75. Oxygen saturation on nasal cannula is 96%. HEENT: Normocephalic, atraumatic. No JVD. CARDIOVASCULAR: Systolic ejection murmur at the lower left sternal border. Questionable S3 gallop. LUNGS: Decreased breath sounds at the bases with minimal crackles. Minimal/less rhonchi. No wheezing. EXTREMITIES: Less edema. No cyanosis, no clubbing. Calves are nontender to palpation. GASTROINTESTINAL: Abdomen is soft, nontender, and nondistended. Bowel sounds are positive. SKIN: No acute rash. NEUROLOGIC: Limited at the present time. IMPRESSION: 1. Respiratory failure. 2. Recurrent congestive heart failure. 3. Cardiomyopathy. 4. Rule out underlying pneumonia. 5. Chronic obstructive pulmonary disease. 6. Renal insufficiency. 7. Coronary artery disease. PLAN: The patient appears comfortable this morning. He is not short of breath at rest. He does state to feeling much better overall. I did discuss the case with the night nurse at length. The night nurse stated the patient had a very good night. On physical exam, his bronchospasm continues to slowly resolve. In addition, the alveolar-arterial gradient also continues to resolve. I will continue the current nebulizer treatments and change to oral steroids this morning. The patient remains on antibiotic therapy - as per Infectious Disease. Input by Dr. Cee is noted. The temperatures have now fully resolved. Repeat a.m. labs are pending. Input by Cardiology (Dr. Harrington) is also noted. Clinical status of the patient is significantly improved - compared to the initial presentation. However, given the above, the patient's overall status/prognosis does remain very guarded. I will discuss the above with the entire ICU team in the next few moments. I will also discuss the above with Dr. Dahl later this morning. Rosas Mccann MD JOSE
--- NOTE | 2018-10-08 09:20 | PN ---
DATE: 10/08/2018 SUBJECTIVE: The patient is in bed in no acute distress. PHYSICAL EXAMINATION: VITAL SIGNS: Temperature 98, blood pressure 123/70, respiratory rate 18. HEENT: Examination of HEENT is unremarkable. NECK: Supple. LUNGS: Decreased breath sounds. HEART: Normal S1, S2. ABDOMEN: Soft, nontender. LABORATORY DATA: White count of 18,000, hemoglobin of 13. BUN of 75. Creatinine is 1.2. Urinalysis is noted. ASSESSMENT AND PLAN: This is an 78-year-old male with a history of hypertension, coronary artery disease status post stent placement, bioprosthetic aortic valve replacement, WATCHMAN device, paroxysmal atrial fibrillation, chronic obstructive lung disease, congestive heart failure, bladder cancer presented with hypoxic respiratory failure in the setting of diastolic congestive heart failure with exacerbation complicated by the acute kidney injury with possibility of age gap with hypoxemic respiratory failure secondary to congestive heart failure exacerbation and superimposed healthcare-associated pneumonia and this must be ruled out. The patient now is extubated, comfortable and the patient has completed 7 days of meropenem, doing well. We will discontinue the meropenem. No further antibiotics. The patient is also on prednisone. The microbiology; nares, MRSA is negative; blood culture is negative; sputum culture is negative, urine culture is negative with white count of 18,000; on prednisone. We will follow closely with you. Dr. Carrero's note is reviewed. Clay Villalba MD
--- NOTE | 2018-10-08 09:21 | CP.PCM.DIS ---
Provider - Provider Date of Admission: 10/01/18 07:51 Attending physician: Sixto Dahl MD Hospital Course - Lab Results Lab Results: Micro Results 10/01/18 06:30 Blood-Venous Blood Culture - Final NO GROWTH AFTER 5 DAYS 10/01/18 06:30 Blood-Venous Gram Stain - Final TEST NOT PERFORMED 10/01/18 06:30 Blood-Venous Blood Culture - Final NO GROWTH AFTER 5 DAYS 10/01/18 06:30 Blood-Venous Gram Stain - Final TEST NOT PERFORMED 10/02/18 08:17 Sputum Induced Gram Stain - Final 10/02/18 08:17 Sputum Induced Sputum Culture - Final No growth. 10/01/18 15:21 Urine,Catheterized Urine Culture - Final No Growth (<1,000 CFU/ML) 10/01/18 09:20 Naris MRSA Culture (Admit) - Final MRSA NOT DETECTED Most Recent Lab Values WBC 18.1 10^3/uL (4.5-11.0) H D 10/08/18 05:20 RBC 4.49 10^6/uL (3.5-6.1) 10/08/18 05:20 Hgb 13.2 g/dL (14.0-18.0) L 10/08/18 05:20 Hct 41.9 % (42.0-52.0) L 10/08/18 05:20 MCV 93.3 fl (80.0-105.0) 10/08/18 05:20 MCH 29.4 pg (25.0-35.0) 10/08/18 05:20 MCHC 31.5 g/dl (31.0-37.0) 10/08/18 05:20 RDW 15.2 % (11.5-14.5) H 10/08/18 05:20 Plt Count 206 10^3/uL (120.0-450.0) 10/08/18 05:20 MPV 9.4 fl (7.0-11.0) 10/08/18 05:20 Gran % 74.1 % (50.0-68.0) H 10/08/18 05:20 Lymph % (Auto) 12.9 % (22.0-35.0) L 10/08/18 05:20 Petroleum % (Auto) 12.7 % (1.0-6.0) H 10/08/18 05:20 Eos % (Auto) 0.2 % (1.5-5.0) L 10/08/18 05:20 Baso % (Auto) 0.1 % (0.0-3.0) 10/08/18 05:20 Gran # 13.37 (1.4-6.5) H 10/08/18 05:20 Lymph # (Auto) 2.3 (1.2-3.4) 10/08/18 05:20 Petroleum # (Auto) 2.3 (0.1-0.6) H 10/08/18 05:20 Eos # (Auto) 0.0 (0.0-0.7) 10/08/18 05:20 Baso # (Auto) 0.02 K/mm3 (0.0-2.0) 10/08/18 05:20 PT 14.0 SECONDS (9.4-12.5) H 10/01/18 05:55 INR 1.21 10/01/18 05:55 APTT 23.9 Seconds (25.1-36.5) L 10/05/18 07:35 pCO2 48 mm/Hg (35-45) H 10/06/18 05:30 pO2 182.0 mm/Hg (80-100) H 10/06/18 05:30 HCO3 31.9 mmol/L (21-28) H 10/06/18 05:30 ABG pH 7.43 (7.35-7.45) 10/06/18 05:30 ABG Total CO2 33.4 mmol.L (22-28) H 10/06/18 05:30 ABG O2 Saturation 99.2 % (95-98) H 10/06/18 05:30 ABG O2 Content 22.2 ML/dl (15-23) 10/06/18 05:30 ABG Base Excess 6.2 mmol/L (-2.0-3.0) H 10/06/18 05:30 ABG Hemoglobin 16.0 g/dL (11.7-17.4) 10/06/18 05:30 ABG Carboxyhemoglobin 1.2 % (0.5-1.5) 10/06/18 05:30 POC ABG HHb (Measured) 0.8 % (0-5) 10/06/18 05:30 ABG Methemoglobin 0.9 % (0.0-3.0) 10/06/18 05:30 ABG O2 Capacity 22.4 mL/dl (16-24) 10/06/18 05:30 ABG Potassium 3.6 mmol/L (3.6-5.2) 10/01/18 10:10 Hgb O2 Saturation 97.1 % (95.0-98.0) 10/06/18 05:30 Sodium 139.0 mmol/L (132-148) 10/01/18 10:10 Chloride 107.0 mmol/L (98-107) 10/01/18 10:10 Glucose 141 mg/dl (75-110) H 10/01/18 10:10 Lactate 1.2 mmol/L (0.7-2.1) 10/01/18 10:10 Mechanical Rate 20 10/01/18 10:10 FiO2 60.0 % 10/06/18 05:30 Tidal Volume 400 10/01/18 10:10 PEEP 15 10/01/18 10:10 Sodium 139 mmol/L (132-148) 10/08/18 05:20 Potassium 3.8 mmol/L (3.6-5.0) 10/08/18 05:20 Chloride 96 mmol/L (98-107) L 10/08/18 05:20 Carbon Dioxide 35 mmol/L (21-33) H 10/08/18 05:20 Anion Gap 11 (10-20) 10/08/18 05:20 BUN 75 mg/dL (7-21) H 10/08/18 05:20 Creatinine 1.2 mg/dl (0.8-1.5) 10/08/18 05:20 Est GFR ( Amer) > 60 10/08/18 05:20 Est GFR (Non-Af Amer) 58 10/08/18 05:20 POC Glucose (mg/dL) 99 mg/dL (65-110) 10/07/18 21:39 Random Glucose 108 mg/dL (70-110) 10/08/18 05:20 Hemoglobin A1c 6.4 % (4.2-6.5) 10/02/18 05:30 Calcium 9.6 mg/dL (8.4-10.5) 10/08/18 05:20 Phosphorus 3.5 mg/dL (2.5-4.5) 10/08/18 05:20 Magnesium 2.8 mg/dL (1.7-2.2) H 10/08/18 05:20 Iron 137 ug/dL (45-180) 10/06/18 05:15 TIBC 344 ug/dL (261-462) 10/06/18 05:15 % Saturation 40 % (20-55) 10/06/18 05:15 Ferritin 121.0 ng/mL 10/05/18 15:16 Total Bilirubin 1.5 mg/dL (0.2-1.3) H 10/08/18 05:20 AST 88 U/L (17-59) H D 10/08/18 05:20 ALT 93 U/L (7-56) H 10/08/18 05:20 Alkaline Phosphatase 87 U/L (38-126) 10/08/18 05:20 Lactate Dehydrogenase 852 U/L (333-699) H 10/01/18 05:55 Total Creatine Kinase 95 U/L (35-230) 10/01/18 05:55 Troponin I 0.02 ng/mL 10/01/18 05:55 NT-Pro-B Natriuret Pep 2030 pg/mL (0-450) H 10/01/18 05:55 Total Protein 7.5 g/dL (5.8-8.3) 10/08/18 05:20 Albumin 4.1 g/dL (3.0-4.8) 10/08/18 05:20 Globulin 3.4 gm/dL 10/08/18 05:20 Albumin/Globulin Ratio 1.2 (1.1-1.8) 10/08/18 05:20 Triglycerides 120 mg/dL (35-160) 10/02/18 05:30 Cholesterol 91 mg/dL (130-200) L 10/02/18 05:30 LDL Cholesterol Direct 52 mg/dL (0-129) 10/02/18 05:30 HDL Cholesterol 31 mg/dL (29-60) 10/02/18 05:30 Procalcitonin 0.14 NG/ML (0.19-0.49) L 10/01/18 07:54 TSH 3rd Generation 0.62 mIU/mL (0.46-4.68) 10/02/18 05:30 Arterial Blood Potassium 3.6 mmol/L (3.6-5.2) 10/01/18 10:10 Urine Color Light red (YELLOW) 10/07/18 17:00 Urine Appearance Cloudy (CLEAR) 10/07/18 17:00 Urine pH 6.0 (4.7-8.0) 10/07/18 17:00 Ur Specific [place] 1.015 (1.005-1.035) 10/07/18 17:00 Urine Protein 30 mg/dL (<30 mg/dL) H 10/07/18 17:00 Urine Glucose (UA) Negative mg/dL (NEGATIVE) 10/07/18 17:00 Urine Ketones Negative mg/dL (NEGATIVE) 10/07/18 17:00 Urine Blood Large (NEGATIVE) H 10/07/18 17:00 Urine Nitrate Negative (NEGATIVE) 10/07/18 17:00 Urine Bilirubin Negative (NEGATIVE) 10/07/18 17:00 Urine Urobilinogen 0.2 E.U./dL (<1 E.U./dL) 10/07/18 17:00 Ur Leukocyte Esterase Small Lorrie/uL (NEGATIVE) H 10/07/18 17:00 Urine RBC Tntc /hpf (0-2) 10/07/18 17:00 Urine WBC 10 - 15 /hpf (0-6) 10/07/18 17:00 Ur Epithelial Cells 6 - 8 /hpf (0-5) 10/07/18 17:00 Triple Phos Crystals Small /hpf 10/04/18 07:30 Amorphous Sediment Few 10/04/18 07:30 Urine Bacteria Few (NEG) 10/07/18 17:00 Fine Granular Casts 0 - 2 /hpf (0-2) 10/04/18 07:30 Urine Other Uyeast 10/04/18 07:30 Ur Random Creatinine 81 mg/dL (20-320) 10/03/18 12:30 Urine Total Volume 0.5 mg/dL 10/03/18 12:30 Urine Microalbumin 44.6 mg/L (0.0-16.6) H 10/01/18 15:25 Microalb/Creat Ratio 6 (<30) 10/03/18 12:30 Influenza Typ A,B (EIA) Negative for flu a/b (NEGATIVE) 10/01/18 07:45 Ur L.pneumophila Ag Negative (NEGATIVE) 10/01/18 15:31 Pneumocystis Source Serum 10/01/18 07:30 S. pneumoniae Antigen Not detected 10/01/18 07:30 Discharge Exam - Head Exam Head Exam: ATRAUMATIC, NORMAL INSPECTION, NORMOCEPHALIC Discharge Plan - Follow Up Plan Condition: GUARDED Disposition: HOME/ ROUTINE
--- NOTE | 2018-10-08 12:04 | CP.PCM.PN ---
<Jarvis Zurita - Last Filed: 10/08/18 17:22> Subjective - Date & Time of Evaluation Date of Evaluation: 10/08/18 Time of Evaluation: 07:00 - Subjective Subjective: Progress Note for Dr. Dahl Service Patient seen and examined at bedside. No acute events reported overnight, but was noted to have hypothermic temps the night prior and one this past night as well. Elevated WBCs on labs this AM (from 12.7 to 18.1). Patient this AM reports feeling dizzy and tired. Denies shortness of breath or chest pain. Objective - Vital Signs/Intake and Output Vital Signs (last 24 hours): Temp Pulse Resp BP Pulse Ox 98.8 F 49 L 17 147/60 92 L 10/08/18 06:00 10/08/18 09:03 10/08/18 08:00 10/08/18 09:01 10/08/18 08:00 Intake and Output: 10/08/18 10/08/18 06:59 18:59 Intake Total 350 Output Total 650 Balance -300 - Medications Medications: Current Medications Albuterol/Ipratropium (Duoneb 3 Mg/0.5 Mg (3 Ml) Ud) 3 ml IH [id number] [facility] Last Admin: 10/08/18 08:11 Dose: 3 ml Albuterol/Ipratropium (Duoneb 3 Mg/0.5 Mg (3 Ml) Ud) 3 ml IH Q2H PRN PRN Reason: Shortness of Breath Amlodipine Besylate (Norvasc) 10 mg PO DAILY [facility] Last Admin: 10/08/18 09:01 Dose: 10 mg Aspirin (Aspirin Chewable) 81 mg PO DAILY [facility] Last Admin: 10/08/18 09:01 Dose: 81 mg Budesonide (Pulmicort Respules) 0.5 mg IH [id number] [facility] Last Admin: 10/08/18 08:11 Dose: 0.5 mg Diltiazem HCl (Cardizem) 60 mg PO QID [facility] Last Admin: 10/08/18 09:03 Dose: Not Given Furosemide (Lasix) 40 mg PO 0800,1400 [facility] Last Admin: 10/08/18 09:01 Dose: 40 mg Heparin Sodium (Porcine) (Heparin) 5,000 units SC Q8H [facility]; Protocol Last Admin: 10/08/18 09:06 Dose: 5,000 units Losartan Potassium (Cozaar) 25 mg PO DAILY [facility] Last Admin: 10/08/18 09:00 Dose: 25 mg Metoprolol Tartrate (Lopressor) 25 mg PO BID [facility] Last Admin: 10/08/18 09:03 Dose: Not Given Prednisone (Prednisone Tab) 20 mg PO DAILY [facility] Last Admin: 10/08/18 09:01 Dose: 20 mg Spironolactone (Aldactone) 25 mg PO DAILY [facility] Last Admin: 10/08/18 09:01 Dose: 25 mg - Labs Labs: 10/08/18 05:20 10/08/18 05:20 PT 14.0 SECONDS (9.4-12.5) H 10/01/18 05:55 INR 1.21 10/01/18 05:55 APTT 23.9 Seconds (25.1-36.5) L 10/05/18 07:35 - Additional Findings Additional findings: - Constitutional Appears: No acute distress but fatigued appearing, reports dizziness/malaise - Head Exam Head Exam: ATRAUMATIC, NORMOCEPHALIC - Eye Exam Eye Exam: Normal appearance. absent: Conjunctival injection, Scleral icterus Pupil Exam: absent: Irregular, Unequal - ENT Exam ENT Exam: Mucous Membranes Moist - Neck Exam Neck Exam: absent: Lymphadenopathy - Respiratory Exam Respiratory Exam: Decreased Breath Sounds (mild decreased sounds at bilateral bases) but otherwise clear to auscultation. absent: Rales, Rhonchi, Wheezes - Cardiovascular Exam Cardiovascular Exam: +S1, +S2, Bradycardic but regular rhythm (HR 50's on bedside monitor persistently). absent: JVD - GI/Abdominal Exam GI & Abdominal Exam: Soft, Normal Bowel Sounds. absent: Firm, Rigid, Diminished Bowel Sounds, Hyperactive Bowel Sounds, Hypoactive Bowel Sounds, Tenderness - Extremities Exam Extremities Exam: Pedal Edema (+1 pitting in bilateral LE from feet to mid-gerber, improved compared to prior), no tenderness - Neurological Exam Awake and alert, following all commands, moving all extremities spontaneously - Psychiatric Exam Normal mood and affect - Skin Skin Exam: Dry, Intact, Normal Color, Warm Assessment and Plan - Assessment and Plan (Free Text) Assessment: This is a 78 yo M with PMH of HTN, CAD (x2 stents in 2013 and 2014), bioprosthet ic aortic valve replacement (2018), Watchman device at [facility] for paroxysmal afib, COPD, CHF, chronic vertigo, L-knee replacement (2016), and bladder cancer who presented to the ICU for hypoxic respiratory failure 2/2 CAP vs CHF exacerbation. He developed worsening FRANCESCA overlying CKD, but this has improved. Now undergoing repeat workup for hypothermic temps, increased leukocytosis, and malaise. Plan: 1) Acute hypoxic respiratory failure - resolved -ddx: HAP vs CHF exacerbation, may be multifactorial unlikely COPD exacerbation, not retaining CO2 on ABGs -extubated to ID, satting well at 4L -AM ABG reviewed, wnl pH, paO2 wnl, not retaining CO2 -AM CXR reviewed and compared to prior, improved bilaterally -Abx as per ID -Incentive spirometer and PEP valve 2) FRANCESCA overlying CKD - resolved -likely 2/2 aggressive diuresis -Cr back to baseline, 1.2 today -hogan removed 3) Dizziness/malaise -may be 2/2 overdiuresis, net negative ~8.5L over last 3 days -given hypothermia episodes over last 2 nights and sudden elevation of WBCs today, will obtain new blood/urine cx and procal to rule out new infectious process 4) COPD -continue Duonebs and Budesonide -taper steroids, down to 20mg IVP daily solumedrol -titrate down supplemental O2 5) Anemia -as baseline per prior charting -Iron studies obtained and reviewed Dispo: pending repeat cultures and procal, pending placement Ppx: Protonix for GI, Heparin SC for DVT Reviewed and discussed with attending, Dr. Dahl <Sixto Dahl S - Last Filed: 10/08/18 20:43> Objective - Vital Signs/Intake and Output Vital Signs (last 24 hours): Temp Pulse Resp BP Pulse Ox 97.6 F 49 L 21 117/64 97 10/08/18 16:00 10/08/18 20:00 10/08/18 20:00 10/08/18 20:00 10/08/18 20:00 Intake and Output: 10/08/18 10/09/18 18:59 06:59 Intake Total 1450 Output Total 1200 Balance 250 - Medications Medications: Current Medications Albuterol/Ipratropium (Duoneb 3 Mg/0.5 Mg (3 Ml) Ud) 3 ml IH [id number] [facility] Last Admin: 10/08/18 20:05 Dose: 3 ml Albuterol/Ipratropium (Duoneb 3 Mg/0.5 Mg (3 Ml) Ud) 3 ml IH Q2H PRN PRN Reason: Shortness of Breath Amlodipine Besylate (Norvasc) 10 mg PO DAILY [facility] Last Admin: 10/08/18 09:01 Dose: 10 mg Aspirin (Aspirin Chewable) 81 mg PO DAILY [facility] Last Admin: 10/08/18 09:01 Dose: 81 mg Budesonide (Pulmicort Respules) 0.5 mg IH [id number] [facility] Last Admin: 10/08/18 20:05 Dose: 0.5 mg Diltiazem HCl (Cardizem) 60 mg PO QID [facility] Last Admin: 10/08/18 18:55 Dose: Not Given Furosemide (Lasix) 40 mg PO 0800,1400 [facility] Last Admin: 10/08/18 14:00 Dose: 40 mg Heparin Sodium (Porcine) (Heparin) 5,000 units SC Q8H [facility]; Protocol Last Admin: 10/08/18 16:40 Dose: 5,000 units Losartan Potassium (Cozaar) 25 mg PO DAILY [facility] Last Admin: 10/08/18 09:00 Dose: 25 mg Metoprolol Tartrate (Lopressor) 25 mg PO BID [facility] Last Admin: 10/08/18 18:58 Dose: Not Given Prednisone (Prednisone Tab) 20 mg PO DAILY [facility] Last Admin: 10/08/18 09:01 Dose: 20 mg Spironolactone (Aldactone) 25 mg PO DAILY [facility] Last Admin: 10/08/18 09:01 Dose: 25 mg - Labs Labs: 10/08/18 05:20 10/08/18 05:20 PT 14.0 SECONDS (9.4-12.5) H 10/01/18 05:55 INR 1.21 10/01/18 05:55 APTT 23.9 Seconds (25.1-36.5) L 10/05/18 07:35 Assessment and Plan - Assessment and Plan (Free Text) Plan: Pt seen and examined. I have reviewed the note of the veterinary medical officer and agree with it. I have discussed the assessment and plan with the resident. I have reviewed the patient's labs and medications. Pt had respiratory failure that has improved. His FRANCESCA has improved. Pt is on Duoneb for COPD. ID following. Pt had increased WCC and will need further evaluation. Continue with Protonix. Follow H/H for anemia. Pt is on lasix PO. Cr is back to baseline.
[2018-10-08] MEDS ORDERED: Potassium Chloride 20 mEq ER Tab PO ONE (12:45)
--- NOTE | 2018-10-08 18:13 | PN ---
DATE: 10/08/2018 REASON FOR CONSULTATION AND FOLLOWUP: Respiratory failure, congestive heart failure, systolic dysfunction, possible pneumonia, coronary artery disease, history of TAVR, history of Watchman procedure for AFib. SUBJECTIVE: The patient is fully extubated, now awake and alert. Denies any chest pain. Underwent a MUGA scan yesterday. OBJECTIVE: GENERAL: Not in apparent distress. VITAL SIGNS: Temperature afebrile, heart rate 49, blood pressure 147/60. HEENT: PERRLA, intact. NECK: Supple. No carotid bruit or thyromegaly CHEST: Clear to auscultation. HEART: S1, S2, regular. ABDOMEN: Soft. EXTREMITIES: Clubbing and cyanosis negative. LABORATORY DATA: Blood workup as follows; WBC 18.1, hemoglobin 13.2, hematocrit 41.9, platelet count 206. Chemistry shows; sodium 132, potassium 3.8, chloride 96, carbon dioxide 35, anion gap of 11, BUN of 75, creatinine 1.2. Bilirubin 1.5. IMPRESSION: An 78-year-old male with past medical history significant for coronary artery disease, status post percutaneous transluminal coronary angioplasty in 2013 and 2014. Later on, the patient had a transcatheter aortic valve replacement for severe aortic stenosis in 03/2017, followed by after two months, the patient had Watchman procedure done for atrial fibrillation because the patient cannot tolerate Coumadin, who was in [place], developed pneumonia and discharged from home. While the patient is in [place], last pills of Levaquin. The night before admission, the patient shortness of breath, managed initially by non-invasive ventilator, but in the emergency room, the patient required intubation. Repeat echo was done, showed ejection fraction of 35%-40%, severely decreased left ventricular function, treated with IV Primacor. Yesterday, the patient went for a MUGA scan that showed ejection fraction of 62%. I discussed with the patient's primary dyno technician, Dr. Tang at [facility], telephone number [phone] that the patient needs a cardiac catheterization to the coronary anatomy and cause for significantly decreased left ventricular function. The patient's dyno technician, Dr. Tang, wanted to get it done at [facility]. Explained to the . PLAN: For now, continue low dose of ARB inhibitor, spironolactone, Cardizem 60 mg three times a day, and continue Lasix. Upon discharge, the patient would be followed by Dr. Tang. We will follow with you. Monitor renal function. Continue DVT prophylaxis. Possible discharge plan. We will supplement potassium. As mentioned, the patent had a MUGA scan done yesterday to assess LV function that shows ejection fraction of 62%. Possibly, transient decrease in LV function secondary to sepsis or hemodynamic instability. As mentioned by the that the patient had EF of 60% in [place], but an echo dated yesterday with significantly decreased LV function, 35%-40% with global hypokinesis with moderate MR, mild TR. Thank you Dr. Dahl for providing us the opportunity in taking care of the patient, Andrez Coelho. Victor M Harrington MD
[2018-10-09] MEDS: Albuterol-Ipratrop 3 mg / 0.5 (3 ml) UD IH SCH ×4 (02:10→20:18)
[2018-10-09 06:23] LABS: HEMOGLOBIN 12.7 g/dL (14.0-18.0); MEAN CELL VOLUME 93.8 fl (80.0-105.0); MEAN CORPUSCULAR HEMOGLOBIN 29.1 pg (25.0-35.0); MEAN CORPUSCULAR HGB CONC 31.1 g/dl (31.0-37.0); MEAN PLATELET VOLUME 9.3 fl (7.0-11.0); RBC 4.36 10^6/uL (3.5-6.1); WHITE BLOOD COUNT 16.4 10^3/uL (4.5-11.0)
--- NOTE | 2018-10-09 07:24 | PN ---
DATE: 10/09/2019 PULMONARY NOTE SUBJECTIVE: The patient appears comfortable this morning. He is not short of breath at rest. OBJECTIVE: VITAL SIGNS: Temperature is 97.6, pulse is 51, respiratory rate 18, blood pressure 123/48. Oxygen saturation on nasal cannula is 100%. HEENT: Normocephalic, atraumatic. NECK: No JVD. CARDIOVASCULAR: Systolic ejection murmur at the lower left sternal border. Questionable S3 gallop. LUNGS: Improved breath sounds with less crackles at the bases. Very minimal/less rhonchi. No wheezing. EXTREMITIES: Less edema. No cyanosis, no clubbing. Calves are nontender to palpation. GASTROINTESTINAL: Abdomen is soft, nontender and nondistended. Bowel sounds are positive. SKIN: No acute rash. NEUROLOGIC: Limited at the present time. PERTINENT LABORATORY DATA: Chest x-ray was repeated yesterday and reviewed. The chest x-ray reveals further clearing of the previously seen abnormalities. IMPRESSION: 1. Respiratory failure. 2. Recurrent congestive heart failure. 3. Cardiomyopathy. 4. Rule out underlying pneumonia. 5. Chronic obstructive pulmonary disease. 6. Renal insufficiency. 7. Coronary artery disease. PLAN: The patient appears comfortable this morning. He is not short of breath at rest. He does state to feeling much, much better overall. I did discuss the case with the night nurse at length. The night nurse stated that the patient had a very good night. I did review the chest x-ray from yesterday. As above, the chest x-ray shows continued clearing of the previously seen abnormalities. On physical exam, his bronchospasm continues to resolve. In addition, the alveolar-arterial gradient also continues to resolve. Oxygen saturation on nasal cannula is now 100%. I will continue the current nebulizer treatments and low-dose oral steroids (changed yesterday) for now. Inputs by Cardiology and Infectious Disease are noted. Repeat a.m. labs are pending. Clinical status of the patient is significantly improved - compared to his initial presentation. However,given the above, the future status/prognosis for this patient remains guarded. I will discuss the above with the entire ICU team in the next few moments. I will also discuss the above with the attending physician later this morning. Rosas Mccann MD (Delete this signature block when dictator is a preceptor.) cc: MD Ellie (Delete if not dictated.) [email or web address]
[2018-10-09] MEDS: Budesonide 0.5 mg/2 ml Inhal Susp UD IH SCH ×2 (07:58→20:18)
[2018-10-09 08:17] LABS: ALB/GLOB RATIO 1.1 (1.1-1.8); ALBUMIN 3.8 g/dL (3.0-4.8); ALT/SGPT 83 U/L (7-56); AST/SGOT 58 U/L (17-59); BLOOD UREA NITROGEN 67 mg/dL (7-21); CALCIUM 9.1 mg/dL (8.4-10.5); GFR NON-AFRICAN AMERICAN 58
--- NOTE | 2018-10-09 10:00 | CP.PCM.PN ---
Subjective - Date & Time of Evaluation Date of Evaluation: 10/09/18 Time of Evaluation: 07:00 - Subjective Subjective: Progress Note for Dr. Dahl Service Patient seen and examined at bedside. No acute events reported overnight, no hypothermic temps overnight. Reports feeling much better today. Denies shortness of breath, chest pain, dizziness. Objective - Vital Signs/Intake and Output Vital Signs (last 24 hours): Temp Pulse Resp BP Pulse Ox 97.9 F 56 L 15 137/65 99 10/09/18 08:00 10/09/18 09:09 10/09/18 08:00 10/09/18 09:10 10/09/18 08:00 Intake and Output: 10/09/18 10/09/18 06:59 18:59 Output Total 2024 Balance -2024 - Medications Medications: Current Medications Albuterol/Ipratropium (Duoneb 3 Mg/0.5 Mg (3 Ml) Ud) 3 ml IH [id number] [facility] Last Admin: 10/09/18 07:58 Dose: 3 ml Albuterol/Ipratropium (Duoneb 3 Mg/0.5 Mg (3 Ml) Ud) 3 ml IH Q2H PRN PRN Reason: Shortness of Breath Amlodipine Besylate (Norvasc) 10 mg PO DAILY [facility] Last Admin: 10/09/18 09:10 Dose: 10 mg Aspirin (Aspirin Chewable) 81 mg PO DAILY [facility] Last Admin: 10/09/18 09:07 Dose: 81 mg Budesonide (Pulmicort Respules) 0.5 mg IH [id number] [facility] Last Admin: 10/09/18 07:58 Dose: 0.5 mg Diltiazem HCl (Cardizem Cd) 240 mg PO DAILY [facility] Furosemide (Lasix) 40 mg PO 0800,1400 [facility] Last Admin: 10/09/18 09:08 Dose: 40 mg Heparin Sodium (Porcine) (Heparin) 5,000 units SC Q8 [facility]; Protocol Losartan Potassium (Cozaar) 25 mg PO DAILY [facility] Last Admin: 10/09/18 09:09 Dose: 25 mg Metoprolol Tartrate (Lopressor) 25 mg PO BID [facility] Last Admin: 10/09/18 09:07 Dose: 25 mg Prednisone (Prednisone Tab) 20 mg PO DAILY [facility] Last Admin: 10/09/18 09:08 Dose: 20 mg Spironolactone (Aldactone) 25 mg PO DAILY [facility] Last Admin: 10/09/18 09:07 Dose: 25 mg - Labs Labs: 10/09/18 05:30 10/09/18 05:30 PT 14.0 SECONDS (9.4-12.5) H 10/01/18 05:55 INR 1.21 10/01/18 05:55 APTT 23.9 Seconds (25.1-36.5) L 10/05/18 07:35 - Additional Findings Additional findings: - Constitutional Appears: No acute distress but fatigued appearing, reports dizziness/malaise - Head Exam Head Exam: ATRAUMATIC, NORMOCEPHALIC - Eye Exam Eye Exam: Normal appearance. absent: Conjunctival injection, Scleral icterus - ENT Exam ENT Exam: Mucous Membranes Moist - Neck Exam Neck Exam: absent: Lymphadenopathy - Respiratory Exam Respiratory Exam: Clear to auscultation bilaterally. absent: Rales, Rhonchi, Wheezes - Cardiovascular Exam Cardiovascular Exam: +S1, +S2, Bradycardic but regular rhythm (HR 50's on bedside monitor persistently). absent: JVD - GI/Abdominal Exam GI & Abdominal Exam: Soft, Normal Bowel Sounds. absent: Firm, Rigid, Diminished Bowel Sounds, Hyperactive Bowel Sounds, Hypoactive Bowel Sounds, Tenderness - Extremities Exam Extremities Exam: Pedal Edema (trace pitting in bilateral LE from feet to mid- gerber), no tenderness - Neurological Exam Awake and alert, following all commands, moving all extremities spontaneously - Psychiatric Exam Normal mood and affect - Skin Skin Exam: Dry, Intact, Normal Color, Warm Assessment and Plan - Assessment and Plan (Free Text) Assessment: This is a 78 yo M with PMH of HTN, CAD (x2 stents in 2013 and 2014), bioprosthetic aortic valve replacement (2017), Watchman device at [facility] for paroxysmal afib, COPD, CHF, chronic vertigo, L-knee replacement (2016), and bladder cancer who presented to the ICU for hypoxic respiratory failure 2/2 CAP vs CHF exacerbation. He developed worsening FRANCESCA overlying CKD, but this has improved. Repeat septic workup ordered due to fatigue/dizziness/hypothermia in setting of increased WBCs, but the WBCs have improved and the patient reports no symptoms today. Pending placement for JAMIE. Plan: 1) Acute hypoxic respiratory failure - resolved -HAP vs CHF exacerbation, may be multifactorial -completed abx course as per ID -Incentive spirometer and PEP valve 2) FRANCESCA overlying CKD - resolved -likely 2/2 aggressive diuresis -Cr back to baseline 3) Dizziness/malaise improved -may be 2/2 overdiuresis vs new infectious process net negative ~8.5L over last 3 days no hypothermic temps recorded overnight -pending repeat blood and urine cx results -WBCs improved, and in absence of symptoms suggestive of illness, more likely leukocytosis 2/2 steroids 4) COPD -continue Duonebs and Budesonide -Steroids tapered to PO today -titrate down supplemental O2 as tolerated 5) Anemia -as baseline per prior charting -Iron studies obtained and reviewed Dispo: pending repeat cultures and procal, pending placement Ppx: Protonix for GI, Heparin SC for DVT Reviewed and discussed with attending, Dr. Dahl
[2018-10-09] MEDS: diltiaZEM 240 mg/24 Hours CD Cap PO SCH (10:48)
[2018-10-09] MEDS ORDERED: Potassium Chloride 20 mEq ER Tab PO ONE (11:45)
--- NOTE | 2018-10-09 13:36 | PN ---
DATE: 10/09/2018 REASON FOR CONSULTATION AND FOLLOWUP: Respiratory failure, congestive heart failure, systolic dysfunction, possible pneumonia, coronary artery disease, status post TAVR, status post Watchman procedure for AFib. SUBJECTIVE: The patient denies any chest pain, shortness of breath, or any palpitation, sitting at the bedside. OBJECTIVE: GENERAL: Not in apparent distress. VITAL SIGNS: Temperature afebrile, heart rate 56, blood pressure 137/65. HEENT: PERRLA. Extraocular muscles intact. NECK: Supple. No carotid bruit or thyromegaly. CHEST: Clear to auscultation. HEART: S1, S2, regular. ABDOMEN: Soft. EXTREMITIES: Clubbing, cyanosis negative. LABORATORY DATA: Blood workup as follows: WBC 16 , hemoglobin 12.3, hematocrit 40.9, platelet count 165. Chemistry shows sodium 130, potassium 3.4, chloride 94, bicarbonate 37, anion gap of 10, BUN of , creatinine 1.2. IMPRESSION: An 78-year-old male with history of obesity, coronary artery disease, status post percutaneous transluminal coronary angioplasty in 2013 and 2014, history of severe aortic stenosis status post transcatheter aortic valve replacement in 03/2017, history of Watchman procedure in May or June because the patient unable to take anticoagulation for atrial fibrillation, admitted with pneumonia two weeks ago in [place] and discharged. The patient was taking last dose of Levaquin, became very short of breath at night, admitted here, initially managed with non-invasive ventilator but later requiring intubation. At that time, echo was repeated and showed ejection fraction of 35% to 40%. Now, the patient successfully extubated. Repeat MUGA scan showed ejection fraction of 62%. Echo this time shows global hypokinesis, moderate mitral regurgitation, moderate tricuspid regurgitation. RECOMMENDATION: Continue Cardizem 60 mg, we will change it to Cardizem long acting. Continue losartan. Continue metoprolol 25 p.o. b.i.d. Continue gentle diuretics. I discussed with the patient's primary vice president research, Dr. Tang on telephone and mentioned this patient needs cardiac catheter, he wants it to be done with their facility. So, after the patient's rehab done, consider cardiac catheterization or at least a stress test to rule out any ischemia, though the patient did not show any evidence of RI. We will follow with you. Thank you for providing us the opportunity in taking care of the patient, Andrez Coelho. We will discuss with the and change his Cardizem to long acting from 60 every 6 hours to 40 mg daily. Victor M Harrington MD
--- NOTE | 2018-10-09 16:53 | CP.PCM.DIS ---
Provider - Provider Date of Admission: 10/01/18 07:51 Attending physician: Sixto Dahl MD Primary care physician: Dr. Dahl Consults: 10/01/18 07:54 Cardiology Consult Stat Comment: Consulting Provider: Victor M Acosta Consulting Physician: Victor M Acosta Reason for Consult: CHF exacerbation 10/01/18 07:57 Consult [Physician Consult] Stat Comment: Consulting Provider: Clay Villalba Consulting Physician: Clay Villalba Reason for Consult: severe CAP 10/01/18 11:01 Physician Consult Routine Comment: Consulting Provider: Sixto Dahl Consulting Physician: Sixto Dahl Reason for Consult: FRANCESCA, increased Cr from baseline 10/01/18 11:12 Nursing Referral for Palliative Care Routine Comment: Physician Instructions: Reason For Exam: PT with respiratory failure 10/01/18 11:14 Social Work Referral Routine Comment: Respiratory failure Physician Instructions: Reason For Exam: Respiratory Failure 10/05/18 11:14 Physician Consult Routine Comment: Consulting Provider: Rosas Mccann Consulting Physician: Rosas Mccann Reason for Consult: hypoxic resp failure due to CAP vs CHF 10/07/18 08:07 TCU [Evaluation for TRCU] Routine Comment: Physician Instructions: Reason For Exam: gait dysfunction Hospital Course - Lab Results Lab Results: Micro Results 10/01/18 06:30 Blood-Venous Blood Culture - Final NO GROWTH AFTER 5 DAYS 10/01/18 06:30 Blood-Venous Gram Stain - Final TEST NOT PERFORMED 10/01/18 06:30 Blood-Venous Blood Culture - Final NO GROWTH AFTER 5 DAYS 10/01/18 06:30 Blood-Venous Gram Stain - Final TEST NOT PERFORMED 10/02/18 08:17 Sputum Induced Gram Stain - Final 10/02/18 08:17 Sputum Induced Sputum Culture - Final No growth. 10/01/18 15:21 Urine,Catheterized Urine Culture - Final No Growth (<1,000 CFU/ML) 10/01/18 09:20 Naris MRSA Culture (Admit) - Final MRSA NOT DETECTED Most Recent Lab Values WBC 16.4 10^3/uL (4.5-11.0) H 10/09/18 05:30 RBC 4.36 10^6/uL (3.5-6.1) 10/09/18 05:30 Hgb 12.7 g/dL (14.0-18.0) L 10/09/18 05:30 Hct 40.9 % (42.0-52.0) L 10/09/18 05:30 MCV 93.8 fl (80.0-105.0) 10/09/18 05:30 MCH 29.1 pg (25.0-35.0) 10/09/18 05:30 MCHC 31.1 g/dl (31.0-37.0) 10/09/18 05:30 RDW 15.0 % (11.5-14.5) H 10/09/18 05:30 Plt Count 165 10^3/uL (120.0-450.0) 10/09/18 05:30 MPV 9.3 fl (7.0-11.0) 10/09/18 05:30 Gran % 74.1 % (50.0-68.0) H 10/08/18 05:20 Lymph % (Auto) 12.9 % (22.0-35.0) L 10/08/18 05:20 [place] % (Auto) 12.7 % (1.0-6.0) H 10/08/18 05:20 Eos % (Auto) 0.2 % (1.5-5.0) L 10/08/18 05:20 Baso % (Auto) 0.1 % (0.0-3.0) 10/08/18 05:20 Gran # 13.37 (1.4-6.5) H 10/08/18 05:20 Lymph # (Auto) 2.3 (1.2-3.4) 10/08/18 05:20 [place] # (Auto) 2.3 (0.1-0.6) H 10/08/18 05:20 Eos # (Auto) 0.0 (0.0-0.7) 10/08/18 05:20 Baso # (Auto) 0.02 K/mm3 (0.0-2.0) 10/08/18 05:20 PT 14.0 SECONDS (9.4-12.5) H 10/01/18 05:55 INR 1.21 10/01/18 05:55 APTT 23.9 Seconds (25.1-36.5) L 10/05/18 07:35 pCO2 48 mm/Hg (35-45) H 10/06/18 05:30 pO2 182.0 mm/Hg (80-100) H 10/06/18 05:30 HCO3 31.9 mmol/L (21-28) H 10/06/18 05:30 ABG pH 7.43 (7.35-7.45) 10/06/18 05:30 ABG Total CO2 33.4 mmol.L (22-28) H 10/06/18 05:30 ABG O2 Saturation 99.2 % (95-98) H 10/06/18 05:30 ABG O2 Content 22.2 ML/dl (15-23) 10/06/18 05:30 ABG Base Excess 6.2 mmol/L (-2.0-3.0) H 10/06/18 05:30 ABG Hemoglobin 16.0 g/dL (11.7-17.4) 10/06/18 05:30 ABG Carboxyhemoglobin 1.2 % (0.5-1.5) 10/06/18 05:30 POC ABG HHb (Measured) 0.8 % (0-5) 10/06/18 05:30 ABG Methemoglobin 0.9 % (0.0-3.0) 10/06/18 05:30 ABG O2 Capacity 22.4 mL/dl (16-24) 10/06/18 05:30 ABG Potassium 3.6 mmol/L (3.6-5.2) 10/01/18 10:10 Hgb O2 Saturation 97.1 % (95.0-98.0) 10/06/18 05:30 Sodium 139.0 mmol/L (132-148) 10/01/18 10:10 Chloride 107.0 mmol/L (98-107) 10/01/18 10:10 Glucose 141 mg/dl (75-110) H 10/01/18 10:10 Lactate 1.2 mmol/L (0.7-2.1) 10/01/18 10:10 Mechanical Rate 20 10/01/18 10:10 FiO2 60.0 % 10/06/18 05:30 Tidal Volume 400 10/01/18 10:10 PEEP 15 10/01/18 10:10 Sodium 138 mmol/L (132-148) 10/09/18 05:30 Potassium 3.4 mmol/L (3.6-5.0) L 10/09/18 05:30 Chloride 94 mmol/L (98-107) L 10/09/18 05:30 Carbon Dioxide 37 mmol/L (21-33) H 10/09/18 05:30 Anion Gap 10 (10-20) 10/09/18 05:30 BUN 67 mg/dL (7-21) H 10/09/18 05:30 Creatinine 1.2 mg/dl (0.8-1.5) 10/09/18 05:30 Est GFR ( Amer) > 60 10/09/18 05:30 Est GFR (Non-Af Amer) 58 10/09/18 05:30 POC Glucose (mg/dL) 99 mg/dL (65-110) 10/07/18 21:39 Random Glucose 105 mg/dL (70-110) 10/09/18 05:30 Hemoglobin A1c 6.4 % (4.2-6.5) 10/02/18 05:30 Calcium 9.1 mg/dL (8.4-10.5) 10/09/18 05:30 Phosphorus 3.5 mg/dL (2.5-4.5) 10/08/18 05:20 Magnesium 2.8 mg/dL (1.7-2.2) H 10/08/18 05:20 Iron 137 ug/dL (45-180) 10/06/18 05:15 TIBC 344 ug/dL (261-462) 10/06/18 05:15 % Saturation 40 % (20-55) 10/06/18 05:15 Ferritin 121.0 ng/mL 10/05/18 15:16 Total Bilirubin 1.2 mg/dL (0.2-1.3) 10/09/18 05:30 AST 58 U/L (17-59) 10/09/18 05:30 ALT 83 U/L (7-56) H 10/09/18 05:30 Alkaline Phosphatase 77 U/L (38-126) 10/09/18 05:30 Lactate Dehydrogenase 852 U/L (333-699) H 10/01/18 05:55 Total Creatine Kinase 95 U/L (35-230) 10/01/18 05:55 Troponin I 0.02 ng/mL 10/01/18 05:55 NT-Pro-B Natriuret Pep 2030 pg/mL (0-450) H 10/01/18 05:55 Total Protein 7.2 g/dL (5.8-8.3) 10/09/18 05:30 Albumin 3.8 g/dL (3.0-4.8) 10/09/18 05:30 Globulin 3.3 gm/dL 10/09/18 05:30 Albumin/Globulin Ratio 1.1 (1.1-1.8) 10/09/18 05:30 Triglycerides 120 mg/dL (35-160) 10/02/18 05:30 Cholesterol 91 mg/dL (130-200) L 10/02/18 05:30 LDL Cholesterol Direct 52 mg/dL (0-129) 10/02/18 05:30 HDL Cholesterol 31 mg/dL (29-60) 10/02/18 05:30 Procalcitonin 0.10 NG/ML (0.19-0.49) L 10/08/18 19:00 TSH 3rd Generation 0.62 mIU/mL (0.46-4.68) 10/02/18 05:30 Arterial Blood Potassium 3.6 mmol/L (3.6-5.2) 10/01/18 10:10 Urine Color Light red (YELLOW) 10/07/18 17:00 Urine Appearance Cloudy (CLEAR) 10/07/18 17:00 Urine pH 6.0 (4.7-8.0) 10/07/18 17:00 Ur Specific [place] 1.015 (1.005-1.035) 10/07/18 17:00 Urine Protein 30 mg/dL (<30 mg/dL) H 10/07/18 17:00 Urine Glucose (UA) Negative mg/dL (NEGATIVE) 10/07/18 17:00 Urine Ketones Negative mg/dL (NEGATIVE) 10/07/18 17:00 Urine Blood Large (NEGATIVE) H 10/07/18 17:00 Urine Nitrate Negative (NEGATIVE) 10/07/18 17:00 Urine Bilirubin Negative (NEGATIVE) 10/07/18 17:00 Urine Urobilinogen 0.2 E.U./dL (<1 E.U./dL) 10/07/18 17:00 Ur Leukocyte Esterase Small [place]/uL (NEGATIVE) H 10/07/18 17:00 Urine RBC Tntc /hpf (0-2) 10/07/18 17:00 Urine WBC 10 - 15 /hpf (0-6) 10/07/18 17:00 Ur Epithelial Cells 6 - 8 /hpf (0-5) 10/07/18 17:00 Triple Phos Crystals Small /hpf 10/04/18 07:30 Amorphous Sediment Few 10/04/18 07:30 Urine Bacteria Few (NEG) 10/07/18 17:00 Fine Granular Casts 0 - 2 /hpf (0-2) 10/04/18 07:30 Urine Other Uyeast 10/04/18 07:30 Ur Random Creatinine 81 mg/dL (20-320) 10/03/18 12:30 Urine Total Volume 0.5 mg/dL 10/03/18 12:30 Urine Microalbumin 44.6 mg/L (0.0-16.6) H 10/01/18 15:25 Microalb/Creat Ratio 6 (<30) 10/03/18 12:30 Influenza Typ A,B (EIA) Negative for flu a/b (NEGATIVE) 10/01/18 07:45 Ur L.pneumophila Ag Negative (NEGATIVE) 10/01/18 15:31 Pneumocystis Source Serum 10/01/18 07:30 S. pneumoniae Antigen Not detected 10/01/18 07:30 Discharge Exam - Head Exam Head Exam: ATRAUMATIC, NORMAL INSPECTION, NORMOCEPHALIC Discharge Plan - Follow Up Plan Condition: GUARDED Disposition: HOME/ ROUTINE
--- NOTE | 2018-10-09 17:05 | CP.PCM.PN ---
<Jarvis Zurita - Last Filed: 10/09/18 16:56> Subjective - Date & Time of Evaluation Date of Evaluation: 10/09/18 Time of Evaluation: 07:00 - Subjective Subjective: Progress Note for Dr. Dahl Service Patient seen and examined at bedside. No acute events reported overnight, and patient reports feeling well overnight. Denies any acute chest pain, shortness of breath, dizziness, or weakness this AM. No hypothermia reported overnight, and WBCs improved today. Objective - Vital Signs/Intake and Output Vital Signs (last 24 hours): Temp Pulse Resp BP Pulse Ox 97.9 F 56 L 15 103/50 L 99 10/09/18 08:00 10/09/18 09:09 10/09/18 08:00 10/09/18 13:39 10/09/18 08:00 Intake and Output: 10/09/18 10/09/18 06:59 18:59 Output Total 2024 Balance -2024 - Medications Medications: Current Medications Albuterol/Ipratropium (Duoneb 3 Mg/0.5 Mg (3 Ml) Ud) 3 ml IH [id number] [facility] Last Admin: 10/09/18 13:07 Dose: 3 ml Albuterol/Ipratropium (Duoneb 3 Mg/0.5 Mg (3 Ml) Ud) 3 ml IH Q2H PRN PRN Reason: Shortness of Breath Amlodipine Besylate (Norvasc) 10 mg PO DAILY [facility] Last Admin: 10/09/18 09:10 Dose: 10 mg Aspirin (Aspirin Chewable) 81 mg PO DAILY [facility] Last Admin: 10/09/18 09:07 Dose: 81 mg Budesonide (Pulmicort Respules) 0.5 mg IH [id number] [facility] Last Admin: 10/09/18 07:58 Dose: 0.5 mg Diltiazem HCl (Cardizem Cd) 240 mg PO DAILY [facility] Last Admin: 10/09/18 10:48 Dose: Not Given Furosemide (Lasix) 40 mg PO 0800,1400 [facility] Last Admin: 10/09/18 13:39 Dose: Not Given Heparin Sodium (Porcine) (Heparin) 5,000 units SC Q8 [facility]; Protocol Last Admin: 10/09/18 13:40 Dose: 5,000 units Losartan Potassium (Cozaar) 25 mg PO DAILY [facility] Last Admin: 10/09/18 09:09 Dose: 25 mg Prednisone (Prednisone Tab) 20 mg PO DAILY [facility] Last Admin: 10/09/18 09:08 Dose: 20 mg Spironolactone (Aldactone) 25 mg PO DAILY [facility] Last Admin: 10/09/18 09:07 Dose: 25 mg - Labs Labs: 10/09/18 05:30 10/09/18 05:30 PT 14.0 SECONDS (9.4-12.5) H 10/01/18 05:55 INR 1.21 10/01/18 05:55 APTT 23.9 Seconds (25.1-36.5) L 10/05/18 07:35 - Additional Findings Additional findings: - Constitutional Appears: Awake and alert, no acute distress - Head Exam Head Exam: ATRAUMATIC, NORMOCEPHALIC - Eye Exam Eye Exam: Normal appearance. absent: Conjunctival injection, Scleral icterus Pupil Exam: absent: Irregular, Unequal - ENT Exam ENT Exam: Mucous Membranes Moist - Neck Exam Neck Exam: absent: Lymphadenopathy - Respiratory Exam Respiratory Exam: Clear to auscultation. absent: Rales, Rhonchi, Wheezes - Cardiovascular Exam Cardiovascular Exam: +S1, +S2, Bradycardic to 50's but regular rhythm. absent: JVD - GI/Abdominal Exam GI & Abdominal Exam: Soft, Normal Bowel Sounds. absent: Firm, Rigid, Diminished Bowel Sounds, Hyperactive Bowel Sounds, Hypoactive Bowel Sounds, Tenderness - Extremities Exam Extremities Exam: Pedal Edema (+trace pitting in bilateral LE from feet to mid- gerber, improved compared to prior), no tenderness - Neurological Exam Awake and alert, following all commands, moving all extremities spontaneously - Psychiatric Exam Normal mood and affect - Skin Skin Exam: Dry, Intact, Normal Color, Warm Assessment and Plan - Assessment and Plan (Free Text) Assessment: This is a 78 yo M with PMH of HTN, CAD (x2 stents in 2013 and 2014), bio prosthetic aortic valve replacement (2017), Watchman device at [facility] for paroxysmal afib, COPD, CHF, chronic vertigo, L-knee replacement (2016), and bladder cancer who presented to the ICU for hypoxic respiratory failure 2/2 CAP vs CHF exacerbation. He developed worsening FRANCESCA overlying CKD, but this has improved. S/p repeat septic workup for hypothermia/elevated WBCs/acute dizziness and weakness, now with improved symptoms and WBCs. Pending placement for rehab. Plan: 1) Acute hypoxic respiratory failure - resolved -ddx: HAP vs CHF exacerbation, may be multifactorial -Abx completed as per ID -Incentive spirometer and PEP valve 2) FRANCESCA overlying CKD - resolved -likely 2/2 aggressive diuresis -Cr back to baseline 3) Dizziness/malaise - improved -may be 2/2 overdiuresis vs new infectious process net negative approx 9L over last 3 days suggestion of dehydrat ion/overdiuresis elevated WBCs from 12.7 to 18.1, hypothermic for 2 nights, and acute onset malaise/dizziness suggestive of infection -no hypothermia overnight, symptoms resolved, and WBCs improved; in this setting, likely residual leukocytosis 2/2 steroids 4) COPD -continue Duonebs and Budesonide -steroids tappered to 20mg PO daily -titrate down supplemental O2 as tolerated 5) Anemia -as baseline per prior charting -Iron studies obtained and reviewed 6) Bradycardia -as per Cardio, switched to Cardizem CD, metoprolol and QID cardizem discontinued Dispo: pending placement for reconditioning Ppx: Protonix for GI, Heparin SC for DVT Reviewed and discussed with attending, Dr. Dahl <Sixto Dahl S - Last Filed: 10/10/18 17:46> Objective - Vital Signs/Intake and Output Vital Signs (last 24 hours): Temp Pulse Resp BP Pulse Ox 97.8 F 54 L 18 124/54 L 98 10/10/18 06:00 10/10/18 09:23 10/10/18 06:00 10/10/18 09:25 10/10/18 06:00 Intake and Output: 10/10/18 10/10/18 06:59 18:59 Intake Total 240 Output Total 600 Balance -360 - Labs Labs: 10/09/18 05:30 10/09/18 05:30 PT 14.0 SECONDS (9.4-12.5) H 10/01/18 05:55 INR 1.21 10/01/18 05:55 APTT 23.9 Seconds (25.1-36.5) L 10/05/18 07:35 Assessment and Plan - Assessment and Plan (Free Text) Plan: Pt seen and examined. This is a late entry. I have reviewed the note of the medical chemist and agree with it. I have reviewed the meds and labs of the pt. I have discussed the assessment and plan with the resident. Pt with FRANCESCA that has improved. He has resp failure that has improved. Pt is on steroids on COPD. Pt will need JAMIE. No pain. Eating better. Pt is on Metoprolol and Cardizem.
[2018-10-09 17:18] VITALS: RESP 18
--- NOTE | 2018-10-09 21:55 | CP.PCM.PN ---
Subjective - Date & Time of Evaluation Date of Evaluation: 10/09/18 Time of Evaluation: 11:05 - Subjective Subjective: Afebrile, not in distress. Objective - Vital Signs/Intake and Output Vital Signs (last 24 hours): Temp Pulse Resp BP Pulse Ox 97.9 F 56 L 15 137/65 99 10/09/18 08:00 10/09/18 09:09 10/09/18 08:00 10/09/18 09:10 10/09/18 08:00 Intake and Output: 10/09/18 10/09/18 06:59 18:59 Output Total 2024 Balance -2024 - Medications Medications: Current Medications Albuterol/Ipratropium (Duoneb 3 Mg/0.5 Mg (3 Ml) Ud) 3 ml IH [id number] [facility] Last Admin: 10/09/18 07:58 Dose: 3 ml Albuterol/Ipratropium (Duoneb 3 Mg/0.5 Mg (3 Ml) Ud) 3 ml IH Q2H PRN PRN Reason: Shortness of Breath Amlodipine Besylate (Norvasc) 10 mg PO DAILY [facility] Last Admin: 10/09/18 09:10 Dose: 10 mg Aspirin (Aspirin Chewable) 81 mg PO DAILY [facility] Last Admin: 10/09/18 09:07 Dose: 81 mg Budesonide (Pulmicort Respules) 0.5 mg IH [id number] [facility] Last Admin: 10/09/18 07:58 Dose: 0.5 mg Diltiazem HCl (Cardizem Cd) 240 mg PO DAILY [facility] Furosemide (Lasix) 40 mg PO 0800,1400 [facility] Last Admin: 10/09/18 09:08 Dose: 40 mg Heparin Sodium (Porcine) (Heparin) 5,000 units SC Q8 [facility]; Protocol Losartan Potassium (Cozaar) 25 mg PO DAILY [facility] Last Admin: 10/09/18 09:09 Dose: 25 mg Metoprolol Tartrate (Lopressor) 25 mg PO BID [facility] Last Admin: 10/09/18 09:07 Dose: 25 mg Prednisone (Prednisone Tab) 20 mg PO DAILY [facility] Last Admin: 10/09/18 09:08 Dose: 20 mg Spironolactone (Aldactone) 25 mg PO DAILY [facility] Last Admin: 10/09/18 09:07 Dose: 25 mg - Labs Labs: 10/09/18 05:30 10/09/18 05:30 PT 14.0 SECONDS (9.4-12.5) H 10/01/18 05:55 INR 1.21 10/01/18 05:55 APTT 23.9 Seconds (25.1-36.5) L 10/05/18 07:35 - Constitutional Appears: Chronically Ill - Head Exam Head Exam: NORMAL INSPECTION - Respiratory Exam Respiratory Exam: Decreased Breath Sounds - Cardiovascular Exam Cardiovascular Exam: +S1, +S2 - GI/Abdominal Exam GI & Abdominal Exam: Soft. absent: Tenderness Assessment and Plan - Assessment and Plan (Free Text) Plan: Assessment S/P healthcare-associated pneumonia with VDRF S/P total knee replacement CAD Dyslipidemia Basal cell CA bladder CA CKD BPH Hypothyroidism atrial fibrillation Plan completed 7 day course of antibiotics - will continue to monitor clinically since he is at risk for nosocomial infections
[2018-10-10] MEDS: Albuterol-Ipratrop 3 mg / 0.5 (3 ml) UD IH SCH ×3 (02:08→13:26)
[2018-10-10] MEDS: Budesonide 0.5 mg/2 ml Inhal Susp UD IH SCH (07:12)
[2018-10-10 08:37] VITALS: TEMP 97.8; O2SAT 98
[2018-10-10] MEDS: diltiaZEM 240 mg/24 Hours CD Cap PO SCH (09:20)
--- NOTE | 2018-10-10 09:24 | CP.PCM.PN ---
Subjective - Date & Time of Evaluation Date of Evaluation: 10/10/18 Time of Evaluation: 07:35 - Subjective Subjective: Awake, sitting side of bed, no distress Reason for consultation and follow up:Cardiac evaluation of systolic dysfunction congestive heart failure, respiratory failure, coronary artery disease, status post TAVR, post watchman procedure for Afib Seen and examined by me and Dr. Harrington Objective - Vital Signs/Intake and Output Vital Signs (last 24 hours): Temp Pulse Resp BP Pulse Ox 97.8 F 55 L 18 99/49 L 98 10/10/18 06:00 10/10/18 06:00 10/10/18 06:00 10/10/18 06:00 10/10/18 06:00 Intake and Output: 10/10/18 10/10/18 06:59 18:59 Intake Total 240 Output Total 600 Balance -360 - Medications Medications: Current Medications Albuterol/Ipratropium (Duoneb 3 Mg/0.5 Mg (3 Ml) Ud) 3 ml IH [id number] [facility] Last Admin: 10/10/18 07:13 Dose: 3 ml Albuterol/Ipratropium (Duoneb 3 Mg/0.5 Mg (3 Ml) Ud) 3 ml IH Q2H PRN PRN Reason: Shortness of Breath Amlodipine Besylate (Norvasc) 10 mg PO DAILY [facility] Last Admin: 10/09/18 09:10 Dose: 10 mg Aspirin (Aspirin Chewable) 81 mg PO DAILY [facility] Last Admin: 10/09/18 09:07 Dose: 81 mg Budesonide (Pulmicort Respules) 0.5 mg IH [id number] [facility] Last Admin: 10/10/18 07:12 Dose: 0.5 mg Diltiazem HCl (Cardizem Cd) 240 mg PO DAILY [facility] Last Admin: 10/09/18 10:48 Dose: Not Given Furosemide (Lasix) 40 mg PO 0800,1400 [facility] Last Admin: 10/09/18 13:39 Dose: Not Given Heparin Sodium (Porcine) (Heparin) 5,000 units SC Q8 [facility]; Protocol Last Admin: 10/10/18 06:32 Dose: 5,000 units Losartan Potassium (Cozaar) 25 mg PO DAILY [facility] Last Admin: 10/09/18 09:09 Dose: 25 mg Prednisone (Prednisone Tab) 15 mg PO DAILY [facility] Spironolactone (Aldactone) 25 mg PO DAILY [facility] Last Admin: 10/09/18 09:07 Dose: 25 mg - Labs Labs: 10/09/18 05:30 10/09/18 05:30 PT 14.0 SECONDS (9.4-12.5) H 10/01/18 05:55 INR 1.21 10/01/18 05:55 APTT 23.9 Seconds (25.1-36.5) L 10/05/18 07:35 - Constitutional Appears: Non-toxic, No Acute Distress - Head Exam Head Exam: NORMAL INSPECTION, NORMOCEPHALIC - Eye Exam Eye Exam: Normal appearance Pupil Exam: NORMAL ACCOMODATION - ENT Exam ENT Exam: Mucous Membranes Moist, Normal Exam - Respiratory Exam Respiratory Exam: Decreased Breath Sounds, Clear to Ausculation Bilateral, NORMAL BREATHING PATTERN - Cardiovascular Exam Cardiovascular Exam: +S1, +S2 - GI/Abdominal Exam GI & Abdominal Exam: Soft, Normal Bowel Sounds - Extremities Exam Extremities Exam: Full ROM Additional comments: 1+edema - Neurological Exam Neurological Exam: Alert, Awake, Oriented x3 - Psychiatric Exam Psychiatric exam: Normal Affect, Normal Mood - Skin Skin Exam: Dry, Normal Color, Warm Assessment and Plan - Assessment and Plan (Free Text) Assessment: An 78 year old male who came in to the ER due to severe respiratory distres s.History of hypertension, CAD, COPD, emphysema, chronic vertigo, bladder cancer, and goiter. History of CAD with PTCA 2013 and 2014, history of severe aortic stenosis post TAVR 03/2017,Watchman procedure for atrial fibrillation May or June 2018. patient unable to take anticoagulation for Afib. History of pneumonia diagnosed 2 weeks ago in [place] and was placed on Levaquin. He was placed on BIPAP initially for respiratory distress however later requiring intunation. Stabilized in ICU,extubated and now transferred to Med/Surg Unit. MUGA scan showed LVEF 62%. Echo shows global hypokinesis,moderate mitral and tricuspid regurgitation. Plan: Symptoms clinically improved Denies shortness of breath Len Mcwilliams spoke to Dr. 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 Harrington
[2018-10-10 09:26] VITALS: BP 124/54; PULSE 54
[2018-10-10] MEDS ORDERED: Potassium Chloride 20 mEq ER Tab PO STA (09:41)
--- NOTE | 2018-10-10 10:15 | CP.PCM.DIS ---
<ParminderJarvis tran - Last Filed: 10/10/18 10:16> Provider - Provider Date of Admission: 10/01/18 07:51 Attending physician: Sixto Dahl MD Primary care physician: Dr. Dahl Consults: 10/01/18 07:54 Cardiology Consult Stat Comment: Consulting Provider: Victor M Acosta Consulting Physician: Victor M Acosta Reason for Consult: CHF exacerbation 10/01/18 07:57 Consult [Physician Consult] Stat Comment: Consulting Provider: Clay Villalba Consulting Physician: Clay Villalba Reason for Consult: severe CAP 10/01/18 11:01 Physician Consult Routine Comment: Consulting Provider: Sixto Dahl Consulting Physician: Sixto Dahl Reason for Consult: FRANCESCA, increased Cr from baseline 10/01/18 11:12 Nursing Referral for Palliative Care Routine Comment: Physician Instructions: Reason For Exam: PT with respiratory failure 10/01/18 11:14 Social Work Referral Routine Comment: Respiratory failure Physician Instructions: Reason For Exam: Respiratory Failure 10/05/18 11:14 Physician Consult Routine Comment: Consulting Provider: Rosas Mccann Consulting Physician: Rosas Mccann Reason for Consult: hypoxic resp failure due to CAP vs CHF 10/07/18 08:07 TCU [Evaluation for TRCU] Routine Comment: Physician Instructions: Reason For Exam: gait dysfunction Time Spent in preparation of Discharge (in minutes): 35 Diagnosis - Discharge Diagnosis (1) FRANCESCA (acute kidney injury) Status: Resolved Priority: Medium (2) Acute hypoxemic respiratory failure Status: Resolved Priority: High (3) CHF exacerbation Status: Resolved Priority: Medium (4) Pneumonia Status: Resolved Priority: Medium Hospital Course - Lab Results Lab Results: Micro Results 10/08/18 19:30 Blood Blood Culture - Preliminary NO GROWTH AFTER 24 HOURS 10/08/18 19:00 Blood Blood Culture - Preliminary NO GROWTH AFTER 24 HOURS 10/01/18 06:30 Blood-Venous Blood Culture - Final NO GROWTH AFTER 5 DAYS 10/01/18 06:30 Blood-Venous Gram Stain - Final TEST NOT PERFORMED 10/01/18 06:30 Blood-Venous Blood Culture - Final NO GROWTH AFTER 5 DAYS 10/01/18 06:30 Blood-Venous Gram Stain - Final TEST NOT PERFORMED 10/02/18 08:17 Sputum Induced Gram Stain - Final 10/02/18 08:17 Sputum Induced Sputum Culture - Final No growth. 10/01/18 15:21 Urine,Catheterized Urine Culture - Final No Growth (<1,000 CFU/ML) 10/01/18 09:20 Naris MRSA Culture (Admit) - Final MRSA NOT DETECTED Most Recent Lab Values WBC 16.4 10^3/uL (4.5-11.0) H 10/09/18 05:30 RBC 4.36 10^6/uL (3.5-6.1) 10/09/18 05:30 Hgb 12.7 g/dL (14.0-18.0) L 10/09/18 05:30 Hct 40.9 % (42.0-52.0) L 10/09/18 05:30 MCV 93.8 fl (80.0-105.0) 10/09/18 05:30 MCH 29.1 pg (25.0-35.0) 10/09/18 05:30 MCHC 31.1 g/dl (31.0-37.0) 10/09/18 05:30 RDW 15.0 % (11.5-14.5) H 10/09/18 05:30 Plt Count 165 10^3/uL (120.0-450.0) 10/09/18 05:30 MPV 9.3 fl (7.0-11.0) 10/09/18 05:30 Gran % 74.1 % (50.0-68.0) H 10/08/18 05:20 Lymph % (Auto) 12.9 % (22.0-35.0) L 10/08/18 05:20 Barber % (Auto) 12.7 % (1.0-6.0) H 10/08/18 05:20 Eos % (Auto) 0.2 % (1.5-5.0) L 10/08/18 05:20 Baso % (Auto) 0.1 % (0.0-3.0) 10/08/18 05:20 Gran # 13.37 (1.4-6.5) H 10/08/18 05:20 Lymph # (Auto) 2.3 (1.2-3.4) 10/08/18 05:20 Barber # (Auto) 2.3 (0.1-0.6) H 10/08/18 05:20 Eos # (Auto) 0.0 (0.0-0.7) 10/08/18 05:20 Baso # (Auto) 0.02 K/mm3 (0.0-2.0) 10/08/18 05:20 PT 14.0 SECONDS (9.4-12.5) H 10/01/18 05:55 INR 1.21 10/01/18 05:55 APTT 23.9 Seconds (25.1-36.5) L 10/05/18 07:35 pCO2 48 mm/Hg (35-45) H 10/06/18 05:30 pO2 182.0 mm/Hg (80-100) H 10/06/18 05:30 HCO3 31.9 mmol/L (21-28) H 10/06/18 05:30 ABG pH 7.43 (7.35-7.45) 10/06/18 05:30 ABG Total CO2 33.4 mmol.L (22-28) H 10/06/18 05:30 ABG O2 Saturation 99.2 % (95-98) H 10/06/18 05:30 ABG O2 Content 22.2 ML/dl (15-23) 10/06/18 05:30 ABG Base Excess 6.2 mmol/L (-2.0-3.0) H 10/06/18 05:30 ABG Hemoglobin 16.0 g/dL (11.7-17.4) 10/06/18 05:30 ABG Carboxyhemoglobin 1.2 % (0.5-1.5) 10/06/18 05:30 POC ABG HHb (Measured) 0.8 % (0-5) 10/06/18 05:30 ABG Methemoglobin 0.9 % (0.0-3.0) 10/06/18 05:30 ABG O2 Capacity 22.4 mL/dl (16-24) 10/06/18 05:30 ABG Potassium 3.6 mmol/L (3.6-5.2) 10/01/18 10:10 Hgb O2 Saturation 97.1 % (95.0-98.0) 10/06/18 05:30 Sodium 139.0 mmol/L (132-148) 10/01/18 10:10 Chloride 107.0 mmol/L (98-107) 10/01/18 10:10 Glucose 141 mg/dl (75-110) H 10/01/18 10:10 Lactate 1.2 mmol/L (0.7-2.1) 10/01/18 10:10 Mechanical Rate 20 10/01/18 10:10 FiO2 60.0 % 10/06/18 05:30 Tidal Volume 400 10/01/18 10:10 PEEP 15 10/01/18 10:10 Sodium 138 mmol/L (132-148) 10/09/18 05:30 Potassium 3.4 mmol/L (3.6-5.0) L 10/09/18 05:30 Chloride 94 mmol/L (98-107) L 10/09/18 05:30 Carbon Dioxide 37 mmol/L (21-33) H 10/09/18 05:30 Anion Gap 10 (10-20) 10/09/18 05:30 BUN 67 mg/dL (7-21) H 10/09/18 05:30 Creatinine 1.2 mg/dl (0.8-1.5) 10/09/18 05:30 Est GFR ( Amer) > 60 10/09/18 05:30 Est GFR (Non-Af Amer) 58 10/09/18 05:30 POC Glucose (mg/dL) 99 mg/dL (65-110) 10/07/18 21:39 Random Glucose 105 mg/dL (70-110) 10/09/18 05:30 Hemoglobin A1c 6.4 % (4.2-6.5) 10/02/18 05:30 Calcium 9.1 mg/dL (8.4-10.5) 10/09/18 05:30 Phosphorus 3.5 mg/dL (2.5-4.5) 10/08/18 05:20 Magnesium 2.8 mg/dL (1.7-2.2) H 10/08/18 05:20 Iron 137 ug/dL (45-180) 10/06/18 05:15 TIBC 344 ug/dL (261-462) 10/06/18 05:15 % Saturation 40 % (20-55) 10/06/18 05:15 Ferritin 121.0 ng/mL 10/05/18 15:16 Total Bilirubin 1.2 mg/dL (0.2-1.3) 10/09/18 05:30 AST 58 U/L (17-59) 10/09/18 05:30 ALT 83 U/L (7-56) H 10/09/18 05:30 Alkaline Phosphatase 77 U/L (38-126) 10/09/18 05:30 Lactate Dehydrogenase 852 U/L (333-699) H 10/01/18 05:55 Total Creatine Kinase 95 U/L (35-230) 10/01/18 05:55 Troponin I 0.02 ng/mL 10/01/18 05:55 NT-Pro-B Natriuret Pep 2030 pg/mL (0-450) H 10/01/18 05:55 Total Protein 7.2 g/dL (5.8-8.3) 10/09/18 05:30 Albumin 3.8 g/dL (3.0-4.8) 10/09/18 05:30 Globulin 3.3 gm/dL 10/09/18 05:30 Albumin/Globulin Ratio 1.1 (1.1-1.8) 10/09/18 05:30 Triglycerides 120 mg/dL (35-160) 10/02/18 05:30 Cholesterol 91 mg/dL (130-200) L 10/02/18 05:30 LDL Cholesterol Direct 52 mg/dL (0-129) 10/02/18 05:30 HDL Cholesterol 31 mg/dL (29-60) 10/02/18 05:30 Procalcitonin 0.10 NG/ML (0.19-0.49) L 10/08/18 19:00 TSH 3rd Generation 0.62 mIU/mL (0.46-4.68) 10/02/18 05:30 Arterial Blood Potassium 3.6 mmol/L (3.6-5.2) 10/01/18 10:10 Urine Color Light red (YELLOW) 10/07/18 17:00 Urine Appearance Cloudy (CLEAR) 10/07/18 17:00 Urine pH 6.0 (4.7-8.0) 10/07/18 17:00 Ur Specific [place] 1.015 (1.005-1.035) 10/07/18 17:00 Urine Protein 30 mg/dL (<30 mg/dL) H 10/07/18 17:00 Urine Glucose (UA) Negative mg/dL (NEGATIVE) 10/07/18 17:00 Urine Ketones Negative mg/dL (NEGATIVE) 10/07/18 17:00 Urine Blood Large (NEGATIVE) H 10/07/18 17:00 Urine Nitrate Negative (NEGATIVE) 10/07/18 17:00 Urine Bilirubin Negative (NEGATIVE) 10/07/18 17:00 Urine Urobilinogen 0.2 E.U./dL (<1 E.U./dL) 10/07/18 17:00 Ur Leukocyte Esterase Small Lorrie/uL (NEGATIVE) H 10/07/18 17:00 Urine RBC Tntc /hpf (0-2) 10/07/18 17:00 Urine WBC 10 - 15 /hpf (0-6) 10/07/18 17:00 Ur Epithelial Cells 6 - 8 /hpf (0-5) 10/07/18 17:00 Triple Phos Crystals Small /hpf 10/04/18 07:30 Amorphous Sediment Few 10/04/18 07:30 Urine Bacteria Few (NEG) 10/07/18 17:00 Fine Granular Casts 0 - 2 /hpf (0-2) 10/04/18 07:30 Urine Other Uyeast 10/04/18 07:30 Ur Random Creatinine 81 mg/dL (20-320) 10/03/18 12:30 Urine Total Volume 0.5 mg/dL 10/03/18 12:30 Urine Microalbumin 44.6 mg/L (0.0-16.6) H 10/01/18 15:25 Microalb/Creat Ratio 6 (<30) 10/03/18 12:30 Influenza Typ A,B (EIA) Negative for flu a/b (NEGATIVE) 10/01/18 07:45 Ur L.pneumophila Ag Negative (NEGATIVE) 10/01/18 15:31 Pneumocystis Source Serum 10/01/18 07:30 S. pneumoniae Antigen Not detected 10/01/18 07:30 - Hospital Course Hospital Course: This is a 78 yo M with PMH of HTN, CAD (x2 stents in 2013 and 2014), bioprosthetic aortic valve replacement (2017), Watchman device at [facility] for paroxysmal afib, COPD, CHF, chronic vertigo, L-knee replacement (2016), and bladder cancer who presented to the ICU for hypoxic respiratory failure 2/2 CAP vs CHF exacerbation. He developed worsening FRANCESCA overlying CKD due to aggressive diuresis, but this has improved after improvement of CHF exacerbation/fluid overloaded state and decreased diuresis. He has completed a course of antibiotics as per ID, and repeat cultures obtained after hypothermic temps overnight and complaint of malaise were negative for new infectious process. Today on exam, patient reports feeling better overall. Anxious to be discharged to rehab so he can begin reconditioning. Denies dizziness, fatigue, fevers, chills, cough, shortness of breath, or chest pain. Patient was given script for 5 days of PO steroids to complete short course (weaned down from IV steroids), a script for Cardizem CD (as per Cardio's recs given persistent bradycardia on prior regimen), and was instructed to stop his home metoprolol and QID Cardizem. He was instructed to resume his other home medications as previously prescribed. He was also instructed to follow up with his PMD (Dr. Dahl) and his Home Decorator within 1 week of discharge. Patient expressed understanding and agreement with these instructions. He was then discharged to [facility]. Reviewed and discussed with attending, Dr. Dahl. Discharge Exam - Additional Findings Additional findings: - Constitutional Appears: Awake and alert, no acute distress - Head Exam Head Exam: ATRAUMATIC, NORMOCEPHALIC - Eye Exam Eye Exam: Normal appearance. absent: Conjunctival injection, Scleral icterus Pupil Exam: absent: Irregular, Unequal - ENT Exam ENT Exam: Mucous Membranes Moist - Neck Exam Neck Exam: absent: Lymphadenopathy - Respiratory Exam Respiratory Exam: Clear to auscultation. absent: Rales, Rhonchi, Wheezes - Cardiovascular Exam Cardiovascular Exam: +S1, +S2, Bradycardic to 50's but regular rhythm. absent: JVD - GI/Abdominal Exam GI & Abdominal Exam: Soft, Normal Bowel Sounds. absent: Firm, Rigid, Diminished Bowel Sounds, Hyperactive Bowel Sounds, Hypoactive Bowel Sounds, Tenderness - Extremities Exam Extremities Exam: Pedal Edema (+trace pitting in bilateral LE from feet to bottom 1/3rd of shins), no tenderness - Neurological Exam Awake and alert, following all commands, moving all extremities spontaneously - Psychiatric Exam Normal mood and affect - Skin Skin Exam: Dry, Intact, Normal Color, Warm Discharge Plan - Discharge Medications Prescriptions: RX: diltiaZEM CD [Cardizem CD] 240 mg PO DAILY #30 cap RX: predniSONE [predniSONE Tab] 20 mg PO DAILY #5 tab - Follow Up Plan Condition: GUARDED Disposition: REHAB FACILITY/REHAB UNIT Patient education suggested?: Yes Instructions: Adult Respiratory Distress Syndrome, Heart Failure, Adult (DC), Shortness of Breath (Dyspnea) (DC) Referrals: Victor M Acosta MD [Staff Provider] - Sixto Dahl MD [Family Provider] - <Sixto Dahl - Last Filed: 10/10/18 17:09> Provider - Provider Date of Admission: 10/01/18 07:51 Attending physician: Sixto Dahl MD Consults: 10/01/18 07:54 Cardiology Consult Stat Comment: Consulting Provider: Victor M Acosta Consulting Physician: Victor M Acosta Reason for Consult: CHF exacerbation 10/01/18 07:57 Consult [Physician Consult] Stat Comment: Consulting Provider: Clay Villalba Consulting Physician: Clay Villalba Reason for Consult: severe CAP 10/01/18 11:01 Physician Consult Routine Comment: Consulting Provider: Sixto Dahl Consulting Physician: Sixto Dahl Reason for Consult: FRANCESCA, increased Cr from baseline 10/01/18 11:12 Nursing Referral for Palliative Care Routine Comment: Physician Instructions: Reason For Exam: PT with respiratory failure 10/01/18 11:14 Social Work Referral Routine Comment: Respiratory failure Physician Instructions: Reason For Exam: Respiratory Failure 10/05/18 11:14 Physician Consult Routine Comment: Consulting Provider: Rosas Mccann Consulting Physician: Rosas Mccann Reason for Consult: hypoxic resp failure due to CAP vs CHF 10/07/18 08:07 TCU [Evaluation for TRCU] Routine Comment: Physician Instructions: Reason For Exam: gait dysfunction Hospital Course - Lab Results Lab Results: Micro Results 10/08/18 23:28 Urine,Clean Catch Urine Culture - Final No Growth (<1,000 CFU/ML) 10/08/18 19:30 Blood Blood Culture - Preliminary NO GROWTH AFTER 24 HOURS 10/08/18 19:00 Blood Blood Culture - Preliminary NO GROWTH AFTER 24 HOURS 10/01/18 06:30 Blood-Venous Blood Culture - Final NO GROWTH AFTER 5 DAYS 10/01/18 06:30 Blood-Venous Gram Stain - Final TEST NOT PERFORMED 10/01/18 06:30 Blood-Venous Blood Culture - Final NO GROWTH AFTER 5 DAYS 10/01/18 06:30 Blood-Venous Gram Stain - Final TEST NOT PERFORMED 10/02/18 08:17 Sputum Induced Gram Stain - Final 10/02/18 08:17 Sputum Induced Sputum Culture - Final No growth. 10/01/18 15:21 Urine,Catheterized Urine Culture - Final No Growth (<1,000 CFU/ML) 10/01/18 09:20 Naris MRSA Culture (Admit) - Final MRSA NOT DETECTED Most Recent Lab Values WBC 16.4 10^3/uL (4.5-11.0) H 10/09/18 05:30 RBC 4.36 10^6/uL (3.5-6.1) 10/09/18 05:30 Hgb 12.7 g/dL (14.0-18.0) L 10/09/18 05:30 Hct 40.9 % (42.0-52.0) L 10/09/18 05:30 MCV 93.8 fl (80.0-105.0) 10/09/18 05:30 MCH 29.1 pg (25.0-35.0) 10/09/18 05:30 MCHC 31.1 g/dl (31.0-37.0) 10/09/18 05:30 RDW 15.0 % (11.5-14.5) H 10/09/18 05:30 Plt Count 165 10^3/uL (120.0-450.0) 10/09/18 05:30 MPV 9.3 fl (7.0-11.0) 10/09/18 05:30 Gran % 74.1 % (50.0-68.0) H 10/08/18 05:20 Lymph % (Auto) 12.9 % (22.0-35.0) L 10/08/18 05:20 Barber % (Auto) 12.7 % (1.0-6.0) H 10/08/18 05:20 Eos % (Auto) 0.2 % (1.5-5.0) L 10/08/18 05:20 Baso % (Auto) 0.1 % (0.0-3.0) 10/08/18 05:20 Gran # 13.37 (1.4-6.5) H 10/08/18 05:20 Lymph # (Auto) 2.3 (1.2-3.4) 10/08/18 05:20 Barber # (Auto) 2.3 (0.1-0.6) H 10/08/18 05:20 Eos # (Auto) 0.0 (0.0-0.7) 10/08/18 05:20 Baso # (Auto) 0.02 K/mm3 (0.0-2.0) 10/08/18 05:20 PT 14.0 SECONDS (9.4-12.5) H 10/01/18 05:55 INR 1.21 10/01/18 05:55 APTT 23.9 Seconds (25.1-36.5) L 10/05/18 07:35 pCO2 48 mm/Hg (35-45) H 10/06/18 05:30 pO2 182.0 mm/Hg (80-100) H 10/06/18 05:30 HCO3 31.9 mmol/L (21-28) H 10/06/18 05:30 ABG pH 7.43 (7.35-7.45) 10/06/18 05:30 ABG Total CO2 33.4 mmol.L (22-28) H 10/06/18 05:30 ABG O2 Saturation 99.2 % (95-98) H 10/06/18 05:30 ABG O2 Content 22.2 ML/dl (15-23) 10/06/18 05:30 ABG Base Excess 6.2 mmol/L (-2.0-3.0) H 10/06/18 05:30 ABG Hemoglobin 16.0 g/dL (11.7-17.4) 10/06/18 05:30 ABG Carboxyhemoglobin 1.2 % (0.5-1.5) 10/06/18 05:30 POC ABG HHb (Measured) 0.8 % (0-5) 10/06/18 05:30 ABG Methemoglobin 0.9 % (0.0-3.0) 10/06/18 05:30 ABG O2 Capacity 22.4 mL/dl (16-24) 10/06/18 05:30 ABG Potassium 3.6 mmol/L (3.6-5.2) 10/01/18 10:10 Hgb O2 Saturation 97.1 % (95.0-98.0) 10/06/18 05:30 Sodium 139.0 mmol/L (132-148) 10/01/18 10:10 Chloride 107.0 mmol/L (98-107) 10/01/18 10:10 Glucose 141 mg/dl (75-110) H 10/01/18 10:10 Lactate 1.2 mmol/L (0.7-2.1) 10/01/18 10:10 Mechanical Rate 20 10/01/18 10:10 FiO2 60.0 % 10/06/18 05:30 Tidal Volume 400 10/01/18 10:10 PEEP 15 10/01/18 10:10 Sodium 138 mmol/L (132-148) 10/09/18 05:30 Potassium 3.4 mmol/L (3.6-5.0) L 10/09/18 05:30 Chloride 94 mmol/L (98-107) L 10/09/18 05:30 Carbon Dioxide 37 mmol/L (21-33) H 10/09/18 05:30 Anion Gap 10 (10-20) 10/09/18 05:30 BUN 67 mg/dL (7-21) H 10/09/18 05:30 Creatinine 1.2 mg/dl (0.8-1.5) 10/09/18 05:30 Est GFR ( Amer) > 60 10/09/18 05:30 Est GFR (Non-Af Amer) 58 10/09/18 05:30 POC Glucose (mg/dL) 99 mg/dL (65-110) 10/07/18 21:39 Random Glucose 105 mg/dL (70-110) 10/09/18 05:30 Hemoglobin A1c 6.4 % (4.2-6.5) 10/02/18 05:30 Calcium 9.1 mg/dL (8.4-10.5) 10/09/18 05:30 Phosphorus 3.5 mg/dL (2.5-4.5) 10/08/18 05:20 Magnesium 2.8 mg/dL (1.7-2.2) H 10/08/18 05:20 Iron 137 ug/dL (45-180) 10/06/18 05:15 TIBC 344 ug/dL (261-462) 10/06/18 05:15 % Saturation 40 % (20-55) 10/06/18 05:15 Ferritin 121.0 ng/mL 10/05/18 15:16 Total Bilirubin 1.2 mg/dL (0.2-1.3) 10/09/18 05:30 AST 58 U/L (17-59) 10/09/18 05:30 ALT 83 U/L (7-56) H 10/09/18 05:30 Alkaline Phosphatase 77 U/L (38-126) 10/09/18 05:30 Lactate Dehydrogenase 852 U/L (333-699) H 10/01/18 05:55 Total Creatine Kinase 95 U/L (35-230) 10/01/18 05:55 Troponin I 0.02 ng/mL 10/01/18 05:55 NT-Pro-B Natriuret Pep 2030 pg/mL (0-450) H 10/01/18 05:55 Total Protein 7.2 g/dL (5.8-8.3) 10/09/18 05:30 Albumin 3.8 g/dL (3.0-4.8) 10/09/18 05:30 Globulin 3.3 gm/dL 10/09/18 05:30 Albumin/Globulin Ratio 1.1 (1.1-1.8) 10/09/18 05:30 Triglycerides 120 mg/dL (35-160) 10/02/18 05:30 Cholesterol 91 mg/dL (130-200) L 10/02/18 05:30 LDL Cholesterol Direct 52 mg/dL (0-129) 10/02/18 05:30 HDL Cholesterol 31 mg/dL (29-60) 10/02/18 05:30 Procalcitonin 0.10 NG/ML (0.19-0.49) L 10/08/18 19:00 TSH 3rd Generation 0.62 mIU/mL (0.46-4.68) 10/02/18 05:30 Arterial Blood Potassium 3.6 mmol/L (3.6-5.2) 10/01/18 10:10 Urine Color Light red (YELLOW) 10/07/18 17:00 Urine Appearance Cloudy (CLEAR) 10/07/18 17:00 Urine pH 6.0 (4.7-8.0) 10/07/18 17:00 Ur Specific [place] 1.015 (1.005-1.035) 10/07/18 17:00 Urine Protein 30 mg/dL (<30 mg/dL) H 10/07/18 17:00 Urine Glucose (UA) Negative mg/dL (NEGATIVE) 10/07/18 17:00 Urine Ketones Negative mg/dL (NEGATIVE) 10/07/18 17:00 Urine Blood Large (NEGATIVE) H 10/07/18 17:00 Urine Nitrate Negative (NEGATIVE) 10/07/18 17:00 Urine Bilirubin Negative (NEGATIVE) 10/07/18 17:00 Urine Urobilinogen 0.2 E.U./dL (<1 E.U./dL) 10/07/18 17:00 Ur Leukocyte Esterase Small Lorrie/uL (NEGATIVE) H 10/07/18 17:00 Urine RBC Tntc /hpf (0-2) 10/07/18 17:00 Urine WBC 10 - 15 /hpf (0-6) 10/07/18 17:00 Ur Epithelial Cells 6 - 8 /hpf (0-5) 10/07/18 17:00 Triple Phos Crystals Small /hpf 10/04/18 07:30 Amorphous Sediment Few 10/04/18 07:30 Urine Bacteria Few (NEG) 10/07/18 17:00 Fine Granular Casts 0 - 2 /hpf (0-2) 10/04/18 07:30 Urine Other Uyeast 10/04/18 07:30 Ur Random Creatinine 81 mg/dL (20-320) 10/03/18 12:30 Urine Total Volume 0.5 mg/dL 10/03/18 12:30 Urine Microalbumin 44.6 mg/L (0.0-16.6) H 10/01/18 15:25 Microalb/Creat Ratio 6 (<30) 10/03/18 12:30 Influenza Typ A,B (EIA) Negative for flu a/b (NEGATIVE) 10/01/18 07:45 Ur L.pneumophila Ag Negative (NEGATIVE) 10/01/18 15:31 Pneumocystis Source Serum 10/01/18 07:30 S. pneumoniae Antigen Not detected 10/01/18 07:30 - Hospital Course Hospital Course: Pt seen and examined. I have reviewed the note of the medical observer and agree with it. I have discussed the assessment and plan with the resident. I have reviewed the patient's labs and medications. Pt is feeling well and will be discharged to [facility] for JAMIE. His FRANCESCA has resolved. He had acute CHF due to systolic dysfunction and that has improved. He is able to ambulate. He has a tapering dose of steroids. He will continue with Metoprolol and Cardizem.
--- NOTE | 2018-10-10 10:22 | PN ---
DATE: 10/10/2018 SUBJECTIVE: The patient is seen earlier today in 566, bed 2. No fevers and no chills. OBJECTIVE: VITAL SIGNS: Temperature is 98, blood pressure is 120/50, respiratory rate of 18. HEENT: Unremarkable. NECK: Supple. LUNGS: Have decreased breath sounds. HEART: Normal S1, S2. ABDOMEN: Soft, nontender. LABORATORY EXAMINATION: Reveals a white count of 16,400, hemoglobin of 12, platelets of 165. BUN of 67, creatinine of 1.2. Urinalysis is noted and serology is negative and microbiology reveals blood cultures are no growth and urine cultures no growth. Nares negative. ASSESSMENT AND PLAN: An 78-year-old male was seen in 566, bed 2. He is admitted and had healthcare-associated pneumonia, ventilatory dependent respiratory failure, total knee replacement and coronary artery disease, basal cell cancer and has completed 7 days of course of antibiotics. Currently, the patient is off of antibiotics, afebrile and review of orders confirms the patient to be off of antibiotics, and the patient is on prednisone and does have a white count of 16,400. Old blood cultures negative. Old cultures are negative including the urine and sputum and methicillin-resistant Staphylococcus cultures are also negative. Clay Villalba MD
--- NOTE | 2018-10-10 11:09 | PN ---
DATE: 10/10/2018 REASON FOR CONSULTATION AND FOLLOWUP: Cardiac evaluation, systolic dysfunction, congestive heart failure, respiratory failure status post Watchman procedure for AFib. The patient cannot tolerate anticoagulation. The patient feels a lot better. Denies any chest pain, shortness of breath, or any palpitation. Discussed at length with the patient. Upon discharge, the patient go to the rehab and then upon discharge was seeing Dr. Tang. Suggested cardiac catheterization, discussed with the , left the message in the phone. This note is in addition to dictated by nurse practitioner. RECOMMENDATION: Continue spironolactone once a day. Continue baby aspirin. Continue Cardizem 240 mg daily. Continue losartan 25 mg daily. Continue DVT prophylaxis. Continue amlodipine and we will change Lasix to 40 once a day. We will supplement K-dur [address] Dahl for providing us the opportunity in taking care of the patient, Andrez Coelho. We will supplement potassium. This note is in addition to dictated by nurse practitioner, Mayela Kauffman. Victor M Harrington MD
--- NOTE | 2018-10-10 13:29 | PN ---
DATE: 10/10/2018 PULMONARY PROGRESS NOTE SUBJECTIVE: Andrez feels markedly improved this morning. He is anticipating being discharged today. OBJECTIVE: VITAL SIGNS:: Remain stable. He is afebrile with a normal pulse and respiratory rate. His blood pressure is 120/60, oxygen saturation is 100% on room air. HEENT: Normocephalic, atraumatic. NECK: Supple. No JVD. No lymphadenopathy. No bruit. CARDIOVASCULAR: Regular rhythm. S1, S2. Soft systolic ejection murmur at the lower left sternal border, otherwise normal. CHEST: Breath sounds markedly improved without rales, rhonchi or wheezing. There are distant breath sounds, however, not different than his baseline. ABDOMEN: Soft. Bowel sounds normoactive without mass, guarding, rebound or organomegaly. EXTREMITIES: Reveal no clubbing, cyanosis or edema. There is no Homans sign. SKIN: Shows no rash or excoriation. NEUROLOGICAL: Awake, alert, oriented without focal findings. LABORATORY DATA: Chest x-ray was reviewed, asked by Dr. Mccann, with further clearing of pulmonary vascular congestion. CLINICAL IMPRESSION: 1. Status post respiratory failure. 2. Recurrent congestive heart failure - resolved. 3. Cardiomyopathy. 4. Possible underlying pneumonitis. 5. Chronic obstructive pulmonary disease - stable at this time. 6. Renal insufficiency. 7. Coronary artery disease. PLAN: Continue vigorous bronchodilators, corticosteroids and diuretic therapy. Antibiotics should continue as well. The patient is clinically improving. He needs close followup as an outpatient once he is discharged. Labs need to be reviewed prior to discharge. The patient has rapid significant cardiovascular disease and this is clearly more serious than his underlying pulmonary disease. He needs close observation by Cardiology due to his severe cardiomyopathy and recurrent pulmonary vascular congestion. We will be happy to follow closely with you as an outpatient and see him periodically as necessary. We will continue to follow him should he remain in the hospital for additional time. Thank you for the opportunity to have to see Mr. Coelho once again. Vidal Mata MD
== END 2018-10-10 17:00 | DRG 208 ==
LOC: ED 05:51 → ERH 07:51 → ICU 09:01 → 5RNO 10-09 12:48
PROVIDERS: ADMIT Internal Medicine Medical Oncology; ATTEND Internal Medicine Nephrology
PROC: 5A1945Z Respiratory Ventilation, 24-96 Consecutive Hours (ICD-10-PCS; principal; 2018-10-01)
PROC: 0BH17EZ Insertion of Endotracheal Airway into Trachea, Via Natural or Artificial Opening (ICD-10-PCS; 2018-10-01)
PROC: 5A09457 Assistance with Respiratory Ventilation, 24-96 Consecutive Hours, Continuous Positive Airway Pressure (ICD-10-PCS; 2018-10-05)
DX: J96.01 Acute respiratory failure with hypoxia (principal); I50.43 Acute on chronic combined systolic (congestive) and diastolic (congestive) heart failure; J18.9 Pneumonia, unspecified organism; I13.0 Hypertensive heart and chronic kidney disease with heart failure and stage 1 through stage 4 chronic kidney disease, or unspecified chronic kidney disease; J44.0 Chronic obstructive pulmonary disease with (acute) lower respiratory infection; N17.9 Acute kidney failure, unspecified; Z68.41 Body mass index [BMI] 40.0-44.9, adult; J44.1 Chronic obstructive pulmonary disease with (acute) exacerbation; I42.9 Cardiomyopathy, unspecified; Z99.11 Dependence on respirator [ventilator] status; Z85.51 Personal history of malignant neoplasm of bladder; I25.10 Atherosclerotic heart disease of native coronary artery without angina pectoris; N18.3 Chronic kidney disease, stage 3 (moderate); R42 Dizziness and giddiness; E04.9 Nontoxic goiter, unspecified; Z79.82 Long term (current) use of aspirin; E03.9 Hypothyroidism, unspecified; Z87.891 Personal history of nicotine dependence; I48.0 Paroxysmal atrial fibrillation; I44.7 Left bundle-branch block, unspecified; Z95.3 Presence of xenogenic heart valve; Z79.01 Long term (current) use of anticoagulants; E11.22 Type 2 diabetes mellitus with diabetic chronic kidney disease; E66.01 Morbid (severe) obesity due to excess calories; E11.65 Type 2 diabetes mellitus with hyperglycemia; Z85.828 Personal history of other malignant neoplasm of skin; D64.9 Anemia, unspecified; E78.5 Hyperlipidemia, unspecified; F40.240 Claustrophobia; G47.33 Obstructive sleep apnea (adult) (pediatric); I08.3 Combined rheumatic disorders of mitral, aortic and tricuspid valves; I45.81 Long QT syndrome; N40.0 Benign prostatic hyperplasia without lower urinary tract symptoms; Y95 Nosocomial condition; Z79.899 Other long term (current) drug therapy; Z86.010 Personal history of colon polyps; Z87.01 Personal history of pneumonia (recurrent); Z88.0 Allergy status to penicillin; Z88.1 Allergy status to other antibiotic agents; Z95.5 Presence of coronary angioplasty implant and graft; Z96.652 Presence of left artificial knee joint; Z88.7 Allergy status to serum and vaccine; Z87.892 Personal history of anaphylaxis

== ENCOUNTER 2018-12-03 09:45 | Inpatient (IN) | payer MEDICARE ==
[2018-12-03 09:49] VITALS: BMI 36.6
[2018-12-03] MEDS ORDERED: Albuterol-Ipratrop 3 mg / 0.5 (3 ml) UD IH STA (09:55)
--- NOTE | 2018-12-03 10:11 | ED PDOC ---
Arrival/HPI - General Chief Complaint: Shortness Of Breath Time Seen by Provider: 12/03/18 09:47 Historian: Patient - History of Present Illness Narrative History of Present Illness (Text): 12/03/18 10:08 78 year old male, on lasix, whose past medical history includes hypertension, CHF, CAD, hypothyroidism, AV replacement, proximal A-fib with watchman device, COPD, emphysema, chronic vertigo, bladder cancer, and goiter, who presents to the emergency department complaining of shortness of breath since last night. Patient states his shortness of breath is intermittent and worsens with activity and ambulation. He denies fevers, chills, headache, dizziness, chest pain, abdominal pain, nausea, vomiting, diarrhea, back pain, neck pain, or any other complaint. PMD: Dr. Dahl Admissions Director: DR. Mata Process Engineering Technician: Dr. Matos Time/Duration: 24 hours Symptom Onset: Gradual Symptom Course: Unchanged Activities at Onset: Light Context: Home Past Medical History - Provider Review Nursing Documentation Reviewed: Yes - Infectious Disease Hx of Infectious Diseases: None - Tetanus Immunization Tetanus Immunization: Unknown - Cardiac Hx Cardiac Disorders: Yes (CAD) Hx Congestive Heart Failure: Yes Hx Hypertension: Yes Other/Comment: aortic valve replacement. stents x 2 - Pulmonary Hx Chronic Obstructive Pulmonary Disease (COPD): Yes (Emphysema) - Neurological Hx Neurological Disorder: Yes Hx Dizziness: Yes (VERTIGO) - HEENT Hx HEENT Disorder: No - Renal Hx Renal Disorder: Yes Other/Comment: LOW GRADE BLADDER CA - Endocrine/Metabolic Hx Endocrine Disorders: No - Hematological/Oncological Hx Blood Disorders: Yes Hx Cancer: Yes (BASAL CELL -FACE,LOW GRADE BLADDER CA) - Integumentary Hx Dermatological Disorder: Yes Hx Basal Cell Carcinoma: Yes (FACE) - Musculoskeletal/Rheumatological Hx Arthritis: Yes (KNEE WITH TOTAL KNEE REPLACEMENT 01-03-16) - Gastrointestinal Hx Gastrointestinal Disorders: No Other/Comment: COLON POLYPS, - Genitourinary/Gynecological Hx Genitourinary Disorders: Yes Hx Hematuria: Yes (MINIMAL HEMATURIA H/O) Other/Comment: UVULECTOMY - Psychiatric Hx Psychophysiologic Disorder: Yes Hx Depression: Yes Hx Substance Use: No Other/Comment: SMOKED CIGARETTES,SEVERE CLAUSTROPHOBIA - Past Surgical History Past Surgical History: Non-Contributing - Surgical History Hx Coronary Stent: Yes ( x2) Hx Orthopedic Surgery: Yes (left knee replacement) Other/Comment: TOTAL KNEE REPLACEMENT LEFT KNEE 01-03-16 aortic valve replacement 03/25. Watchmen - Anesthesia Hx Anesthesia: Yes Hx Anesthesia Reactions: No Hx Malignant Hyperthermia: No - Suicidal Assessment Feels Threatened In Home Enviroment: No Family/Social History - Physician Review Nursing Documentation Reviewed: Yes Family/Social History: No Known Family HX Smoking Status: Former Smoker Hx Alcohol Use: No Hx Substance Use: No Allergies/Home Meds Allergies/Adverse Reactions: Allergies Tetanus Vaccines and Toxoid [Tetanus Vaccines & Toxoid] Allergy (Severe, Verified 12/03/18 11:50) ANAPHYLAXIS tetracycline Allergy (Severe, Verified 12/03/18 11:50) ANAPHYLAXIS cefepime Allergy (Verified 12/03/18 11:50) RASH Penicillins Allergy (Verified 12/03/18 11:50) SWELLING Home Medications: Home Meds Medication Instructions Recorded Confirmed Aspirin [Ecotrin] 81 mg PO DAILY 01/04/17 12/03/18 Atorvastatin [Lipitor] 40 mg PO HS 01/04/17 12/03/18 Doxepin [Sinequan] 50 mg PO HS 01/04/17 12/03/18 Finasteride [Proscar] 5 mg PO DAILY 01/04/17 12/03/18 Levothyroxine [Synthroid] 75 mcg PO DAILY 01/04/17 12/03/18 Fluticasone/Vilanterol [Breo 1 inhaler INH DAILY 05/12/17 12/03/18 Ellipta 100-25 Mcg INH] Tiotropium [Spiriva] 1 inhaler INH BID 05/12/17 12/03/18 Albuterol Sulfate [Proair 90 mcg IH PRN PRN 07/05/18 12/03/18 Respiclick] Furosemide [Lasix] 40 mg PO BID 12/03/18 12/03/18 Lisinopril [Zestril] 1 tab PO DAILY 12/03/18 12/03/18 [id number] CD [Cardizem CD] 60 mg PO QID 12/03/18 12/03/18 Review of Systems - Physician Review All systems were reviewed & negative as marked: Yes - Review of Systems Constitutional: absent: Fevers Eyes: absent: Vision Changes Respiratory: SOB. absent: Cough Cardiovascular: absent: Chest Pain Gastrointestinal: absent: Abdominal Pain, Diarrhea, Nausea, Vomiting Musculoskeletal: absent: Back Pain, Neck Pain Neurological: absent: Headache, Dizziness Physical Exam Vital Signs Reviewed: Yes Vital Signs Temp Pulse Resp BP Pulse Ox 12/03/18 10:03 155/85 H 12/03/18 09:58 98.3 F 75 24 155/85 H 94 L 12/03/18 09:51 20 Temperature: Afebrile Blood Pressure: Hypertensive Pulse: Regular Respiratory Rate: Normal Appearance: Positive for: Well-Appearing, Non-Toxic, Comfortable Pain Distress: None Mental Status: Positive for: Alert and Oriented X 3 - Systems Exam Head: Present: Atraumatic, Normocephalic Pupils: Present: PERRL Extroacular Muscles: Present: EOMI Conjunctiva: Present: Normal Mouth: Present: Moist Mucous Membranes Neck: Present: Normal Range of Motion Respiratory/Chest: Present: Good Air Exchange, Tachypneic (appears tachypneic), Other (trace crackles). No: Respiratory Distress, Accessory Muscle Use Cardiovascular: Present: Regular Rate and Rhythm, Normal S1, S2. No: Murmurs Abdomen: No: Tenderness, Distention, Peritoneal Signs Back: Present: Normal Inspection Upper Extremity: Present: Normal Inspection. No: Cyanosis, Edema Lower Extremity: Present: Normal Inspection. No: Edema, Swelling Neurological: Present: GCS=15, CN II-XII Intact, Speech Normal Skin: Present: Warm, Dry, Normal Color. No: Rashes Psychiatric: Present: Alert, Oriented x 3, Normal Insight, Normal Concentration Medical Decision Making ED Course and Treatment: 12/03/18 10:11 Impression: 78 year old male who presents to the emergency department complaining of shortness of breath. Differential Diagnosis included but are not limited to: CHF exacerbation COPD exacerbation Plan: -- EKG -- Labs -- Duoneb -- Lasix -- SOLU-medrol -- Chest X-ray -- Reassess and disposition Prior Visits: Notes and results from previous visits were reviewed. Progress Notes: 12/03/18 10:11 EKG reviewed, shows: NSR at 82bpm with LBBB 12/03/18 10:44 Chest X-ray reviewed by radiologist, shows: IMPRESSION: Marked cardiomegaly. Poor inspiration with low lung volumes, crowded bronchovascular markings and mild bibasilar atelectasis. Deviation of the trachea from left to right in part due to a dilated ectatic aorta however the possibility a enlarged left lobe thyroid gland should be considered. Follow-up thyroid ultrasound recommended. 12/03/18 11:16 Patient improved but still having symptoms at rest. I discussed case with Dr. Dahl who will accept patient into his service and Dr. Harrington for cardiology. - Lab Interpretations I have reviewed the lab results: Yes - RAD Interpretation Radiology Orders: 12/03/18 09:55 CHEST PORTABLE [RAD] Stat - EKG Interpretation Interpreted by ED Physician: Yes Type: 12 lead EKG - Medication Orders Current Medication Orders: Discontinued Medications Albuterol/Ipratropium (Duoneb 3 Mg/0.5 Mg (3 Ml) Ud) 3 ml IH STAT STA Stop: 12/03/18 09:56 Last Admin: 12/03/18 10:03 Dose: 3 ml Furosemide (Lasix) 40 mg IVP STAT STA Stop: 12/03/18 09:56 Last Admin: 12/03/18 10:03 Dose: 40 mg MAR Blood Pressure Document 12/03/18 10:03 SRE (Rec: 12/03/18 10:03 SRE [id number]) Blood Pressure Blood Pressure (100/60-150/90) 155/85 IVP Administration Document 12/03/18 10:03 SRE (Rec: 12/03/18 10:03 SRE [id number]) Charges for Administration # of IVP Administrations 1 Methylprednisolone (Solu-Medrol) 125 mg IVP STAT STA Stop: 12/03/18 09:56 Last Admin: 12/03/18 10:03 Dose: 125 mg IVP Administration Document 12/03/18 10:03 SRE (Rec: 12/03/18 10:03 SRE [id number]) Charges for Administration # of IVP Administrations 1 - Scribe Statement The provider has reviewed the documentation as recorded by the Aashishiblindsay Yañez Provider Scribe Attestation: All medical record entries made by the Scribe were at my direction and personally dictated by me. I have reviewed the chart and agree that the record accurately reflects my personal performance of the history, physical exam, medical decision making, and the department course for this patient. I have also personally directed, reviewed, and agree with the discharge instructions and disposition. Disposition/Present on Arrival - Present on Arrival Any Indicators Present on Arrival: No History of DVT/PE: No History of Uncontrolled Diabetes: No Urinary Catheter: No History of Decub. Ulcer: No History Surgical Site Infection Following: None - Disposition Have Diagnosis and Disposition been Completed?: Yes Diagnosis: CHF (congestive heart failure), COPD (chronic obstructive pulmonary disease) Disposition: HOSPITALIZED Disposition Time: 11:16 Patient Plan: Admission Condition: GUARDED
[2018-12-03 10:22] LABS: BASO # 0.02 K/mm3 (0.0-2.0); BASO % 0.2 % (0.0-3.0); EOS # 0.3 (0.0-0.7); EOS % 3.3 % (1.5-5.0); GRAN # 6.88 (1.4-6.5); GRAN % 66.6 % (50.0-68.0); HEMOGLOBIN 12.7 g/dL (14.0-18.0); LYMPH # 1.6 (1.2-3.4); LYMPH % 15.9 % (22.0-35.0); MEAN CELL VOLUME 94.7 fl (80.0-105.0); MEAN CORPUSCULAR HEMOGLOBIN 30.4 pg (25.0-35.0); MEAN CORPUSCULAR HGB CONC 32.1 g/dl (31.0-37.0); MEAN PLATELET VOLUME 9.2 fl (7.0-11.0); MONO # 1.5 (0.1-0.6); RBC 4.18 10^6/uL (3.5-6.1); RED CELL DISTRIBUTION WIDTH 15.8 % (11.5-14.5); WHITE BLOOD COUNT 10.3 10^3/uL (4.5-11.0)
[2018-12-03 10:29] LABS: BLOOD UREA NITROGEN 24 mg/dL (7-21); CALCIUM 9.7 mg/dL (8.4-10.5); GFR NON-AFRICAN AMERICAN > 60
[2018-12-03 10:31] LABS: INR 1.15; PARTIAL THROMBOPLASTIN TIME 30.8 Seconds (26.9-38.3)
--- NOTE | 2018-12-03 10:35 | RAD ---
Date of service: 12/03/2018 HISTORY: shortness of breathe COMPARISON: Comparison chest 10/08/2018 FINDINGS: LUNGS: Poor inspiration with low lung volumes, crowded bronchovascular markings and mild bibasilar atelectasis. PLEURA: No significant pleural effusion identified, no pneumothorax apparent. CARDIOVASCULAR: No aortic atherosclerotic calcification present. Redemonstrated is aortic valve replacement Heart appears markedly enlarged There is deviation of the trachea from left to right in part due to a dilated ectatic aorta however the possibility a enlarged left lobe thyroid gland should be considered. Follow-up thyroid ultrasound recommended. OSSEOUS STRUCTURES: No significant abnormalities. VISUALIZED UPPER ABDOMEN: Normal. OTHER FINDINGS: None. IMPRESSION: Marked cardiomegaly. Poor inspiration with low lung volumes, crowded bronchovascular markings and mild bibasilar atelectasis. Deviation of the trachea from left to right in part due to a dilated ectatic aorta however the possibility a enlarged left lobe thyroid gland should be considered. Follow-up thyroid ultrasound recommended.
[2018-12-03 10:47] LABS: B-TYPE NATRIURETIC PEPTIDE 1630 pg/mL (0-450); TROPONIN I 0.02 ng/mL
--- NOTE | 2018-12-03 11:44 | CP.PCM.HP ---
<Kim Newell - Last Filed: 12/03/18 20:35> History of Present Illness - History of Present Illness History of Present Illness: 78yo male PMHx HTN, CAD s/p stent placement, bioprosthetic aortic valve replacement, Watchman device, paroxysmal afib, COPD, CHF, and bladder cancer presents with shortness of breath for 1-2 days. Patient reports he was starting to feel short of breath when he was taking out the trash and had to walk down some stairs. Patient reports he had to lie down until his dyspnea resolved. Patient states his shortness of breath is intermittent and worsens with activity and ambulation. He also complaints of a mild productive cough with white phlegm and no hemoptysis. He had seen Dr. Mcconnell prior to coming to the ER. He denied acute complaints of fever, chills, headache, dizziness, chest pain, palpitations, abdominal pain, nausea, vomiting, bowel/baldder complaints, p ain/swelling in his legs bilaterally. PMHx: HTN, CAD s/p stent placement, bioprosthetic aortic valve replacement, Watchman device, paroxysmal afib, COPD, CHF, and bladder cancer PSurgHx: total knee replacemet, colonic polyp removal, bladder surgery Meds: pls see chart ALL: tetanus and toxoid, tetracycline, cefepime, PCN SocHx: remote tobacco use 40 years ago- used to smoke 1/2ppd for 15 years; denies EtOH and drug use; used to work with [employer] FamHx: father with emphysema, and cancer PMD: Dr. Mcconnell Application Development Consultant: Dr. Mata- appointment on Dec 21, 2018 Websphere Commerce Architect: Dr. Matos- appointment on Dec 08, 2018 Present on Admission - Present on Admission Any Indicators Present on Admission: No Review of Systems - Review of Systems All systems: reviewed and no additional remarkable complaints except Review of Systems: as per HPI Past Patient History - Infectious Disease Hx of Infectious Diseases: None - Tetanus Immunizations Tetanus Immunization: Unknown - Past Medical History & Family History Past Medical History?: Yes - Past Social History Smoking Status: Former Smoker - CARDIAC Hx Cardiac Disorders: Yes (CAD) Hx Congestive Heart Failure: Yes Hx Hypertension: Yes Other/Comment: aortic valve replacement. stents x 2 - PULMONARY Hx Chronic Obstructive Pulmonary Disease (COPD): Yes (Emphysema) - NEUROLOGICAL Hx Neurological Disorder: Yes Hx Dizziness: Yes (VERTIGO) - HEENT Hx HEENT Problems: No - RENAL Hx Chronic Kidney Disease: Yes Other/Comment: LOW GRADE BLADDER CA - ENDOCRINE/METABOLIC Hx Endocrine Disorders: No - HEMATOLOGICAL/ONCOLOGICAL Hx Blood Disorders: Yes Hx Cancer: Yes (BASAL CELL -FACE,LOW GRADE BLADDER CA) - INTEGUMENTARY Hx Dermatological Problems: Yes Hx Basil Cell: Yes (FACE) - MUSCULOSKELETAL/RHEUMATOLOGICAL Hx Arthritis: Yes (KNEE WITH TOTAL KNEE REPLACEMENT 01-03-16) - GASTROINTESTINAL Hx Gastrointestinal Disorders: No Other/Comment: COLON POLYPS, - GENITOURINARY/GYNECOLOGICAL Hx Genitourinary Disorders: Yes Hx Hematuria: Yes (MINIMAL HEMATURIA H/O) Other/Comment: UVULECTOMY - PSYCHIATRIC Hx Psychophysiologic Disorder: Yes Hx Depression: Yes Hx Substance Use: No Other/Comment: SMOKED CIGARETTES,SEVERE CLAUSTROPHOBIA - SURGICAL HISTORY Hx Coronary Stent: Yes ( x2) Hx Orthopedic Surgery: Yes (left knee replacement) Other/Comment: TOTAL KNEE REPLACEMENT LEFT KNEE 01-03-16 aortic valve replacement 03/25. Watchmen - ANESTHESIA Hx Anesthesia: Yes Hx Anesthesia Reactions: No Hx Malignant Hyperthermia: No Meds Allergies/Adverse Reactions: Allergies Allergy/AdvReac Type Severity Reaction Status Date / Time Tetanus Vaccines and Toxoid Allergy Severe ANAPHYLAXIS Verified 12/03/18 11:50 [Tetanus Vaccines & Toxoid] tetracycline Allergy Severe ANAPHYLAXIS Verified 12/03/18 11:50 cefepime Allergy RASH Verified 12/03/18 11:50 Penicillins Allergy SWELLING Verified 12/03/18 11:50 Physical Exam - Constitutional Appears: Non-toxic, No Acute Distress - Head Exam Head Exam: ATRAUMATIC, NORMAL INSPECTION, NORMOCEPHALIC - Eye Exam Eye Exam: EOMI, Normal appearance, PERRL. absent: Conjunctival injection, Scleral icterus - ENT Exam ENT Exam: Mucous Membranes Moist - Neck Exam Neck exam: Positive for: Full Rom, Normal Inspection - Respiratory Exam Respiratory Exam: Decreased Breath Sounds, NORMAL BREATHING PATTERN. absent: Accessory Muscle Use, Respiratory Distress Additional comments: trace crackles - Cardiovascular Exam Cardiovascular Exam: +S1, +S2 - GI/Abdominal Exam GI & Abdominal Exam: Normal Bowel Sounds, Soft. absent: Firm, Guarding, Rigid, Tenderness - Rectal Exam Rectal Exam: Deferred - Extremities Exam Extremities exam: Positive for: normal inspection, pedal pulses present. Negative for: calf tenderness, pedal edema - Back Exam Back exam: NORMAL INSPECTION. absent: rash noted, tenderness - Neurological Exam Neurological exam: Alert, CN II-XII Intact, Normal Gait, Oriented x3 - Skin Skin Exam: Dry, Intact, Normal Color, Warm Results - Vital Signs Recent Vital Signs: Last Vital Signs Temp 98.3 F 12/03/18 09:58 Pulse 75 12/03/18 09:58 Resp 24 12/03/18 09:58 BP 155/85 H 12/03/18 10:03 Pulse Ox 94 L 12/03/18 09:58 - Labs Result Diagrams: 12/03/18 10:00 12/03/18 10:00 Labs: Laboratory Results - last 24 hr 12/03/18 12/03/18 12/03/18 10:00 10:00 10:00 WBC 10.3 D RBC 4.18 Hgb 12.7 L Hct 39.6 L MCV 94.7 MCH 30.4 MCHC 32.1 RDW 15.8 H Plt Count 213 MPV 9.2 Gran % 66.6 Lymph % (Auto) 15.9 L [place] % (Auto) 14.0 H Eos % (Auto) 3.3 Baso % (Auto) 0.2 Gran # 6.88 H Lymph # (Auto) 1.6 [place] # (Auto) 1.5 H Eos # (Auto) 0.3 Baso # (Auto) 0.02 PT 13.0 H INR 1.15 APTT 30.8 Sodium 140 Potassium 4.2 Chloride 105 Carbon Dioxide 26 Anion Gap 13 BUN 24 H Creatinine 1.1 Est GFR ( Amer) > 60 Est GFR (Non-Af Amer) > 60 Random Glucose 106 Calcium 9.7 Magnesium 2.1 Lactate Dehydrogenase 600 Total Creatine Kinase 41 Troponin I 0.02 NT-Pro-B Natriuret Pep 1630 H TSH 3rd Generation 12/03/18 10:00 WBC RBC Hgb Hct MCV MCH MCHC RDW Plt Count MPV Gran % Lymph % (Auto) [place] % (Auto) Eos % (Auto) Baso % (Auto) Gran # Lymph # (Auto) [place] # (Auto) Eos # (Auto) Baso # (Auto) PT INR APTT Sodium Potassium Chloride Carbon Dioxide Anion Gap BUN Creatinine Est GFR ( Amer) Est GFR (Non-Af Amer) Random Glucose Calcium Magnesium Lactate Dehydrogenase Total Creatine Kinase Troponin I NT-Pro-B Natriuret Pep TSH 3rd Generation 0.13 L Assessment & Plan - Assessment and Plan (Free Text) Assessment: 1. Dyspnea on minimal exertion suspect secondary to acute on chronic CHF exacerbation 2. CAD s/p stent 3. bioprosthetic aortic valve replacement 4. Watchman device 5. Paroxysmal Afib 6. COPD 7. CHF 8. Bladder ca 9. HTN 10. Hypothyroidism 11. Anxiety Plan: Patients vitals, blood work, and imaging noted. Patient reports that since prior admission when he was intubated in the CCU he has experienced several episodes of dyspnea on minimal exertion. CXR reviewed. Patient has elevated proBNP of 1630 which is trend down from which was 2030. Patient on IV lasix and Lisinopril. Will continue home Cardizem. Patient's troponin negative x 2. Cardiology on board for possible CHF exacerbation. Patient on ASA daily. Lipid panel ordered for AM will f/u; will continue home Lipitor at this time. Patient's thyroid panel noted- continue home synthroid at this time. Patient continued on home COPD meds Spiriva and Breo-Ellipta. CXR ordered for the AM- will f/u. Maintain O2 sat 88-92% on 2L NC. In light of patient's bilateral atlecetasis on CXR, incentive spirometer at bedside for patient to use. Continue home proscar at this time. Patient seemed mildly anxious and requested something to help him sleep while at the hospital; will give xanax 0.25mg prn one time at night. Cardiology reccs appreciated. Will continue to monitor closely. Discussed with Dr. Hesham Newell PGY3 <Sixto Dahl S - Last Filed: 12/04/18 17:06> Results - Vital Signs Recent Vital Signs: Last Vital Signs Temp 97.8 F 12/04/18 12:00 Pulse 66 12/04/18 13:25 Resp 20 12/04/18 12:00 BP 135/64 12/04/18 13:25 Pulse Ox 96 12/03/18 11:56 - Labs Result Diagrams: 12/04/18 05:41 12/04/18 05:41 Labs: Laboratory Results - last 24 hr 12/04/18 12/04/18 05:41 05:41 WBC 9.1 RBC 4.19 Hgb 12.7 L Hct 39.9 L MCV 95.2 MCH 30.3 MCHC 31.8 RDW 15.7 H Plt Count 238 MPV 10.4 Gran % 82.4 H Lymph % (Auto) 11.2 L [place] % (Auto) 6.2 H Eos % (Auto) 0.1 L Baso % (Auto) 0.1 Gran # 7.53 H Lymph # (Auto) 1.0 L [place] # (Auto) 0.6 Eos # (Auto) 0.0 Baso # (Auto) 0.01 Sodium 139 Potassium 4.1 Chloride 104 Carbon Dioxide 27 Anion Gap 12 BUN 32 H Creatinine 1.2 Est GFR ( Amer) > 60 Est GFR (Non-Af Amer) 58 Random Glucose 155 H Uric Acid 9.0 H Calcium 10.0 Phosphorus 3.9 Magnesium 2.3 H Total Bilirubin 0.5 AST 27 ALT 29 Alkaline Phosphatase 69 NT-Pro-B Natriuret Pep 2590 H Total Protein 7.4 Albumin 4.1 Globulin 3.3 Albumin/Globulin Ratio 1.3 Triglycerides 63 Cholesterol 121 L LDL Cholesterol Direct 64 HDL Cholesterol 40 Assessment & Plan - Assessment and Plan (Free Text) Plan: Pt seen and examined by me. I have reviewed the note of the medical clinic manager and I agree with it. I have discussed the assessment and plan with the resident. I have reviewed the medications and the last labs. Pt with acute CHF due to systolic dysfunction. CAD present but has refused cath by cardiology. I also advised him to get a cath as this is the 2nd episode of CHF that he was admitted to the hospital. ProBNP is elevated. He has PND at home indicating CHF. His O2sat was low and required O2. He will be placed on Lasix and Lisinopril. Afib is controlled and is on Cardizem. Pt is on Synthroid for hypothyroidism. Xanax for anxiety. HTN controlled on Cardizem. Continue with Lipitor for dyslipidemia. Spoke to Dr Harrington from cardiology.
[2018-12-03 11:57] VITALS: O2SAT 96
[2018-12-03] MEDS ORDERED: Albuterol-Ipratrop 3 mg / 0.5 (3 ml) UD IH PRN (12:03)
[2018-12-03 13:37] LABS: VENOUS BLOOD GAS PO2 48 mm/Hg (30-55)
[2018-12-03] MEDS ORDERED: Pneumococcal 23-Valent Vaccine IM ONE (14:07)
[2018-12-03] MEDS ORDERED: Influenza Vaccine 60 mcg/0.5 mL SYR (4YR UP) IM ONE (14:07)
[2018-12-03] MEDS: Tiotropium 18 mcg Cap For Inhalation INH SCH (17:19)
[2018-12-03 18:58] VITALS: RESP 20
[2018-12-03] MEDS: DOXEPIN 50 MG PO SCH (21:14)
--- NOTE | 2018-12-03 22:08 | CON ---
DATE: 12/03/2018 CONSULT SERVICE: Cardiology. REASON FOR CONSULTATION: Followup cardiac evaluation, admitted with shortness of breath. BRIEF CLINICAL HISTORY: The patient is an 78-year-old male with past medical history significant for coronary artery disease, aortic stenosis, status post TAVR, status post Watchman device for atrial fibrillation. The patient cannot take anticoagulation. Recently admitted in September with pneumonia. Cardiac cath was suggested, but the patient wanted to do with Dr. Matos at [facility], so discussed with the family. The said that Dr. Matos said that he does not need it. Admitted with one-day history of shortness of breath, was sent to Dr. Mcconnell's office and sent to the ER. The patient denies any chest pain, but complains of shortness of breath. PAST MEDICAL HISTORY: Significant for hypertension, coronary artery disease, CABG, hypothyroidism, atrial fibrillation, paroxysmal cannot tolerate anticoagulation, status post Watchman procedure done, COPD, emphysema, chronic vertigo, blood cancer, goiter, history of coronary artery disease, status post PTCA angioplasty in 2013 and 2014, later on the patient had transcatheter aortic valve replacement secondary to severe aortic stenosis in 2016, followed by after 2 months, the patient had a Watchman procedure done for atrial fibrillation because the patient cannot tolerate Coumadin, who was recently in [place], discharged from their with antibiotics, last on Levaquin. At that time, the patient readmitted here with shortness of breath. Echo was done at that time shows ejection fraction of 35-40%. Then, the MUGA scan was done because the patient had by the MUGA, ejection fraction was 2% because in [place] where the patient left with preserved LV function. The patient used to follow his detasseling crew supervisor, Dr. Matos at [facility], telephone number [phone]. On last admission discussed with Dr. Matos, emphasis made the patient needs catheterization and needs coronary anatomy because of the significant decreased LV function, but the patient's detasseling crew supervisor Dr. Matos says that he will do at [facility]. So, I spoke to the on this admission who said that Dr. Matos says that he does not need it and his next appointment is on Friday to access whether the patient needs cardiac cath or not. Although, the patient denies any chest pain, shortness of breath, or any palpitation. Also, significant for blood cancer, history of hypertension, and history of Watchman as mentioned above. PREVIOUS CARDIAC WORKUP IN [facility] FOLLOWUP: The patient had MUGA scan done on with ejection fraction of 62%. The patient had echocardiography done on admission last dated 10/06/2018 that reveal ejection fraction 35-40%, status post TAVR, normal functioning, moderated mitral regurgitation, mild tricuspid regurgitation, RV systolic pressure of 35, trace pulmonary insufficiency, again ejection fraction 35-40% dated 10/06/2018. PAST SURGICAL HISTORY: Significant for aortic valve replacement, TAVR in 2017, history of left knee replacement in 12/2015, history of PTCA with stent placement at [facility]. SOCIAL HISTORY: Denies any smoking. Denies any history of alcohol abuse. Though, the patient is an ex-smoker. CURRENT MEDICATIONS AT HOME: The patient is taking Cardizem CD 360 mg daily, Spiriva, lisinopril one tablet daily 20 mg, Synthroid 75 mcg daily, Lasix 40 mg daily, atorvastatin, aspirin, and albuterol. ALLERGIES: ALLERGIC TO TETANUS VACCINE, ALLERGIC TO CEFEPIME, AND ALLERGIC TO PENICILLIN. REVIEW OF SYSTEMS: As per HPI. PHYSICAL EXAMINATION: VITAL SIGNS: As follows; height of the patient is 6 feet 1 inch, weight of the patient 278 pound, and body mass index 40 kg/m2. Temperature afebrile, heart rate 68, and blood pressure 144/57. HEENT: PERRLA. Extraocular muscles intact. NECK: Supple. No carotid bruit. No thyromegaly. CHEST: Clear to auscultation. HEART: S1 and S2 regular. ABDOMEN: Soft. EXTREMITIES: Clubbing and cyanosis negative. LABORATORY DATA: WBC 10.3, hemoglobin 12.7, hematocrit 39.7, and platelet count 213. Chemistry shows sodium 140, potassium 4, chloride 105, carbon dioxide 26, anion gap of 13, BUN 24, and creatinine 1.1. Calcium 9.7, magnesium 2.1, troponin 0.02, BNP 1630, and TSH 0.13. Chest x-ray shows mild congestion. EKG shows normal sinus, left bundle-branch block, left axis deviation, and rate 82. IMPRESSION: An 78-year-old male with past medical history significant for coronary artery disease, history of percutaneous transluminal coronary angioplasty in 2013 and 2014, history of angioplasty twice in 2013 and 2014, history of severe aortic stenosis, status post transcatheter aortic valve replacement in 12/2016, history of Watchman procedure placement in May or 06/2017 because of the patient cannot tolerate anticoagulation, history of paroxysmal atrial fibrillation admitted with decompensated congestive heart failure. Last time when the patient was here after getting released from [place], admitted with pneumonia and congestive heart failure and significant decreased left ventricular function. Cardiac catheterization was suggested, the patient wanted to get it done with Dr. Matos at [facility]. I spoke to Dr. Matos at that time and suggested cardiac catheterization, he said he will do it at [facility] because he knows the patient, but apparently it was not done and Dr. Matos thinks it is not necessary. Later on, the patient had a MUGA scan done that shows left ventricular function and now the patient admitted with decompensated congestive heart failure. PLAN: Plan is to continue IV Lasix, diuresed, so far no evidence of acute SC. Discussed with the that the patient need cardiac catheterization, which can be done here if the patient agrees; otherwise, we will get it done with Dr. Matos. In the interim, continue aggressive medical treatment as well as the treatment for COPD, diuretics, and monitor renal function. We will follow with you. Also DVT prophylaxis and monitor renal function. Thank you Dr. Dahl for providing us the opportunity in taking care of the patient, Andrez Coelho. Victor M Harrington MD
--- NOTE | 2018-12-03 23:03 | CARD ---
APPROVED REPORT Date of service: 12/03/2018 EKG Measurement Heart [id number] 126P [id number] <Conclusion> Normal sinus rhythm with 1st degree AV block Left axis deviation Left bundle branch block Abnormal ECG
[2018-12-04 06:02] LABS: BASO # 0.01 K/mm3 (0.0-2.0); BASO % 0.1 % (0.0-3.0); EOS % 0.1 % (1.5-5.0); GRAN # 7.53 (1.4-6.5); GRAN % 82.4 % (50.0-68.0); HEMOGLOBIN 12.7 g/dL (14.0-18.0); LYMPH % 11.2 % (22.0-35.0); MEAN CELL VOLUME 95.2 fl (80.0-105.0); MEAN CORPUSCULAR HEMOGLOBIN 30.3 pg (25.0-35.0); MEAN CORPUSCULAR HGB CONC 31.8 g/dl (31.0-37.0); MEAN PLATELET VOLUME 10.4 fl (7.0-11.0); MONO # 0.6 (0.1-0.6); MONO % 6.2 % (1.0-6.0); RBC 4.19 10^6/uL (3.5-6.1); RED CELL DISTRIBUTION WIDTH 15.7 % (11.5-14.5); WHITE BLOOD COUNT 9.1 10^3/uL (4.5-11.0)
[2018-12-04 06:26] LABS: B-TYPE NATRIURETIC PEPTIDE 2590 pg/mL (0-450)
[2018-12-04 06:29] LABS: LDL CHOLESTEROL 64 mg/dL (0-129)
[2018-12-04 06:30] LABS: ALB/GLOB RATIO 1.3 (1.1-1.8); ALBUMIN 4.1 g/dL (3.0-4.8); ALT/SGPT 29 U/L (7-56); AST/SGOT 27 U/L (17-59); BLOOD UREA NITROGEN 32 mg/dL (7-21); GFR NON-AFRICAN AMERICAN 58; HDL CHOLESTEROL 40 mg/dL (29-60)
[2018-12-04] MEDS: Enoxaparin 40 mg Syringe SC SCH (09:21)
[2018-12-04] MEDS: Tiotropium 18 mcg Cap For Inhalation INH SCH ×2 (09:22→17:45)
[2018-12-04] MEDS: Levothyroxine 75 MCG TAB PO SCH (09:24)
--- NOTE | 2018-12-04 10:47 | RAD ---
Date of service: 12/04/2018 HISTORY: F/U pneumonia and compare COMPARISON: 12/03/2018 TECHNIQUE: Chest PA and lateral FINDINGS: LUNGS: No active pulmonary disease. PLEURA: No significant pleural effusion identified. No pneumothorax apparent. CARDIOVASCULAR: No aortic atherosclerotic calcification present. Mild cardiomegaly no pulmonary vascular congestion. OSSEOUS STRUCTURES: No significant abnormalities. VISUALIZED UPPER ABDOMEN: Normal. OTHER FINDINGS: None. IMPRESSION: No active disease.
[2018-12-04] MEDS: [UNRECOGNIZED DRUG - OTHER] INH SCH (10:49)
--- NOTE | 2018-12-04 10:59 | PN ---
DATE: 12/04/2018 REASON FOR CONSULTATION: Followup cardiac evaluation, admitted with shortness of breath. The patient feels a lot better. Get the Lasix yesterday morning 10 o'clock and other dose at 5 p.m. Feels a lot better. Denies any chest pain, shortness of breath, no palpitation. PHYSICAL EXAMINATION: VITAL SIGNS: Temperature afebrile, heart rate 60, blood pressure 115/75. HEENT: PERRLA. Extraocular muscles intact. NECK: Supple. No carotid bruits. No thyromegaly. CHEST: Clear to auscultation. HEART: S1, S2. Regular. ABDOMEN: Soft. EXTREMITIES: Clubbing and cyanosis negative. LABORATORY DATA: WBC 9, hemoglobin 12.7, hematocrit 39.9, platelet count 238. Chemistries shows sodium 139, potassium 4, chloride 104, CO2 of 27, anion gap 32, BUN 1.2, troponin 0.02, BNP 2590. Chest x-ray pending. IMPRESSION: An 78-year-old male with past medical history significant for coronary artery disease, history of percutaneous transluminal coronary angioplasty in 2013 and 2014, history of transcatheter aortic valve replacement, 12/2016, history of Watchman procedure but was unable to take anticoagulation, history of paroxysmal atrial fibrillation, decompensated heart failure. On last admission, emphasis was made the patient needs cardiac catheterization. The patient wants to get it done with Dr. Tang at [facility]. Explained today to the patient, the patient eventually needs a cardiac catheterization. The patient wanted to see Dr. Tang on Friday and prefers to have cardiac catheterization there. Discussed with Dr. Dahl, so far no evidence of acute myocardial infarction. RECOMMENDATION: Continue Lasix. Continue Cardizem 60 mg. Continue baby aspirin. We will continue DVT prophylaxis. Will follow with you. Continue lisinopril 20 mg daily. We will follow the chest x-ray. Thank you Dr. Dahl for providing us the opportunity in taking care of the patient, Meliton Maguire. As mentioned, the patient eventually needs cardiac catheterization and has agreed, we will proceed. Victor M Harrington MD [facility] # [id number]
--- NOTE | 2018-12-04 11:50 | CP.PCM.PN ---
<Venancio Newellima - Last Filed: 12/04/18 17:09> Subjective - Date & Time of Evaluation Date of Evaluation: 12/04/18 Time of Evaluation: 06:45 - Subjective Subjective: Pgy3 Medicine progress note for Dr. Dahl Patient seen and examined at bedside. Reports he was awake overnight and unable to sleep because of his neighbor. He reported he is urinating well and SOB has much improved. Patient denied fever, chills, headache, dizziness, chest pain, palpitations, cough, abd pain, nausea, vomiting, bowel/bladder complaints, pain/swelling in his legs bilaterally. Objective - Vital Signs/Intake and Output Vital Signs (last 24 hours): Temp Pulse Resp BP Pulse Ox 97.9 F 88 20 150/67 96 12/03/18 18:00 12/04/18 09:23 12/03/18 18:00 12/04/18 09:23 12/03/18 11:56 Intake and Output: 12/04/18 12/04/18 06:59 18:59 Intake Total 240 Output Total 500 Balance -260 - Medications Medications: Current Medications Albuterol/Ipratropium (Duoneb 3 Mg/0.5 Mg (3 Ml) Ud) 3 ml IH Q6H PRN PRN Reason: Shortness of Breath Alprazolam (Xanax) 0.25 mg PO ONCE PRN; Protocol PRN Reason: Anxiety Stop: 12/10/18 22:01 Last Admin: 12/03/18 21:52 Dose: 0.25 mg Aspirin (Ecotrin) 81 mg PO DAILY ON [facility] OF [facility] Last Admin: 12/04/18 09:22 Dose: 81 mg Atorvastatin Calcium (Lipitor) 40 mg PO HS ON [facility] Last Admin: 12/03/18 21:09 Dose: 40 mg Diltiazem HCl (Cardizem) 60 mg PO QID ON [facility] Last Admin: 12/04/18 09:23 Dose: 60 mg Enoxaparin Sodium (Lovenox) 40 mg SC DAILY ON [facility]; Protocol Last Admin: 12/04/18 09:21 Dose: 40 mg Finasteride (Proscar) 5 mg PO DAILY [facility] Last Admin: 12/04/18 09:22 Dose: 5 mg Furosemide (Lasix) 40 mg IVP BID ON [facility] Last Admin: 12/04/18 09:22 Dose: 40 mg Levothyroxine Sodium (Synthroid) 75 mcg PO DAILY ON [facility] Last Admin: 12/04/18 09:24 Dose: 75 mcg Lisinopril (Zestril) 20 mg PO DAILY ON [facility] Last Admin: 12/04/18 09:22 Dose: 20 mg Non-Formulary Medication (Doxepin [Sinequan]) 50 mg PO HS ON [facility] Last Admin: 12/03/18 21:14 Dose: Not Given Non-Formulary Medication (Fluticasone/Vilanterol [Breo Ellipta 100-25 Mcg Inh]) 1 inhaler INH DAILY ON [facility] Last Admin: 12/04/18 10:49 Dose: 1 inhaler Tiotropium [place] (Spiriva) 18 mcg INH BID ON [facility] Last Admin: 12/04/18 09:22 Dose: 18 mcg - Labs Labs: 12/04/18 05:41 12/04/18 05:41 PT 13.0 SECONDS (9.4-12.5) H 12/03/18 10:00 INR 1.15 12/03/18 10:00 APTT 30.8 Seconds (26.9-38.3) 12/03/18 10:00 - Additional Findings Additional findings: - Constitutional Appears: Non-toxic, No Acute Distress - Head Exam Head Exam: ATRAUMATIC, NORMAL INSPECTION, NORMOCEPHALIC - Eye Exam Eye Exam: EOMI, Normal appearance, PERRL. absent: Conjunctival injection, Scleral icterus - ENT Exam ENT Exam: Mucous Membranes Moist - Neck Exam Neck exam: Positive for: Full Rom, Normal Inspection - Respiratory Exam Respiratory Exam: Decreased Breath Sounds, NORMAL BREATHING PATTERN. absent: Accessory Muscle Use, Respiratory Distress - Cardiovascular Exam Cardiovascular Exam: +S1, +S2 - GI/Abdominal Exam GI & Abdominal Exam: Normal Bowel Sounds, Soft. absent: Firm, Guarding, Rigid, Tenderness - Rectal Exam Rectal Exam: Deferred - Extremities Exam Extremities exam: Positive for: normal inspection, pedal pulses present. Negative for: calf tenderness, pedal edema - Back Exam Back exam: NORMAL INSPECTION. absent: rash noted, tenderness - Neurological Exam Neurological exam: Alert, CN II-XII Intact, Normal Gait, Oriented x3 - Skin Skin Exam: Dry, Intact, Normal Color, Warm Assessment and Plan - Assessment and Plan (Free Text) Assessment: 1. Dyspnea on minimal exertion suspect secondary to acute on chronic systolic CHF exacerbation 2. CAD s/p stent 3. Bioprosthetic aortic valve replacement 4. Watchman device 5. Chronic Paroxysmal Afib 6. Chronic COPD 7. Bladder ca 8. HTN 9. Hypothyroidism 10. Anxiety Plan: Patient's vitals, blood work, and imaging reviewed in chart. Patient clinically improved this AM and reports his dyspnea has improved. Continue diuresis at this time- have added metolazone to lasix to be given 1/2 hour before lasix. Patient reports he had an appointment with his multicultural services librarian on Friday12/07/18. He is aware of the need for a cardiac cath. Will continue home Cardizem. Patient's troponin negative x 2. Cardiology on board. Lipid panel wnl; will continue home lipitor. Patient's thyroid panel noted- continue home synthroid at this time. Patient continued on home COPD meds Spiriva and Breo-Ellipta. Maintain O2 sat 88-92% on 2L NC. Repeat CXR unremarkable. In light of patient's bilateral atlecetasis on CXR, incentive spirometer at bedside for patient to use. Continue home proscar at this time. Cardiology reccs appreciated. Will continue to monitor closely. Discussed with Dr. Hesham Newell PGY3 <Sixto Dahl S - Last Filed: 12/04/18 18:31> Objective - Vital Signs/Intake and Output Vital Signs (last 24 hours): Temp Pulse Resp BP Pulse Ox 97.7 F 66 20 133/67 96 12/04/18 17:41 12/04/18 17:45 12/04/18 17:41 12/04/18 17:47 12/03/18 11:56 Intake and Output: 12/04/18 12/04/18 06:59 18:59 Intake Total 240 Output Total 500 Balance -260 - Medications Medications: Current Medications Albuterol/Ipratropium (Duoneb 3 Mg/0.5 Mg (3 Ml) Ud) 3 ml IH Q6H PRN PRN Reason: Shortness of Breath Alprazolam (Xanax) 0.25 mg PO ONCE PRN; Protocol PRN Reason: Anxiety Stop: 12/10/18 22:01 Last Admin: 12/03/18 21:52 Dose: 0.25 mg Aspirin (Ecotrin) 81 mg PO DAILY [facility] Last Admin: 12/04/18 09:22 Dose: 81 mg Atorvastatin Calcium (Lipitor) 40 mg PO HS [facility] Last Admin: 12/03/18 21:09 Dose: 40 mg Diltiazem HCl (Cardizem) 60 mg PO QID [facility] Last Admin: 12/04/18 17:45 Dose: 60 mg Enoxaparin Sodium (Lovenox) 40 mg SC DAILY [facility]; Protocol Last Admin: 12/04/18 09:21 Dose: 40 mg Finasteride (Proscar) 5 mg PO DAILY [facility] Last Admin: 12/04/18 09:22 Dose: 5 mg Furosemide (Lasix) 40 mg IVP BID [facility] Last Admin: 12/04/18 17:47 Dose: 40 mg Levothyroxine Sodium (Synthroid) 75 mcg PO DAILY [facility] Last Admin: 12/04/18 09:24 Dose: 75 mcg Lisinopril (Zestril) 20 mg PO DAILY [facility] Last Admin: 12/04/18 09:22 Dose: 20 mg Metolazone (Zaroxolyn) 2.5 mg PO BID [facility] Last Admin: 12/04/18 17:46 Dose: 2.5 mg Non-Formulary Medication (Doxepin [Sinequan]) 50 mg PO HS [facility] Last Admin: 12/03/18 21:14 Dose: Not Given Non-Formulary Medication (Fluticasone/Vilanterol [Breo Ellipta 100-25 Mcg Inh]) 1 inhaler INH DAILY ON [facility] Last Admin: 12/04/18 10:49 Dose: 1 inhaler Tiotropium [place] (Spiriva) 18 mcg INH BID ON [facility] Last Admin: 12/04/18 17:45 Dose: 18 mcg - Labs Labs: 12/04/18 05:41 12/04/18 05:41 PT 13.0 SECONDS (9.4-12.5) H 12/03/18 10:00 INR 1.15 12/03/18 10:00 APTT 30.8 Seconds (26.9-38.3) 12/03/18 10:00 Assessment and Plan - Assessment and Plan (Free Text) Plan: Pt seen and examined by me. I have reviewed the note of the medical billing associate and I agree with it. I have discussed the assessment and plan with the resident. I have reviewed the medications and the last labs. See H and P note done today for details.
[2018-12-04 17:41] VITALS: TEMP 97.7
[2018-12-04] MEDS: metOLazone 2.5 MG TAB PO SCH (17:46)
[2018-12-04] MEDS: DOXEPIN 50 MG PO SCH (22:04)
[2018-12-05 07:08] LABS: BASO # 0.02 K/mm3 (0.0-2.0); BASO % 0.2 % (0.0-3.0); EOS % 0.3 % (1.5-5.0); HEMOGLOBIN 11.7 g/dL (14.0-18.0); LYMPH % 16.7 % (22.0-35.0); MEAN CELL VOLUME 94.6 fl (80.0-105.0); MEAN CORPUSCULAR HEMOGLOBIN 29.8 pg (25.0-35.0); MEAN CORPUSCULAR HGB CONC 31.5 g/dl (31.0-37.0); MEAN PLATELET VOLUME 9.5 fl (7.0-11.0); MONO # 1.6 (0.1-0.6); MONO % 13.2 % (1.0-6.0); RBC 3.92 10^6/uL (3.5-6.1); RED CELL DISTRIBUTION WIDTH 15.9 % (11.5-14.5); WHITE BLOOD COUNT 12.1 10^3/uL (4.5-11.0)
[2018-12-05 07:43] LABS: ALB/GLOB RATIO 1.3 (1.1-1.8); ALBUMIN 3.9 g/dL (3.0-4.8); CALCIUM 9.7 mg/dL (8.4-10.5)
--- NOTE | 2018-12-05 07:48 | CP.PCM.PN ---
Subjective - Date & Time of Evaluation Date of Evaluation: 12/05/18 Time of Evaluation: 06:25 - Subjective Subjective: Awake, alert no distress Reason for consultation and follow up:Cardiac evaluation of shortness of breath, history of coronary artery disease, post PTCA in 2013 and 2014, history of TAVR 12/2016. History of Watchman procedure (2018)for atrial fibrillation. Seen and examined by me and Dr. Harrington Objective - Vital Signs/Intake and Output Vital Signs (last 24 hours): Temp Pulse Resp BP Pulse Ox 97.7 F 57 L 20 112/52 L 96 12/04/18 17:41 12/04/18 21:52 12/04/18 17:41 12/04/18 21:52 12/03/18 11:56 Intake and Output: 12/05/18 12/05/18 06:59 18:59 Intake Total 1640 Output Total 2500 Balance -860 - Medications Medications: Current Medications Albuterol/Ipratropium (Duoneb 3 Mg/0.5 Mg (3 Ml) Ud) 3 ml IH Q6H PRN PRN Reason: Shortness of Breath Alprazolam (Xanax) 0.25 mg PO ONCE PRN; Protocol PRN Reason: Anxiety Stop: 12/10/18 22:01 Last Admin: 12/03/18 21:52 Dose: 0.25 mg Aspirin (Ecotrin) 81 mg PO DAILY [facility] Last Admin: 12/04/18 09:22 Dose: 81 mg Atorvastatin Calcium (Lipitor) 40 mg PO HS [facility] Last Admin: 12/04/18 21:52 Dose: 40 mg Diltiazem HCl (Cardizem) 60 mg PO QID [facility] Last Admin: 12/04/18 21:52 Dose: 60 mg Enoxaparin Sodium (Lovenox) 40 mg SC DAILY [facility]; Protocol Last Admin: 12/04/18 09:21 Dose: 40 mg Finasteride (Proscar) 5 mg PO DAILY [facility] Last Admin: 12/04/18 09:22 Dose: 5 mg Furosemide (Lasix) 40 mg IVP BID [facility] Last Admin: 12/04/18 17:47 Dose: 40 mg Levothyroxine Sodium (Synthroid) 75 mcg PO DAILY [facility] Last Admin: 12/04/18 09:24 Dose: 75 mcg Lisinopril (Zestril) 20 mg PO DAILY [facility] Last Admin: 12/04/18 09:22 Dose: 20 mg Metolazone (Zaroxolyn) 2.5 mg PO BID [facility] Last Admin: 12/04/18 17:46 Dose: 2.5 mg Non-Formulary Medication (Doxepin [Sinequan]) 50 mg PO HS [facility] Last Admin: 12/04/18 22:04 Dose: Not Given Non-Formulary Medication (Fluticasone/Vilanterol [Breo Ellipta 100-25 Mcg Inh]) 1 inhaler INH DAILY [facility] Last Admin: 12/04/18 10:49 Dose: 1 inhaler Tiotropium [place] (Spiriva) 18 mcg INH BID [facility] Last Admin: 12/04/18 17:45 Dose: 18 mcg - Labs Labs: 12/05/18 06:35 12/05/18 06:35 PT 13.0 SECONDS (9.4-12.5) H 12/03/18 10:00 INR 1.15 12/03/18 10:00 APTT 30.8 Seconds (26.9-38.3) 12/03/18 10:00 - Constitutional Appears: Non-toxic, No Acute Distress - Head Exam Head Exam: NORMAL INSPECTION, NORMOCEPHALIC - Eye Exam Eye Exam: Normal appearance Pupil Exam: NORMAL ACCOMODATION - ENT Exam ENT Exam: Mucous Membranes Moist, Normal Exam - Cardiovascular Exam Cardiovascular Exam: Bradycardia, +S1, +S2 Additional comments: Telemetry SB 50's - GI/Abdominal Exam GI & Abdominal Exam: Soft, Normal Bowel Sounds - Extremities Exam Extremities Exam: Full ROM Additional comments: 2+edema - Neurological Exam Neurological Exam: Alert, Awake, Oriented x3 - Psychiatric Exam Psychiatric exam: Normal Affect, Normal Mood - Skin Skin Exam: Dry, Normal Color, Warm Assessment and Plan - Assessment and Plan (Free Text) Assessment: An 78 year old male who came in to the ER due to shortness of breath, history of coronary artery disease, post PTCA in 2013 and 2014, history of TAVR 12/2016. History of Watchman procedure for atrial fibrillation (2016),hypertension,COPD, CHF, and bladder cancer, bladder surgery ,total knee replacement, colonic polyp removal. Remote tobacco use 40 years ago- used to smoke 1/2ppd for 15 years. He was last admitted at [facility] 09/2018 for pneumonia and exacerbation of congestive heart failure. Cardiac cath was recommended at that time but deferred and wanted to follow up with Dr. Matos at [facility]. Cardiac cath was not apparently done. Dr. Anne thinks that it was necessary at that time. Admitted to [facility] for exacerbation of congestive heart failure. Recommend cardiac catheterization here at [facility] if patient and agrees, otherwise will follow up with Dr. Matos at [facility]. Plan: Denies shortness of breath No distress Heart rate controlled Blood pressure controlled Continue to diurese On ASA 81 mg daily, Lipitor 40 mg daily, Cardizem 60 mg QID, Lovenox 40 mg daily,Proscar 5 mg daily, Lasix 40 mg IV BID, Synthroid 75 mcg daily Lisinopril 20 mg daily,Zaroxylyn 2.5 mg BID, Lovenox 40 mg daily Will add daily oral potassium daily Continue current treatment Continue current medications For cardiac cath if patient and agrees Will follow up Plan and treatment discussed with Dr. Harrington
--- NOTE | 2018-12-05 08:21 | CP.PCM.DIS ---
<Kim Newell - Last Filed: 12/05/18 10:13> Provider - Provider Date of Admission: 12/04/18 08:30 Attending physician: Sixto Dahl MD Primary care physician: PMD: Dr. Mcconnell Tape Edge Machine Operator: Dr. Mata- appointment on Dec 21, 2018 Precision Lens Centerer And Edger: Dr. Matos- appointment on Dec 08, 2018 Consults: 12/03/18 10:53 Consult [Physician Consult] Stat Comment: Consulting Provider: Victor M Harrington Consulting Physician: Victor M Harrington Reason for Consult: chf 12/03/18 14:07 Inpatient DAIRY POWDER MIXER OPERATOR Core Measures Referral Routine Comment: CHF Physician Instructions: Reason For Exam: EVALUATION Transition In Care/Readmission Reduction Routine Comment: Physician Instructions: Reason For Exam: EVALUATION 12/03/18 14:10 Social Work Referral Routine Comment: DISCHARGE PLANNING /NEEDS PT Physician Instructions: Reason For Exam: EVALUATION Time Spent in preparation of Discharge (in minutes): 45 Hospital Course - Lab Results Lab Results: Most Recent Lab Values WBC 12.1 10^3/uL (4.5-11.0) H D 12/05/18 06:35 RBC 3.92 10^6/uL (3.5-6.1) 12/05/18 06:35 Hgb 11.7 g/dL (14.0-18.0) L 12/05/18 06:35 Hct 37.1 % (42.0-52.0) L 12/05/18 06:35 MCV 94.6 fl (80.0-105.0) 12/05/18 06:35 MCH 29.8 pg (25.0-35.0) 12/05/18 06:35 MCHC 31.5 g/dl (31.0-37.0) 12/05/18 06:35 RDW 15.9 % (11.5-14.5) H 12/05/18 06:35 Plt Count 236 10^3/uL (120.0-450.0) 12/05/18 06:35 MPV 9.5 fl (7.0-11.0) 12/05/18 06:35 Gran % 82.4 % (50.0-68.0) H 12/04/18 05:41 Neut % (Auto) 69.6 % (50.0-68.0) H 12/05/18 06:35 Lymph % (Auto) 16.7 % (22.0-35.0) L 12/05/18 06:35 Cannon % (Auto) 13.2 % (1.0-6.0) H 12/05/18 06:35 Eos % (Auto) 0.3 % (1.5-5.0) L 12/05/18 06:35 Baso % (Auto) 0.2 % (0.0-3.0) 12/05/18 06:35 Gran # 7.53 (1.4-6.5) H 12/04/18 05:41 Lymph # (Auto) 2.0 (1.2-3.4) 12/05/18 06:35 Cannon # (Auto) 1.6 (0.1-0.6) H 12/05/18 06:35 Eos # (Auto) 0.0 (0.0-0.7) 12/05/18 06:35 Baso # (Auto) 0.02 K/mm3 (0.0-2.0) 12/05/18 06:35 Absolute Neuts (auto) 8.41 (1.4-6.5) H 12/05/18 06:35 PT 13.0 SECONDS (9.4-12.5) H 12/03/18 10:00 INR 1.15 12/03/18 10:00 APTT 30.8 Seconds (26.9-38.3) 12/03/18 10:00 pO2 48 mm/Hg (30-55) 12/03/18 13:25 VBG pH 7.40 (7.32-7.43) 12/03/18 13:25 VBG pCO2 42.0 (40-60) 12/03/18 13:25 VBG HCO3 26.0 mmol/l (21-28) 12/03/18 13:25 VBG O2 Sat (Calc) 88.1 % (40-65) H 12/03/18 13:25 VBG Base Excess 1.0 mmol/L (0.0-2.0) 12/03/18 13:25 Sodium 139 mmol/L (132-148) 12/05/18 06:35 Potassium 3.9 mmol/L (3.6-5.0) 12/05/18 06:35 Chloride 100 mmol/L (98-107) 12/05/18 06:35 Carbon Dioxide 29 mmol/L (21-33) 12/05/18 06:35 Anion Gap 14 (10-20) 12/05/18 06:35 BUN 48 mg/dL (7-21) H 12/05/18 06:35 Creatinine 1.4 mg/dl (0.8-1.5) 12/05/18 06:35 Est GFR ( Amer) 59 12/05/18 06:35 Est GFR (Non-Af Amer) 49 12/05/18 06:35 Random Glucose 100 mg/dL (70-110) 12/05/18 06:35 Uric Acid 9.0 mg/dL (3.5-8.5) H 12/04/18 05:41 Calcium 9.7 mg/dL (8.4-10.5) 12/05/18 06:35 Phosphorus 3.9 mg/dL (2.5-4.5) 12/04/18 05:41 Magnesium 2.3 mg/dL (1.7-2.2) H 12/04/18 05:41 Total Bilirubin 0.5 mg/dL (0.2-1.3) 12/05/18 06:35 AST 29 U/L (17-59) 12/05/18 06:35 ALT 40 U/L (7-56) 12/05/18 06:35 Alkaline Phosphatase 55 U/L (38-126) 12/05/18 06:35 Lactate Dehydrogenase 600 U/L (333-699) 12/03/18 10:00 Total Creatine Kinase 41 U/L (35-230) 12/03/18 10:00 Troponin I 0.02 ng/mL 12/03/18 12:55 NT-Pro-B Natriuret Pep 2590 pg/mL (0-450) H 12/04/18 05:41 Total Protein 6.9 g/dL (5.8-8.3) 12/05/18 06:35 Albumin 3.9 g/dL (3.0-4.8) 12/05/18 06:35 Globulin 3.0 gm/dL 12/05/18 06:35 Albumin/Globulin Ratio 1.3 (1.1-1.8) 12/05/18 06:35 Triglycerides 63 mg/dL (35-160) 12/04/18 05:41 Cholesterol 121 mg/dL (130-200) L 12/04/18 05:41 LDL Cholesterol Direct 64 mg/dL (0-129) 12/04/18 05:41 HDL Cholesterol 40 mg/dL (29-60) 12/04/18 05:41 Free T4 1.05 ng/dL (0.78-2.19) 12/03/18 12:55 TSH 3rd Generation 0.13 mIU/mL (0.46-4.68) L 12/03/18 10:00 - Hospital Course Hospital Course: Upon Admission As per HPI: "78yo male PMHx HTN, CAD s/p stent placement, bioprosthetic aortic valve replacement, Watchman device, paroxysmal afib, COPD, CHF, and bladder cancer presents with shortness of breath for 1-2 days. Patient reports he was starting to feel short of breath when he was taking out the trash and had to walk down some stairs. Patient reports he had to lie down until his dyspnea resolved. Patient states his shortness of breath is intermittent and worsens with activity and ambulation. He also complaints of a mild productive cough with white phlegm and no hemoptysis. He had seen Dr. Mcconnell prior to coming to the ER. He denied acute complaints of fever, chills, headache, dizziness, chest pain, palpitations, abdominal pain, nausea, vomiting, bowel/baldder complaints, pain/swelling in his legs bilaterally." Hospital Course Patient admitted to TELE. Patient reported that since prior admission when he was intubated in the CCU he has experienced several episodes of dyspnea on minimal exertion. CXR reviewed. Patient has elevated proBNP of 1630 which is trend down from which was 2030. Patient started on IV lasix and metolazone. Patient also on Lisinopril and Cardizem. Patient's troponin negative x 2. Cardiology on board for possible CHF exacerbation. Cardio counseled patient thoroughly on the importance of following up with his home [employer] And Edger and having a cardiac cath done as an outpatient. Patient on ASA daily. Lipid panel wnl and patient continued on home lipitor. Hypothyroidism managed as per thyroid panel and patient continued on home synthroid. Patient continued on home COPD meds Spiriva and Breo-Ellipta. Maintained O2 sat 88-92% on 2L NC. Repeat CXR unremarkable. In light of patient's bilateral atlecetasis on CXR, incentive spirometer at bedside for patient to use. Continued home proscar at this time. Patient was evaluated by PT who reported patient presented with adequate strength, balance and functional mobility and would benefit from PT when discharged home. Patient clinically improved and on day of discharge was deemed medically optimized for discharge home. Discharge Instructions "You are being discharged from [facility] Upon Discharge please resume all your home medications. Please take your Lasix 40mg 1 tab by mouth twice a day for 5 days. Please keep your appointment with your broodmare foreman Dr. Matos on December 08, 2018. Please also keep your appointment with your avionics repair technician Dr. Mata on December 21, 2018. Please follow up with your Primary Care doctor Dr. Mcconnell within 7 days of discharge. If symptoms return please visit your nearest Emergency Room" Patient verbalized understanding and agreement with plan. Home medications were reconciled and patient did not need any refills. Please note this is a discharge summary. For full hospital course please refer to EMR. Discharge Exam - Additional Findings Additional findings: - Constitutional Appears: Non-toxic, No Acute Distress - Head Exam Head Exam: ATRAUMATIC, NORMAL INSPECTION, NORMOCEPHALIC - Eye Exam Eye Exam: EOMI, Normal appearance, PERRL. absent: Conjunctival injection, Scleral icterus - ENT Exam ENT Exam: Mucous Membranes Moist - Neck Exam Neck exam: Positive for: Full Rom, Normal Inspection - Respiratory Exam Respiratory Exam: Decreased Breath Sounds, NORMAL BREATHING PATTERN. absent: Accessory Muscle Use, Respiratory Distress - Cardiovascular Exam Cardiovascular Exam: +S1, +S2 - GI/Abdominal Exam GI & Abdominal Exam: Normal Bowel Sounds, Soft. absent: Firm, Guarding, Rigid, Tenderness - Rectal Exam Rectal Exam: Deferred - Extremities Exam Extremities exam: Positive for: normal inspection, pedal pulses present. Negative for: calf tenderness, pedal edema - Back Exam Back exam: NORMAL INSPECTION. absent: rash noted, tenderness - Neurological Exam Neurological exam: Alert, CN II-XII Intact, Normal Gait, Oriented x3 - Skin Skin Exam: Dry, Intact, Normal Color, Warm Discharge Plan - Follow Up Plan Condition: STABLE Disposition: HOME/ ROUTINE Instructions: Heart Failure (DC), Heart Failure (GEN), Pacemaker (DC), Pacemaker (GEN), Pulmonary Edema (DC), Pulmonary Edema (GEN), Ascites (DC), Ascites (GEN) Additional Instructions: You are being discharged from [facility] Upon Discharge please resume all your home medications. Please take your Lasix 40mg 1 tab by mouth twice a day for 5 days. Please keep your appointment with your broodmare foreman Dr. Matos on December 08, 2018. Please also keep your appointment with your avionics repair technician Dr. Mata on December 21, 2018. Please follow up with your Primary Care doctor Dr. Mcconnell within 7 days of discharge. If symptoms return please visit your nearest Emergency Room. Referrals: Victor M Harrington MD [Staff Provider] - Vidal Mata MD [Staff Provider] - Chao Mcconnell MD [Family Provider] - Kareem Tang MD [Medical Doctor] - <Sixto Dahl - Last Filed: 12/05/18 20:07> Provider - Provider Date of Admission: 12/04/18 08:30 Attending physician: Sixto Dahl MD Consults: 12/03/18 10:53 Consult [Physician Consult] Stat Comment: Consulting Provider: Victor M Harrington Consulting Physician: Victor M Harrington Reason for Consult: chf 12/03/18 14:07 Inpatient DAIRY POWDER MIXER OPERATOR Core Measures Referral Routine Comment: CHF Physician Instructions: Reason For Exam: EVALUATION Transition In Care/Readmission Reduction Routine Comment: Physician Instructions: Reason For Exam: EVALUATION 12/03/18 14:10 Social Work Referral Routine Comment: DISCHARGE PLANNING /NEEDS PT Physician Instructions: Reason For Exam: EVALUATION Hospital Course - Lab Results Lab Results: Most Recent Lab Values WBC 12.1 10^3/uL (4.5-11.0) H D 12/05/18 06:35 RBC 3.92 10^6/uL (3.5-6.1) 12/05/18 06:35 Hgb 11.7 g/dL (14.0-18.0) L 12/05/18 06:35 Hct 37.1 % (42.0-52.0) L 12/05/18 06:35 MCV 94.6 fl (80.0-105.0) 12/05/18 06:35 MCH 29.8 pg (25.0-35.0) 12/05/18 06:35 MCHC 31.5 g/dl (31.0-37.0) 12/05/18 06:35 RDW 15.9 % (11.5-14.5) H 12/05/18 06:35 Plt Count 236 10^3/uL (120.0-450.0) 12/05/18 06:35 MPV 9.5 fl (7.0-11.0) 12/05/18 06:35 Gran % 82.4 % (50.0-68.0) H 12/04/18 05:41 Neut % (Auto) 69.6 % (50.0-68.0) H 12/05/18 06:35 Lymph % (Auto) 16.7 % (22.0-35.0) L 12/05/18 06:35 Cannon % (Auto) 13.2 % (1.0-6.0) H 12/05/18 06:35 Eos % (Auto) 0.3 % (1.5-5.0) L 12/05/18 06:35 Baso % (Auto) 0.2 % (0.0-3.0) 12/05/18 06:35 Gran # 7.53 (1.4-6.5) H 12/04/18 05:41 Lymph # (Auto) 2.0 (1.2-3.4) 12/05/18 06:35 Cannon # (Auto) 1.6 (0.1-0.6) H 12/05/18 06:35 Eos # (Auto) 0.0 (0.0-0.7) 12/05/18 06:35 Baso # (Auto) 0.02 K/mm3 (0.0-2.0) 12/05/18 06:35 Absolute Neuts (auto) 8.41 (1.4-6.5) H 12/05/18 06:35 PT 13.0 SECONDS (9.4-12.5) H 12/03/18 10:00 INR 1.15 12/03/18 10:00 APTT 30.8 Seconds (26.9-38.3) 12/03/18 10:00 pO2 48 mm/Hg (30-55) 12/03/18 13:25 VBG pH 7.40 (7.32-7.43) 12/03/18 13:25 VBG pCO2 42.0 (40-60) 12/03/18 13:25 VBG HCO3 26.0 mmol/l (21-28) 12/03/18 13:25 VBG O2 Sat (Calc) 88.1 % (40-65) H 12/03/18 13:25 VBG Base Excess 1.0 mmol/L (0.0-2.0) 12/03/18 13:25 Sodium 139 mmol/L (132-148) 12/05/18 06:35 Potassium 3.9 mmol/L (3.6-5.0) 12/05/18 06:35 Chloride 100 mmol/L (98-107) 12/05/18 06:35 Carbon Dioxide 29 mmol/L (21-33) 12/05/18 06:35 Anion Gap 14 (10-20) 12/05/18 06:35 BUN 48 mg/dL (7-21) H 12/05/18 06:35 Creatinine 1.4 mg/dl (0.8-1.5) 12/05/18 06:35 Est GFR ( Amer) 59 12/05/18 06:35 Est GFR (Non-Af Amer) 49 12/05/18 06:35 Random Glucose 100 mg/dL (70-110) 12/05/18 06:35 Uric Acid 9.0 mg/dL (3.5-8.5) H 12/04/18 05:41 Calcium 9.7 mg/dL (8.4-10.5) 12/05/18 06:35 Phosphorus 3.9 mg/dL (2.5-4.5) 12/04/18 05:41 Magnesium 2.3 mg/dL (1.7-2.2) H 12/04/18 05:41 Total Bilirubin 0.5 mg/dL (0.2-1.3) 12/05/18 06:35 AST 29 U/L (17-59) 12/05/18 06:35 ALT 40 U/L (7-56) 12/05/18 06:35 Alkaline Phosphatase 55 U/L (38-126) 12/05/18 06:35 Lactate Dehydrogenase 600 U/L (333-699) 12/03/18 10:00 Total Creatine Kinase 41 U/L (35-230) 12/03/18 10:00 Troponin I 0.02 ng/mL 12/03/18 12:55 NT-Pro-B Natriuret Pep 2590 pg/mL (0-450) H 12/04/18 05:41 Total Protein 6.9 g/dL (5.8-8.3) 12/05/18 06:35 Albumin 3.9 g/dL (3.0-4.8) 12/05/18 06:35 Globulin 3.0 gm/dL 12/05/18 06:35 Albumin/Globulin Ratio 1.3 (1.1-1.8) 12/05/18 06:35 Triglycerides 63 mg/dL (35-160) 12/04/18 05:41 Cholesterol 121 mg/dL (130-200) L 12/04/18 05:41 LDL Cholesterol Direct 64 mg/dL (0-129) 12/04/18 05:41 HDL Cholesterol 40 mg/dL (29-60) 12/04/18 05:41 Free T4 1.05 ng/dL (0.78-2.19) 12/03/18 12:55 TSH 3rd Generation 0.13 mIU/mL (0.46-4.68) L 12/03/18 10:00 - Hospital Course Hospital Course: Pt seen and examined by me. I have reviewed the note of the director of medical education and I agree with it. I have discussed the assessment and plan with the resident. I have reviewed the medications and the last labs. Pt with acute due to systolic dysfunction. Pt has CAD and will f/u with cardiology. Pt with Hypertension that is controlled. Pt is not SOB and able to sleep well. No PND. Discharge home today. Will increase lasix bid at home for 5 days and then daily.
[2018-12-05] MEDS ORDERED: Potassium Chloride 20 mEq ER Tab PO SCH (08:30)
[2018-12-05] MEDS: metOLazone 2.5 MG TAB PO SCH (09:05)
[2018-12-05] MEDS: Levothyroxine 75 MCG TAB PO SCH (09:05)
[2018-12-05] MEDS: Tiotropium 18 mcg Cap For Inhalation INH SCH (09:08)
[2018-12-05] MEDS: Enoxaparin 40 mg Syringe SC SCH (09:10)
[2018-12-05] MEDS: [UNRECOGNIZED DRUG - OTHER] INH SCH (09:11)
[2018-12-05 09:12] VITALS: BP 100/52
[2018-12-05 11:03] VITALS: PULSE 47
== END 2018-12-05 13:42 | disposition home or self-care (01) | DRG 293 ==
LOC: ED 09:45 → ERH 10:54 → 2RNO 12:04 → OBSVTOIN 12-04 08:30
PROVIDERS: ADMIT Internal Medicine Nephrology; ATTEND Internal Medicine Nephrology
DX: I11.0 Hypertensive heart disease with heart failure (principal); I50.23 Acute on chronic systolic (congestive) heart failure; I48.0 Paroxysmal atrial fibrillation; I25.10 Atherosclerotic heart disease of native coronary artery without angina pectoris; I35.0 Nonrheumatic aortic (valve) stenosis; J43.9 Emphysema, unspecified; E03.9 Hypothyroidism, unspecified; Z96.652 Presence of left artificial knee joint; Z95.1 Presence of aortocoronary bypass graft; Z95.5 Presence of coronary angioplasty implant and graft; Z95.3 Presence of xenogenic heart valve; Z87.891 Personal history of nicotine dependence; Z86.010 Personal history of colon polyps; Z85.51 Personal history of malignant neoplasm of bladder; Z85.828 Personal history of other malignant neoplasm of skin; Z79.82 Long term (current) use of aspirin; Z88.0 Allergy status to penicillin

== ENCOUNTER 2019-01-03 05:26 | Inpatient (IN) | payer MEDICARE ==
[2019-01-03 05:29] VITALS: BMI 36.9
--- NOTE | 2019-01-03 05:33 | ED PDOC ---
Arrival/HPI - General Time Seen by Provider: 01/03/19 05:29 Historian: Patient - History of Present Illness Narrative History of Present Illness (Text): 01/03/19 05:33 Andrez Coelho is an 78 year old male, whose past medical history includes hypertension, CAD with 2 cardiac stents, COPD, emphysema, CHF on Lasix, aortic valve replacement, chronic vertigo, bladder cancer, and goiter, who presents to the Emergency department brought in by EMS accompanied by for respiratory distress prior to arrival. states patient woke up this morning with sudden onset shortness of breath, progressively worsening, with associated chest pain. Patient used a nebulizer treatment and his Proair inhaler at home with no significant improvement. On arrival to ED, patient noted to be diaphoretic in mild respiratory distress. notes patient has been intubated in the past. Patient denies any fever, chills, abdominal pain, vomiting, diarrhea, back pain, headache, dizziness, or any other complaints. PMD: Dr. Mcconnell Vp Design: Dr. Harrington Symptom Onset: Gradual Symptom Course: Unchanged Activities at Onset: Light Context: Home Past Medical History - Provider Review Nursing Documentation Reviewed: Yes - Infectious Disease Hx of Infectious Diseases: None - Tetanus Immunization Tetanus Immunization: Unknown - Cardiac Hx Congestive Heart Failure: Yes Hx Hypertension: Yes - Pulmonary Hx Chronic Obstructive Pulmonary Disease (COPD): Yes - Neurological Hx Neurological Disorder: Yes Hx Dizziness: Yes (VERTIGO) - HEENT Hx HEENT Disorder: No - Renal Hx Renal Disorder: Yes Other/Comment: LOW GRADE BLADDER CA - Endocrine/Metabolic Hx Endocrine Disorders: No - Hematological/Oncological Hx Blood Disorders: Yes Hx Cancer: Yes (BASAL CELL -FACE,LOW GRADE BLADDER CA) - Integumentary Hx Dermatological Disorder: Yes Hx Basal Cell Carcinoma: Yes (FACE) - Musculoskeletal/Rheumatological Hx Arthritis: Yes (KNEE WITH TOTAL KNEE REPLACEMENT 01-03-16) - Gastrointestinal Hx Gastrointestinal Disorders: No Other/Comment: COLON POLYPS, - Genitourinary/Gynecological Hx Genitourinary Disorders: Yes Hx Hematuria: Yes (MINIMAL HEMATURIA H/O) Other/Comment: UVULECTOMY - Psychiatric Hx Psychophysiologic Disorder: Yes Hx Depression: Yes Hx Substance Use: No Other/Comment: SMOKED CIGARETTES,SEVERE CLAUSTROPHOBIA - Past Surgical History Past Surgical History: Non-Contributing - Surgical History Hx Coronary Stent: Yes ( x2) Hx Orthopedic Surgery: Yes (left knee replacement) Other/Comment: TOTAL KNEE REPLACEMENT LEFT KNEE 01-03-16 aortic valve replacement 03/25. Watchmen - Anesthesia Hx Anesthesia: Yes Hx Anesthesia Reactions: No Hx Malignant Hyperthermia: No - Suicidal Assessment Feels Threatened In Home Enviroment: No Family/Social History - Physician Review Nursing Documentation Reviewed: Yes Family/Social History: Unknown Family HX Smoking Status: Former Smoker Hx Alcohol Use: No Hx Substance Use: No Allergies/Home Meds Allergies/Adverse Reactions: Allergies Tetanus Vaccines and Toxoid [Tetanus Vaccines & Toxoid] Allergy (Severe, Verified 01/03/19 05:30) ANAPHYLAXIS tetracycline Allergy (Severe, Verified 01/03/19 05:30) ANAPHYLAXIS cefepime Allergy (Verified 01/03/19 05:30) RASH Penicillins Allergy (Verified 01/03/19 05:30) SWELLING Home Medications: Home Meds Medication Instructions Recorded Confirmed Aspirin [Ecotrin] 81 mg PO DAILY 01/04/17 01/03/19 Atorvastatin [Lipitor] 40 mg PO HS 01/04/17 01/03/19 Doxepin [Sinequan] 50 mg PO HS 01/04/17 01/03/19 Finasteride [Proscar] 5 mg PO DAILY 01/04/17 01/03/19 Levothyroxine [Synthroid] 75 mcg PO DAILY 01/04/17 01/03/19 Fluticasone/Vilanterol [Breo 1 inhaler INH DAILY 05/12/17 01/03/19 Ellipta 100-25 Mcg INH] Tiotropium [Spiriva] 1 inhaler INH BID 05/12/17 01/03/19 Albuterol Sulfate [Proair 90 mcg IH PRN PRN 07/05/18 01/03/19 Respiclick] Lisinopril [Zestril] 1 tab PO DAILY 12/03/18 01/03/19 Bumetanide [Bumex] 0.5 mg PO DAILY 01/03/19 01/03/19 Review of Systems - Physician Review All systems were reviewed & negative as marked: Yes - Review of Systems Constitutional: Normal. absent: Fevers Eyes: Normal ENT: Normal Respiratory: SOB Cardiovascular: Chest Pain, Orthopnea Gastrointestinal: Normal. absent: Abdominal Pain, Diarrhea, Nausea, Vomiting Genitourinary Male: Normal. absent: Dysuria, Hematuria, Urinary Output Changes Musculoskeletal: Normal. absent: Back Pain, Neck Pain Skin: Normal. absent: Rash Neurological: Normal. absent: Headache, Dizziness Endocrine: Normal Hemo/Lymphatic: Normal Psychiatric: Normal Physical Exam Vital Signs Reviewed: Yes Temperature: Afebrile Blood Pressure: Hypertensive Pulse: Tachycardic Respiratory Rate: Tachypneic Pain Distress: Mild (Mild respiratory distress) Mental Status: Positive for: Alert and Oriented X 3 - Systems Exam Head: Present: Atraumatic, Normocephalic Pupils: Present: PERRL Extroacular Muscles: Present: EOMI Conjunctiva: Present: Normal Mouth: Present: Moist Mucous Membranes Neck: Present: Normal Range of Motion Respiratory/Chest: Present: Respiratory Distress (Mild respiratory distress), Decreased Breath Sounds (Decreased breath sounds bilaterally), Rales (Bilateral rales) Cardiovascular: Present: Regular Rate and Rhythm, Normal S1, S2. No: Murmurs Abdomen: No: Tenderness, Distention, Peritoneal Signs Back: Present: Normal Inspection Upper Extremity: Present: Normal Inspection. No: Cyanosis, Edema Lower Extremity: Present: Normal Inspection. No: Edema Neurological: Present: GCS=15, CN II-XII Intact, Speech Normal Skin: Present: Warm, Normal Color, Diaphoretic. No: Rashes Psychiatric: Present: Alert, Oriented x 3, Normal Insight, Normal Concentration Medical Decision Making ED Course and Treatment: 01/03/19 05:33 Impression: 78 year old male complaining of sudden onset of shortness of breath and chest pain this morning. Plan: -- EKG -- CXR -- Labs, cardiac enzymes, BNP -- Lasix -- Duoneb -- Morphine --Reassess Prior Visits: Notes and results from previous visits were reviewed. Progress Notes: Reviewed EKG, sinus tachycardia at 118 bpm. LBBB. Occasional PVC. Pt with significant improvement after receiving Lasix 80mg. 01/03/19 06:48 Case was discussed with /in the emergency room currently to evaluate patient/accepts to his service - Critical Care Critical Care Minutes: 30 minutes - RAD Interpretation Narrative RAD Interpretations (Text): 01/03/19 06:35 CXR-c/w CHF Inspector Assembly: ED Physician - EKG Interpretation Interpreted by ED Physician: Yes Type: 12 lead EKG - Scribe Statement The provider has reviewed the documentation as recorded by the Aashishiblindsay Chaney All medical record entries made by the Aashishiblindsay were at my direction and personally dictated by me. I have reviewed the chart and agree that the record accurately reflects my personal performance of the history, physical exam, medical decision making, and the department course for this patient. I have also personally directed, reviewed, and agree with the discharge instructions and disposition. Disposition/Present on Arrival - Present on Arrival Any Indicators Present on Arrival: No History of DVT/PE: No History of Uncontrolled Diabetes: No Urinary Catheter: No History of Decub. Ulcer: No History Surgical Site Infection Following: None - Disposition Have Diagnosis and Disposition been Completed?: Yes Diagnosis: CHF (congestive heart failure) Disposition: HOSPITALIZED Disposition Time: 06:48 Patient Plan: Admission Patient Problems: Current Active Problems Problem Status Onset CHF (congestive heart failure) Chronic Condition: STABLE
[2019-01-03] MEDS ORDERED: Morphine 2 mg/ml ISec ONE (05:35)
[2019-01-03] MEDS ORDERED: Albuterol-Ipratrop 3 mg / 0.5 (3 ml) UD IH STA (05:35)
[2019-01-03] MEDS ORDERED: Morphine 2 mg/ml ISec IVP STA (05:35)
[2019-01-03 06:39] LABS: INR 1.11; PARTIAL THROMBOPLASTIN TIME 27.3 Seconds (26.9-38.3); PROTHROMBIN TIME 12.5 SECONDS (9.4-12.5)
[2019-01-03 06:44] LABS: ALB/GLOB RATIO 1.5 (1.1-1.8); ALBUMIN 4.6 g/dL (3.0-4.8); ALT/SGPT 36 U/L (7-56); AST/SGOT 53 U/L (17-59); BLOOD UREA NITROGEN 23 mg/dL (7-21); GFR NON-AFRICAN AMERICAN 53
[2019-01-03 06:53] LABS: B-TYPE NATRIURETIC PEPTIDE 4100 pg/mL (0-450); TROPONIN I 0.02 ng/mL
[2019-01-03 07:04] LABS: HEMOGLOBIN 12.9 g/dL (14.0-18.0); MEAN CELL VOLUME 98.4 fl (80.0-105.0); MEAN CORPUSCULAR HEMOGLOBIN 30.1 pg (25.0-35.0); MEAN CORPUSCULAR HGB CONC 30.6 g/dl (31.0-37.0); MEAN PLATELET VOLUME 10.4 fl (7.0-11.0); RBC 4.29 10^6/uL (3.5-6.1); RED CELL DISTRIBUTION WIDTH 16.2 % (11.5-14.5)
[2019-01-03] MEDS ORDERED: Albuterol-Ipratrop 3 mg / 0.5 (3 ml) UD IH PRN (09:34)
--- NOTE | 2019-01-03 09:55 | RAD ---
Date of service: 01/03/2019 HISTORY: sob COMPARISON: 12/03/2018 FINDINGS: LUNGS: The lungs are well inflated. There is mild pulmonary venous congestion. There is atelectasis/scarring in the right lower lobe. PLEURA: No pleural effusions or pneumothorax. CARDIOVASCULAR: There is persistent severe cardiomegaly. No aortic atherosclerotic calcifications present. OSSEOUS STRUCTURES: Within normal limits for the patient's age. VISUALIZED UPPER ABDOMEN: Normal. OTHER FINDINGS: None. IMPRESSION: No change in severe cardiomegaly and mild pulmonary venous congestion.
--- NOTE | 2019-01-03 10:04 | CARD ---
APPROVED REPORT Date of service: 01/03/2019 EKG Measurement Heart [id number] <Conclusion> Sinus tachycardia with frequent premature ventricular complexes Left axis deviation Left bundle branch block Abnormal ECG
--- NOTE | 2019-01-03 10:10 | CP.PCM.HP ---
<Ross Smith - Last Filed: 01/03/19 10:10> History of Present Illness - History of Present Illness History of Present Illness: H&P for Dr Dahl: 78-year-old male with past medical history of hypertension, coronary artery disease with 2 stent placement, COPD, emphysema, CHF with EF of 41%, bioprosthetic aortic valve replacement, chronic vertigo, bladder cancer, goiter, and BPH presents to the emergency room with shortness of breath. Patient's is at bedside and state that patient had a sudden onset shortness of breath that started in the morning. The patient states that he was trying to go to sleep when he had multiple of episodes of coughing and shortness of breath. He tried a nebulized treatment and felt a little better at first however became progressively worse. Patient states that he was just recently switched from Lasix to Bumex by his data warehouse specialist however he has not been having a good urinary output with the Bumex. Patient also presents with associated chest pain. He denies any other complaints. 12 point ROS performed and negative other than as stated above PMHx: HTN, CAD s/p stent placement, bioprosthetic aortic valve replacement, Watchman device, paroxysmal afib, COPD, CHF, and bladder cancer PSurgHx: TKR, bladder surgery Meds: Refer to [facility] ALL: tetanus and toxoid, tetracycline, cefepime, PCN SocHx: Former smoker of 1/2ppd for 15 years, quit 40 years delilah; denies any EtOH and drug use; used to work with [employer] FamHx: Patients father with emphysema, and cancer Present on Admission - Present on Admission Any Indicators Present on Admission: No Review of Systems - Review of Systems All systems: reviewed and no additional remarkable complaints except Past Patient History - Infectious Disease Hx of Infectious Diseases: None - Tetanus Immunizations Tetanus Immunization: Unknown - Past Medical History & Family History Past Medical History?: Yes - Past Social History Smoking Status: Former Smoker - CARDIAC Hx Congestive Heart Failure: Yes Hx Hypertension: Yes - PULMONARY Hx Chronic Obstructive Pulmonary Disease (COPD): Yes - NEUROLOGICAL Hx Neurological Disorder: Yes Hx Dizziness: Yes (VERTIGO) - HEENT Hx HEENT Problems: No - RENAL Hx Chronic Kidney Disease: Yes Other/Comment: LOW GRADE BLADDER CA - ENDOCRINE/METABOLIC Hx Endocrine Disorders: No - HEMATOLOGICAL/ONCOLOGICAL Hx Blood Disorders: Yes Hx Cancer: Yes (BASAL CELL -FACE,LOW GRADE BLADDER CA) - INTEGUMENTARY Hx Dermatological Problems: Yes Hx Basil Cell: Yes (FACE) - MUSCULOSKELETAL/RHEUMATOLOGICAL Hx Arthritis: Yes (KNEE WITH TOTAL KNEE REPLACEMENT 01-03-16) - GASTROINTESTINAL Hx Gastrointestinal Disorders: No Other/Comment: COLON POLYPS, - GENITOURINARY/GYNECOLOGICAL Hx Genitourinary Disorders: Yes Hx Hematuria: Yes (MINIMAL HEMATURIA H/O) Other/Comment: UVULECTOMY - PSYCHIATRIC Hx Psychophysiologic Disorder: Yes Hx Depression: Yes Hx Substance Use: No Other/Comment: SMOKED CIGARETTES,SEVERE CLAUSTROPHOBIA - SURGICAL HISTORY Hx Coronary Stent: Yes ( x2) Hx Orthopedic Surgery: Yes (left knee replacement) Other/Comment: TOTAL KNEE REPLACEMENT LEFT KNEE 01-03-16 aortic valve replacement 03/25. Watchmen - ANESTHESIA Hx Anesthesia: Yes Hx Anesthesia Reactions: No Hx Malignant Hyperthermia: No Meds Allergies/Adverse Reactions: Allergies Allergy/AdvReac Type Severity Reaction Status Date / Time Tetanus Vaccines and Toxoid Allergy Severe ANAPHYLAXIS Verified 01/03/19 05:30 [Tetanus Vaccines & Toxoid] tetracycline Allergy Severe ANAPHYLAXIS Verified 01/03/19 05:30 cefepime Allergy RASH Verified 01/03/19 05:30 Penicillins Allergy SWELLING Verified 01/03/19 05:30 Physical Exam - Constitutional Appears: No Acute Distress - Head Exam Head Exam: ATRAUMATIC, NORMOCEPHALIC - Eye Exam Eye Exam: EOMI, PERRL - ENT Exam ENT Exam: Mucous Membranes Moist - Respiratory Exam Respiratory Exam: Clear to Auscultation Bilateral. absent: Rales, Wheezes - Cardiovascular Exam Cardiovascular Exam: REGULAR RHYTHM, +S1, +S2 - GI/Abdominal Exam GI & Abdominal Exam: Normal Bowel Sounds, Soft. absent: Tenderness - Extremities Exam Extremities exam: Negative for: calf tenderness, pedal edema - Neurological Exam Neurological exam: Alert, CN II-XII Intact, Oriented x3 - Psychiatric Exam Psychiatric exam: Normal Mood - Skin Skin Exam: Dry, Warm Results - Vital Signs Recent Vital Signs: Last Vital Signs Temp 97.6 F 01/03/19 05:37 Pulse 72 01/03/19 08:40 Resp 17 01/03/19 08:40 BP 118/82 01/03/19 08:40 Pulse Ox 97 01/03/19 08:40 - Labs Result Diagrams: 01/03/19 05:40 01/03/19 05:40 Labs: Laboratory Results - last 24 hr 01/03/19 01/03/19 01/03/19 05:40 05:40 05:40 WBC 13.0 H RBC 4.29 Hgb 12.9 L Hct 42.2 MCV 98.4 D MCH 30.1 MCHC 30.6 L RDW 16.2 H Plt Count 293 MPV 10.4 PT 12.5 INR 1.11 APTT 27.3 Sodium 142 Potassium 3.9 Chloride 107 Carbon Dioxide 19 L Anion Gap 20 BUN 23 H Creatinine 1.3 Est GFR ( Amer) > 60 Est GFR (Non-Af Amer) 53 Random Glucose 152 H Calcium 10.0 Total Bilirubin 0.6 AST 53 ALT 36 Alkaline Phosphatase 76 Lactate Dehydrogenase 631 Total Creatine Kinase 59 Troponin I 0.02 NT-Pro-B Natriuret Pep 4100 H Total Protein 7.7 Albumin 4.6 Globulin 3.1 Albumin/Globulin Ratio 1.5 Assessment & Plan - Assessment and Plan (Free Text) Assessment: 1. CHF exacerbation 2. Coronary artery disease with 2 stent placement 3. COPD with emphysema 4. Hypertension 5. Hypothyroid 6. BPH 7. Bioprosthetic aortic valve replacement 8. HLD Patient was given Lasix IV push 80 mg stat in the emergency room. He will be started on Lasix 40 mg IV push twice daily. Echo has been ordered follow-up results. Cardiology was consulted awaiting recommendations. Restrict salt intake to less than 2 g/day. Monitor I&O's. Daily weights. Continue with aspirin and metoprolol for his history of coronary artery disease. Continue with Spiriva and duo nebs as needed for his COPD. Continue with lisinopril for his hypertension. Continue with Lipitor for his hyperlipidemia. For his BPH continue finasteride. Continue to monitor for any changes Case and plan was reviewed and discussed with Dr. Dahl <Sixto Dahl S - Last Filed: 01/03/19 18:32> Results - Vital Signs Recent Vital Signs: Last Vital Signs Temp 98.7 F 01/03/19 17:45 Pulse 38 L 01/03/19 17:45 Resp 19 01/03/19 17:45 BP 127/76 01/03/19 17:45 Pulse Ox 97 01/03/19 08:40 - Labs Result Diagrams: 01/03/19 05:40 01/03/19 05:40 Labs: Laboratory Results - last 24 hr 01/03/19 01/03/19 01/03/19 05:40 05:40 05:40 WBC 13.0 H RBC 4.29 Hgb 12.9 L Hct 42.2 MCV 98.4 D MCH 30.1 MCHC 30.6 L RDW 16.2 H Plt Count 293 MPV 10.4 PT 12.5 INR 1.11 APTT 27.3 Sodium 142 Potassium 3.9 Chloride 107 Carbon Dioxide 19 L Anion Gap 20 BUN 23 H Creatinine 1.3 Est GFR ( Amer) > 60 Est GFR (Non-Af Amer) 53 Random Glucose 152 H Calcium 10.0 Total Bilirubin 0.6 AST 53 ALT 36 Alkaline Phosphatase 76 Lactate Dehydrogenase 631 Total Creatine Kinase 59 Troponin I 0.02 NT-Pro-B Natriuret Pep 4100 H Total Protein 7.7 Albumin 4.6 Globulin 3.1 Albumin/Globulin Ratio 1.5 01/03/19 11:50 WBC RBC Hgb Hct MCV MCH MCHC RDW Plt Count MPV PT INR APTT Sodium Potassium Chloride Carbon Dioxide Anion Gap BUN Creatinine Est GFR ( Amer) Est GFR (Non-Af Amer) Random Glucose Calcium Total Bilirubin AST ALT Alkaline Phosphatase Lactate Dehydrogenase Total Creatine Kinase Troponin I 0.09 D NT-Pro-B Natriuret Pep Total Protein Albumin Globulin Albumin/Globulin Ratio Assessment & Plan - Assessment and Plan (Free Text) Assessment: Pt seen and examined by me. I have reviewed the note of the medical unit secretary and I agree with it. I have discussed the assessment and plan with the resident. I have reviewed the medications and the last labs.
[2019-01-03] MEDS: Metoprolol Succinate 50 mg XL Tab PO SCH (10:50)
[2019-01-03] MEDS: Levothyroxine 75 MCG TAB PO SCH (10:53)
[2019-01-03] MEDS: Tiotropium 18 mcg Cap For Inhalation INH SCH ×2 (10:53→21:27)
[2019-01-03] MEDS: Enoxaparin 40 mg Syringe SC SCH (10:55)
[2019-01-03] MEDS: POLYETHYLENE GLYCOL 3350 17 GM/Dose PACKET PO SCH (17:24)
[2019-01-03] MEDS: Doxepin HCL 10 mg/mL ORAL SOLUTION PO SCH (22:30)
--- NOTE | 2019-01-04 00:05 | HP ---
DATE OF EXAM: 01/03/2019 HISTORY OF PRESENT ILLNESS: The patient was seen by me in the emergency room. The patient had his at the bedside. I did review the note of the medical claims assistant and I do agree with this. I did discuss the assessment and plan of care. The patient has a history of CHF and he needs a cardiac cath and has been refusing. He is interested in having Dr. Wallace evaluate him. IMPRESSION AND PLAN: I did advise him on the previous 2 admissions that he should get a cardiac cath and because he has a history of coronary disease and stents that need to be evaluated. He is interested in seeing Dr. Mata from Pulmonary. I will get a consult from Dr. Mata's group as well. Patient may be placed on nebulizer treatment as needed. He is going to continue with Lasix. He is diuresed well. He is on Lovenox for DVT prophylaxis. The patient is on his Spiriva. He is on Synthroid for hypothyroidism. Sixto Dahl MD
[2019-01-04] MEDS ORDERED: DiphenhydrAMINE 50 mg/ml Inj IVP STA (00:15)
[2019-01-04 07:14] LABS: BASO # 0.01 K/mm3 (0.0-2.0); BASO % 0.1 % (0.0-3.0); HEMOGLOBIN 11.3 g/dL (14.0-18.0); LYMPH % 16.6 % (22.0-35.0); MEAN CELL VOLUME 96.5 fl (80.0-105.0); MEAN CORPUSCULAR HEMOGLOBIN 30.1 pg (25.0-35.0); MEAN CORPUSCULAR HGB CONC 31.2 g/dl (31.0-37.0); MEAN PLATELET VOLUME 10.5 fl (7.0-11.0); MONO # 1.6 (0.1-0.6); MONO % 13.1 % (1.0-6.0); RBC 3.75 10^6/uL (3.5-6.1); RED CELL DISTRIBUTION WIDTH 16.1 % (11.5-14.5); WHITE BLOOD COUNT 11.9 10^3/uL (4.5-11.0)
[2019-01-04] MEDS: Arformoterol 15 mcg/2 ml Inh Sol IH SCH ×2 (08:10→20:47)
[2019-01-04] MEDS: Budesonide 0.5 mg/2 ml Inhal Susp UD IH SCH ×2 (08:10→20:47)
[2019-01-04 08:17] LABS: ALB/GLOB RATIO 1.5 (1.1-1.8); ALBUMIN 4.1 g/dL (3.0-4.8); ALT/SGPT 31 U/L (7-56); AST/SGOT 29 U/L (17-59); BLOOD UREA NITROGEN 33 mg/dL (7-21); CALCIUM 9.4 mg/dL (8.4-10.5); GFR NON-AFRICAN AMERICAN 53
[2019-01-04] MEDS: Metoprolol Succinate 50 mg XL Tab PO SCH (08:22)
[2019-01-04] MEDS: Enoxaparin 40 mg Syringe SC SCH (09:04)
[2019-01-04] MEDS: Levothyroxine 75 MCG TAB PO SCH (09:05)
[2019-01-04] MEDS: POLYETHYLENE GLYCOL 3350 17 GM/Dose PACKET PO SCH (09:06)
[2019-01-04] MEDS: Tiotropium 18 mcg Cap For Inhalation INH SCH ×2 (09:06→22:05)
--- NOTE | 2019-01-04 10:17 | CP.PCM.PN ---
<Ross Smith - Last Filed: 01/04/19 12:28> Subjective - Date & Time of Evaluation Date of Evaluation: 01/04/19 Time of Evaluation: 07:25 - Subjective Subjective: Medicine Progress note: Pt seen and examined at bedside. No acute events overnight. Patient states that his sob has improved. no chest pain. 12 Point ROS and neg other than stated above Objective - Vital Signs/Intake and Output Vital Signs (last 24 hours): Temp Pulse Resp BP Pulse Ox 97.6 F 65 20 104/63 95 01/04/19 06:00 01/04/19 06:00 01/04/19 06:00 01/04/19 09:05 01/04/19 06:00 Intake and Output: 01/04/19 01/04/19 06:59 18:59 Intake Total 480 Output Total 1900 Balance -1420 - Medications Medications: Current Medications Albuterol/Ipratropium (Duoneb 3 Mg/0.5 Mg (3 Ml) Ud) 3 ml IH [id number] PRN PRN Reason: Wheezing Arformoterol Tartrate (Brovana) [id number] [facility] Last Admin: 01/04/19 08:10 Dose: 15 mcg Aspirin (Ecotrin) [address] [facility] Last Admin: 01/04/19 09:04 Dose: 81 mg Atorvastatin Calcium (Lipitor) [address] [facility] Last Admin: 01/03/19 21:27 Dose: 40 mg Budesonide (Pulmicort Respules) 0.[id number] [facility] Last Admin: 01/04/19 08:10 Dose: 0.5 mg Enoxaparin Sodium (Lovenox) [address] [facility]; Protocol Last Admin: 01/04/19 09:04 Dose: 40 mg Finasteride (Proscar) [address] [facility] Last Admin: 01/04/19 09:04 Dose: 5 mg Furosemide (Lasix) [address] [facility] Last Admin: 01/04/19 09:05 Dose: 40 mg Levothyroxine Sodium (Synthroid) [address] [facility] Last Admin: 01/04/19 09:05 Dose: 75 mcg Lisinopril (Zestril) [address] [facility] Last Admin: 01/03/19 10:54 Dose: 20 mg Metoprolol Succinate (Toprol Xl) [address] [facility] Last Admin: 01/04/19 08:22 Dose: Not Given Polyethylene Glycol (Miralax) [address] [facility] Last Admin: 01/04/19 09:06 Dose: 17 gm Tiotropium [place] (Spiriva) [address] [facility] Last Admin: 01/04/19 09:06 Dose: 18 mcg - Labs Labs: 01/04/19 06:00 01/04/19 06:00 PT 12.5 SECONDS (9.4-12.5) 01/03/19 05:40 INR 1.11 01/03/19 05:40 APTT 27.3 Seconds (26.9-38.3) 01/03/19 05:40 - Constitutional Appears: No Acute Distress - Head Exam Head Exam: ATRAUMATIC, NORMOCEPHALIC - Eye Exam Eye Exam: EOMI - ENT Exam ENT Exam: Mucous Membranes Moist - Respiratory Exam Respiratory Exam: Clear to Ausculation Bilateral, Rales (bases). absent: Rhonchi, Wheezes - Cardiovascular Exam Cardiovascular Exam: REGULAR RHYTHM, +S1, +S2 - GI/Abdominal Exam GI & Abdominal Exam: Soft. absent: Distended, Tenderness - Extremities Exam Extremities Exam: absent: Calf Tenderness, Pedal Edema - Neurological Exam Neurological Exam: Alert, Awake, Oriented x3 - Psychiatric Exam Psychiatric exam: Normal Mood - Skin Skin Exam: Dry, Warm Assessment and Plan - Assessment and Plan (Free Text) Assessment: 1. CHF exacerbation 2. Coronary artery disease with 2 stent placement 3. COPD with emphysema 4. Hypertension 5. Hypothyroid 6. BPH 7. Bioprosthetic aortic valve replacement 8. HLD Patient states his sob has improved. Cont Lasix 40 mg IV push twice daily. Echo has been ordered follow-up results. Cardiology was consulted awaiting recommendations. Restrict salt intake to less than 2 g/day. Monitor I&O's. Daily weights. Continue with aspirin for his history of coronary artery disease. Hold metoprolol for acute CHF. Continue with Spiriva, pulmicort, Brovana and duo nebs for his COPD. Continue with lisinopril for his hypertension. Continue with Lipitor for his hyperlipidemia. For his BPH continue finasteride. Continue to monitor for any changes Case and plan was reviewed and discussed with Dr. Dahl <Sixto Dahl S - Last Filed: 01/04/19 17:39> Objective - Vital Signs/Intake and Output Vital Signs (last 24 hours): Temp Pulse Resp BP Pulse Ox 97.4 F L 56 L 18 109/75 94 L 01/04/19 14:00 01/04/19 14:00 01/04/19 14:00 01/04/19 14:00 01/04/19 14:00 Intake and Output: 01/04/19 01/04/19 06:59 18:59 Intake Total 480 Output Total 1900 Balance -1420 - Medications Medications: Current Medications Albuterol/Ipratropium (Duoneb 3 Mg/0.5 Mg (3 Ml) Ud) 3 ml IH [id number] PRN PRN Reason: Wheezing Arformoterol Tartrate (Brovana) [id number] [facility] Last Admin: 01/04/19 08:10 Dose: 15 mcg Aspirin (Ecotrin) [address] [facility] Last Admin: 01/04/19 09:04 Dose: 81 mg Atorvastatin Calcium (Lipitor) [address] [facility] Last Admin: 01/03/19 21:27 Dose: 40 mg Budesonide (Pulmicort Respules) 0.[id number] [facility] Last Admin: 01/04/19 08:10 Dose: 0.5 mg Carvedilol (Coreg) 3.[address] [facility] Enoxaparin Sodium (Lovenox) [address] [facility]; Protocol Last Admin: 01/04/19 09:04 Dose: 40 mg Finasteride (Proscar) [address] [facility] Last Admin: 01/04/19 09:04 Dose: 5 mg Furosemide (Lasix) [address] [facility] Last Admin: 01/04/19 09:05 Dose: 40 mg Levothyroxine Sodium (Synthroid) [address] [facility] Last Admin: 01/04/19 09:05 Dose: 75 mcg Lisinopril (Zestril) [address] [facility] Last Admin: 01/04/19 09:45 Dose: 20 mg Polyethylene Glycol (Miralax) [address] [facility] Last Admin: 01/04/19 09:06 Dose: 17 gm Tiotropium [place] (Spiriva) [address] [facility] Last Admin: 01/04/19 09:06 Dose: 18 mcg - Labs Labs: 01/04/19 06:00 01/04/19 06:00 PT 12.5 SECONDS (9.4-12.5) 01/03/19 05:40 INR 1.11 01/03/19 05:40 APTT 27.3 Seconds (26.9-38.3) 01/03/19 05:40 Assessment and Plan - Assessment and Plan (Free Text) Assessment: Pt seen and examined by me. I have reviewed the note of the medical technician assistant and I agree with it. I have discussed the assessment and plan with the resident. I have reviewed the medications and the last labs. Please see my dictated note.
--- NOTE | 2019-01-04 12:13 | CON ---
DATE: 01/04/2019 PULMONARY CONSULTATION REASON FOR PULMONARY CONSULTATION: Chronic obstructive pulmonary disease. REFERRING PHYSICIAN: Dr. Sixto Dahl. History is obtained via extensive discussion with the telemetry nurse. I have also reviewed the chart at length, and discussed the case with the patient at length. HISTORY OF PRESENT ILLNESS: The patient is a chronically ill 78-year-old male, with past medical history significant for coronary artery disease, status post multiple cardiac stents, congestive heart failure, cardiomyopathy, status post aortic valve replacement, chronic obstructive pulmonary disease, who presents to with a 1-day history of worsening shortness of breath at rest, dyspnea on exertion, cough, and minimal sputum production. In the emergency room, the patient also stated to chest pain. The chest pain has since resolved. There is no history of coughing up of blood. There is no history of chest pain - brought on with deep respirations. There is no history of temperatures, chills, or infectious exposure. There is no history of night sweats, weight loss, or appetite change prior to the above events. No history of calf pains. No history of syncope or diaphoresis. No history of recent travel or trauma. REVIEW OF SYSTEMS: No history of nausea, vomiting, or diarrhea. No acute urinary symptoms. No new neurologic complaints. Rest of the review of systems is negative. ALLERGIES: ALLERGIES ARE TO PENICILLINS. SOCIAL HISTORY: Positive for former tobacco usage. No alcohol. FAMILY HISTORY: No inheritable diseases. MEDICATIONS: Home medications include Sinequan, Spiriva, Zestril, Synthroid, Breo Ellipta, Proscar, Bumex, Lipitor, Ecotrin, ProAir. PHYSICAL EXAMINATION: GENERAL: The patient appears comfortable this morning. He is not short of breath at rest. VITALS: Temperature is 97.4, pulse on the monitor is 80, respiratory rate 18, blood pressure 110/65. Oxygen saturation on nasal cannula is 96%. HEENT: Normocephalic, atraumatic. No JVD. CARDIOVASCULAR: Systolic ejection murmur at the lower left sternal border. Positive S3 gallop. LUNGS: Minimal crackles at both bases. Minimal rhonchi. No wheezing. EXTREMITIES: Mild edema. No cyanosis, no clubbing. Calves are nontender to palpation. GI: Abdomen is soft, nontender, and nondistended. Bowel sounds are positive. SKIN: No acute rash. NEUROLOGIC: Exam limited at the present time. PERTINENT LABORATORY DATA: Chest x-ray was done yesterday and reviewed. There is severe cardiomegaly noted. There is also [id number] pulmonary vascular congestion. Complete Metabolic Profile: BUN 23, glucose 152, B-type natriuretic peptide 4100. Rest of the metabolic profile is within normal limits. Peak troponin - 0.10. CBC: White count 13.0 K, hemoglobin 12.9, hematocrit 42.2, platelets of 293,000. IMPRESSION: 1. Acute/recurrent congestive heart failure. 2. Intermediate troponin, rule out myocardial infarction. 3. History of coronary artery disease, status post multiple stents. 4. Chronic obstructive pulmonary disease. 5. Mild bronchitis. PLAN: Again, I did discuss the case with the night nurse at length. I have also reviewed the chart at length, discussed the case with the patient at length. The patient presents to with a 1-day history of increasing pulmonary symptoms. As above, he also stated to chest pain in the emergency room. The chest pain has since resolved. I did review the chest x-ray as above. The chest x-ray is consistent with cardiomegaly and [id number] pulmonary vascular congestion. I have also reviewed the laboratory data. A significant rise in the B-type natriuretic peptide is noted. The patient has received multiple doses of Lasix. He does state to feeling significantly better this morning. Also noted is an intermediate troponin. Dr. Wallace (Cardiology) has been called on the case. On physical exam, there is only mild bronchospasm noted. In addition, there is no significant alveolar-arterial gradient. I will continue with the Spiriva for now. I will also place the patient on Brovana and inhaled Pulmicort. He is on Breo Ellipta at home. Again, the patient does state to feeling significantly better this morning - compared to yesterday. He is clinically improved. However, given the above, the future status/prognosis for this patient does remain guarded. I will discuss the above with the attending physician later this morning. Thank you very much for this pulmonary consultation. Rosas Mccann MD [facility] # [id number] JOSE
[2019-01-04] MEDS: Doxepin HCL 10 mg/mL ORAL SOLUTION PO SCH (21:59)
--- NOTE | 2019-01-04 23:02 | PN ---
DATE: 01/04/2019 The patient was seen and examined by me. I reviewed the note of the medical research assistant, and I do agree with it. I have discussed assessment and plan of care with the resident. The patient has CHF that is acute secondary to systolic dysfunction. He has been placed on Lasix and is doing fairly well. The patient will mostly like need a cardiac cath, and he has been refusing the idea. I did speak to Dr. Wallace as well as Dr. Harrington regarding the case. The patient is on Spiriva, Pulmicort, and Brovana for COPD. I do not believe that there is a COPD exacerbation. The patient is currently asked for evaluation by Pulmonary, and I have asked Dr. Mccann who is covering Dr. Mata, the patient's senior materials analyst. He is going to continue with finasteride. He says he is feeling better. He continues to urinate fairly frequently. He is deciding about the cardiac cath and will discuss it with Dr. Wallace. The patient is on heart healthy diet. Sixto Dahl MD
--- NOTE | 2019-01-05 03:45 | CON ---
DATE: 01/04/2019 REQUESTING PHYSICIAN: Dr. Dahl REASON FOR CONSULTATION: Dyspnea. HISTORY: This is an 78-year-old man with known coronary artery disease, status post prior multivessel PCI and transcatheter aortic valve replacement, and recurrent heart failure, who was admitted with worsening dyspnea. He was brought to the emergency room and was found to be in congestive heart failure. Cardiac evaluation was requested. On prior admissions, he had been seen by Dr. Harrington. 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 In addition, he has been followed in [place] by Dr. Kareem Tang for his heart failure. His PCIs were performed there and his TAVR was performed there as well. I spoke with Dr. Tang via phone and he states that the patient has not had a followup stress test since his stents several years ago, and despite his recurrent episodes of congestive heart failure, he had been holding off on repeat catheterization. Echocardiograms have shown normally functioning bioprosthetic valve with relatively normal LV function, and it was felt that his heart failure was on the basis of diastolic dysfunction. PAST HISTORY: Notable for the problems mentioned above. He does have a history of hypertension and COPD. He has had total knee replacement in the past. He also has had low-grade bladder cancer and uvulectomy in the past as well. History of hypothyroidism. MEDICATIONS AT HOME: Included aspirin, Lipitor, doxepin, Proscar, Synthroid, Breo Ellipta, Spiriva, ProAir, Zestril, and Bumex. ALLERGIES: HE HAS HAD REACTIONS TO TETANUS IN THE PAST WELL TETRACYCLINE AND PENICILLINS AND CEFEPIME, BOTH OF WHICH CAUSED A RASH. SOCIAL HISTORY: He is a former smoker. He denies alcohol use. He is retired and lives with his . FAMILY HISTORY: Both parents are from age-related illness. REVIEW OF SYSTEMS: Ten-point review of systems otherwise unremarkable. PHYSICAL EXAMINATION: GENERAL: He is a fairly robust-appearing elderly man. VITAL SIGNS: His blood pressure is 104/60 with a pulse of 66 and sinus, respirations are 16. He is afebrile. HEENT: Normocephalic, atraumatic. NECK: Supple. No JVD noted when sitting upright. CHEST: Bibasilar rales are heard. HEART: PMI is displaced laterally with a systolic murmur at lower left sternal border. ABDOMEN: Soft, nontender, normoactive bowel sounds. EXTREMITIES: 1+ bilateral ankle edema. SKIN: Warm and dry. PSYCHIATRIC: Normal mood and affect. NEUROLOGIC: Alert and oriented x3. No gross motor or sensory deficits notable. DIAGNOSTIC DATA: Potassium is 4.2. BUN and creatinine are 33 and 1.3. White count 11.9, hemoglobin and hematocrit of 11.3 and 36.2 with a platelet count of 263,000. Initial troponin 0.1, followup is 0.08. Electrocardiogram reveals sinus tachycardia with PVCs, left axis deviation, and a left bundle-branch block pattern. Chest x-ray reveals markedly enlarged cardiac silhouette with mild pulmonary vascular congestion. IMPRESSION: 1. Acute on chronic congestive heart failure, appears to be predominantly diastolic. 2. Coronary artery disease, status post prior multivessel percutaneous coronary intervention, unclear if a component of ischemia is playing a role in his heart failure decompensation. Of note, the last time he was hospitalized he required intubation for 5 days. 3. Aortic valve disease, status post transcatheter aortic valve replacement, appears stable. 4. Chronic obstructive pulmonary disease. 5. Rest of problems as noted. RECOMMENDATIONS: His current medications will continue for now. IV Lasix will continue as well. Low-dose carvedilol will be added if tolerated. Monitoring of his renal function will be planned. Given his multiple bouts of congestive heart failure, repeat cardiac catheterization would likely be appropriate at this time. Should he refuse, at the very least a Persantine stress test, given his left bundle-branch block, would be appropriate. The need for sodium and fluid restriction was discussed with him as well. Thank you for this consultation. We will be happy to follow along through his hospital course. Sundar Wallace MD
[2019-01-05 07:23] LABS: BASO # 0.03 K/mm3 (0.0-2.0); BASO % 0.4 % (0.0-3.0); EOS # 0.1 (0.0-0.7); EOS % 1.1 % (1.5-5.0); HEMOGLOBIN 11.2 g/dL (14.0-18.0); LYMPH # 2.4 (1.2-3.4); LYMPH % 27.8 % (22.0-35.0); MEAN CELL VOLUME 98.1 fl (80.0-105.0); MEAN CORPUSCULAR HEMOGLOBIN 29.9 pg (25.0-35.0); MEAN CORPUSCULAR HGB CONC 30.5 g/dl (31.0-37.0); MEAN PLATELET VOLUME 9.5 fl (7.0-11.0); MONO # 1.1 (0.1-0.6); MONO % 13.2 % (1.0-6.0); RBC 3.74 10^6/uL (3.5-6.1); RED CELL DISTRIBUTION WIDTH 16.2 % (11.5-14.5); WHITE BLOOD COUNT 8.5 10^3/uL (4.5-11.0)
[2019-01-05] MEDS: Budesonide 0.5 mg/2 ml Inhal Susp UD IH SCH ×2 (07:34→20:20)
[2019-01-05] MEDS: Arformoterol 15 mcg/2 ml Inh Sol IH SCH ×2 (07:34→20:20)
[2019-01-05 07:39] LABS: ALB/GLOB RATIO 1.4 (1.1-1.8); ALBUMIN 3.8 g/dL (3.0-4.8)
[2019-01-05] MEDS: Enoxaparin 40 mg Syringe SC SCH (10:14)
[2019-01-05] MEDS: POLYETHYLENE GLYCOL 3350 17 GM/Dose PACKET PO SCH (10:16)
[2019-01-05] MEDS: Levothyroxine 75 MCG TAB PO SCH (10:18)
[2019-01-05] MEDS: Tiotropium 18 mcg Cap For Inhalation INH SCH ×2 (10:19→21:42)
--- NOTE | 2019-01-05 11:37 | CP.PCM.PN ---
<Ross Smith - Last Filed: 01/05/19 11:57> Subjective - Date & Time of Evaluation Date of Evaluation: 01/05/19 Time of Evaluation: 07:55 - Subjective Subjective: Medicine Progress note: Pt seen and examined at bedside. No acute events overnight. Denies any sob or chest pain at this time. No other complaints. 12 Point ROS and neg other than stated above Objective - Vital Signs/Intake and Output Vital Signs (last 24 hours): Temp Pulse Resp BP Pulse Ox 98.4 F 60 18 125/60 123 H 01/05/19 06:00 01/05/19 10:18 01/05/19 06:00 01/05/19 10:18 01/05/19 06:00 Intake and Output: 01/05/19 01/05/19 06:59 18:59 Intake Total 900 Output Total 1400 Balance -500 - Medications Medications: Current Medications Albuterol/Ipratropium (Duoneb 3 Mg/0.5 Mg (3 Ml) Ud) 3 ml IH [id number] PRN PRN Reason: Wheezing Arformoterol Tartrate (Brovana) 15 mcg IH [id number] [facility] Last Admin: 01/05/19 07:34 Dose: 15 mcg Aspirin (Ecotrin) 81 mg PO DAILY [facility] Last Admin: 01/05/19 10:32 Dose: 81 mg Atorvastatin Calcium (Lipitor) 40 mg PO HS [facility] Last Admin: 01/04/19 22:03 Dose: 40 mg Budesonide (Pulmicort Respules) 0.5 mg IH [id number] [facility] Last Admin: 01/05/19 07:34 Dose: 0.5 mg Carvedilol (Coreg) 3.125 mg PO BID [facility] Last Admin: 01/05/19 10:18 Dose: 3.125 mg Enoxaparin Sodium (Lovenox) 40 mg SC DAILY [facility]; Protocol Last Admin: 01/05/19 10:14 Dose: 40 mg Finasteride (Proscar) 5 mg PO DAILY [facility] Last Admin: 01/05/19 10:23 Dose: 5 mg Furosemide (Lasix) 40 mg IVP Q12 [facility] Last Admin: 01/05/19 10:15 Dose: 40 mg Levothyroxine Sodium (Synthroid) 75 mcg PO DAILY [facility] Last Admin: 01/05/19 10:18 Dose: 75 mcg Lisinopril (Zestril) 20 mg PO DAILY [facility] Last Admin: 01/05/19 10:18 Dose: 20 mg Polyethylene Glycol (Miralax) 17 gm PO DAILY [facility] Last Admin: 01/05/19 10:16 Dose: 17 gm Tiotropium Twain (Spiriva) 18 mcg INH Q12 [facility] Last Admin: 01/05/19 10:19 Dose: 18 mcg - Labs Labs: 01/05/19 07:00 01/05/19 07:00 PT 12.5 SECONDS (9.4-12.5) 01/03/19 05:40 INR 1.11 01/03/19 05:40 APTT 27.3 Seconds (26.9-38.3) 01/03/19 05:40 - Constitutional Appears: No Acute Distress - Head Exam Head Exam: ATRAUMATIC, NORMOCEPHALIC - Eye Exam Eye Exam: EOMI - ENT Exam ENT Exam: Mucous Membranes Moist - Respiratory Exam Respiratory Exam: Clear to Ausculation Bilateral. absent: Rales, Wheezes - Cardiovascular Exam Cardiovascular Exam: REGULAR RHYTHM, +S1, +S2 - GI/Abdominal Exam GI & Abdominal Exam: Soft, Normal Bowel Sounds. absent: Tenderness - Extremities Exam Extremities Exam: absent: Calf Tenderness - Neurological Exam Neurological Exam: Alert, Awake, Oriented x3 - Psychiatric Exam Psychiatric exam: Normal Mood - Skin Skin Exam: Dry, Warm Assessment and Plan - Assessment and Plan (Free Text) Assessment: 1. CHF exacerbation, with systolic dysfunction EF 41% 2. Coronary artery disease with 2 stent placement, and watchman procedure 3. COPD with emphysema 4. Hypertension 5. Hypothyroid 6. BPH 7. Bioprosthetic aortic valve replacement 8. HLD 9. Constipation, acute His shortness of breath has improved. Cont Lasix 40 mg IV push twice daily. Cardiology was consulted awaiting recommendations, possible cardiac cath vs stress test. Of note patient was recommended in the past to do a cardiac cath ho wever he has refused. Coreg has been started for his CAD and HTN. Cont to restrict salt intake to less than 2 g/day and fluid intake. Monitor I&O's. Daily weights. Continue with aspirin for his history of coronary artery disease. Continue with Spiriva, pulmicort, Brovana and duo nebs for his COPD. F/u pulmonary consult and recs. Continue with lisinopril for his hypertension. Continue with Lipitor for his hyperlipidemia. For his BPH continue finasteride. Continue Synthroid for his hypothyroid. Miralax started for his contipation. Heart healthy diet. Continue to monitor for any changes Case and plan was reviewed and discussed with Dr. Dahl <Sixto Dahl S - Last Filed: 01/05/19 20:10> Objective - Vital Signs/Intake and Output Vital Signs (last 24 hours): Temp Pulse Resp BP Pulse Ox 97.4 F L 58 L 18 115/50 L 97 01/05/19 14:00 01/05/19 18:03 01/05/19 14:00 01/05/19 18:03 01/05/19 14:00 Intake and Output: 01/05/19 01/06/19 18:59 06:59 Intake Total 1140 480 Output Total 900 Balance 240 480 - Medications Medications: Current Medications Albuterol/Ipratropium (Duoneb 3 Mg/0.5 Mg (3 Ml) Ud) 3 ml IH [id number] PRN PRN Reason: Wheezing Arformoterol Tartrate (Brovana) 15 mcg IH [id number] [facility] Last Admin: 01/05/19 07:34 Dose: 15 mcg Aspirin (Ecotrin) 81 mg PO DAILY [facility] Last Admin: 01/05/19 10:32 Dose: 81 mg Atorvastatin Calcium (Lipitor) 40 mg PO HS [facility] Last Admin: 01/04/19 22:03 Dose: 40 mg Budesonide (Pulmicort Respules) 0.5 mg IH [id number] [facility] Last Admin: 01/05/19 07:34 Dose: 0.5 mg Carvedilol (Coreg) 3.125 mg PO BID [facility] Last Admin: 01/05/19 18:03 Dose: 3.125 mg Enoxaparin Sodium (Lovenox) 40 mg SC DAILY [facility]; Protocol Last Admin: 01/05/19 10:14 Dose: 40 mg Finasteride (Proscar) 5 mg PO DAILY [facility] Last Admin: 01/05/19 10:23 Dose: 5 mg Furosemide (Lasix) 40 mg IVP Q12 [facility] Last Admin: 01/05/19 10:15 Dose: 40 mg Levothyroxine Sodium (Synthroid) 75 mcg PO DAILY [facility] Last Admin: 01/05/19 10:18 Dose: 75 mcg Lisinopril (Zestril) 20 mg PO DAILY [facility] Last Admin: 01/05/19 10:18 Dose: 20 mg Polyethylene Glycol (Miralax) 17 gm PO DAILY [facility] Last Admin: 01/05/19 10:16 Dose: 17 gm Tiotropium Twain (Spiriva) 18 mcg INH Q12 [facility] Last Admin: 01/05/19 10:19 Dose: 18 mcg - Labs Labs: 01/05/19 07:00 01/05/19 07:00 PT 12.5 SECONDS (9.4-12.5) 01/03/19 05:40 INR 1.11 01/03/19 05:40 APTT 27.3 Seconds (26.9-38.3) 01/03/19 05:40 Assessment and Plan - Assessment and Plan (Free Text) Assessment: Pt seen and examined by me. I have reviewed the note of the medical advisor and I agree with it. I have discussed the assessment and plan with the resident. I have reviewed the medications and the last labs.
--- NOTE | 2019-01-05 11:42 | PN ---
DATE: 01/05/2019 PULMONARY NOTE SUBJECTIVE: The patient appears very comfortable this morning. He is not short of breath at rest. PHYSICAL EXAMINATION: VITAL SIGNS: (Last noted in the computer): Temperature is 97.4, pulse 60, respirations 18, blood pressure 119/56. Oxygen saturation on nasal cannula is 95%. HEENT: Normocephalic, atraumatic. No JVD. CARDIOVASCULAR: Systolic ejection murmur at the lower left sternal border. Positive S3 gallop. LUNGS: Minimal crackles at both bases. Very minimal/less rhonchi. No wheezing. GI: Abdomen is soft, nontender and nondistended. Bowel sounds are positive. EXTREMITIES: Mild edema. No cyanosis, no clubbing. Calves are nontender to palpation. SKIN: No acute rash. NEUROLOGIC: Exam limited at the present time. IMPRESSION: 1. Acute/recurrent congestive heart failure. 2. Intermediate troponin, rule out myocardial infarction. 3. History of coronary artery disease, status post multiple stents. 4. Chronic obstructive pulmonary disease. 5. Mild bronchitis. PLAN: The patient appears very comfortable this morning. He is not short of breath at rest. He does state to feeling much better overall. On physical exam, there is no significant bronchospasm noted. In addition, there is no significant alveolar-arterial gradient. I will continue the current nebulizer treatments and inhaled steroids for now. The patient is also on Spiriva. I would continue with the treatment for congestive heart failure as per Cardiology. Input by Dr. Wallace is noted. The patient remains on intravenous Lasix. Clinical status of the patient has significantly improved - compared to the initial presentation. However, given the above, the future status/prognosis for this patient does remain guarded. I will discuss the above with the attending physician. Rosas Mccann MD
[2019-01-05 16:10] VITALS: O2SAT 97
--- NOTE | 2019-01-05 16:23 | PN ---
DATE: 01/05/2019 SUBJECTIVE: The patient is seen sitting in bed on 5R. He feels significantly better. His dyspnea is improved. He does have some exertional dyspnea when walking in the halls. His edema is improved as well. CURRENT MEDICATIONS: Include Brovana, carvedilol 3.125 mg b.i.d., DuoNeb inhaler, Ecotrin, Lasix 40 mg IV every 12 hours, Lipitor 40 mg daily, Lovenox, MiraLax, Proscar, Pulmicort, Spiriva, Synthroid and Zestril. OBJECTIVE: GENERAL: He is an elderly man who appears comfortable at rest. VITAL SIGNS: Blood pressure 126/60 with pulse of 60, respirations 16. He is afebrile. HEENT: No JVD. CHEST: Bibasilar rales noted. HEART: PMI displaced laterally. A systolic murmur is present at the lower left sternal border. ABDOMEN: Soft and nontender with normoactive bowel sounds. EXTREMITIES: 1+ ankle edema. DIAGNOSTIC DATA: Potassium 4. BUN and creatinine 40 and 1.5. White count 8.5, hemoglobin and hematocrit 11.2 and 36.7 with platelet count 213,000. IMPRESSION: 1. Decompensated congestive heart failure, acute on chronic, diastolic, clinically improved. 2. Coronary artery disease, status post remote percutaneous coronary intervention. 3. Aortic valve disease, status post transcatheter aortic valve replacement, stable at present. 4. Chronic obstructive pulmonary disease. 5. Obesity. RECOMMENDATIONS: His current medications will continue for now. IV diuretics will continue to be administered. Negative fluid balance will be maintained. Evaluation for cardiac ischemia would be appropriate. The options of cardiac catheterization versus stress testing were discussed with the patient. He is leaning more towards the stress test at the present time. If he continues to improve clinically, this can be performed as an outpatient. I would advise continued IV diuretics for today. He does need some education regarding sodium restriction. His carvedilol dose will be increased as tolerated. A repeat BNP will be ordered for the morning as well. We will continue to follow and make further recommendations as appropriate and arrange for outpatient followup as well. Sundar Wallace MD MTDD
--- NOTE | 2019-01-05 21:25 | PN ---
DATE: 01/05/2019 SUBJECTIVE: Patient was seen and examined. I did review the note of the biomedical engineering technician and I do agree with it. I have participated in the patient's assessment and plan of care. The patient is currently comfortable. He has been admitted to the hospital because of an acute CHF exacerbation secondary to systolic dysfunction. The patient has coronary artery disease and stent. He has been offered a cardiac cath. We will plan on doing a cardiac cath as an outpatient. I did speak to Dr. Wallace regarding the case. IMPRESSION AND PLAN: The patient has hypothyroidism and is going to continue with his Synthroid. He is going to continue with his lisinopril for his hypertension. He is on Lipitor for dyslipidemia. He is on finasteride for his BPH. The patient is on MiraLax for his constipation. He is on Lovenox for DVT prophylaxis. The patient is on heart-healthy diet. He has a hemoglobin of 11.2. His creatinine is mildly elevated at 1.5 most likely this is on diuresis. We will change his IV Lasix to daily and decrease the b.i.d. dosing. Sixto Dahl MD
[2019-01-05] MEDS: Doxepin HCL 10 mg/mL ORAL SOLUTION PO SCH (23:14)
[2019-01-06] MEDS: Arformoterol 15 mcg/2 ml Inh Sol IH SCH (07:19)
[2019-01-06] MEDS: Budesonide 0.5 mg/2 ml Inhal Susp UD IH SCH (07:19)
[2019-01-06 07:46] LABS: BASO # 0.02 K/mm3 (0.0-2.0); BASO % 0.2 % (0.0-3.0); EOS # 0.1 (0.0-0.7); EOS % 1.4 % (1.5-5.0); HEMOGLOBIN 11.6 g/dL (14.0-18.0); LYMPH # 2.2 (1.2-3.4); LYMPH % 25.3 % (22.0-35.0); MEAN CORPUSCULAR HEMOGLOBIN 29.7 pg (25.0-35.0); MEAN CORPUSCULAR HGB CONC 30.3 g/dl (31.0-37.0); MEAN PLATELET VOLUME 9.9 fl (7.0-11.0); MONO # 1.2 (0.1-0.6); MONO % 13.5 % (1.0-6.0); RBC 3.91 10^6/uL (3.5-6.1); RED CELL DISTRIBUTION WIDTH 15.8 % (11.5-14.5); WHITE BLOOD COUNT 8.5 10^3/uL (4.5-11.0)
[2019-01-06 08:00] LABS: ALB/GLOB RATIO 1.5 (1.1-1.8); ALBUMIN 3.9 g/dL (3.0-4.8); CALCIUM 9.2 mg/dL (8.4-10.5)
[2019-01-06 08:24] VITALS: BP 130/71; PULSE 50; TEMP 97.6
[2019-01-06 08:25] VITALS: RESP 18
--- NOTE | 2019-01-06 09:36 | CP.PCM.DIS ---
<Ross Smith - Last Filed: 01/06/19 09:44> Provider - Provider Date of Admission: 01/03/19 06:44 Attending physician: Sixto Dahl MD Primary care physician: Chao Mcconnell MD Consults: 01/03/19 08:30 Consult [Physician Consult] Routine Comment: chf Consulting Provider: Sundar Wallace Consulting Physician: Sundar Wallace Reason for Consult: chf 01/03/19 10:18 Social Work Referral Routine Comment: multiple hospitalization for same diagnosis Physician Instructions: Reason For Exam: repeat admissions 01/03/19 16:49 Consult [Physician Consult] Routine Comment: Consulting Provider: Rosas Mccann Consulting Physician: Rosas Mccann Reason for Consult: SOB Time Spent in preparation of Discharge (in minutes): 45 Hospital Course - Lab Results Lab Results: Most Recent Lab Values WBC 8.5 10^3/uL (4.5-11.0) 01/06/19 07:00 RBC 3.91 10^6/uL (3.5-6.1) 01/06/19 07:00 Hgb 11.6 g/dL (14.0-18.0) L 01/06/19 07:00 Hct 38.3 % (42.0-52.0) L 01/06/19 07:00 MCV 98.0 fl (80.0-105.0) 01/06/19 07:00 MCH 29.7 pg (25.0-35.0) 01/06/19 07:00 MCHC 30.3 g/dl (31.0-37.0) L 01/06/19 07:00 RDW 15.8 % (11.5-14.5) H 01/06/19 07:00 Plt Count 205 10^3/uL (120.0-450.0) 01/06/19 07:00 MPV 9.9 fl (7.0-11.0) 01/06/19 07:00 Neut % (Auto) 59.6 % (50.0-68.0) 01/06/19 07:00 Lymph % (Auto) 25.3 % (22.0-35.0) 01/06/19 07:00 Dubois % (Auto) 13.5 % (1.0-6.0) H 01/06/19 07:00 Eos % (Auto) 1.4 % (1.5-5.0) L 01/06/19 07:00 Baso % (Auto) 0.2 % (0.0-3.0) 01/06/19 07:00 Lymph # (Auto) 2.2 (1.2-3.4) 01/06/19 07:00 [place]ois # (Auto) 1.2 (0.1-0.6) H 01/06/19 07:00 Eos # (Auto) 0.1 (0.0-0.7) 01/06/19 07:00 Baso # (Auto) 0.02 K/mm3 (0.0-2.0) 01/06/19 07:00 Absolute Neuts (auto) 5.07 (1.4-6.5) 01/06/19 07:00 PT 12.5 SECONDS (9.4-12.5) 01/03/19 05:40 INR 1.11 01/03/19 05:40 APTT 27.3 Seconds (26.9-38.3) 01/03/19 05:40 Sodium 139 mmol/L (132-148) 01/06/19 07:00 Potassium 3.9 mmol/L (3.6-5.0) 01/06/19 07:00 Chloride 102 mmol/L (98-107) 01/06/19 07:00 Carbon Dioxide 30 mmol/L (21-33) 01/06/19 07:00 Anion Gap 11 (10-20) 01/06/19 07:00 BUN 41 mg/dL (7-21) H 01/06/19 07:00 Creatinine 1.4 mg/dl (0.8-1.5) 01/06/19 07:00 Est GFR ( Amer) 59 01/06/19 07:00 Est GFR (Non-Af Amer) 49 01/06/19 07:00 Random Glucose 86 mg/dL (70-110) 01/06/19 07:00 Calcium 9.2 mg/dL (8.4-10.5) 01/06/19 07:00 Total Bilirubin 0.6 mg/dL (0.2-1.3) 01/06/19 07:00 AST 23 U/L (17-59) 01/06/19 07:00 ALT 23 U/L (7-56) 01/06/19 07:00 Alkaline Phosphatase 55 U/L (38-126) 01/06/19 07:00 Lactate Dehydrogenase 631 U/L (333-699) 01/03/19 05:40 Total Creatine Kinase 59 U/L (35-230) 01/03/19 05:40 Troponin I 0.08 ng/mL 01/04/19 08:15 NT-Pro-B Natriuret Pep 1550 pg/mL (0-450) H 01/06/19 07:00 Total Protein 6.6 g/dL (5.8-8.3) 01/06/19 07:00 Albumin 3.9 g/dL (3.0-4.8) 01/06/19 07:00 Globulin 2.7 gm/dL 01/06/19 07:00 Albumin/Globulin Ratio 1.5 (1.1-1.8) 01/06/19 07:00 - Hospital Course Hospital Course: 78-year-old male with past medical history of hypertension, coronary artery disease with 2 stent placement, COPD, emphysema, CHF with EF of 41%, bioprosthetic aortic valve replacement, chronic vertigo, bladder cancer, goiter, and BPH presents to the emergency room with shortness of breath. In the emergency room basic lab work was performed. Initial troponin was negative. BNP was 4100. Chest x-ray showed severe cardiomegaly and mild pulmonary venous congestion. Patient was given Lasix IV push 80 mg stat. He was admitted to telemetry for close monitoring. Cardiology consulted for further recommendations. Pulmonology was consulted for further recommendations as well. Cardiology started the patient on Coreg and Aldactone. Patient was given Lasix 40 mg IVP twice a day for diuresis. Pulmonology started him on Brovana, Pulmicort, Spiriva, and duo nebs. Patient's shortness of breath resolved and the patient is feeling much better. Cardiology spoke to the patient's own after school program director and agreed plan on a outpatient stress test. Patient was started on Coreg and Aldactone will be continued as an outpatient patient states that he has all of his other medications at home and does not require any refills. Dx: 1. CHF exacerbation, with systolic dysfunction EF 41% 2. Coronary artery disease with 2 stent placement, and watchman procedure 3. COPD with emphysema 4. Hypertension 5. Hypothyroid 6. BPH 7. Bioprosthetic aortic valve replacement 8. HLD 9. Constipation, acute Discharge Exam - Head Exam Head Exam: ATRAUMATIC, NORMOCEPHALIC - Eye Exam Eye Exam: EOMI, Normal appearance - Respiratory Exam Respiratory Exam: Clear to PA & Lateral. absent: Wheezes - Cardiovascular Exam Cardiovascular Exam: REGULAR RHYTHM, +S1, +S2 - GI/Abdominal Exam GI & Abdominal Exam: Normal Bowel Sounds, Soft. absent: Distended, Guarding - Neurological Exam Neurological exam: Alert, CN II-XII Intact, Oriented x3 - Psychiatric Exam Psychiatric exam: Normal Mood - Skin Skin Exam: Dry, Warm Discharge Plan - Discharge Medications Prescriptions: Arformoterol [Brovana] 15 mcg IH [id number] #1 neb Budesonide [Pulmicort Respules] 0.5 mg IH [id number] #1 neb Carvedilol [Coreg] 3.125 mg PO BID #60 tab Spironolactone [Aldactone] 12.5 mg PO DAILY #30 tab - Follow Up Plan Condition: IMPROVED Disposition: HOME/ ROUTINE Instructions: Oxygen Therapy, Adult, Smoking: Not Just Harmful to Your Lungs and Heart, Preventing Falls in the Older Adult, Kidney Failure (DC), Heart Failure (DC), Pulmonary Edema (GEN) Additional Instructions: If your symptoms recur to come back to the emergency room Follow-up with Dr. Brennan within 1 week, schedule a stress test You have to new scripts including Coreg and Aldactone, have been sent over to your pharmacy Continue to take your other home medications, however discontinue Bumex Follow-up with your assurance officer within 1 week Follow-up with your PMD within 3 days Referrals: Chao Mcconnell MD [Primary Care Provider] - Sundar Wallace MD [Staff Provider] - <Sixto Dahl - Last Filed: 01/06/19 16:45> Provider - Provider Date of Admission: 01/03/19 06:44 Attending physician: Sixto Dahl MD Primary care physician: Chao Mcconnell MD Consults: 01/03/19 08:30 Consult [Physician Consult] Routine Comment: chf Consulting Provider: Sundar Wallace Consulting Physician: Sundar Wallace Reason for Consult: chf 02/24/19 10:18 Social Work Referral Routine Comment: multiple hospitalization for same diagnosis Physician Instructions: Reason For Exam: repeat admissions 01/03/19 16:49 Consult [Physician Consult] Routine Comment: Consulting Provider: Rosas Mccann Consulting Physician: Rosas Mccann Reason for Consult: SOB Hospital Course - Lab Results Lab Results: Most Recent Lab Values WBC 8.5 10^3/uL (4.5-11.0) 01/06/19 07:00 RBC 3.91 10^6/uL (3.5-6.1) 01/06/19 07:00 Hgb 11.6 g/dL (14.0-18.0) L 01/06/19 07:00 Hct 38.3 % (42.0-52.0) L 01/06/19 07:00 MCV 98.0 fl (80.0-105.0) 01/06/19 07:00 MCH 29.7 pg (25.0-35.0) 01/06/19 07:00 MCHC 30.3 g/dl (31.0-37.0) L 01/06/19 07:00 RDW 15.8 % (11.5-14.5) H 01/06/19 07:00 Plt Count 205 10^3/uL (120.0-450.0) 01/06/19 07:00 MPV 9.9 fl (7.0-11.0) 01/06/19 07:00 Neut % (Auto) 59.6 % (50.0-68.0) 01/06/19 07:00 Lymph % (Auto) 25.3 % (22.0-35.0) 01/06/19 07:00 Dubois % (Auto) 13.5 % (1.0-6.0) H 01/06/19 07:00 Eos % (Auto) 1.4 % (1.5-5.0) L 01/06/19 07:00 Baso % (Auto) 0.2 % (0.0-3.0) 01/06/19 07:00 Lymph # (Auto) 2.2 (1.2-3.4) 01/06/19 07:00 Dubois # (Auto) 1.2 (0.1-0.6) H 01/06/19 07:00 Eos # (Auto) 0.1 (0.0-0.7) 01/06/19 07:00 Baso # (Auto) 0.02 K/mm3 (0.0-2.0) 01/06/19 07:00 Absolute Neuts (auto) 5.07 (1.4-6.5) 01/06/19 07:00 PT 12.5 SECONDS (9.4-12.5) 01/03/19 05:40 INR 1.11 01/03/19 05:40 APTT 27.3 Seconds (26.9-38.3) 01/03/19 05:40 Sodium 139 mmol/L (132-148) 01/06/19 07:00 Potassium 3.9 mmol/L (3.6-5.0) 01/06/19 07:00 Chloride 102 mmol/L (98-107) 01/06/19 07:00 Carbon Dioxide 30 mmol/L (21-33) 01/06/19 07:00 Anion Gap 11 (10-20) 01/06/19 07:00 BUN 41 mg/dL (7-21) H 01/06/19 07:00 Creatinine 1.4 mg/dl (0.8-1.5) 01/06/19 07:00 Est GFR ( Amer) 59 01/06/19 07:00 Est GFR (Non-Af Amer) 49 01/06/19 07:00 Random Glucose 86 mg/dL (70-110) 01/06/19 07:00 Calcium 9.2 mg/dL (8.4-10.5) 01/06/19 07:00 Total Bilirubin 0.6 mg/dL (0.2-1.3) 01/06/19 07:00 AST 23 U/L (17-59) 01/06/19 07:00 ALT 23 U/L (7-56) 01/06/19 07:00 Alkaline Phosphatase 55 U/L (38-126) 01/06/19 07:00 Lactate Dehydrogenase 631 U/L (333-699) 01/03/19 05:40 Total Creatine Kinase 59 U/L (35-230) 01/03/19 05:40 Troponin I 0.08 ng/mL 01/04/19 08:15 NT-Pro-B Natriuret Pep 1550 pg/mL (0-450) H 01/06/19 07:00 Total Protein 6.6 g/dL (5.8-8.3) 01/06/19 07:00 Albumin 3.9 g/dL (3.0-4.8) 01/06/19 07:00 Globulin 2.7 gm/dL 01/06/19 07:00 Albumin/Globulin Ratio 1.5 (1.1-1.8) 01/06/19 07:00 - Hospital Course Hospital Course: Pt seen and examined by me. I have reviewed the note of the medical laboratory technical officer and I agree with it. I have discussed the assessment and plan with the resident. I have reviewed the medications and the last labs.
[2019-01-06] MEDS: Tiotropium 18 mcg Cap For Inhalation INH SCH (10:02)
[2019-01-06] MEDS: Levothyroxine 75 MCG TAB PO SCH (10:04)
[2019-01-06] MEDS: POLYETHYLENE GLYCOL 3350 17 GM/Dose PACKET PO SCH (10:04)
[2019-01-06] MEDS: Enoxaparin 40 mg Syringe SC SCH (10:04)
--- NOTE | 2019-01-06 12:02 | PN ---
DATE: 01/06/2019 PULMONARY PROGRESS NOTE SUBJECTIVE: The patient was seen and examined at bedside. He is currently receiving inhalation therapy with Spiriva as well as budesonide and DuoNeb. He is not in respiratory distress. OBJECTIVE: Vital signs: His temperature is 97, pulse 84, respirations 18, and pulse oximetry is 97% on nasal cannula. LABORATORY DATA: I have reviewed his most recent blood work, his WBCs are 8.5, hemoglobin of 11.7. BUN of 41. PHYSICAL EXAMINATION: HEAD: Normocephalic and atraumatic. NECK: Supple with no jugular vein distention. CARDIOVASCULAR: S1 and S2. No S3. Regular. PULMONARY: Diminished breath sounds at both lung bases with few rhonchi and end-expiratory wheezing. GASTROINTESTINAL: Soft and nontender with no organomegaly. EXTREMITIES: No pedal edema. No cyanosis. NEUROLOGICAL: No focal deficits. ASSESSMENT: 1. Recurrent congestive heart failure. 2. Chronic obstructive pulmonary disease with exacerbation. 3. Intermediate troponin, rule out myocardial infarction. 4. Acute bronchitis. PLAN: The patient continues to improve slowly. He is sitting up in bed. He is not in respiratory distress. We will continue with administration of current bronchodilator therapy and inhalant steroids. The patient is also on Spiriva. He will continue treatment for congestive heart failure. Tahir Alarcon MD
--- NOTE | 2019-01-06 14:58 | PN ---
DATE: 01/06/2019 SUBJECTIVE: The patient is seen, sitting in bed on 5R. He states he is feeling better. He ambulated with less dyspnea yesterday. His edema has resolved. He generally feels well. His current medications include Brovana, carvedilol 3.125 mg b.i.d., DuoNeb inhaler, Ecotrin, Lasix 40 mg IV daily, Lipitor 40 mg daily, Lovenox, Proscar, Pulmicort inhaler, Spiriva, Synthroid, and Zestril. OBJECTIVE: GENERAL: He is an elderly man who is comfortable at present time. VITAL SIGNS: His blood pressure is 130/70 with pulse of 50, respirations are 16. He is afebrile. HEENT: No JVD. CHEST: Bilateral scattered rhonchi. No rales heard. HEART: PMI displaced laterally with systolic murmur at lower left sternal border. ABDOMEN: Soft, nontender with normoactive bowel sounds. EXTREMITIES: Trace ankle edema. DIAGNOSTIC DATA: Potassium is 3.9. BUN and creatinine 41 and 1.4. White count is 8.5, hemoglobin and hematocrit 11.6 and 38.3 with platelet count of 205,000. Repeat BNP is 1550. IMPRESSION: 1. Decompensated congestive heart failure, acute on chronic, diastolic, clinically improved. 2. Coronary artery disease, status post remote percutaneous coronary intervention. 3. Aortic valve disease, status post transcatheter aortic valve replacement, appears stable at present. 4. Significant chronic obstructive pulmonary disease. 5. Obesity. RECOMMENDATIONS: IV Lasix will be switched to oral administration at this time. Low-dose spirolactone will be added to his regimen as well. His beta phil dose will not be increased at the present time given his resting bradycardia. The rest of his medications will continue unchanged. From a cardiac standpoint, he appears stable for discharge home today and outpatient followup will be arranged. A pharmacologic stress test will be arranged to screen for any ischemic component, which may be contributing to his frequent heart failure decompensations. The need for sodium and fluid friction were discussed in detail with him again. Sundar Wallace MD [facility] # [id number]
--- NOTE | 2019-01-06 20:37 | DS ---
HOSPITAL COURSE: The patient was seen and examined. I did review the note of the medical physics teacher and I do agree with it. The patient is an 78-year-old male, who had come into the hospital because of acute CHF secondary to systolic dysfunction. The patient has a EF of about 40%. He had coronary disease with stent. The patient had a Watchman procedure in the past. He is going to need a stress test with a possible . The patient has agreed to follow up with Dr. Wallace for his stress test. I did speak to Dr. Wallace who cleared the patient to be discharged home yesterday. The patient is going to continue with Aldactone. He is on carvedilol. He is on his inhales with Brovana and Pulmicort. The patient is on dyslipidemia medications with statins. He feels well. He diuresed well. He has minimal edema. He is going to be discharged home and follow up with his primary care doctor, Dr. Mcconnell and Dr. Wallace. Sixto Dahl MD
== END 2019-01-06 14:20 | disposition home or self-care (01) | DRG 291 ==
LOC: ED 05:26 → ERH 06:44 → 2RNO 08:37 → 5RNO 01-04 14:21
PROVIDERS: ADMIT Internal Medicine Nephrology; ATTEND Internal Medicine Nephrology
DX: I13.0 Hypertensive heart and chronic kidney disease with heart failure and stage 1 through stage 4 chronic kidney disease, or unspecified chronic kidney disease (principal); I50.43 Acute on chronic combined systolic (congestive) and diastolic (congestive) heart failure; I25.10 Atherosclerotic heart disease of native coronary artery without angina pectoris; N18.9 Chronic kidney disease, unspecified; R42 Dizziness and giddiness; N40.0 Benign prostatic hyperplasia without lower urinary tract symptoms; E04.9 Nontoxic goiter, unspecified; I48.0 Paroxysmal atrial fibrillation; E03.9 Hypothyroidism, unspecified; Z85.51 Personal history of malignant neoplasm of bladder; Z95.3 Presence of xenogenic heart valve; Z87.891 Personal history of nicotine dependence; J20.9 Acute bronchitis, unspecified; I42.9 Cardiomyopathy, unspecified; E66.9 Obesity, unspecified; E78.5 Hyperlipidemia, unspecified; F40.240 Claustrophobia; I35.9 Nonrheumatic aortic valve disorder, unspecified; J43.9 Emphysema, unspecified; K59.00 Constipation, unspecified; Z79.82 Long term (current) use of aspirin; Z79.890 Hormone replacement therapy; Z79.899 Other long term (current) drug therapy; Z82.5 Family history of asthma and other chronic lower respiratory diseases; Z85.828 Personal history of other malignant neoplasm of skin; Z86.010 Personal history of colon polyps; Z95.5 Presence of coronary angioplasty implant and graft; Z96.652 Presence of left artificial knee joint; Z68.35 Body mass index [BMI] 35.0-35.9, adult

== ENCOUNTER → 2019-02-16 | Outpatient (CLI) | payer MEDICARE | LOC: RAD 11:29 ==

== ENCOUNTER 2019-02-27 05:55 | Emergency (ER) | payer MEDICARE ==
[2019-02-27 05:59] VITALS: BMI 34.7
[2019-02-27] MEDS ORDERED: Albuterol-Ipratrop 3 mg / 0.5 (3 ml) UD IH STA (06:05)
--- NOTE | 2019-02-27 06:08 | ED PDOC ---
Arrival/HPI - General Chief Complaint: Shortness Of Breath Time Seen by Provider: 02/27/19 06:04 - History of Present Illness Narrative History of Present Illness (Text): 02/27/19 06:06 78 yo male, hx of copd, chf, diasytolic dysfunction, TAVR presnets with sob x 2 days. cough with "gomez sputum' no cp no fevers, no n/v/d, no diaphoresisi, last echo ef 40%. ho of cad s/p multivessel stent. Past Medical History - Infectious Disease Hx of Infectious Diseases: None - Tetanus Immunization Tetanus Immunization: Unknown - Cardiac Hx Cardiac Disorders: Yes Hx Congestive Heart Failure: Yes Hx Pacemaker: No - Pulmonary Hx Respiratory Disorders: Yes Hx Chronic Obstructive Pulmonary Disease (COPD): Yes - Neurological Hx Paralysis: No - HEENT Hx HEENT Disorder: No - Renal Hx Renal Disorder: Yes Other/Comment: LOW GRADE BLADDER CA - Endocrine/Metabolic Hx Endocrine Disorders: No - Hematological/Oncological Hx Blood Transfusions: No Hx Blood Transfusion Reaction: No - Integumentary Hx Dermatological Disorder: Yes Hx Basal Cell Carcinoma: Yes (FACE) - Musculoskeletal/Rheumatological Hx Musculoskeletal Disorders: Yes - Gastrointestinal Hx Gastrointestinal Disorders: No Other/Comment: COLON POLYPS, - Genitourinary/Gynecological Hx Genitourinary Disorders: Yes Hx Hematuria: Yes (MINIMAL HEMATURIA H/O) Other/Comment: UVULECTOMY - Psychiatric Hx Emotional Abuse: No Hx Physical Abuse: No Hx Substance Use: No - Past Surgical History Past Surgical History: Non-Contributing - Surgical History Hx Coronary Stent: Yes ( x2) Hx Orthopedic Surgery: Yes (left knee replacement) Other/Comment: TOTAL KNEE REPLACEMENT LEFT KNEE 01-03-16 aortic valve replacement 03/25. Watchmen - Anesthesia Hx Anesthesia Reactions: No Hx Malignant Hyperthermia: No - Suicidal Assessment Feels Threatened In Home Enviroment: No Family/Social History Family/Social History: Unknown Family HX Smoking Status: Former Smoker Hx Alcohol Use: No Hx Substance Use: No Allergies/Home Meds Allergies/Adverse Reactions: Allergies cefepime Allergy (Severe, Verified 02/27/19 05:59) RASH Penicillins Allergy (Severe, Verified 02/27/19 05:59) SWELLING Tetanus Vaccines and Toxoid [Tetanus Vaccines & Toxoid] Allergy (Severe, Verified 02/27/19 05:59) ANAPHYLAXIS tetracycline Allergy (Severe, Verified 02/27/19 05:59) ANAPHYLAXIS Home Medications: Home Meds Medication Instructions Recorded Confirmed Aspirin [Ecotrin] 81 mg PO DAILY 01/04/17 02/27/19 Atorvastatin [Lipitor] 40 mg PO HS 01/04/17 02/27/19 Doxepin [Sinequan] 50 mg PO HS 01/04/17 02/27/19 Finasteride [Proscar] 5 mg PO DAILY 01/04/17 02/27/19 Levothyroxine [Synthroid] 75 mcg PO DAILY 01/04/17 02/27/19 Albuterol Sulfate [Proair 90 mcg IH PRN PRN 07/05/18 02/27/19 Respiclick] Lisinopril [Zestril] 20 mg PO DAILY 12/03/18 02/27/19 Budesonide [Pulmicort Respules] 0.5 mg NEB [id number] 01/20/19 02/27/19 Roflumilast [Daliresp] 250 mcg PO DAILY 01/20/19 02/27/19 Carvedilol [Coreg] 6.25 mg PO BID 02/27/19 02/27/19 Spironolactone [Aldactone] 25 mg PO DAILY 02/27/19 02/27/19 Tiotropium [place] [Spiriva 2.5 mcg IH BID 02/27/19 02/27/19 Respimat] Review of Systems - Review of Systems Constitutional: Normal Eyes: Normal ENT: Normal Respiratory: SOB, Cough Cardiovascular: Normal Gastrointestinal: Normal Genitourinary Male: Normal Musculoskeletal: Normal Skin: Normal Neurological: Normal Endocrine: Normal Hemo/Lymphatic: Normal Psychiatric: Normal Physical Exam Vital Signs Temp Pulse Resp BP Pulse Ox 02/27/19 05:57 98.1 F 75 22 164/78 H 92 L Temperature: Afebrile Blood Pressure: Normal Pulse: Regular Respiratory Rate: Normal Appearance: Positive for: Well-Appearing, Non-Toxic, Comfortable Pain Distress: None Mental Status: Positive for: Alert and Oriented X 3 - Systems Exam Head: Present: Atraumatic, Normocephalic Pupils: Present: PERRL Extroacular Muscles: Present: EOMI Conjunctiva: Present: Normal Mouth: Present: Moist Mucous Membranes Neck: Present: Normal Range of Motion Respiratory/Chest: Present: Good Air Exchange, Wheezes (b/l ), Rales (bases). No: Respiratory Distress, Accessory Muscle Use Cardiovascular: Present: Regular Rate and Rhythm, Normal S1, S2. No: Murmurs Abdomen: No: Tenderness, Distention, Peritoneal Signs Back: Present: Normal Inspection Upper Extremity: Present: Normal Inspection. No: Cyanosis, Edema Lower Extremity: Present: Normal Inspection. No: Edema Neurological: Present: GCS=15, CN II-XII Intact, Speech Normal Skin: Present: Warm, Dry, Normal Color. No: Rashes Psychiatric: Present: Alert, Oriented x 3, Normal Insight, Normal Concentration Medical Decision Making ED Course and Treatment: 02/27/19 06:08 suspect chf/copd - ekg nsr 67 lbbb,old. neg scarbosa. neb steriod, labs, imaging, reassess. 02/27/19 06:25 case endorsed to day shift pending angio, reassess, final dispo - RAD Interpretation Radiology Orders: 02/27/19 06:05 CHEST PORTABLE [RAD] Stat Disposition/Present on Arrival - Present on Arrival Any Indicators Present on Arrival: No History of DVT/PE: No History of Uncontrolled Diabetes: No Urinary Catheter: No History of Decub. Ulcer: No History Surgical Site Infection Following: None - Disposition Have Diagnosis and Disposition been Completed?: Yes Diagnosis: Postnasal drip Disposition: HOME/ ROUTINE Disposition Time: 10:00 Condition: STABLE Discharge Instructions (ExitCare): Cough, Runny Nose, and the Common Cold (DC) Additional Instructions: return immediately for any new or worsening symptoms. follow up with your primary care doctor as soon as possible. Prescriptions: Guaifenesin [Mucinex] 600 mg PO BID #14 tab.er.12h Forms: DZZOM (E[place]ian)
[2019-02-27 06:19] LABS: VENOUS BLOOD GAS BASE EXCESS 3.2 mmol/L (0.0-2.0); VENOUS BLOOD GAS PO2 45 mm/Hg (30-55); VENOUS BLOOD PH 7.36 (7.32-7.43)
[2019-02-27 06:27] LABS: BLOOD UREA NITROGEN 33 mg/dL (7-21); GFR NON-AFRICAN AMERICAN 53
[2019-02-27 06:28] LABS: ALB/GLOB RATIO 1.3 (1.1-1.8); ALBUMIN 4.5 g/dL (3.0-4.8); ALT/SGPT 20 U/L (7-56); AST/SGOT 28 U/L (17-59); CALCIUM 10.2 mg/dL (8.4-10.5)
[2019-02-27 06:36] LABS: BASO # 0.01 K/mm3 (0.0-2.0); BASO % 0.1 % (0.0-3.0); EOS % 0.5 % (1.5-5.0); HEMOGLOBIN 12.8 g/dL (14.0-18.0); LYMPH # 2.2 (1.2-3.4); LYMPH % 26.7 % (22.0-35.0); MEAN CELL VOLUME 95.7 fl (80.0-105.0); MEAN CORPUSCULAR HEMOGLOBIN 30.3 pg (25.0-35.0); MEAN CORPUSCULAR HGB CONC 31.6 g/dl (31.0-37.0); MEAN PLATELET VOLUME 10.2 fl (7.0-11.0); MONO # 0.9 (0.1-0.6); MONO % 11.3 % (1.0-6.0); RBC 4.23 10^6/uL (3.5-6.1); RED CELL DISTRIBUTION WIDTH 14.1 % (11.5-14.5); WHITE BLOOD COUNT 8.2 10^3/uL (4.5-11.0)
[2019-02-27 06:39] LABS: B-TYPE NATRIURETIC PEPTIDE 1780 pg/mL (0-450); TROPONIN I 0.03 ng/mL
[2019-02-27 06:40] LABS: INR 1.18; PARTIAL THROMBOPLASTIN TIME 32.3 Seconds (26.9-38.3); PROTHROMBIN TIME 13.3 SECONDS (9.4-12.5)
[2019-02-27 06:48] LABS: URINE BILIRUBIN NEGATIVE (NEGATIVE); URINE BLOOD NEGATIVE (NEGATIVE); URINE GLUCOSE (UA) NEGATIVE (NEGATIVE); URINE LEUKOCYTE ESTERASE NEGATIVE Leu/uL (NEGATIVE); URINE PROTEIN NEGATIVE mg/dL (<30 mg/dL); URINE UROBILINOGEN 0.2 E.U./dL (<1 E.U./dL)
[2019-02-27 06:53] LABS: URINE APPEARANCE CLEAR (CLEAR); URINE COLOR YELLOW (YELLOW)
--- NOTE | 2019-02-27 07:34 | ED PDOC ---
Physical Exam Vital Signs Temp Pulse Resp BP Pulse Ox 02/27/19 07:09 118/58 L 02/27/19 06:00 24 95 02/27/19 05:57 98.1 F 75 22 164/78 H 92 L Medical Decision Making ED Course and Treatment: 02/27/19 07:02 Case endorsed to me by Dr. Butt pending CTA r/o PE, final disposition. PROCEDURE: CT Chest with contrast (Pulmonary Angiogram) Dictator : Steven Church MD Report Date : 02/27/2019 08:24:25 IMPRESSION: Unremarkable CT pulmonary angiogram. No pulmonary embolus. 02/27/19 09:26 i have personally seen and examined the patient at bedside. patient reports that he has congestion in his chest with a harsh cough. patient states symptoms resolved with a nebulizer treatment in the ED. Patient also reports a single episode of mucous emesis but no abdominal pain. patient was seen and examined by dr. cope in the ED and I have discussed the case wih dr. thornton regarding disposition and he feels the patient does not require admission to the hospital. I have discussed data and disposition with the patient and patient states he does not want to stay in the hospital. Patient appears well, no respiratory distress, vitals ok, labs ok with bnp elevated but consistent with prior numbers. Furthermore, the CTA is negative for pe or pulm edema. On exam I do appreciate posterior pharynx mucous consistent with postnasal drip. It is typical to rx sudafed for PND but i will defer in this situation as the patient has a cardiac hx. Will rx mucinex and refer to pcp. Patient understands and agreeable to plan and will return immediately for any problems or concerns. 02/27/19 09:34 - Lab Interpretations Lab Results: pO2 45 mm/Hg (30-55) 02/27/19 06:05 VBG pH 7.36 (7.32-7.43) 02/27/19 06:05 VBG pCO2 53.0 (40-60) 02/27/19 06:05 VBG HCO3 29.9 mmol/l (21-28) H 02/27/19 06:05 VBG Total CO2 31.5 mmol.L (22-28) H 02/27/19 06:05 VBG O2 Sat (Calc) 77.0 % (40-65) H 02/27/19 06:05 VBG Base Excess 3.2 mmol/L (0.0-2.0) H 02/27/19 06:05 VBG Potassium 5.5 mmol/L (3.6-5.2) H 02/27/19 06:05 Sodium 139.0 mmol/L (132-148) 02/27/19 06:05 Chloride 103.0 mmol/L (98-107) 02/27/19 06:05 Glucose 108 mg/dl (75-110) 02/27/19 06:05 Lactate 1.8 mmol/L (0.7-2.1) 02/27/19 06:05 FiO2 21.0 % 02/27/19 06:05 PT 13.3 SECONDS (9.4-12.5) H 02/27/19 06:05 INR 1.18 02/27/19 06:05 APTT 32.3 Seconds (26.9-38.3) 02/27/19 06:05 Troponin I 0.03 ng/mL D 02/27/19 06:05 NT-Pro-B Natriuret Pep 1780 pg/mL (0-450) H 02/27/19 06:05 Total Bilirubin 0.5 mg/dL (0.2-1.3) 02/27/19 06:05 AST 28 U/L (17-59) 02/27/19 06:05 ALT 20 U/L (7-56) 02/27/19 06:05 Alkaline Phosphatase 80 U/L (38-126) 02/27/19 06:05 Total Protein 7.8 g/dL (5.8-8.3) 02/27/19 06:05 Albumin 4.5 g/dL (3.0-4.8) 02/27/19 06:05 Globulin 3.3 gm/dL 02/27/19 06:05 Albumin/Globulin Ratio 1.3 (1.1-1.8) 02/27/19 06:05 Urine Color Yellow (YELLOW) 02/27/19 06:38 Urine Appearance Clear (CLEAR) 02/27/19 06:38 Urine pH 6.0 (4.7-8.0) 02/27/19 06:38 Ur Specific [place] 1.020 (1.005-1.035) 02/27/19 06:38 Urine Protein Negative mg/dL (<30 mg/dL) 02/27/19 06:38 Urine Glucose (UA) Negative mg/dL (NEGATIVE) 02/27/19 06:38 Urine Ketones Negative mg/dL (NEGATIVE) 02/27/19 06:38 Urine Blood Negative (NEGATIVE) 02/27/19 06:38 Urine Nitrate Negative (NEGATIVE) 02/27/19 06:38 Urine Bilirubin Negative (NEGATIVE) 02/27/19 06:38 Urine Urobilinogen 0.2 E.U./dL (<1 E.U./dL) 02/27/19 06:38 Ur Leukocyte Esterase Negative [place]/uL (NEGATIVE) 02/27/19 06:38 - RAD Interpretation Radiology Orders: 02/27/19 06:05 CHEST PORTABLE [RAD] Stat 02/27/19 06:57 ANGIO CHEST PE PROTOCOL [CT] Stat - Medication Orders Current Medication Orders: Discontinued Medications Albuterol/Ipratropium (Duoneb 3 Mg/0.5 Mg (3 Ml) Ud) 3 ml IH STAT STA Stop: 02/27/19 06:06 Last Admin: 02/27/19 06:14 Dose: 3 ml Furosemide (Lasix) 40 mg IVP STAT STA Stop: 02/27/19 06:56 Last Admin: 02/27/19 07:09 Dose: 40 mg MAR Blood Pressure Document 02/27/19 07:09 KV (Rec: 02/27/19 07:10 KV [id number]) Blood Pressure Blood Pressure (100/60-150/90) 118/58 IVP Administration Document 02/27/19 07:09 KV (Rec: 02/27/19 07:10 KV [id number]) Charges for Administration # of IVP Administrations 1 Methylprednisolone (Solu-Medrol) 125 mg IVP STAT STA Stop: 02/27/19 06:06 Last Admin: 02/27/19 06:14 Dose: 125 mg IVP Administration Document 02/27/19 06:14 KV (Rec: 02/27/19 06:14 KV [id number]) Charges for Administration # of IVP Administrations 1 - Scribe Statement The provider has reviewed the documentation as recorded by the Ericka Short Provider Scribe Attestation: All medical record entries made by the Scribe were at my direction and personally dictated by me. I have reviewed the chart and agree that the record accurately reflects my personal performance of the history, physical exam, medical decision making, and the department course for this patient. I have also personally directed, reviewed, and agree with the discharge instructions and disposition. Disposition/Present on Arrival - Present on Arrival Any Indicators Present on Arrival: No History of DVT/PE: No History of Uncontrolled Diabetes: No Urinary Catheter: No History of Decub. Ulcer: No History Surgical Site Infection Following: None - Disposition Have Diagnosis and Disposition been Completed?: Yes Diagnosis: Postnasal drip Disposition: HOME/ ROUTINE Disposition Time: 09:32 Patient Plan: Discharge Patient Problems: Current Active Problems Problem Status Onset Postnasal drip Acute Condition: STABLE Discharge Instructions (ExitCare): Cough, Runny Nose, and the Common Cold (DC) Additional Instructions: return immediately for any new or worsening symptoms. follow up with your primary care doctor as soon as possible. Prescriptions: Guaifenesin [Mucinex] 600 mg PO BID #14 tab.er.[id number] Forms: [employer] (Vietnamese)
[2019-02-27 07:39] VITALS: TEMP 98
[2019-02-27] MEDS ORDERED: Iohexol 350 MG/100 ML VIAL ONE (07:46)
--- NOTE | 2019-02-27 08:28 | CT ---
Date of service: 02/27/2019 PROCEDURE: CT Chest with contrast (Pulmonary Angiogram) HISTORY: sob ro pe COMPARISON: None available. TECHNIQUE: Axial computed tomography images were obtained of the chest in the pulmonary arterial phase of enhancement. Coronal and sagittal reformatted images were created and reviewed. Intravenous contrast dose: 100 cc of Omni 350 Radiation dose: Total exam DLP = 507.18 mGy-cm. This CT exam was performed using one or more of the following dose reduction techniques: Automated exposure control, adjustment of the mA and/or kV according to patient size, and/or use of iterative reconstruction technique. FINDINGS: PULMONARY ARTERIES: Unremarkable. No pulmonary embolism. AORTA: No acute findings. No thoracic aortic aneurysm. No aortic atherosclerotic calcification or mural plaque present. LUNGS: Unremarkable. No nodule, mass or pulmonary consolidation. PLEURAL SPACES: Unremarkable. No effusion or pneumothorax. HEART: Unremarkable. No cardiomegaly. No significant pericardial effusion. LYMPH NODES: No lymphadenopathy. BONES, CHEST WALL: Unremarkable. No fracture or destructive lesion OTHER FINDINGS: The left lobe of the thyroid is enlarged and extends into the superior mediastinum measuring 35 x 45 mm. This deviates the trachea to the right. IMPRESSION: Unremarkable CT pulmonary angiogram. No pulmonary embolus.
[2019-02-27 09:29] VITALS: RESP 18
[2019-02-27 10:33] LABS: TROPONIN I 0.03 ng/mL
[2019-02-27 10:47] VITALS: BP 131/59; PULSE 65; O2SAT 97
--- NOTE | 2019-02-27 10:58 | RAD ---
Date of service: 02/27/2019 HISTORY: sob COMPARISON: 01/03/2019 TECHNIQUE: 1 view obtained. FINDINGS: LUNGS: No active pulmonary disease. PLEURA: No significant pleural effusion identified, no pneumothorax apparent. CARDIOVASCULAR: No aortic atherosclerotic calcification present. Moderate cardiomegaly. Aortic valve replacement no pulmonary vascular congestion. OSSEOUS STRUCTURES: No significant abnormalities. VISUALIZED UPPER ABDOMEN: Normal. OTHER FINDINGS: None. IMPRESSION: No active disease.
--- NOTE | 2019-02-27 13:51 | PN ---
DATE: 02/27/2019 SUBJECTIVE: The patient was seen and examined by me in the ER. I spoke with the ER physician. The patient has shortness of breath. According to , he does have history of anxiety. The proBNP that was done is baseline. The patient had a CAT scan done as well as a chest x-ray. I have reviewed the patient's CAT scan. It was an unremarkable CAT scan for PE. The patient has unremarkable lungs. He has an appointment with Dr. Mcconnell on Friday. The patient is going to be discharged. He was given a dose of Lasix and nebulizer treatments. He is advised to follow up in the ER if his symptoms worsen. Sixto Dahl MD
--- NOTE | 2019-02-27 19:22 | CARD ---
APPROVED REPORT Date of service: 02/27/2019 EKG Measurement Heart [id number] <Conclusion> Sinus rhythm with 1st degree AV block with premature atrial complexes Left axis deviation Left bundle branch block Abnormal ECG
== END 2019-02-27 10:46 | disposition home or self-care (01) ==
LOC: ED 05:55
DX: R09.82 Postnasal drip (principal); I25.10 Atherosclerotic heart disease of native coronary artery without angina pectoris; I50.9 Heart failure, unspecified; J44.9 Chronic obstructive pulmonary disease, unspecified; Z87.891 Personal history of nicotine dependence
CPT/HCPCS: 71045; 71275; 80053; 81003; 82550; 82803; 83615; 83735; 83880; 84484; 85025; 85610; 85730; 93005; 96374; 96375; 99284; J1940; J2930; Q9967

== ENCOUNTER 2019-03-25 09:00 | Inpatient (IN) | payer MEDICARE ==
[2019-03-25] MEDS ORDERED: Morphine 2 mg/ml ISec IVP STA ×2 (09:48→11:37)
[2019-03-25 10:11] LABS: BASO # 0.01 K/mm3 (0.0-2.0); BASO % 0.1 % (0.0-3.0); EOS # 0.1 (0.0-0.7); HEMOGLOBIN 12.6 g/dL (14.0-18.0); LYMPH # 1.8 (1.2-3.4); LYMPH % 16.8 % (22.0-35.0); MEAN CELL VOLUME 95.7 fl (80.0-105.0); MEAN CORPUSCULAR HGB CONC 31.3 g/dl (31.0-37.0); MEAN PLATELET VOLUME 10.3 fl (7.0-11.0); MONO # 1.6 (0.1-0.6); MONO % 15.1 % (1.0-6.0); RBC 4.2 10^6/uL (3.5-6.1); RED CELL DISTRIBUTION WIDTH 14.9 % (11.5-14.5); WHITE BLOOD COUNT 10.5 10^3/uL (4.5-11.0)
[2019-03-25 10:20] LABS: INR 1.14; PARTIAL THROMBOPLASTIN TIME 28.8 Seconds (26.9-38.3); PROTHROMBIN TIME 12.9 SECONDS (9.4-12.5)
[2019-03-25 10:22] LABS: ALB/GLOB RATIO 1.4 (1.1-1.8); ALBUMIN 4.4 g/dL (3.0-4.8); ALT/SGPT 34 U/L (7-56); AST/SGOT 30 U/L (17-59); BLOOD UREA NITROGEN 30 mg/dL (7-21); CALCIUM 9.9 mg/dL (8.4-10.5); GFR NON-AFRICAN AMERICAN 58; URIC ACID 8.9 mg/dL (3.5-8.5)
--- NOTE | 2019-03-25 10:52 | ED PDOC ---
Arrival/HPI - General Chief Complaint: Lower Extremity Problem/Injury Time Seen by Provider: 03/25/19 09:17 Historian: Patient - History of Present Illness Narrative History of Present Illness (Text): 03/25/19 10:47 78yr old male presents today with a 2 days history of worsening right ankle pain. pt denies trauma or injury. pt denies fever/chills. no calf pain. pt states the pain is so severe that he is unable to bear weight on the ankle. Patient states that the lateral aspect of the ankle is red, warm and swollen. pt states he is unable to range the ankle. patient has not taken any medications for pain. no cp or sob. no abdominal pain. no dizziness or weakness. patients states there is a remote history of gout, but it was once in the toes and never in the ankle. Patients orthopedist is dr. Alaniz. Past Medical History - Provider Review Nursing Documentation Reviewed: Yes - Travel History Have you recently traveled outside [place] w/in the past 3 mons?: No - Infectious Disease Hx of Infectious Diseases: None - Tetanus Immunization Tetanus Immunization: Unknown - Cardiac Hx Cardiac Disorders: Yes Hx Congestive Heart Failure: Yes Hx Pacemaker: No - Pulmonary Hx Respiratory Disorders: Yes Hx Chronic Obstructive Pulmonary Disease (COPD): Yes - Neurological Hx Neurological Disorder: No - HEENT Hx HEENT Disorder: No - Renal Hx Renal Disorder: Yes Other/Comment: LOW GRADE BLADDER CA - Endocrine/Metabolic Hx Endocrine Disorders: No - Hematological/Oncological Hx Blood Transfusions: No Hx Blood Transfusion Reaction: No - Integumentary Hx Dermatological Disorder: Yes Hx Basal Cell Carcinoma: Yes (FACE) - Musculoskeletal/Rheumatological Hx Musculoskeletal Disorders: No - Gastrointestinal Hx Gastrointestinal Disorders: No Other/Comment: COLON POLYPS, - Genitourinary/Gynecological Hx Genitourinary Disorders: Yes Hx Hematuria: Yes (MINIMAL HEMATURIA H/O) Other/Comment: UVULECTOMY - Psychiatric Hx Psychophysiologic Disorder: No Hx Substance Use: No - Past Surgical History Past Surgical History: Non-Contributing - Surgical History Hx Coronary Stent: Yes ( x2) Hx Orthopedic Surgery: Yes (left knee replacement) Other/Comment: TOTAL KNEE REPLACEMENT LEFT KNEE 01-03-16 aortic valve replacement 03/25. Watchmen - Anesthesia Hx Anesthesia: No - Suicidal Assessment Feels Threatened In Home Enviroment: No Family/Social History - Physician Review Nursing Documentation Reviewed: Yes Family/Social History: Unknown Family HX Smoking Status: Former Smoker Hx Alcohol Use: No Hx Substance Use: No Allergies/Home Meds Allergies/Adverse Reactions: Allergies cefepime Allergy (Severe, Verified 02/27/19 05:59) RASH Penicillins Allergy (Severe, Verified 02/27/19 05:59) SWELLING Tetanus Vaccines and Toxoid [Tetanus Vaccines & Toxoid] Allergy (Severe, Verified 02/27/19 05:59) ANAPHYLAXIS tetracycline Allergy (Severe, Verified 02/27/19 05:59) ANAPHYLAXIS Home Medications: Home Meds Medication Instructions Recorded Confirmed Aspirin [Ecotrin] 81 mg PO DAILY 01/04/17 02/27/19 Atorvastatin [Lipitor] 40 mg PO HS 01/04/17 02/27/19 Doxepin [Sinequan] 50 mg PO HS 01/04/17 02/27/19 Finasteride [Proscar] 5 mg PO DAILY 01/04/17 02/27/19 Levothyroxine [Synthroid] 75 mcg PO DAILY 01/04/17 02/27/19 Albuterol Sulfate [Proair 90 mcg IH PRN PRN 07/05/18 02/27/19 Respiclick] Lisinopril [Zestril] 20 mg PO DAILY 12/03/18 02/27/19 Budesonide [Pulmicort Respules] 0.5 mg NEB [id number] 01/20/19 02/27/19 Roflumilast [Daliresp] 250 mcg PO DAILY 01/20/19 02/27/19 Carvedilol [Coreg] 6.25 mg PO BID 02/27/19 02/27/19 Spironolactone [Aldactone] 25 mg PO DAILY 02/27/19 02/27/19 Tiotropium [place] [Spiriva 2.5 mcg IH BID 02/27/19 02/27/19 Respimat] Review of Systems - Review of Systems Constitutional: absent: Fatigue, Fevers Respiratory: absent: SOB, Cough Cardiovascular: absent: Chest Pain, Palpitations Gastrointestinal: absent: Abdominal Pain, Nausea, Vomiting Genitourinary Male: absent: Dysuria Musculoskeletal: Arthralgias. absent: Back Pain, Neck Pain Skin: absent: Laceration, Abscess Neurological: absent: Headache, Dizziness Psychiatric: absent: Anxiety, Depression Physical Exam Vital Signs Reviewed: Yes Vital Signs Temp Pulse Resp BP Pulse Ox 03/25/19 09:14 98.7 F 66 21 160/50 H 95 Temperature: Afebrile Blood Pressure: Hypertensive Pulse: Regular Respiratory Rate: Normal Appearance: Positive for: Well-Appearing, Non-Toxic, Comfortable Pain Distress: Moderate Mental Status: Positive for: Alert and Oriented X 3 - Systems Exam Head: Present: Atraumatic Mouth: Present: Moist Mucous Membranes Neck: Present: Normal Range of Motion Respiratory/Chest: Present: Clear to Auscultation, Good Air Exchange. No: Respiratory Distress, Accessory Muscle Use Cardiovascular: Present: Regular Rate and Rhythm, Normal S1, S2. No: Murmurs Abdomen: No: Tenderness, Distention, Peritoneal Signs, Rebound, Guarding Back: Present: Normal Inspection Upper Extremity: Present: Normal ROM Lower Extremity: Present: NORMAL PULSES, Tenderness (right ankle: there is tenderness , swelling and erythema noted over the lateral malleolus; unable to passively or actively range ankle. sensation and distal pulses intact. cap refill <2. ), Swelling, Erythema, Neurovascularly Intact, Capillary Refill < 2 s. No: CALF TENDERNESS, Normal ROM Neurological: Present: GCS=15, Motor Func Grossly Intact, Normal Sensory Function Skin: Present: Warm, Dry, Normal Color Psychiatric: Present: Alert, Oriented x 3 Medical Decision Making ED Course and Treatment: 03/25/19 10:54 78yr old male with right ankle pain. case discussed with dr. alaniz. cbc: wnl cmp: wnl urine acid: 8.9 esr; 28 ankle right xray: no fracture pt with inability to ambulate due to severe right ankle pain; + warmth, swelling, decreased ROM; gout vs septic arthritis. pt requiring multiple doses of morphine for pain control. will start patient on vancomycin and cipro for possible septic arthritis. pending ortho consult. case discussed with dr. cope will admits obs status with dr. alaniz consult case discussed with dr. Henderson in depth. impression; ankle pain, cellulitis, inability to ambulate admit obs med/surg - Lab Interpretations Lab Results: PT 12.9 SECONDS (9.4-12.5) H 03/25/19 09:58 INR 1.14 03/25/19 09:58 APTT 28.8 Seconds (26.9-38.3) 03/25/19 09:58 Total Bilirubin 0.6 mg/dL (0.2-1.3) 03/25/19 09:58 AST 30 U/L (17-59) 03/25/19 09:58 ALT 34 U/L (7-56) 03/25/19 09:58 Alkaline Phosphatase 64 U/L (38-126) 03/25/19 09:58 Total Protein 7.5 g/dL (5.8-8.3) 03/25/19 09:58 Albumin 4.4 g/dL (3.0-4.8) 03/25/19 09:58 Globulin 3.1 gm/dL 03/25/19 09:58 Albumin/Globulin Ratio 1.4 (1.1-1.8) 03/25/19 09:58 - RAD Interpretation Radiology Orders: 03/25/19 09:53 ANKLE RIGHT 3 VIEWS ROUTINE [RAD] Stat - Medication Orders Current Medication Orders: Discontinued Medications Morphine Sulfate (Morphine) 2 mg IVP STAT STA Stop: 03/25/19 09:49 Last Admin: 03/25/19 10:04 Dose: 2 mg MAR Pain Assessment Document 03/25/19 10:04 MA (Rec: 03/25/19 10:04 MA [facility] [id number]) Pain Reassessment Is this a pain reassessment? Yes Sleep Is patient sleeping during reassessment? No Presence of Pain Presence of Pain Yes Pain Scale Used Protocol: PSCALES Pain Scale Used Numeric Location Left, Right or Bilateral Right Pain Location Body Site Foot Description Description Constant Intensity of Pain at present 7 Pain Behavior Withdrawal from Touch Grasping Site Rubbing Site IVP Administration Document 03/25/19 10:04 MA (Rec: 03/25/19 10:04 MA [facility] [id number]) Charges for Administration # of IVP Administrations 1 Ondansetron HCl (Zofran Inj) 4 mg IVP STAT STA Stop: 03/25/19 09:51 Last Admin: 03/25/19 10:04 Dose: 4 mg IVP Administration Document 03/25/19 10:04 MA (Rec: 03/25/19 10:04 MA [facility] [id number]) Charges for Administration # of IVP Administrations 1 Disposition/Present on Arrival - Present on Arrival Any Indicators Present on Arrival: No History of DVT/PE: No History of Uncontrolled Diabetes: No Urinary Catheter: No History of Decub. Ulcer: No History Surgical Site Infection Following: None - Disposition Have Diagnosis and Disposition been Completed?: Yes Diagnosis: Ankle pain, Cellulitis of ankle, Inability to ambulate due to ankle or foot Disposition: HOSPITALIZED Disposition Time: 13:00 Patient Plan: Observation Condition: FAIR Discharge Instructions (ExitCare): Cellulitis (ED) Referrals: Chao Mcconnell MD [Primary Care Provider] - Follow up with primary Forms: [employer] (Guyanese)
[2019-03-25] MEDS ORDERED: Vancomycin 1gm in NS 250ml 1 GM/250 ML BAG IVPB STA (11:58)
[2019-03-25] MEDS ORDERED: Ciprofloxacin 400mg/200ml D5W 400 MG/200 ML BAG IVPB STA (11:58)
--- NOTE | 2019-03-25 14:04 | RAD ---
Date of service: 03/25/2019 PROCEDURE: Right Ankle Radiographs. HISTORY: right ankle pain/swelling COMPARISON: None available. TECHNIQUE: 4 views obtained. FINDINGS: BONES: Normal. No fracture. JOINTS: Normal. No osteoarthritis. Ankle mortise maintained. Talar dome intact SOFT TISSUES: Normal. OTHER FINDINGS: None. IMPRESSION: Negative study
[2019-03-25] MEDS: Oxycodone/Acetaminophen 5/325 mg Tab PO PRN ×2 (16:01→21:54)
--- NOTE | 2019-03-25 16:24 | CP.PCM.HP ---
<Richard Luevano - Last Filed: 03/25/19 16:18> History of Present Illness - History of Present Illness History of Present Illness: Richard Luevano D.O. PGY-3, Internal Medicine Resident, Dr. Dahl's Service, H&P CC: Right ankle pain for approximately 2 days 78-year-old male with a past medical history of hypertension, diabetes, hypothyroidism, previous gout attacks, COPD, BPH, atrial fibrillation status post watchman procedure, and heart failure last ejection fraction of 40% on 10/06/2018, bioprosthetic aortic valve replacements, hyperlipidemia, and vertigo who presented for complaints of right ankle pain for approximately 2 days. Patient states that 2 weeks ago while doing physical therapy he noticed that his right ankle was somewhat swollen. He alerted the physical therapist at some extra physical therapy on that leg and then he had no issues. However for the last 2 days the patient started to notice increasing pain, swelling, and erythema of the right ankle on the lateral aspect. Yesterday he noticed that the pain was getting worse and this morning the pain was so severe that the patient was unable to bear any weight on the ankle at all. Patient had to crawl out of bed and down the stairs and his called 911. Patient states that usually gets gout in the toes. Denies any trauma to the foot, recent or distant. Denies sick contacts. Denies recent travel. Otherwise patient denies any other symptoms including any headache, nausea, vomiting, diarrhea, constipation, lightheadedness, dysuria, hematuria, fevers or chills. PMH: As above PSH: Left knee replacement x2, watchman procedure, aortic valve replacement with bioprosthetic valve SH: States smoked less than 1 pack/day for 9 years, social alcohol use, denies illicit drug use FH: Noncontributory Meds: Reviewed Allergies: Cefepime, penicillins, tetanus vaccine and toxoid, tetracycline Present on Admission - Present on Admission Any Indicators Present on Admission: No Review of Systems - Review of Systems All systems: reviewed and no additional remarkable complaints except (as per HPI) Past Patient History - Infectious Disease Hx of Infectious Diseases: None - Tetanus Immunizations Tetanus Immunization: Unknown - Past Medical History & Family History Past Medical History?: Yes - Past Social History Smoking Status: Former Smoker - CARDIAC Hx Cardiac Disorders: Yes Hx Congestive Heart Failure: Yes Hx Pacemaker: No - PULMONARY Hx Respiratory Disorders: Yes Hx Chronic Obstructive Pulmonary Disease (COPD): Yes - NEUROLOGICAL Hx Neurological Disorder: No - HEENT Hx HEENT Problems: No - RENAL Hx Chronic Kidney Disease: Yes Other/Comment: LOW GRADE BLADDER CA - ENDOCRINE/METABOLIC Hx Endocrine Disorders: No - HEMATOLOGICAL/ONCOLOGICAL Hx Blood Transfusions: No Hx Blood Transfusion Reaction: No - INTEGUMENTARY Hx Dermatological Problems: Yes Hx Basil Cell: Yes (FACE) - MUSCULOSKELETAL/RHEUMATOLOGICAL Hx Musculoskeletal Disorders: No - GASTROINTESTINAL Hx Gastrointestinal Disorders: No Other/Comment: COLON POLYPS, - GENITOURINARY/GYNECOLOGICAL Hx Genitourinary Disorders: Yes Hx Hematuria: Yes (MINIMAL HEMATURIA H/O) Other/Comment: UVULECTOMY - PSYCHIATRIC Hx Psychophysiologic Disorder: No Hx Substance Use: No - SURGICAL HISTORY Hx Coronary Stent: Yes ( x2) Hx Orthopedic Surgery: Yes (left knee replacement) Other/Comment: TOTAL KNEE REPLACEMENT LEFT KNEE 01-03-16 aortic valve replacement 03/25. Watchmen - ANESTHESIA Hx Anesthesia: No Meds Allergies/Adverse Reactions: Allergies Allergy/AdvReac Type Severity Reaction Status Date / Time cefepime Allergy Severe RASH Verified 03/25/19 14:30 Penicillins Allergy Severe SWELLING Verified 03/25/19 14:30 Tetanus Vaccines and Toxoid Allergy Severe ANAPHYLAXIS Verified 03/25/19 14:30 [Tetanus Vaccines & Toxoid] tetracycline Allergy Severe ANAPHYLAXIS Verified 03/25/19 14:30 Physical Exam - Constitutional Appears: Non-toxic, No Acute Distress - Head Exam Head Exam: ATRAUMATIC, NORMOCEPHALIC - Eye Exam Eye Exam: EOMI. absent: Scleral icterus - ENT Exam ENT Exam: Mucous Membranes Moist, Normal Oropharynx - Neck Exam Neck exam: Positive for: Normal Inspection - Respiratory Exam Respiratory Exam: Clear to Auscultation Bilateral. absent: Rhonchi, Wheezes - Cardiovascular Exam Cardiovascular Exam: Irregular Rhythm, +S1, +S2. absent: Rubs - GI/Abdominal Exam GI & Abdominal Exam: Normal Bowel Sounds, Soft. absent: Distended, Tenderness - Extremities Exam Additional comments: right lateral ankle with mild erythema, warm, nonfluctuant, swollen particularly compared to left ankle, in fact whole hind and mid foot are notably swollen, tender, no puncture emery or other signs of trauma - Neurological Exam Neurological exam: Alert, Oriented x3 - Psychiatric Exam Psychiatric exam: Normal Affect, Normal Mood - Skin Skin Exam: Dry, Warm Results - Vital Signs Recent Vital Signs: Last Vital Signs Temp 97.9 F 03/25/19 15:41 Pulse 62 03/25/19 15:41 Resp 20 03/25/19 15:41 BP 162/71 H 03/25/19 15:41 Pulse Ox 93 L 03/25/19 15:41 - Labs Result Diagrams: 03/25/19 09:58 03/25/19 09:58 Labs: Laboratory Results - last 24 hr 03/25/19 03/25/19 03/25/19 09:58 09:58 09:58 WBC 10.5 D RBC 4.20 Hgb 12.6 L Hct 40.2 L MCV 95.7 MCH 30.0 MCHC 31.3 RDW 14.9 H Plt Count 212 MPV 10.3 Neut % (Auto) 67.0 Lymph % (Auto) 16.8 L [place] % (Auto) 15.1 H Eos % (Auto) 1.0 L Baso % (Auto) 0.1 Lymph # (Auto) 1.8 [place] # (Auto) 1.6 H Eos # (Auto) 0.1 Baso # (Auto) 0.01 Absolute Neuts (auto) 7.04 H ESR 28 H PT 12.9 H INR 1.14 APTT 28.8 Sodium 141 Potassium 5.0 Chloride 106 Carbon Dioxide 25 Anion Gap 15 BUN 30 H Creatinine 1.2 Est GFR ( Amer) > 60 Est GFR (Non-Af Amer) 58 Random Glucose 115 H Uric Acid 8.9 H Calcium 9.9 Total Bilirubin 0.6 AST 30 ALT 34 Alkaline Phosphatase 64 Total Protein 7.5 Albumin 4.4 Globulin 3.1 Albumin/Globulin Ratio 1.4 Assessment & Plan - Assessment and Plan (Free Text) Assessment: 78-year-old male with a past medical history of hypertension, diabetes, hypothyroidism, previous gout attacks, COPD, BPH, atrial fibrillation status post watchman procedure, and heart failure last ejection fraction of 40% on 10/06/2018, bioprosthetic aortic valve replacements, hyperlipidemia, and vertigo who presented for complaints of right ankle pain for approximately 2 days. Plan: 1. Right ankle pain with swelling and erythema likely acute gout attack 2. Atrial fibrillation status post watchman procedure 3. Heart failure with reduced ejection fraction of 40% 4. Bioprosthetic aortic valve replacement 5. COPD 6. BPH 7. Hypothyroidism 8. Hypertension 9. Diabetes mellitus Uric acid drawn in the ER shows elevated uric acid of 8.9. ER spoke with orthopedist Dr. Kohler, pending STAT consultation. Currently patient is afebrile with no leukocytosis and hemodynamically stable and his process does not appear infectious including a negative ankle x-ray. Patient received ciprofloxacin and vancomycin in the ER. Will monitor off of antibiotics at this time. Patient's Acute Gout Diagnosis Rule score is 10 which means there is a 82.5% likelihood of gout. Patient also meets ACR/EULAR Gout Classification Criteria with 9 points. Will treat patient's pain with oxycodone/acetaminophen 5/325 1 tab p.o. every 6 hours for severe pain. We will start the patient on colchicine 1.2 mg daily with an extra dose of 0.6 mg at 6 PM. Continue with aspirin, atorvastatin for his CAD. Continue current dialogue, lisinopril, Aldactone for his heart failure. Continue with atropine, Roflumilast, as well a s PRN nebs for his COPD. Will do fingersticks ACHS and start RISS-medium. Will recheck his HgbA1c as last time inpatient it was 6.4. Continue finasteride for his BPH. Continue with levothyroxine for his hypothyroidism. Vitals every 4. Heart healthy diet. Bedrest at this time. Patient was seen and examined and case will be discussed with attending physician. - Date & Time Date: 03/25/19 Time: 14:20 <Sixto Dahl S - Last Filed: 03/25/19 21:29> Results - Vital Signs Recent Vital Signs: Last Vital Signs Temp 97.9 F 03/25/19 15:41 Pulse 70 03/25/19 20:26 Resp 16 03/25/19 16:29 BP 160/70 H 03/25/19 18:04 Pulse Ox 93 L 03/25/19 15:41 - Labs Result Diagrams: 03/25/19 09:58 03/25/19 09:58 Labs: Laboratory Results - last 24 hr 03/25/19 03/25/19 03/25/19 09:58 09:58 09:58 WBC RBC Hgb Hct MCV MCH MCHC RDW Plt Count MPV Neut % (Auto) Lymph % (Auto) [place] % (Auto) Eos % (Auto) Baso % (Auto) Lymph # (Auto) [place] # (Auto) Eos # (Auto) Baso # (Auto) Absolute Neuts (auto) ESR PT 12.9 H INR 1.14 APTT 28.8 Sodium 141 Potassium 5.0 Chloride 106 Carbon Dioxide 25 Anion Gap 15 BUN 30 H Creatinine 1.2 Est GFR ( Amer) > 60 Est GFR (Non-Af Amer) 58 Random Glucose 115 H Uric Acid 8.9 H Calcium 9.9 Total Bilirubin 0.6 AST 30 ALT 34 Alkaline Phosphatase 64 C-React Prot High Sens 14.88 H Total Protein 7.5 Albumin 4.4 Globulin 3.1 Albumin/Globulin Ratio 1.4 03/25/19 09:58 WBC 10.5 D RBC 4.20 Hgb 12.6 L Hct 40.2 L MCV 95.7 MCH 30.0 MCHC 31.3 RDW 14.9 H Plt Count 212 MPV 10.3 Neut % (Auto) 67.0 Lymph % (Auto) 16.8 L [place] % (Auto) 15.1 H Eos % (Auto) 1.0 L Baso % (Auto) 0.1 Lymph # (Auto) 1.8 [place] # (Auto) 1.6 H Eos # (Auto) 0.1 Baso # (Auto) 0.01 Absolute Neuts (auto) 7.04 H ESR 28 H PT INR APTT Sodium Potassium Chloride Carbon Dioxide Anion Gap BUN Creatinine Est GFR ( Amer) Est GFR (Non-Af Amer) Random Glucose Uric Acid Calcium Total Bilirubin AST ALT Alkaline Phosphatase C-React Prot High Sens Total Protein Albumin Globulin Albumin/Globulin Ratio Assessment & Plan - Assessment and Plan (Free Text) Plan: Pt seen and examined by me. I have reviewed the note of the medical customer service representative and I agree with it. I have discussed the assessment and plan with the resident. I have reviewed the medications and the last labs.
[2019-03-25] MEDS ORDERED: Albuterol-Ipratrop 3 mg / 0.5 (3 ml) UD IH PRN (16:31)
[2019-03-25 17:19] VITALS: BMI 34.2
[2019-03-25] MEDS ORDERED: Pneumococcal 23-Valent Vaccine IM ONE (17:19)
[2019-03-25] MEDS ORDERED: COLCHICINE 0.6 MG CAPSULE PO ONE (18:00)
[2019-03-25] MEDS: COLCHICINE 0.6 MG CAPSULE PO SCH (18:06)
[2019-03-25] MEDS: Non Formulary Medication (Tiotropium Bromide [Spiriva Respimat] 2.5 MCG) IH SCH (18:07)
[2019-03-25] MEDS ORDERED: Bupivacaine 0.5% Inj(30mL) IJ ONE (19:32)
[2019-03-25] MEDS ORDERED: MethylPREDNISolone Depo 40 mg/ml Inj IM ONE (19:32)
[2019-03-25] MEDS: Albuterol-Ipratrop 3 mg / 0.5 (3 ml) UD IH SCH (20:26)
[2019-03-25] MEDS ORDERED: DOXEPIN 50 MG PO SCH (22:00)
[2019-03-25] MEDS ORDERED: Insulin Reg-MEDIUM-Coverage SC SCH (22:00)
[2019-03-25 23:00] VITALS: RESP 20
--- NOTE | 2019-03-26 01:06 | HP ---
DATE OF EXAM: 03/25/2019 HISTORY OF PRESENT ILLNESS: The patient was seen and examined. I do agree with the note of the medical assistant per diem. I was involved in the plan of care. The patient has right ankle swelling and pain secondary to an acute gout attack. The patient has atrial fibrillation. The patient was going to be seen by Dr. Kohler for evaluation. IV antibiotics have been started. The patient has been placed on Percocet for pain. He has been given colchicine to help improve his symptoms. He is on atorvastatin for dyslipidemia. He is going to be on nebulizers for his COPD. I did speak to the patient's at the bedside to give her an update on the patient's diagnosis and plan of care. The patient is on levothyroxine for the hypothyroidism. The patient is on Aldactone that will be continued. He has diabetes and he is going to be on insulin sliding scale to control his diabetes. The patient is on Proscar for BPH. He is on lisinopril for hypertension. He is going to be placed on heart-healthy diet. He is going to be admitted to the hospital and will need physical therapy. Sixto Dahl MD
[2019-03-26] MEDS: Albuterol-Ipratrop 3 mg / 0.5 (3 ml) UD IH SCH ×4 (01:48→20:42)
[2019-03-26] MEDS: Oxycodone/Acetaminophen 5/325 mg Tab PO PRN (03:53)
[2019-03-26 07:08] LABS: HEMOGLOBIN 12.2 g/dL (14.0-18.0); LYMPH % 8.9 % (22.0-35.0); MEAN CELL VOLUME 95.4 fl (80.0-105.0); MEAN CORPUSCULAR HEMOGLOBIN 29.6 pg (25.0-35.0); MONO # 1.1 (0.1-0.6); MONO % 10.1 % (1.0-6.0); RBC 4.12 10^6/uL (3.5-6.1); RED CELL DISTRIBUTION WIDTH 14.8 % (11.5-14.5); WHITE BLOOD COUNT 10.6 10^3/uL (4.5-11.0)
[2019-03-26 07:27] LABS: ALB/GLOB RATIO 1.3 (1.1-1.8); ALBUMIN 4.1 g/dL (3.0-4.8); ALT/SGPT 21 U/L (7-56); AST/SGOT 24 U/L (17-59); BLOOD UREA NITROGEN 22 mg/dL (7-21); CALCIUM 9.6 mg/dL (8.4-10.5); GFR NON-AFRICAN AMERICAN 58
--- NOTE | 2019-03-26 08:36 | CON ---
DATE: 03/25/2019 ORTHOPEDIC CONSULT LOCATION: The patient is seen at 572, bed 2. HISTORY OF PRESENT ILLNESS: This is an 78-year-old male with acute onset of right ankle pain happened about 2 days ago and is quite swollen at the ankle joint. X-rays were interpreted as negative, but there is evidence of osteoarthritis with spur formation in the anterior and medial and lateral malleoli. The patient who was examined has an effusion of the right ankle. His sed rate was mildly elevated as well as the C-reactive protein and the uric acid was also elevated at 8.9, slightly elevated. The C-reactive protein was just under 15 and desaturate showed elevation to 28 . White count was 10,000. So, this is suspicious for gouty arthritis because he has a past history of gout. He does have osteoarthritis and he has diuretics and he was eating shellfish a couple of days ago. So, if he is not better, we will aspirate and inject the right ankle that is where the problem is in his right ankle. He cannot move the ankle because of swelling. I will see him in the morning, if he is not better, we will aspirate the ankle and inject with Depo-Medrol and Marcaine. Thank you for treating him for osteoarthritis, possible inflammatory arthritis and gout. Steven Kohler DO
[2019-03-26] MEDS: COLCHICINE 0.6 MG CAPSULE PO SCH (09:51)
[2019-03-26] MEDS: Levothyroxine 75 MCG TAB PO SCH (09:52)
[2019-03-26] MEDS: Non Formulary Medication (Tiotropium Bromide [Spiriva Respimat] 2.5 MCG) IH SCH ×2 (09:53→17:08)
[2019-03-26] MEDS ORDERED: ROFLUMILAST 250 MCG PO SCH (10:00)
--- NOTE | 2019-03-26 11:55 | CARD ---
APPROVED REPORT Date of service: 03/25/2019 EKG Measurement Heart [id number] <Conclusion> Sinus bradycardia with 1st degree AV block with frequent premature ventricular complexes in a pattern of bigeminy Left axis deviation Left bundle branch block Abnormal ECG
--- NOTE | 2019-03-26 14:11 | CP.PCM.PN ---
<Richard Luevano - Last Filed: 03/26/19 14:04> Subjective - Date & Time of Evaluation Date of Evaluation: 03/26/19 Time of Evaluation: 07:15 - Subjective Subjective: Richard Luevano D.O. PGY-3, Internal Medicine Resident, Dr. Dahl's Service, Progress Note 78-year-old male with a past medical history of hypertension, diabetes, hypothyroidism, previous gout attacks, COPD, BPH, atrial fibrillation status p ost watchman procedure, and heart failure last ejection fraction of 40% on 10/06/2018, bioprosthetic aortic valve replacements, hyperlipidemia, and vertigo who presented for complaints of right ankle pain for approximately 2 days. Patient was seen and examined at bedside. Patient states the swelling in his right ankle has somewhat improved. Pain is somewhat better. Eager to get better. Objective - Vital Signs/Intake and Output Vital Signs (last 24 hours): Temp Pulse Resp BP Pulse Ox 99 F 70 20 160/76 H 95 03/25/19 22:51 03/25/19 22:51 03/25/19 22:51 03/25/19 22:51 03/25/19 22:51 Intake and Output: 03/26/19 03/26/19 06:59 18:59 Intake Total 180 1240 Balance 180 1240 - Medications Medications: Current Medications Albuterol/Ipratropium (Duoneb 3 Mg/0.5 Mg (3 Ml) Ud) 3 ml IH [id number] [facility] Last Admin: 03/26/19 13:19 Dose: 3 ml Albuterol/Ipratropium (Duoneb 3 Mg/0.5 Mg (3 Ml) Ud) 3 ml IH Q2H PRN PRN Reason: Shortness of Breath Aspirin (Ecotrin) 81 mg PO DAILY [facility] Last Admin: 03/26/19 09:51 Dose: 81 mg Atorvastatin Calcium (Lipitor) 40 mg PO HS [facility] Last Admin: 03/25/19 21:54 Dose: 40 mg Carvedilol (Coreg) 6.25 mg PO BID [facility] Last Admin: 03/26/19 09:52 Dose: 6.25 mg Colchicine (Colchicine) 1.2 mg PO DAILY [facility] Last Admin: 03/26/19 09:51 Dose: 1.2 mg Finasteride (Proscar) 5 mg PO DAILY [facility] Last Admin: 03/26/19 09:51 Dose: 5 mg Levothyroxine Sodium (Synthroid) 75 mcg PO ACB [facility] Last Admin: 03/26/19 09:52 Dose: 75 mcg Lisinopril (Zestril) 20 mg PO DAILY [facility] Last Admin: 03/26/19 09:51 Dose: 20 mg Non-Formulary Medication (Doxepin [Sinequan]) 50 mg PO HS [facility] Non-Formulary Medication (Roflumilast [Daliresp]) 250 mcg PO DAILY [facility] Last Admin: 03/26/19 11:28 Dose: 250 mcg Non-Formulary Medication (Tiotropium [place] [Spiriva Respimat]) 2.5 mcg IH BID [facility] Last Admin: 03/26/19 09:53 Dose: Not Given Oxycodone/Acetaminophen (Percocet 5/325 Mg Tab) 1 tab PO Q6H PRN PRN Reason: Pain, severe (8-10) Stop: 03/28/19 15:54 Last Admin: 03/26/19 03:53 Dose: 1 tab Spironolactone (Aldactone) 25 mg PO DAILY [facility] Last Admin: 03/26/19 09:52 Dose: 25 mg - Labs Labs: 03/26/19 06:50 03/26/19 06:50 PT 12.9 SECONDS (9.4-12.5) H 03/25/19 09:58 INR 1.14 03/25/19 09:58 APTT 28.8 Seconds (26.9-38.3) 03/25/19 09:58 - Constitutional Appears: Non-toxic, No Acute Distress - Head Exam Head Exam: ATRAUMATIC, NORMOCEPHALIC - Eye Exam Eye Exam: EOMI. absent: Scleral icterus - ENT Exam ENT Exam: Mucous Membranes Moist, Normal Oropharynx - Neck Exam Neck exam: Positive for: Normal Inspection - Respiratory Exam Respiratory Exam: Clear to Auscultation Bilateral. absent: Rhonchi, Wheezes - Cardiovascular Exam Cardiovascular Exam: Irregular Rhythm, +S1, +S2. absent: Rubs - GI/Abdominal Exam GI & Abdominal Exam: Normal Bowel Sounds, Soft. absent: Distended, Tenderness - Extremities Exam Additional comments: right lateral ankle somewhat better - Neurological Exam Neurological exam: Alert, Oriented x3 - Psychiatric Exam Psychiatric exam: Normal Affect, Normal Mood - Skin Skin Exam: Dry, Warm Assessment and Plan - Assessment and Plan (Free Text) Assessment: 78-year-old male with a past medical history of hypertension, diabetes, hypothyroidism, previous gout attacks, COPD, BPH, atrial fibrillation status post watchman procedure, and heart failure last ejection fraction of 40% on 10/06/2018, bioprosthetic aortic valve replacements, hyperlipidemia, and vertigo who presented for complaints of right ankle pain for approximately 2 days. Plan: 1. Right ankle acute gout attack 2. Atrial fibrillation status post watchman procedure 3. Heart failure with reduced ejection fraction of 40% 4. Bioprosthetic aortic valve replacement 5. COPD 6. BPH 7. Hypothyroidism 8. Hypertension 9. Diabetes mellitus Patient seen by orthopedic surgeon today. Status post drainage of fluid from ankle. Per discussion with orthopedist fluid was clear and did not look infectious, likely gout. Currently managing with colchicine 1.2 mg for acute gout attack. Continue with levothyroxine for hypothyroidism. Continue with as needed nebulizer treatments with scheduled breathing treatments as well as home Spiriva and Daliresp. For his heart failure continue with spironolactone, lisinopril, carvedilol. For his CAD continue with aspirin and atorvastatin. Continue with home doxepin. We will have physical therapy evaluate the patient. Patient was seen and examined and case discussed with attending physician. <Sixto Dahl S - Last Filed: 03/26/19 16:53> Objective - Vital Signs/Intake and Output Vital Signs (last 24 hours): Temp Pulse Resp BP Pulse Ox 98.9 F 65 20 112/58 L 95 03/26/19 14:00 03/26/19 14:00 03/26/19 14:00 03/26/19 14:00 03/26/19 14:00 Intake and Output: 03/26/19 03/26/19 06:59 18:59 Intake Total 180 1720 Balance 180 1720 - Medications Medications: Current Medications Albuterol/Ipratropium (Duoneb 3 Mg/0.5 Mg (3 Ml) Ud) 3 ml IH [id number] [facility] Last Admin: 03/26/19 13:19 Dose: 3 ml Albuterol/Ipratropium (Duoneb 3 Mg/0.5 Mg (3 Ml) Ud) 3 ml IH Q2H PRN PRN Reason: Shortness of Breath Aspirin (Ecotrin) 81 mg PO DAILY [facility] Last Admin: 03/26/19 09:51 Dose: 81 mg Atorvastatin Calcium (Lipitor) 40 mg PO HS [facility] Last Admin: 03/25/19 21:54 Dose: 40 mg Carvedilol (Coreg) 6.25 mg PO BID [facility] Last Admin: 03/26/19 09:52 Dose: 6.25 mg Colchicine (Colchicine) 1.2 mg PO DAILY [facility] Last Admin: 03/26/19 09:51 Dose: 1.2 mg Finasteride (Proscar) 5 mg PO DAILY [facility] Last Admin: 03/26/19 09:51 Dose: 5 mg Levothyroxine Sodium (Synthroid) 75 mcg PO ACB [facility] Last Admin: 03/26/19 09:52 Dose: 75 mcg Lisinopril (Zestril) 20 mg PO DAILY [facility] Last Admin: 03/26/19 09:51 Dose: 20 mg Non-Formulary Medication (Roflumilast [Daliresp]) 250 mcg PO DAILY [facility] Last Admin: 03/26/19 11:28 Dose: 250 mcg Non-Formulary Medication (Tiotropium [place] [Spiriva Respimat]) 2.5 mcg IH BID [facility] Last Admin: 03/26/19 09:53 Dose: Not Given (Doxepin [Sinequan] (50 Mg (Home Med)) 50 mg PO [facility] Oxycodone/Acetaminophen (Percocet 5/325 Mg Tab) 1 tab PO Q6H PRN PRN Reason: Pain, severe (8-10) Stop: 03/28/19 15:54 Last Admin: 03/26/19 03:53 Dose: 1 tab Spironolactone (Aldactone) 25 mg PO DAILY [facility] Last Admin: 03/26/19 09:52 Dose: 25 mg - Labs Labs: 03/26/19 06:50 03/26/19 06:50 PT 12.9 SECONDS (9.4-12.5) H 03/25/19 09:58 INR 1.14 03/25/19 09:58 APTT 28.8 Seconds (26.9-38.3) 03/25/19 09:58 Assessment and Plan - Assessment and Plan (Free Text) Plan: Pt seen and examined by me. I have reviewed the note of the front office medical assistant and I agree with it. I have discussed the assessment and plan with the resident. I have reviewed the medications and the last labs.
[2019-03-26] MEDS ORDERED: DOXEPIN 50 MG PO SCH (14:27)
--- NOTE | 2019-03-26 21:09 | PN ---
DATE: 03/26/2019 HOSPITAL COURSE: The patient was seen and examined. I do agree with the note of the medical record clerk. I was involved in the plan of care. The patient has an acute gout attack of the right ankle. He has been started on colchicine. He was seen by Dr. Kohler and had drainage of the right ankle. The patient has CHF secondary to systolic dysfunction with EF of 40%, which is stable. He has a bioprosthetic aortic valve. He is currently on Aldactone, lisinopril, and carvedilol for his heart failure as well as hypertension. The patient is on Lipitor for dyslipidemia. He is on aspirin for his coronary artery disease. He is on levothyroxine for his hypothyroidism. He says his pain is better controlled today. I did speak to Dr. Kohler regarding the case. The patient is currently on nebulizer treatments as needed. He is on a heart-healthy diet. The patient's blood cultures have been negative. I will not continue any antibiotics. He is going to need physical therapy. Sixto Dahl MD
[2019-03-26 23:30] VITALS: TEMP 98.1; O2SAT 96
[2019-03-27] MEDS: Albuterol-Ipratrop 3 mg / 0.5 (3 ml) UD IH SCH ×3 (02:58→13:38)
[2019-03-27] MEDS: Levothyroxine 75 MCG TAB PO SCH (07:32)
[2019-03-27] MEDS: COLCHICINE 0.6 MG CAPSULE PO SCH (09:35)
[2019-03-27 09:38] VITALS: BP 122/56; PULSE 58
--- NOTE | 2019-03-27 21:10 | DS ---
HISTORY OF PRESENT ILLNESS: The patient is an 78-year-old male who came to the hospital because of ankle pain. He says that the pain was not allowing him to walk. The patient was found to have an acute gout attack. He was seen by Dr. Kohler and had drainage of his ankle. The patient was started on colchicine and had improvement of his symptoms. The patient is able to put weight on his foot and able to ambulate. He has no complaints of any chest pain. No shortness of breath. No headaches or dizziness. He is eating well. His pain is controlled. PHYSICAL EXAMINATION: VITAL SIGNS: Temperature is 98.1, pulse of 58, blood pressure is 122/56 and respiration 20. GENERAL: The patient is lying in bed, flat, comfortable. HEENT: No oral lesion. Anicteric sclerae. Moist mucosa. NECK: No JVD, adenopathy, or thyromegaly. CARDIOVASCULAR: S1 and S2, regular. No murmurs, rubs, or gallops. LUNGS: Clear to auscultation bilaterally. No wheeze, rales, or rhonchi. ABDOMEN: Bowel sounds are positive, soft, nontender and nondistended. EXTREMITIES: No cyanosis, clubbing or edema. LABORATORY DATA: White count of 10.6 and hemoglobin 12.2. Creatinine is 1.2. ASSESSMENT: 1. Acute gout of right ankle. 2. Atrial fibrillation. 3. Congestive heart failure secondary to systolic dysfunction, stable. 4. Aortic valve replacement. 5. Chronic obstructive pulmonary disease. 6. Benign prostatic hypertrophy. 7. Hypothyroidism. 8. Hypertension. 9. Diabetes type 2. PLAN: The patient is currently comfortable. He is receiving colchicine for his gout. The patient is on Aldactone for his CHF. He is on carvedilol for his CHF as well. He is going to continue with aspirin. He is on Lipitor for dyslipidemia. He is on Percocet for pain. The patient is on lisinopril for his hypertension. He is on heart-healthy diet. He is going to be discharged home and follow up as an outpatient. He had blood cultures which have been negative. CONDITION: Stable. ACTIVITY: Increased as tolerated. Sixto Dahl MD
--- NOTE | 2019-03-29 08:54 | PROCN ---
DATE: 03/26/2019 The patient had swollen effusion of the right ankle from osteoarthritis, inflammatory arthritis, suspected gout. We are going to inject his ankle with Depo-Medrol and Marcaine for symptomatic relief, and he is still on Lasix for medical conditions that would probably be gout without inflammation. Hopefully, he will feel better with Depo-Medrol and Marcaine injection given today. Steven Kohler DO
== END 2019-03-27 16:15 | disposition home or self-care (01) | DRG 554 ==
LOC: ED 09:00 → ERH 13:02 → 5RSO 15:14 → OBSVTOIN 21:29
PROVIDERS: ADMIT Internal Medicine Nephrology; ATTEND Internal Medicine Nephrology
PROC: 3E0U33Z Introduction of Anti-inflammatory into Joints, Percutaneous Approach (ICD-10-PCS; principal; 2019-03-26)
PROC: 3E0U3BZ Introduction of Anesthetic Agent into Joints, Percutaneous Approach (ICD-10-PCS; 2019-03-26)
DX: M10.9 Gout, unspecified (principal); L03.119 Cellulitis of unspecified part of limb; I13.0 Hypertensive heart and chronic kidney disease with heart failure and stage 1 through stage 4 chronic kidney disease, or unspecified chronic kidney disease; I50.20 Unspecified systolic (congestive) heart failure; M19.071 Primary osteoarthritis, right ankle and foot; M25.571 Pain in right ankle and joints of right foot; Z79.82 Long term (current) use of aspirin; Z79.899 Other long term (current) drug therapy; Z79.890 Hormone replacement therapy; N40.0 Benign prostatic hyperplasia without lower urinary tract symptoms; J44.9 Chronic obstructive pulmonary disease, unspecified; E78.5 Hyperlipidemia, unspecified; I48.91 Unspecified atrial fibrillation; Z79.4 Long term (current) use of insulin; E03.9 Hypothyroidism, unspecified; E11.22 Type 2 diabetes mellitus with diabetic chronic kidney disease; I25.10 Atherosclerotic heart disease of native coronary artery without angina pectoris; N18.9 Chronic kidney disease, unspecified; Z96.652 Presence of left artificial knee joint; Z85.51 Personal history of malignant neoplasm of bladder; Z85.828 Personal history of other malignant neoplasm of skin; Z86.010 Personal history of colon polyps; Z87.891 Personal history of nicotine dependence; Z95.3 Presence of xenogenic heart valve; Z95.5 Presence of coronary angioplasty implant and graft